=== PATIENT | female | born 1965 | race Caucasian/White ===

== ENCOUNTER 2018-01-11 20:23 | Emergency (ER) | payer BC, SELFPAY ==
[2018-01-11] VITALS (7 sets, daily range): BP systolic 136–157; BP diastolic 94–105; PULSE 109–120; RESP 20–26; TEMP 36.3; O2SAT 95–100; BMI 21.2
--- NOTE | 2018-01-11 20:59 | RAD_ITS ---
STUDY: X-RAY CHEST REASON FOR EXAM: Female, 52 years old. PT REPORTS I AM HAVING AN ASTHMA ATTACK. COUGH X3 WEEKS. SORE THROAT, CONGESTION AND SOB TECHNIQUE: PA and lateral views of the chest. COMPARISON: Chest x-ray January 21, 2017, chest CT January 21, 2017 FINDINGS: Chronic fibrotic changes as previously described with retraction of the left upper lobe and bronchiectasis as well as periapical soft tissue prominence noted. There is relative volume loss of the left chest with elevation of the left hemidiaphragm. This was present previously. The right lung is relatively clear. The appearance is stable. There is no demonstrated pleural abnormality. Heart size is stable. Normal mediastinum and prabhjot. Normal visualized pulmonary arteries. Atherosclerosis of the aortic arch noted. Normal visualized thoracic spine. Normal visualized ribs, clavicles, and shoulders. There is no demonstrated abnormality of the visualized soft tissue structures of the upper abdomen. RAD/Chest PA and Lateral IMPRESSION: Chronic changes as described. No acute superimposed abnormality. Electronically Signed: Nell Gonzalez MD at 23:01 EDT Tel , Service support ,
[2018-01-11] MEDS: predniSONE 20 MG Tablet 60 MG PO (21:04)
[2018-01-11] MEDS: Ipratropium/Albuterol Sulfate 3 ML AMPUL.NEB INHALATION (21:10)
[2018-01-11] MEDS: Albuterol 2.5 MG/3 ML VIAL.NEB. INHALATION ×2 (21:11→21:37)
--- NOTE | 2018-01-11 23:07 | ED.DCSUM_ITS ---
- ER Visit Summary Date of Service: 01/11/18 Chief Complaint: Asthma exacerbation History of Present Illness: The patient is a 52 F presenting for evaluation due to asthma exacerbation. Patient states that she has a underlying history of asthma, had been dealing with respiratory illness couple of months ago, was on a prolonged period of antibiotics and steroids that she finished 3 weeks ago. Patient states that progressively since coming off of the steroids she feels that she has been having worsening shortness of breath but specifically worse today. Patient states that it is associated with a cough intermittently productive of sputum. She denies any presence of fevers. Patient states that she does have an underlying history of Hodgkin's lymphoma and has chronic changes on her left lung on chest x-ray. Review of systems otherwise negative. Physical Examination: Vital signs notable for triage heart rate of 120 respiratory rate 25 pulse ox 95% on room air no hypoxia. Well-nourished female no acute distress no conjunctival pallor no scleral icterus moist mucous membranes. Neck was supple no JVD. Heart was tachycardic and regular. No respiratory distress, but there was tachypnea with wheezing in the bilateral lung doherty with decreased sounds noted on the left consistent with patient's history. Abdomen soft nontender no peripheral edema remainder physical otherwise unremarkable. Test Results: Chest x-ray shows chronic changes with no evidence of superimposed infiltrate per radiology Emergency Department Course and Treatment: Patient presented for evaluation secondary to shortness of breath. Patient was given albuterol and Atrovent treatments as well as prednisone. Patient's chest x-ray shows no evidence of pneumonia. Patient had some dramatic improvement on repeat evaluation has no hypoxia and was able to ambulate on room air and keep her saturations to 96% without significant dyspnea. This point patient has follow-up with pulmonology coming early next month, I believe that she is safe for discharge with a course of prednisone. First dose given in the emergency department patient was discharged in stable condition. Disposition: Discharge Impression: 1. Asthma exacerbation This note was generated with [employer] dictation software. It may contain incorrect words, spelling, and punctuation that were not noted in review of the chart prior to signing ED Disposition - Plan for ED Patient: Disposition: Home or Assisted Living Chief Complaint: Shortness of Breath Diagnosis: Asthma exacerbation Instructions: ED Bronchitis Asthmatic Prescriptions: Prednisone [Deltasone] 60 mg PO DAILY #15 tab Additional Instructions: Followup with Pulmonology as scheduled
== END 2018-01-11 23:18 | disposition home or self-care (01) ==
PROVIDERS: Emergency Provider Emergency Medicine; Family Provider Internal Medicine; PCP Internal Medicine
DX: J45.901 Unspecified asthma with (acute) exacerbation (principal); C81.90 Hodgkin lymphoma, unspecified, unspecified site
CPT/HCPCS: 71046; 94640; 99284

== ENCOUNTER 2018-01-29 11:27 | Inpatient (IN) | payer BC, SELFPAY ==
[2018-01-29] VITALS (13 sets, daily range): BP systolic 114–137; BP diastolic 88–99; PULSE 82–124; RESP 16–33; TEMP 36.3–36.9; O2SAT 93–98; BMI 21.6; BMI 21.0; BMI 21.1
--- NOTE | 2018-01-29 11:50 | EKG12_ITS ---
Test Reason : CHEST PRESSURE Blood Pressure : / mmHG Vent. Rate : 119 BPM Atrial Rate : 119 BPM P-R Int : 136 ms QRS Dur : 124 ms QT Int : 350 ms P-R-T Axes : 067 -02 047 degrees QTc Int : 492 ms Sinus tachycardia Right bundle branch block Abnormal ECG Confirmed by SKYLAR DSEIR MD ([id number]), dictionary editor LYNN TURK ([id number]) on 02/03/2018 2:16:29 PM Referred By: Confirmed By:SKYLAR DESIR MD
--- NOTE | 2018-01-29 11:51 | CT_ITS ---
STUDY: CTA CHEST REASON FOR EXAM: Female, 52 years old. Shortness of breath and chest pressure. Lower extremity edema. History of Hodgkin's lymphoma. RADIATION DOSAGE (If Supplied By Facility): CTDIvol = ( 7.86 ) mGy, DLP = ( 198.95 ) mGycm TECHNIQUE: The examination was performed with the intravenous administration of 75mL ml of Isovue 370 contrast material. Post-processing of the angiographic images was performed, with multiplanar reformation and 3D reconstruction. Individualized dose optimization techniques were used for this CT. COMPARISON: Comparison is made with prior study dated January 21, 2017. FINDINGS: Normal enhancement of the main pulmonary artery and right and left pulmonary arteries. Normal enhancement of the bilateral peripheral pulmonary arteries. There is no demonstrated pulmonary embolism. There is atherosclerotic calcification of the aortic arch with tortuosity. There is no demonstrated aortic dissection. Moderate sized pericardial effusion. Cardiomegaly. Normal mediastinum. Normal hilar regions. Normal visualized trachea and bronchi. Moderate size bilateral pleural effusion right greater than left. Soft tissue density and bronchiectasis in the medial aspect of the left upper lobe with volume loss of the left upper lobe. This may represent postradiation fibrosis and bronchiectasis. Increased markings are also seen in the right upper lobe most likely due to scarring. There is also evidence of increased linear markings with areas of confluence along the lateral aspect of the left lower lobe anteriorly. This may represent scarring. Dependent atelectasis is seen at the lung bases worse on the right side. Normal chest wall structures. Osteopenia of the thoracic vertebrae. Abnormal appearance of the C7 and T1 vertebra suggestive of possible metastasis. Normal visualized upper abdomen. CT/CTA Chest W/WO Contrast IMPRESSION: Bilateral pleural effusions right greater than left with underlying atelectasis. Stable fibrocalcific scarring in the left lung apex with bronchiectasis. Moderate sized pericardial effusion. Abnormal appearance of the upper thoracic vertebrae. Metastasis should be ruled out. Electronically Signed: Blayne Kamraa MD at 13:04 EDT Tel [phone], Service support ,
[2018-01-29] MEDS: Ipratropium/Albuterol Sulfate 3 ML AMPUL.NEB INHALATION (11:58)
[2018-01-29 12:09] LABS: Absolute Lymphocyte Count 0.63 X10^3/ul (0.83-4.51); Absolute Neutrophil Count 3.1 X10^3/uL (2.0-7.7); Basophil# 0.01 X10^3/uL; Basophil% 0.2 % (0-1); Eosinophil# 0.01 X10^3/uL; Eosinophils% 0.2 % (0-5); Hemoglobin 11.6 g/dl (12.0-15.0); Lymphocyte # 0.63 X10^3/ul (4.0); Lymphocyte % 15.1 % (19-41); Mean Corp Hgb Conc 33.1 g/gl (32-36); Mean Corpuscular Volume 84.5 fL (81-99); Mean Platelet Vol. 9.2 fl (6.2-12.0); Monocyte% 9.6 % (0-10); Neutrophil # 3.11 X10^3/uL (2.7-7.7); Neutrophil % 74.9 % (47-70); Platelet Count 160 K/mm3 (150-450); RBC Distribution Width CV 14.2 % (11.6-14.6); RBC Distribution Width SD 42.9 fl (35.1-43.9); Red Blood Count 4.14 M/mm3 (4.2-5.4); White Blood Count 4.2 K/mm3 (4.4-11.0)
[2018-01-29 12:17] LABS: POSITIVE COUNT NO; POSITIVE DIFFERENTIAL NO; POSITIVE MORPHOLOGY NO
[2018-01-29] MEDS: MethylPREDNISolone 125 MG/2 ML Vial IV (12:20)
[2018-01-29 12:22] LABS: Anion Gap 11 (5-15); BUN 18 mg/dL (7-18); BUN/Creat Ratio 17.5 RATIO (10-20); Calcium,Total 8.5 mg/dL (8.5-10.1); Chloride 96 mmol/L (98-107); Creatinine, Serum 1.03 mg/dL (0.55-1.02); EST Glomerular Filtration Rate 60 mL/min (>60); Est Glom Filt Rate - Afr Amer 73 mL/min (>60); Estimated Creatinine Clearance 67.53 ml/min; Glucose 101 mg/dL (74-106); Potassium 3.9 mmol/L (3.5-5.1); Sodium Level 131 mmol/L (136-145)
[2018-01-29 12:45] LABS: BNP,B-Type NATRIURETIC PEPTIDE 1357.5 pg/mL (0-100)
--- NOTE | 2018-01-29 14:54 | ED.DCSUM_ITS ---
- ER Visit Summary Date of Service: 01/29/18 Chief Complaint: [Shortness of breath] History of Present Illness: The patient is a 52 F [presents with shortness of breath that started 2 weeks ago. Patient's had a cough but only bringing up some clear phlegm. Patient complains of some pain with deep breathing. Patient states that she has been sleeping in a recliner because she cannot lay flat. Patient denies any fever. Patient gives history of asthma and prior history of Hodgkin's lymphoma that is in remission.] Physical Examination: [HEENT-PERRLA, EOMI. Cranial nerves II through XII grossly intact. TMs clear. Mucous membranes moist. No adenopathy. Cardiovascular-regular rate and rhythm without murmur or ectopy Lungs-good aeration bilaterally. Patient has Rales in both bases with rhonchi and wheezing throughout. Mild tachypnea. No accessory muscle use or retractions. Abdomen-normoactive bowel sounds, soft, nontender, no rebound or rigidity, no peritoneal signs. Extremities-intact ?4, normal range of motion, normal pulses, atraumatic]. Patient has +1 edema both lower extremities. Test Results: [EKG obtained on arrival shows sinus tachycardia with a ventricular rate of 119 bpm with a right bundle branch block. CBC with differential showed a white blood cell count of 4.2, hemoglobin 11.6, hematocrit 35, platelets 160. Chemistries unremarkable other than a depressed sodium of 131. Troponin was less than 0.02. BNP was 1357. CT scan of the chest with IV contrast was ordered which showed bronchiectasis of the left upper lobe. Patient had moderate pericardial effusion. Patient had cardiomegaly. Patient had moderate bilateral pleural effusions. Patient also had abnormal appearance of C7 and T1 and there is a question of metastasis.] Emergency Department Course and Treatment: [Patient received Lasix 80 mg IV. Patient received a DuoNeb aerosol and Solu-Medrol.] Treatment Plan: [Admit for further workup and evaluation of CHF and pleural effusions as well as pericardial effusion] Disposition: [Admit] Impression: [CHF-new onset Bilateral pleural effusions Pericardial effusion] Concern for bony metastasis to C7 and T1 This note was generated with [employer] dictation software. It may contain incorrect words, spelling, and punctuation that were not noted in review of the chart prior to signing ED Disposition - Plan for ED Patient: Chief Complaint: Shortness of Breath Referrals: Elicia Field MD [Primary Care Provider] -
[2018-01-29] MEDS: Furosemide 100 MG/10 ML Vial 80 MG IV (15:19)
--- NOTE | 2018-01-29 15:25 | NURSING ---
107 CHF EXAC VERITO
--- NOTE | 2018-01-29 15:26 | CASEMGMT ---
Social Work Note In to complete initial assessment with pt as she is targeted for anticipated admission. Introduced self and role at [facility]. Pt is accompanied by her spouse, is alert and oriented and presents with pleasant affect as evidenced by smiling and willingness to participate in assessment. Pt reports to live with her spouse and son in a split level home. Denies access issues, and reports to be independent with ADL's. Pt is employed full-time, has insurance and denies financial instability. Pt's PCP is Dr. Field and her preferred pharmacy is [facility]. Pt does not anticipate discharge needs at discharge, but informed that and RN CM will be available on her assigned unit if needs arise. Hayde Hernandez, FILL MANAGER, ASSISTANT PROFESSOR OF EDUCATION
--- NOTE | 2018-01-29 15:34 | ECHOD_ITS ---
Reason For Study: Heart Failure Procedure This was a 2D Doppler, Color Flow transthoracic echocardiogram. The exam was of adequate technical quality. Exam performed portable in patient room. Left Ventricle Mildly dilated left ventricle. Severe global left ventricular systolic dysfunction. The estimated ejection fraction is 20 %. Transmitral diastolic flow velocities suggest moderate (stage 2) diastolic dysfunction (pseudonormal pattern). Right Ventricle Normal RV size. Normal systolic function. Atria Normal left atrium. Normal right atrium. No doppler evidence for ASD. Mitral Valve There is no mitral annular calcification. Mild diffuse mitral valve thickening. Moderate (2+) mitral valve insufficiency. Tricuspid Valve Normal tricuspid valve. Mild tricuspid valve insufficiency. Right ventricular systolic pressure estimated to be 56 mmHg. Aortic Valve Trisinus/trileaflet aortic valve. Normal aortic valve. Moderately severe (3+) aortic valve insufficiency. Pulmonic Valve The pulmonic valve is not well visualized. Mild (1+) pulmonic valve insufficiency. Great Vessels Normal sized aortic root. Pericardium/Pleural Moderate pericardial effusion. There are no echocardiographic indications of cardiac tamponade. Echolucency c/w a pleural effusion. MMode/2D Measurements & Calculations LVIDd: 5.8 cm IVSd: 0.98 cm Ao root diam: 3.3 cm LVIDs: 5.1 cm LVPWd: 1.0 cm LA dimension: 4.2 cm RVDd: 2.8 cm FS: 12.7 % LAV(MOD-bp): 45.2 ml LA A4 area: 14.3 cm2 RA A4 area: 9.5 cm2 LAV(MOD-bp) Indexed: 25.8 ml/m2 LAV(MOD-sp2): 53.2 ml LAV(MOD-sp4): 33.5 ml Doppler Measurements & Calculations MV E max jose: 105.8 cm/sec Lat Peak E' Jose: 5.7 cm/sec Med Peak E' Jose: 7.8 cm/sec MV A max jose: 88.4 cm/sec E/E' lat: 18.6 E/E' med: 13.5 MV E/A: 1.2 Ao V2 max: 121.5 cm/sec AI max jose: 440.0 cm/sec LV V1 max: 98.4 cm/sec Ao max P.9 mmHg AI max P.4 mmHg LV V1 max P.9 mmHg Ao V2 mean: 88.1 cm/sec AI dec slope: 337.4 cm/sec2 Ao mean P.4 mmHg AI P1/2t: 382.0 msec Ao V2 VTI: 20.3 cm PA V2 max: 75.9 cm/sec PI end-d jose: 182.2 cm/sec TR max jose: 347.3 cm/sec TR max P.2 mmHg Interpretation Summary Mildly dilated left ventricle. Severe global left ventricular systolic dysfunction. The estimated ejection fraction is 20 %. Mild diffuse mitral valve thickening. Moderate (2+) mitral valve insufficiency. Mild tricuspid valve insufficiency. Moderately severe (3+) aortic valve insufficiency. Mild (1+) pulmonic valve insufficiency. Moderate pericardial effusion. There are no echocardiographic indications of cardiac tamponade. Echolucency c/w a pleural effusion. Right ventricular systolic pressure estimated to be 56 mmHg c/w pulmonary hypertension. Transmitral diastolic flow velocities suggest diastolic dysfunction. Ordering Physician: Omar Ramirez Performed By: Graciela Stein RDCS, RVT
--- NOTE | 2018-01-29 16:21 | PCM.HP.STD ---
Problem List (1) Non-Hodgkin lymphoma in remission Status: Chronic (2) History of stem cell transplant Status: Chronic (3) Bilateral pleural effusion Status: Chronic (4) Mass of left lung Status: Chronic (5) Heart failure Status: Acute History of Present Illness Date of Admission: 01/29/18 Chief Complaint: Shortness of breath for 3 weeks, progressively worsening The patient is a 52 year old F with history of Hodgkin's lymphoma diagnosed 1999 status post chemo and stem cell transplant in June 2000 and then chest radiation came to ER with progressively worsening of shortness of breath for 3 weeks. Patient also orthopneic and sleep in recliner with bilateral lower legs edema. As per the patient he had chemo with the bleomycin and developed asthma after chemoradiation. She denies chest pain/tightness or near syncope. She denies fever chills, cough or flulike symptoms. In ED, EKG shows sinus tachycardia at 119 bpm with right bundle branch block. CT chest was done and shows bilateral pleural effusion right more than left and left lung mass in the lingular lobe. She has not followed oncologist last 6 years, used to follow-up in [facility]. She denies any previous cardiac history. [] Past Medical History Past Medical History (Chronic Problems): Chronic Problems Non-Hodgkin lymphoma in remission (Chronic) History of stem cell transplant (Chronic) Bilateral pleural effusion (Chronic) Mass of left lung (Chronic) Allergies guaifenesin Allergy (Verified 01/29/18 11:28) Other Penicillins [PCN] Allergy (Verified 01/29/18 11:28) Itching Sulfa (Sulfonamide Antibiotics) Allergy (Verified 01/29/18 11:28) Rash Home Medications: Ambulatory Orders Medication Instructions Recorded Montelukast [Singulair] 10 mg PO DAILY 11/17/14 Omeprazole [Omeprazole] 20 mg PO BID 11/17/14 Albuterol Sulfate 1.25 mg IH Q4H PRN PRN 01/29/18 Amitriptyline HCl [Elavil] 50 mg PO DAILY 01/29/18 Fluticasone/Salmeterol [Advair 1 puff BID 01/29/18 500-50 Diskus] Ipratropium [Atrovent] 0.5 mg INHALATION Q4H PRN PRN 01/29/18 Venlafaxine XR [Effexor Xr] 37.5 mg DAILY 01/29/18 Smoking Status: Never smoker - *Family History Paternal History Items: No pertinent history Review of Systems Constitutional: Reports: Weakness, - - Denies recent weight loss in last 6 months. Denies: Chills, Fever, Weight Change HEENT: Denies: Head Aches, Sinus Congestion, Sinus Drainage Cardiovascular: Denies: Chest Pain, Palpitations Respiratory: Reports: Shortness of breath upon exertion. Denies: Cough, Shortness of breath at rest, Sputum production Gastrointestinal: Denies: Abdominal Pain, Nausea, Vomiting Genitourinary: Denies: Dysuria Musculoskeletal: Denies: Joint Pain, Joint Tenderness Skin: Denies: Rash, Wounds Neurological: Denies: Numbness, Tingling, Focal weakness Psychiatric: Denies: Anxiety, Depression, Homicidal Ideations, Suicidal Ideations Hematologic/ Lymphatic: Denies: Easy Bruising, Easy Bleeding VTE Information - Inpt Only VTE Present on Admission: No VTE Mechan Device Prophylaxis: SCD's VTE Pharm Prophylaxis ordered?: Yes Patient Problems: Active and Suspected Problems Heart failure (Acute) - Physical Exam General: Alert, Oriented x3, Cooperative HEENT: Atraumatic, PERRLA, EOMI, Normocephalic Neck: Supple, No JVD, Negative Carotid Bruits Lungs: Diminished, Rales, - - Bilateral pleural effusion, right more than left. Stony dullness present on the right side below fourth intercostal space Cardiovascular: Regular rate, Regular Rhythm, Normal S1, Normal S2, No murmurs Abdomen: Bowel Sounds Present, Soft, Non Tender, Non-Distended Extremities: Capillary Refill Less than 3 Seconds, Edema Skin: No rashes, No breakdown Musculoskeletal: No Tenderness to Palpation of Joints or Extremities Neurological: Cranial nerves II-XII grossly intact Psych/Mental Status: Normal Affect, Appropriate Vital Signs Temp Pulse Resp BP Pulse Ox 98.5 F 123 H 33 H 133/98 H 94 01/29/18 11:28 01/29/18 15:09 01/29/18 15:09 01/29/18 15:09 01/29/18 15:09 Assessment/Plan Active and Suspected Problems Heart failure (Acute) The patient is a 52 year old F with history of Hodgkin's lymphoma diagnosed 1998 status post chemo and stem cell transplant in June 2000 and then chest radiation came to ER with progressively worsening of shortness of breath for 3 weeks. Patient also orthopneic and sleep in recliner with bilateral lower legs edema. As per the patient he had chemo with the bleomycin and developed asthma after chemoradiation. She denies chest pain/tightness or near syncope. She denies fever chills, cough or flulike symptoms. In ED, EKG shows sinus tachycardia at 119 bpm with right bundle branch block. CT chest was done and shows bilateral pleural effusion right more than left and left lung mass in the lingular lobe. She has not followed oncologist last 6 years, used to follow-up in [facility]. She denies any previous cardiac history. 1. Clinically new onset heart failure: The patient is being admitted to PCU. Serial cardiac enzymes ordered. 2D echo ordered. Started on Lasix 40 mg IV twice daily. Started on metoprolol low-dose, lisinopril and Isordil. 2. Bilateral pleural effusion with possibility of underlying atelectasis/pneumonia/bronchiectasis and left upper lobe lung mass: As per the patient, she had pneumonia about 2 months ago. Patient will need thoracocentesis and pleural fluid analysis. Pulmonary consult. Urinary antigens ordered. Chest CT scan shows soft tissue density and bronchiectasis in the medial aspect of the left upper lobe with volume loss of left upper lobe. Suspicion of postradiation fibrosis and bronchiectasis. And atelectasis in the lung bases. Clinically, she is not having symptoms of fever chills or cough suggestive of pneumonia so will hold off antibiotic and follow clinically. 3. Intermittent acquired asthma most rarely after chemoradiation: On Pulmicort inhalation. DuoNeb every 4 hourly as needed. 4. Hodgkin's lymphoma status post stem cell transplant, chemoradiation in remission: Consult Dr. Solis for further opinion. DVT prophylaxis: On Lovenox 40 mg subcu daily and bilateral SCDs. Laboratory Results 01/29/18 11:55: WBC 4.2 L, RBC 4.14 L, Hgb 11.6 L, Hct 35.0 L, MCV 84.5, MCH 28.0, MCHC 33.1, RDW 14.2, RDW Differential 42.9, Plt Count 160, MPV 9.2, Immature Gran % (Auto) 0.000, Neut % (Auto) 74.9 H, Lymph % (Auto) 15.1 L, [place] % (Auto) 9.6, Eos % (Auto) 0.2, Baso % (Auto) 0.2, Absolute Neuts (auto) 3.1, Absolute Lymphs (auto) 0.63 L, Total Counted Not Reportable 01/29/18 11:55: Sodium 131 L, Potassium 3.9, Chloride 96 L, Carbon Dioxide 24.0, Anion Gap 11, BUN 18, Creatinine 1.03 H, Estim Creat Clear Calc 67.53, Est GFR (MDRD) Af Amer 73, Est GFR (MDRD) Non-Af 60, BUN/Creatinine Ratio 17.5, Glucose 101, Calcium 8.5, Troponin I < 0.02 01/29/18 11:55: B-Natriuretic Peptide 1357.5 H 01/29/18 11:55: Magnesium 2.0 01/29/18 16:17: Troponin I Pending Clinical Impression(s) from Imaging Studies Chest CTA 01/29/18 11:51 IMPRESSION: Bilateral pleural effusions right greater than left with underlying atelectasis. Stable fibrocalcific scarring in the left lung apex with bronchiectasis. Moderate sized pericardial effusion. Abnormal appearance of the upper thoracic vertebrae. Metastasis should be ruled out. Electronically Signed: Blayne Kamara MD at 13:04 EDT Tel [phone], Service support , Code Visit Inpatient E&M: 62875 Init Hosp L3
[2018-01-29] MEDS: Enoxaparin 40 MG/0.4 ML Syringe SC (17:53)
[2018-01-29 18:21] LABS: LDH 296 U/L (84-246)
[2018-01-29 18:30] LABS: Color, Urine Straw (Yellow); Glucose, Dipstick Normal (Normal); Ketone-Dipstick Negative (Negative); Leukocyte Esterase-Dipstick Negative /ul (Negative); Nitrite-Dipstick Negative (Negative); Occult Blood-Urine Negative /ul (Negative); Protein-Dipstick Negative (Negative); Urine Bilirubin Dipstick Negative (Negative); Urine Clarity Clear (Clear); Urine Urobilinogen Normal (Normal)
[2018-01-29] MEDS: Acetaminophen 325 MG Tablet 650 MG PO (18:38)
[2018-01-29] MEDS: Metoprolol Tartrate 25 MG Tablet 12.5 MG PO (21:07)
[2018-01-29] MEDS: Isosorbide DN 10 MG Tablet PO (21:08)
[2018-01-29] MEDS: Furosemide 40 MG/4 ML Vial IV (21:08)
[2018-01-29] MEDS: 0.9% NaCl Peripheral Flush Adult/Peds IV ×2 (21:09→22:33)
[2018-01-29] MEDS: LORazepam 2 MG/ML Syringe 0.5 MG IV (22:33)
[2018-01-30] VITALS (14 sets, daily range): BP systolic 97–117; BP diastolic 67–83; PULSE 83–110; RESP 12–24; TEMP 36.3–36.8; O2SAT 95–98
--- NOTE | 2018-01-30 | FLU_PTH ---
PATIENT: ZEESHAN FERNANDO LOC: PCU U#:[id number] AGE/SX: 52/F ROOM: [facility] RE01/29/[address]: Dr. Manan Gutierrez MD : 1965 BED: 1 DIS: 01/30/2018 SPEC #: [id number] RECD: 01/30/18 13:05 STATUS: LUIS FELIPE REFabrice #: [id number] COLEEN: 01/30/18 00:[address]: Manan Gutierrez DEPT: CYTOLOGY RECD BY: Michael Ramon ENTERED: 01/30/18 13:06 SP TYPE: Fluid OTHR DR: MD Dr. Dimitris Maldonado DO Dr. Lapman Lun, MD Dr. Prakash Chand, MD Tissues: THORACIC FLUID Procedures: Pap Stain (control) Special Stain Group II Surgery Specimen Level IV Cell Block Cytospin Fluid HEADER OPERATION: Ultrasound-guided right thoracentesis PRE-OP DIAGNOSIS: Right pleural effusion TISSUE SUBMITTED: Thoracentesis fluid for cytology DIAGNOSIS CYTOLOGY Thoracentesis fluid for cytology (cytospin and cell block): Negative for malignant cells. SJ:twin 02/02/18 CYTOLOGY STUDY Slides are reviewed. The specimen consists of macrophages, mesothelial cells and inflammatory cells. CYTOLOGY GROSS Received is 100 ml of yellow cloudy fluid labeled with the patient's name and and designated per the requisition as thoracentesis. Submitted for cytology preparation including cell block. / 01/30/18 TC:5 CPT: 28776, 90564
[2018-01-30 02:48] LABS: Hematocrit 34.7 % (37-47); Hemoglobin 11.8 g/dl (12.0-15.0); International Normalized Ratio 1.1; Mean Corpuscular Hgb 27.8 pg (27.0-32.0); Mean Corpuscular Volume 81.8 fL (81-99); Mean Platelet Vol. 9.6 fl (6.2-12.0); Platelet Count 155 K/mm3 (150-450); Prothrombin Time (Protime)PT. 14.4 SECONDS (11.7-14.9); RBC Distribution Width CV 14.1 % (11.6-14.6); RBC Distribution Width SD 41.2 fl (35.1-43.9); Red Blood Count 4.24 M/mm3 (4.2-5.4); White Blood Count 3.2 K/mm3 (4.4-11.0)
[2018-01-30 02:59] LABS: Scan Indicated on CBC? Y/N NO
[2018-01-30 03:28] LABS: Anion Gap 12 (5-15); BUN 17 mg/dL (7-18); BUN/Creat Ratio 20.4 RATIO (10-20); Calcium,Total 8.3 mg/dL (8.5-10.1); Chloride 94 mmol/L (98-107); Cholesterol 159 mg/dL (200); Creatinine, Serum 0.83 mg/dL (0.55-1.02); EST Glomerular Filtration Rate 77 mL/min (>60); Est Glom Filt Rate - Afr Amer 93 mL/min (>60); Globulin 3.4 g/dL (2.2-4.2); Glucose 124 mg/dL (74-106); High Density Lipoprotein 74 mg/dL; Potassium 3.7 mmol/L (3.5-5.1); Protein, Total 6.9 g/dL (6.4-8.2); Sodium Level 132 mmol/L (136-145); Thyroid Stim Hormone (TSH) 0.71 uIU/mL (0.358-3.74); Triglycerides 43 mg/dL; Very Low Density Lipoprotein 9 mg/dL (5-40)
[2018-01-30] MEDS: Isosorbide DN 10 MG Tablet PO (05:32)
--- NOTE | 2018-01-30 05:55 | EKG12_ITS ---
Test Reason : AM EKG Blood Pressure : / mmHG Vent. Rate : 097 BPM Atrial Rate : 097 BPM P-R Int : 162 ms QRS Dur : 132 ms QT Int : 456 ms P-R-T Axes : 085 055 007 degrees QTc Int : 579 ms Normal sinus rhythm Right bundle branch block Abnormal ECG When compared with ECG of 29-JAN-2018 11:41, MANUAL COMPARISON REQUIRED, DATA IS UNCONFIRMED Reconfirmed by KARLEE ASH, SKYLAR ([id number]), writer editor LYNN TURK ([id number]) on 02/03/2018 3:31:50 PM Referred By: DR SELLERS Confirmed By:SKYLAR DESIR MD
--- NOTE | 2018-01-30 05:55 | RAD_ITS ---
STUDY: X-RAY CHEST REASON FOR EXAM: Female, 52 years old. Shortness of breath. TECHNIQUE: AP and lateral views of the chest. COMPARISON: Comparison is made with prior study dated January 11, 2018. FINDINGS: EKG electrodes are seen. Is evidence of bilateral pleural effusions with bibasilar atelectasis. Mild degree of vascular congestion. Stable scarring in the left suprahilar region with volume loss in the left upper lobe most likely secondary to prior radiation treatment or surgery. Stable pleural thickening of both lung apices worse on the left side. There is mild cardiac enlargement. Normal mediastinum and prabhjot. Normal visualized pulmonary arteries. There is atherosclerotic tortuosity of the aortic arch and descending thoracic aorta. Normal visualized thoracic spine. Normal visualized ribs, clavicles, and shoulders. There is no demonstrated abnormality of the visualized soft tissue structures of the upper abdomen. RAD/Chest PA and Lateral IMPRESSION: Bilateral pleural effusions with underlying bibasilar atelectasis superimposed on mild degree of CHF. Stable changes in the left suprahilar region and both lung apices. Electronically Signed: Blayne Kamara MD at 10:07 EDT Tel [phone], Service support ,
--- NOTE | 2018-01-30 08:58 | RAD_ITS ---
STUDY: X-RAY - THORACIC SPINE REASON FOR EXAM: Female, 52 years old. History of arthritis. Possible metastasis. TECHNIQUE: 3 view(s) of the thoracic spine were obtained. COMPARISON: None. FINDINGS: Normal kyphosis of the thoracic spine. There is no substantial scoliosis. There is demineralization of the thoracic spine. There is multilevel disc space narrowing of the thoracic spine. Bilateral pleural effusions and bibasilar infiltrates and/or atelectasis. RAD/Thoracic Spine 3 Views IMPRESSION: Multilevel disc space narrowing in the thoracic level. Osteopenia of the thoracic vertebrae worse in the upper thoracic spine. Correlation with the bone scan is recommended. Electronically Signed: Blayne Kamara MD at 13:00 EDT Tel [phone], Service support ,
--- NOTE | 2018-01-30 08:58 | CON.PCM_ITS ---
Problem List (1) Non-Hodgkin lymphoma in remission Status: Chronic (2) History of stem cell transplant Status: Chronic (3) Fracture of spine Status: Acute Qualifiers: Thoracic vertebra fracture level: unspecified thoracic vertebra Fracture type: closed Fracture morphology: unspecified fracture morphology Fracture healing: with routine healing - Consult Date of Consult: 01/30/[address] Ramirez regarding a patient with history of Hodgkin lymphoma, status post transplant presented with congestive heart failure. My final recommendations will be communicated to Dr. Ramirez, nursing staff, and also by electronic medical records. - Reason for Consult History of Hodgkin lymphoma- in remission Status post bone marrow transplant 1999 Congestive heart failure Thoracic spine fractures History of Present Illness Date of Admission: 01/29/18 The patient is a 52 year old F with history of Hodgkin's lymphoma diagnosed 1998 status post chemotherapy ABVD x 6 months and involved field radiation therapy to mediastinum, and stem cell transplant in June 2000. He had previous evaluation in [facility] after bone marrow transplant regarding heart. Patient came to ER with progressively worsening of shortness of breath for 3 weeks. Patient also orthopneic and sleep in recliner with bilateral lower legs edema for couple weeks. she also developed asthma/ pulmonary toxicity after chemoradiation in 1999. She first noticed increased dyspnea on exertion last September. She was having problems walking up a hill, but she denies chest pain/tightness or near syncope. She denies fever chills, cough or flulike symptoms. She had several bouts of colds and bronchitis in October and November. In ED, EKG shows sinus tachycardia at 119 bpm with right bundle branch block. CT chest was done and shows bilateral pleural effusion right more than left and left lung mass in the lingular lobe (chronic). There is also evidence of possible old compression fracture of the thoracic spine. She has not followed oncologist last 6 years, used to follow-up in [facility]. She denies any previous cardiac history. No tobacco or ETOH used and no family history of heat disease. Denies history of fall or back pain, no neurological symptoms. Past Medical History Past Medical History (Chronic Problems): Chronic Problems Non-Hodgkin lymphoma in remission (Chronic) History of stem cell transplant (Chronic) Bilateral pleural effusion (Chronic) Mass of left lung (Chronic) Asthma (Chronic) Allergies guaifenesin Allergy (Verified 01/29/18 11:28) Other Penicillins [PCN] Allergy (Verified 01/29/18 11:28) Itching Sulfa (Sulfonamide Antibiotics) Allergy (Verified 01/29/18 11:28) Rash Home Medications: Ambulatory Orders Medication Instructions Recorded Montelukast [Singulair] 10 mg PO DAILY 11/17/14 Omeprazole [Omeprazole] 20 mg PO BID 11/17/14 Albuterol Sulfate 1.25 mg IH Q4H PRN PRN 01/29/18 Amitriptyline HCl [Elavil] 50 mg PO DAILY 01/29/18 Fluticasone/Salmeterol [Advair 1 puff BID 01/29/18 500-50 Diskus] Ipratropium [Atrovent] 0.5 mg INHALATION Q4H PRN PRN 01/29/18 Venlafaxine XR [Effexor Xr] 37.5 mg DAILY 01/29/18 Smoking Status: Never smoker - *Family History Paternal History Items: No pertinent history Review of Systems Constitutional: Reports: Weakness, - - Denies recent weight loss in last 6 months. Denies: Chills, Fever, Weight Change HEENT: Denies: Head Aches, Sinus Congestion, Sinus Drainage Cardiovascular: Denies: Chest Pain, Palpitations Respiratory: Reports: Shortness of breath upon exertion. Denies: Cough, Shortness of breath at rest, Sputum production Gastrointestinal: Denies: Abdominal Pain, Nausea, Vomiting Genitourinary: Denies: Dysuria Musculoskeletal: Denies: Joint Pain, Joint Tenderness Skin: Denies: Rash, Wounds Neurological: Denies: Numbness, Tingling, Focal weakness Psychiatric: Denies: Anxiety, Depression, Homicidal Ideations, Suicidal Ideations Hematologic/ Lymphatic: Denies: Easy Bruising, Easy Bleeding Heart failure (Acute/Chonic) - Physical Exam General: Alert, Oriented x3, Cooperative HEENT: Atraumatic, PERRLA, EOMI, Normocephalic Neck: Supple, No JVD, Negative Carotid Bruits Lungs: Diminished, Rales, - - Bilateral pleural effusion, right more than left. Stony dullness present on the right side below fourth intercostal space Cardiovascular: Regular rate, Regular Rhythm, Normal S1, Normal S2, No murmurs Abdomen: Bowel Sounds Present, Soft, Non Tender, Non-Distended Extremities: Capillary Refill Less than 3 Seconds, Edema Skin: No rashes, No breakdown Musculoskeletal: No Tenderness to Palpation of Joints or Extremities Neurological: Cranial nerves II-XII grossly intact Psych/Mental Status: Normal Affect, Appropriate Vital Signs Temp Pulse Resp BP Pulse Ox 98.5 F 123 H 33 H 133/98 H 94 01/29/18 11:28 01/29/18 15:09 01/29/18 15:09 01/29/18 15:09 01/29/18 15:09 Assessment/Plan Active and Suspected Problems Heart failure (Acute) The patient is a 52 year old F with history of Hodgkin's lymphoma diagnosed 1998 status post ABVD x 6 months and stem cell transplant in June 2000 and then chest radiation therapy. She came to ER with progressively worsening of shortness of breath for 3 weeks, edema and orthopnea. In ED, EKG shows sinus tachycardia at 119 bpm with right bundle branch block. 1. Clinically new onset heart failure: Possible chronic heart failure from chemotherapy-induced; and radiation therapy. Plan: -Obtain a record of EKG and echocardiogram after transplant for comparison -Cardiac workup in progress -Cardiology consult 2. Hodgkin's lymphoma status post stem cell transplant in remission: Plan: - no further evaluation needed. 3. abormal upper thoracic vertebra on CT scan-patient has no back pain Plan: -X-ray thoracic spine evaluation -Check SPEP & immunofixation Laboratory Results 01/29/18 11:55: WBC 4.2 L, RBC 4.14 L, Hgb 11.6 L, Hct 35.0 L, MCV 84.5, MCH 28.0, MCHC 33.1, RDW 14.2, RDW Differential 42.9, Plt Count 160, MPV 9.2, Immature Gran % (Auto) 0.000, Neut % (Auto) 74.9 H, Lymph % (Auto) 15.1 L, Nelson % (Auto) 9.6, Eos % (Auto) 0.2, Baso % (Auto) 0.2, Absolute Neuts (auto) 3.1, Absolute Lymphs (auto) 0.63 L, Total Counted Not Reportable 01/29/18 11:55: Sodium 131 L, Potassium 3.9, Chloride 96 L, Carbon Dioxide 24.0 , Anion Gap 11, BUN 18, Creatinine 1.03 H, Estim Creat Clear Calc 67.53, Est GFR (MDRD) Af Amer 73, Est GFR (MDRD) Non-Af 60, BUN/Creatinine Ratio 17.5, Glucose 101, Calcium 8.5, Troponin I < 0.02 01/29/18 11:55: B-Natriuretic Peptide 1357.5 H 01/29/18 11:55: Magnesium 2.0 01/29/18 16:17: Troponin I Pending Clinical Impression(s) from Imaging Studies Chest CTA 01/29/18 11:51 IMPRESSION: Bilateral pleural effusions right greater than left with underlying atelectasis. Stable fibrocalcific scarring in the left lung apex with bronchiectasis. Moderate sized pericardial effusion. Abnormal appearance of the upper thoracic vertebrae. Metastasis should be ruled out. Electronically Signed: Blayne Kamara MD at 13:04 EDT cc: Dr. Omar Ramirez; Dr. Polina Laureano; Dr. Elicia Field
[2018-01-30] MEDS: Metoprolol Tartrate 25 MG Tablet 12.5 MG PO (09:09)
[2018-01-30] MEDS: Acetaminophen 325 MG Tablet 650 MG PO (09:09)
--- NOTE | 2018-01-30 10:00 | US_ITS ---
PROCEDURE: ULTRASOUND GUIDED THORACENTESIS. DATE: January 30, 2018.. INDICATION: Female, 52 years old. Right pleural effusion. PHYSICIAN: Blayne Kamara M.D. PROCEDURE: The risks, benefits, and alternatives to the procedure were explained to the patient. The specific risks of bleeding, infection, and pneumothorax requiring chest tube insertion were discussed and accepted. Written informed consent was obtained. Ultrasonographic evaluation of the right lower pleural space was carried out. An adequate pocket was identified. The patient was placed in the sitting, upright position. The overlying skin was prepped and draped in sterile fashion. 1% lidocaine was administered subcutaneously for local anesthesia. Under ultrasound guidance, a 6 Japanese thoracentesis needle/catheter system was advanced into the right posterior lower pleural fluid collection. Approximately 870 mL of bia-colored fluid was drained. The catheter was removed, and a sterile dressing was applied. A specimen was collected and sent to the laboratory for analysis, as requested by the referring clinician. The patient tolerated the procedure well. A chest x-ray was ordered. US/Thoracentesis W US IMPRESSION: Ultrasound-guided right thoracentesis. Electronically Signed: Blayne Kamara MD at 10:55 EDT Tel [phone], Service support ,
--- NOTE | 2018-01-30 10:09 | RAD_ITS ---
STUDY: X-RAY CHEST REASON FOR EXAM: Female, 52 years old. Post right thoracentesis. TECHNIQUE: Inspiration and expiration views. COMPARISON: Comparison prior examination dated January 30, 2018 at 6:40 AM. FINDINGS: Hyperinflation. The patient is status post right thoracentesis. There is no evidence of thorax. Stable appearance of the left lung. RAD/Chest Insp/Exp 2 View IMPRESSION: Status post right thoracentesis. There is no evidence of pneumothorax. Electronically Signed: Blayne Kamara MD at 13:37 EDT Tel [phone], Service support ,
--- NOTE | 2018-01-30 10:24 | NURSING ---
REPORT CALLED TO BRANDEE ANAND. 870 ML MERLIN FLUID REMOVED. BANDAID APPLIED TO RT MID BACK. CXR CLEARED BY DR. MANZANO. PT GIVEN WATER AND RETURNED TO FLOOR BY RADIOLOGY TRANSPORT.
[2018-01-30 10:38] LABS: Cytology, Body Fluid / CSF SEE PATHOLOGY REPORT
[2018-01-30 10:52] LABS: Body Fluid Mononuclear WBC # 0.792 10^3/uL; Body Fluid Mononuclear WBC % 98.3 %; Body Fluid Polynuclear WBC # 0.014 10^3/uL; Body Fluid Polynuclear WBC % 1.7 %; Body Fluid Total Cells Counted 0.882 10^3/ul (0.000-0.000); White Blood Count/Body Fluid 0.806 10^3/uL
[2018-01-30 10:54] LABS: Appearance/Body Fluid SL CLDY; Auto B Fluid Analyzer BKGD Ct COUNTS W/IN LIMITS (W/IN LIMITS); Color/Body Fluid YELLOW; Source- Body Fluid THORACENTESIS
[2018-01-30] MEDS: Furosemide 40 MG/4 ML Vial IV (10:58)
[2018-01-30] MEDS: 0.9% NaCl Peripheral Flush Adult/Peds IV (10:58)
--- NOTE | 2018-01-30 10:58 | PCM.CONS.GEN ---
Problem List (1) Acute combined systolic and diastolic congestive heart failure Status: Acute (2) Non-Hodgkin lymphoma in remission Status: Chronic (3) History of stem cell transplant Status: Chronic (4) Bilateral pleural effusion Status: Chronic (5) Mass of left lung Status: Chronic Reason for Consult Date of Consultation: 01/30/18 Reason for Consultation: bilat pleural effusions, ?new onset CHF History of Present Illness: The patient is a 52 year old F with a past medical history as below, presented to the ED on 01/29/18 with complaints of 2-3 week history of progressive shortness of breath, lower extremity edema, and orthopnea. Patient complains of a cough with clear sputum production. She denies any fever or chills. Denies hemoptysis. Denies recent weight changes. She has been sleeping in a recliner for several weeks and has not been able to do her chores. Her legs became quite edematous which was new for her. Patient actually saw Dr. Lobo as a new consult on Friday, at which time she had pulmonary function tests and was told she had half her lung function. She was to have a chest CT next week but got so short of breath that she went to the ED. She has never had home oxygen. She was just placed on an albuterol rescue inhaler and ipratropium nebulizer, which helps her symptoms. Initial vital signs BP 120/90, pulse 124, RR 24, 98.5?F, and 93% on room air. Blood work showed a white count of 4.2, hemoglobin 11.6 and hematocrit 35. Coags were normal. Sodium mildly low at 131 and chloride 96. BUN normal at 18 and creatinine 1.03. LDH 296 and BNP 1357. Urinalysis not indicative of infection. Urine strep and Legionella antigens were negative. Viral respiratory panel negative. CT of the chest on 01/29 showed bilateral pleural effusions right greater than left with underlying atelectasis. There is stable fibrocalcific scarring in the left lung apex with bronchiectasis. There is a moderate sized pericardial effusion and abnormal appearance of the upper thoracic vertebrae with questionable metastases. Chest x-ray on 01/30 showed bilateral pleural effusions with underlying bibasilar atelectasis superimposed on mild degree of CHF, stable changes left suprahilar region and both lung apices. Echocardiogram showed a mildly dilated left ventricle, severe global LV systolic dysfunction, estimated EF of 20%, mild diffuse MV thickening, moderate MVI, mild TVI, moderately severe ROLA, mild TVI, moderate pericardial effusion with no evidence of cardiac tamponade on, and RVSP estimated at 56 mmHg. A thoracentesis was performed this morning with results pending. Thoracic spine x-ray is pending. Pulmonary was consulted for CHF and bilateral pleural effusions. Past Medical History Past Medical History (Chronic Problems): Chronic Problems Non-Hodgkin lymphoma in remission (Chronic) History of stem cell transplant (Chronic) Bilateral pleural effusion (Chronic) Mass of left lung (Chronic) Allergies guaifenesin Allergy (Verified 01/29/18 11:28) Other Penicillins [PCN] Allergy (Verified 01/29/18 11:28) Itching Sulfa (Sulfonamide Antibiotics) Allergy (Verified 01/29/18 11:28) Rash Home Medications: Ambulatory Orders Medication Instructions Recorded Montelukast [Singulair] 10 mg PO DAILY 11/17/14 Omeprazole [Omeprazole] 20 mg PO BID 11/17/14 Albuterol Sulfate 1.25 mg IH Q4H PRN PRN 01/29/18 Amitriptyline HCl [Elavil] 50 mg PO DAILY 01/29/18 Fluticasone/Salmeterol [Advair 1 puff IH BID 01/29/18 500-50 Diskus] Ipratropium [Atrovent] 0.5 mg INHALATION Q4H PRN PRN 01/29/18 Venlafaxine XR [Effexor Xr] 37.5 mg PO QHS 01/29/18 Surgical History: - - stem cell transplant 1999 Psychiatric History: No pertinent psych hx 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 Denies: Anorexia, Chills, Fever, Night Sweats, Malaise, Weakness, Weight Change Eyes: Denies: Vision Change HEENT: Denies: Difficulty Swallowing, Nasal bleeding, Nasal Congestion, Post Nasal Drip, Sinus Congestion, Sinus Drainage, Sore Throat Cardiovascular: Reports: Edema, Orthopnea. Denies: Chest Pain, Chest Tightness, Light Headedness, Palpitations, Paroxysmal Noc. Dyspnea, Syncope Respiratory: Reports: Cough, Shortness of breath upon exertion, Sputum production. Denies: Hemoptysis, Wheezing Gastrointestinal: Reports: - - + abdominal distention. Denies: Abdominal Pain, Constipation, Diarrhea, Hematemesis, Hematochezia, Nausea, Melena, Vomiting Genitourinary: Denies: Dysuria, Frequency, Hematuria, Retention Gynecological: Denies: Breast symptoms Musculoskeletal: Reports: - - muscle cramps legs w/diuresis. Denies: Back Pain Skin: Denies: Rash, Wounds Neurological: Denies: Balance problems, Change in Speech, Focal weakness, Numbness, Tingling, Tremor, Seizures Psychiatric: Reports: Depression. Denies: Anxiety Endocrine: Denies: Change in Body Habitus, Polydipsia, Polyuria Hematologic/ Lymphatic: Reports: Anemia, Easy Bruising. Denies: Adenopathy, Easy Bleeding, Hx of blood clot Patient Problems: Active and Suspected Problems Heart failure (Acute) Fracture of spine (Acute) Acute combined systolic and diastolic congestive heart failure (Acute) Subjective: The patient was seen and examined. She is sitting up in bed in no acute distress, her daughter and are at the bedside. Just returned a while ago from her thoracentesis and reports significant subjective improvement in her breathing, she has been weaned to room air. Objective: Clinical Impression(s) from Imaging Studies Chest CTA 01/29/18 11:51 IMPRESSION: Bilateral pleural effusions right greater than left with underlying atelectasis. Stable fibrocalcific scarring in the left lung apex with bronchiectasis. Moderate sized pericardial effusion. Abnormal appearance of the upper thoracic vertebrae. Metastasis should be ruled out. Electronically Signed: Blayne Kamara MD at 13:04 EDT Tel [phone], Service support , Chest X-Ray 01/30/18 05:55 IMPRESSION: Bilateral pleural effusions with underlying bibasilar atelectasis superimposed on mild degree of CHF. Stable changes in the left suprahilar region and both lung apices. Electronically Signed: Blayne Kamara MD at 10:07 EDT Tel [phone], Service support , Thoracentesis Ultrasound 01/30/18 10:00 IMPRESSION: Ultrasound-guided right thoracentesis. Electronically Signed: Blayne Kamara MD at 10:55 EDT Tel [phone], Service support , - Physical Exam General: Alert, Oriented x3, Cooperative, No apparent distress, Well developed, Well nourished, - - No conversational dyspnea HEENT: Atraumatic, Normocephalic Oral: Moist Mucosa, No Gingival or Mucosal Lesions/ Ulcerations Neck: Supple, No Nodes, Trachea Midline Lungs: No rhonchi, No wheeze, No rales, Diminished, - - Symmetrical expansion, no dullness to percussion. No crepitus over the thoracentesis site on the right Cardiovascular: Regular rate, Regular Rhythm, Normal S1, Normal S2, No murmurs, No rub noted, No Gallop Abdomen: Bowel Sounds Present, Soft, Non Tender, Non-Distended Extremities: No clubbing, No cyanosis, No Calf Tenderness, Edema - Trace bilateral lower extremities Skin: No rashes, - - bandaid over thora site R back Musculoskeletal: No Tenderness to Palpation of Joints or Extremities Lymphatic: No Cervical, Supraclavicular, or Inguinal Adenopathy Neurological: Cranial nerves II-XII grossly intact, Neuro grossly intact, Motor Exam 5/5 strength throughout Psych/Mental Status: Alert and oriented to time, place, person, mood and affect Vital Signs Temp Pulse Resp BP Pulse Ox 98.2 F 96 12 97/74 98 01/30/18 10:55 01/30/18 10:55 01/30/18 10:55 01/30/18 10:55 01/30/18 10:55 Oxygen Flow Rate (L/min) 2 Oxygen Delivery Method Room Air Weight: 136 lb 3.931 oz Body Mass Index (BMI) 21.0 Intake and Output for Last 24 Hours 01/28/18 01/29/18 01/30/18 23:59 23:59 23:59 Intake Total 200 / 200 800 / 800 Output Total 2000 / 2000 1500 / 1500 Balance -1800 / -1800 -700 / -700 Microbiology Past 72 Hours 01/30/18 05:05 Respiratory Panel (PCR) - Final Mucosa - Nasopharyngeal 01/29/18 18:05 Streptococcus pneumoniae Antigen (M - Final Urine, Random 01/29/18 18:05 Legionella Antigen - Final Urine, Random Laboratory Tests Past 24 Hrs 01/29/18 01/29/18 01/29/18 16:17 16:17 18:05 WBC RBC Hgb Hct MCV MCH MCHC RDW RDW Differential Plt Count MPV PT INR Sodium Potassium Chloride Carbon Dioxide Anion Gap BUN Creatinine Estim Creat Clear Calc Est GFR (MDRD) Af Amer Est GFR (MDRD) Non-Af BUN/Creatinine Ratio Glucose Calcium Lactate Dehydrogenase 296 H Troponin I < 0.02 Total Protein Globulin Albumin/Globulin Ratio Triglycerides Cholesterol LDL Cholesterol VLDL Cholesterol HDL Cholesterol TSH Urine Color Straw Urine Clarity Clear Urine pH 7.0 Ur Specific [place] 1.010 Urine Protein Negative Urine Glucose (UA) Normal Urine Ketones Negative Urine Occult Blood Negative Urine Nitrite Negative Urine Bilirubin Negative Urine Urobilinogen Normal Ur Leukocyte Esterase Negative Fluid Source Fluid Color Fluid Appearance Fluid WBC Fluid RBC Fluid Tot Cell Count Fld Polynuclear WBCs # Fld Polynuclear WBCs % Fluid Mononuclear WBCs Fld Mononuclear WBCs % Fl Pathologist Comment Fluid Glucose Fluid Total Protein Fluid LDH Fluid Comment 2 Miscellaneous Cytology 01/29/18 01/30/18 01/30/18 20:10 02:18 02:18 WBC RBC Hgb Hct MCV MCH MCHC RDW RDW Differential Plt Count MPV PT INR Sodium 132 L Potassium 3.7 Chloride 94 L Carbon Dioxide 26.0 Anion Gap 12 BUN 17 Creatinine 0.83 Estim Creat Clear Calc 81.90 Est GFR (MDRD) Af Amer 93 Est GFR (MDRD) Non-Af 77 BUN/Creatinine Ratio 20.4 H Glucose 124 H Calcium 8.3 L Lactate Dehydrogenase Troponin I < 0.02 < 0.02 Total Protein 6.9 Globulin 3.4 Albumin/Globulin Ratio 1.0 Triglycerides 43 Cholesterol 159 LDL Cholesterol 76 VLDL Cholesterol 9 HDL Cholesterol 74 TSH 0.71 Urine Color Urine Clarity Urine pH Ur Specific [place] Urine Protein Urine Glucose (UA) Urine Ketones Urine Occult Blood Urine Nitrite Urine Bilirubin Urine Urobilinogen Ur Leukocyte Esterase Fluid Source Fluid Color Fluid Appearance Fluid WBC Fluid RBC Fluid Tot Cell Count Fld Polynuclear WBCs # Fld Polynuclear WBCs % Fluid Mononuclear WBCs Fld Mononuclear WBCs % Fl Pathologist Comment Fluid Glucose Fluid Total Protein Fluid LDH Fluid Comment 2 Miscellaneous Cytology 01/30/18 01/30/18 01/30/18 02:18 02:18 09:30 WBC 3.2 L RBC 4.24 Hgb 11.8 L Hct 34.7 L MCV 81.8 MCH 27.8 MCHC 34.0 RDW 14.1 RDW Differential 41.2 Plt Count 155 MPV 9.6 PT 14.4 INR 1.1 Sodium Potassium Chloride Carbon Dioxide Anion Gap BUN Creatinine Estim Creat Clear Calc Est GFR (MDRD) Af Amer Est GFR (MDRD) Non-Af BUN/Creatinine Ratio Glucose Calcium Lactate Dehydrogenase Troponin I Total Protein Globulin Albumin/Globulin Ratio Triglycerides Cholesterol LDL Cholesterol VLDL Cholesterol HDL Cholesterol TSH Urine Color Urine Clarity Urine pH Ur Specific [place] Urine Protein Urine Glucose (UA) Urine Ketones Urine Occult Blood Urine Nitrite Urine Bilirubin Urine Urobilinogen Ur Leukocyte Esterase Fluid Source Fluid Color Fluid Appearance Fluid WBC Fluid RBC Fluid Tot Cell Count Fld Polynuclear WBCs # Fld Polynuclear WBCs % Fluid Mononuclear WBCs Fld Mononuclear WBCs % Fl Pathologist Comment Fluid Glucose Fluid Total Protein Pending Fluid LDH Fluid Comment 2 Miscellaneous Cytology 01/30/18 01/30/18 01/30/18 09:30 09:30 09:30 WBC RBC Hgb Hct MCV MCH MCHC RDW RDW Differential Plt Count MPV PT INR Sodium Potassium Chloride Carbon Dioxide Anion Gap BUN Creatinine Estim Creat Clear Calc Est GFR (MDRD) Af Amer Est GFR (MDRD) Non-Af BUN/Creatinine Ratio Glucose Calcium Lactate Dehydrogenase Troponin I Total Protein Globulin Albumin/Globulin Ratio Triglycerides Cholesterol LDL Cholesterol VLDL Cholesterol HDL Cholesterol TSH Urine Color Urine Clarity Urine pH Ur Specific [place] Urine Protein Urine Glucose (UA) Urine Ketones Urine Occult Blood Urine Nitrite Urine Bilirubin Urine Urobilinogen Ur Leukocyte Esterase Fluid Source THORACENTESIS Fluid Color YELLOW Fluid Appearance SL CLDY Fluid WBC 0.806 Fluid RBC 0.51720 Fluid Tot Cell Count 0.882 H Fld Polynuclear WBCs # 0.014 Fld Polynuclear WBCs % 1.7 Fluid Mononuclear WBCs 0.792 Fld Mononuclear WBCs % 98.3 Fl Pathologist Comment May follow Fluid Glucose Pending Fluid Total Protein Fluid LDH Pending Fluid Comment 2 SEE COMMENT Miscellaneous Cytology Pending Assessment/Plan Active and Suspected Problems Heart failure (Acute) Fracture of spine (Acute) Acute combined systolic and diastolic congestive heart failure (Acute) RECOMMENDATIONS 1. Wean oxygen supplementation to keep saturations >90% 2. Encourage incentive spirometer/Acapella 3. Increase activity as tolerated, ambulate. 4. Continue bronchodilators. No indication for antibiotics or steroids. 5. Continue volume optimization with diureses. Fluid restriction, limit salt, daily weights 6. Cardiology consult IMPRESSIONS 1. New onset combined congestive heart failure/pulmonary hypertension BNP elevated. CT chest w/ bilateral pleural effusions. Some scarring in bronchiectasis in the left apex, moderate pericardial effusion. Echo shows an EF of 20%, severe global LV systolic dysfunction, RVSP of 56 mmHg, moderate pericardial effusion, diastolic dysfunction. Possibly chemo-induced, patient had a lung transplant in 1999, no recent follow-up with oncology. Continue efforts of volume optimization with diuresis, 1.5 L fluid restriction, daily weights. Patient will need education on new diagnosis of CHF. I did review this diagnosis with her and provided start of education. She is currently saturating appropriately on room air after thoracentesis this morning with approximately 870 mL of fluid removal. Appears to be transudative. Encourage incentive spirometer/Acapella, does have some bronchiectasis on CT. Consult cardiology. 2. History NHL s/p stem cell transplant/self-reported asthma/depression Complicates care, management, recovery, and prognosis. Continue home medications as indicated. Will obtain records from Dr. Lobo's office. Thank you for the opportunity to participate in this patient's care, please do not hesitate contact us with any further questions or concerns. This note was generated with [employer] dictation software. It may contain incorrect words, spelling, and punctuation that were not noted in checking the note before signing.
[2018-01-30] MEDS: Ipratropium/Albuterol Sulfate 3 ML AMPUL.NEB INHALATION ×2 (11:09→15:06)
[2018-01-30 11:10] LABS: Protein, Body Fluid 2.5 g/dL (Not Establ.)
--- NOTE | 2018-01-30 11:18 | CON.PCM_ITS ---
Problem List (1) Acute combined systolic and diastolic congestive heart failure Status: Acute (2) Non-Hodgkin lymphoma in remission Status: Chronic (3) History of stem cell transplant Status: Chronic (4) Bilateral pleural effusion Status: Chronic (5) Mass of left lung Status: Chronic Reason for Consult Date of Consultation: 01/30/18 Reason for Consultation: bilat pleural effusions, ?new onset CHF History of Present Illness: The patient is a 52 year old F with a past medical history as below, presented to the ED on 01/29/18 with complaints of 2-3 week history of progressive shortness of breath, lower extremity edema, and orthopnea. Patient complains of a cough with clear sputum production. She denies any fever or chills. Denies hemoptysis. Denies recent weight changes. She has been sleeping in a recliner for several weeks and has not been able to do her chores. Her legs became quite edematous which was new for her. Patient actually saw Dr. Lobo as a new consult on Friday, at which time she had pulmonary function tests and was told she had half her lung function. She was to have a chest CT next week but got so short of breath that she went to the ED. She has never had home oxygen. She was just placed on an albuterol rescue inhaler and ipratropium nebulizer, which helps her symptoms. Initial vital signs BP 120/90, pulse 124, RR 24, 98.5?F, and 93% on room air. Blood work showed a white count of 4.2, hemoglobin 11.6 and hematocrit 35. Coags were normal. Sodium mildly low at 131 and chloride 96. BUN normal at 18 and creatinine 1.03. LDH 296 and BNP 1357. Urinalysis not indicative of infection. Urine strep and Legionella antigens were negative. Viral respiratory panel negative. CT of the chest on 01/29 showed bilateral pleural effusions right greater than left with underlying atelectasis. There is stable fibrocalcific scarring in the left lung apex with bronchiectasis. There is a moderate sized pericardial effusion and abnormal appearance of the upper thoracic vertebrae with questionable metastases. Chest x-ray on 01/30 showed bilateral pleural effusions with underlying bibasilar atelectasis superimposed on mild degree of CHF, stable changes left suprahilar region and both lung apices. Echocardiogram showed a mildly dilated left ventricle, severe global LV systolic dysfunction, estimated EF of 20%, mild diffuse MV thickening, moderate MVI, mild TVI, moderately severe ROLA, mild TVI, moderate pericardial effusion with no evidence of cardiac tamponade on, and RVSP estimated at 56 mmHg. A thoracentesis was performed this morning with results pending. Thoracic spine x-ray is pending. Pulmonary was consulted for CHF and bilateral pleural effusions. Past Medical History Past Medical History (Chronic Problems): Chronic Problems Non-Hodgkin lymphoma in remission (Chronic) History of stem cell transplant (Chronic) Bilateral pleural effusion (Chronic) Mass of left lung (Chronic) Allergies guaifenesin Allergy (Verified 01/29/18 11:28) Other Penicillins [PCN] Allergy (Verified 01/29/18 11:28) Itching Sulfa (Sulfonamide Antibiotics) Allergy (Verified 01/29/18 11:28) Rash Home Medications: Ambulatory Orders Medication Instructions Recorded Montelukast [Singulair] 10 mg PO DAILY 11/17/14 Omeprazole [Omeprazole] 20 mg PO BID 11/17/14 Albuterol Sulfate 1.25 mg IH Q4H PRN PRN 01/29/18 Amitriptyline HCl [Elavil] 50 mg PO DAILY 01/29/18 Fluticasone/Salmeterol [Advair 1 puff IH BID 01/29/18 500-50 Diskus] Ipratropium [Atrovent] 0.5 mg INHALATION Q4H PRN PRN 01/29/18 Venlafaxine XR [Effexor Xr] 37.5 mg PO QHS 01/29/18 Surgical History: - - stem cell transplant 1999 Psychiatric History: No pertinent psych hx 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 Denies: Anorexia, Chills, Fever, Night Sweats , Malaise, Weakness, Weight Change Eyes: Denies: Vision Change HEENT: Denies: Difficulty Swallowing, Nasal bleeding, Nasal Congestion, Post Nasal Drip, Sinus Congestion, Sinus Drainage, Sore Throat Cardiovascular: Reports: Edema, Orthopnea. Denies: Chest Pain, Chest Tightness , Light Headedness, Palpitations, Paroxysmal Noc. Dyspnea, Syncope Respiratory: Reports: Cough, Shortness of breath upon exertion, Sputum production. Denies: Hemoptysis, Wheezing Gastrointestinal: Reports: - - + abdominal distention. Denies: Abdominal Pain, Constipation, Diarrhea, Hematemesis, Hematochezia, Nausea, Melena, Vomiting Genitourinary: Denies: Dysuria, Frequency, Hematuria, Retention Gynecological: Denies: Breast symptoms Musculoskeletal: Reports: - - muscle cramps legs w/diuresis. Denies: Back Pain Skin: Denies: Rash, Wounds Neurological: Denies: Balance problems, Change in Speech, Focal weakness, Numbness, Tingling, Tremor, Seizures Psychiatric: Reports: Depression. Denies: Anxiety Endocrine: Denies: Change in Body Habitus, Polydipsia, Polyuria Hematologic/ Lymphatic: Reports: Anemia, Easy Bruising. Denies: Adenopathy, Easy Bleeding, Hx of blood clot Patient Problems: Active and Suspected Problems Heart failure (Acute) Fracture of spine (Acute) Acute combined systolic and diastolic congestive heart failure (Acute) Subjective: The patient was seen and examined. She is sitting up in bed in no acute distress, her daughter and are at the bedside. Just returned a while ago from her thoracentesis and reports significant subjective improvement in her breathing, she has been weaned to room air. Objective: Clinical Impression(s) from Imaging Studies Chest CTA 01/29/18 11:51 IMPRESSION: Bilateral pleural effusions right greater than left with underlying atelectasis. Stable fibrocalcific scarring in the left lung apex with bronchiectasis. Moderate sized pericardial effusion. Abnormal appearance of the upper thoracic vertebrae. Metastasis should be ruled out. Electronically Signed: Blayne Kamara MD at 13:04 EDT Tel [phone], Service support , Chest X-Ray 01/30/18 05:55 IMPRESSION: Bilateral pleural effusions with underlying bibasilar atelectasis superimposed on mild degree of CHF. Stable changes in the left suprahilar region and both lung apices. Electronically Signed: Blayne Kamara MD at 10:07 EDT Tel [phone], Service support , Thoracentesis Ultrasound 01/30/18 10:00 IMPRESSION: Ultrasound-guided right thoracentesis. Electronically Signed: Blayne Kamara MD at 10:55 EDT Tel [phone], Service support , - Physical Exam General: Alert, Oriented x3, Cooperative, No apparent distress, Well developed, Well nourished, - - No conversational dyspnea HEENT: Atraumatic, Normocephalic Oral: Moist Mucosa, No Gingival or Mucosal Lesions/ Ulcerations Neck: Supple, No Nodes, Trachea Midline Lungs: No rhonchi, No wheeze, No rales, Diminished, - - Symmetrical expansion, no dullness to percussion. No crepitus over the thoracentesis site on the right Cardiovascular: Regular rate, Regular Rhythm, Normal S1, Normal S2, No murmurs, No rub noted, No Gallop Abdomen: Bowel Sounds Present, Soft, Non Tender, Non-Distended Extremities: No clubbing, No cyanosis, No Calf Tenderness, Edema - Trace bilateral lower extremities Skin: No rashes, - - bandaid over thora site R back Musculoskeletal: No Tenderness to Palpation of Joints or Extremities Lymphatic: No Cervical, Supraclavicular, or Inguinal Adenopathy Neurological: Cranial nerves II-XII grossly intact, Neuro grossly intact, Motor Exam 5/5 strength throughout Psych/Mental Status: Alert and oriented to time, place, person, mood and affect Vital Signs Temp Pulse Resp BP Pulse Ox 98.2 F 96 12 97/74 98 01/30/18 10:55 01/30/18 10:55 01/30/18 10:55 01/30/18 10:55 01/30/18 10:55 Oxygen Flow Rate (L/min) 2 Oxygen Delivery Method Room Air Weight: 136 lb 3.931 oz Body Mass Index (BMI) 21.0 Intake and Output for Last 24 Hours 01/28/18 01/29/18 01/30/18 23:59 23:59 23:59 Intake Total 200 / 200 800 / 800 Output Total 2000 / 2000 1500 / 1500 Balance -1800 / -1800 -700 / -700 Microbiology Past 72 Hours 01/30/18 05:05 Respiratory Panel (PCR) - Final Mucosa - Nasopharyngeal 01/29/18 18:05 Streptococcus pneumoniae Antigen (M - Final Urine, Random 01/29/18 18:05 Legionella Antigen - Final Urine, Random Laboratory Tests Past 24 Hrs 01/29/18 01/29/18 01/29/18 16:17 16:17 18:05 WBC RBC Hgb Hct MCV MCH MCHC RDW RDW Differential Plt Count MPV PT INR Sodium Potassium Chloride Carbon Dioxide Anion Gap BUN Creatinine Estim Creat Clear Calc Est GFR (MDRD) Af Amer Est GFR (MDRD) Non-Af BUN/Creatinine Ratio Glucose Calcium Lactate Dehydrogenase 296 H Troponin I < 0.02 Total Protein Globulin Albumin/Globulin Ratio Triglycerides Cholesterol LDL Cholesterol VLDL Cholesterol HDL Cholesterol TSH Urine Color Straw Urine Clarity Clear Urine pH 7.0 Ur Specific [place] 1.010 Urine Protein Negative Urine Glucose (UA) Normal Urine Ketones Negative Urine Occult Blood Negative Urine Nitrite Negative Urine Bilirubin Negative Urine Urobilinogen Normal Ur Leukocyte Esterase Negative Fluid Source Fluid Color Fluid Appearance Fluid WBC Fluid RBC Fluid Tot Cell Count Fld Polynuclear WBCs # Fld Polynuclear WBCs % Fluid Mononuclear WBCs Fld Mononuclear WBCs % Fl Pathologist Comment Fluid Glucose Fluid Total Protein Fluid LDH Fluid Comment 2 Miscellaneous Cytology 01/29/18 01/30/18 01/30/18 20:10 02:18 02:18 WBC RBC Hgb Hct MCV MCH MCHC RDW RDW Differential Plt Count MPV PT INR Sodium 132 L Potassium 3.7 Chloride 94 L Carbon Dioxide 26.0 Anion Gap 12 BUN 17 Creatinine 0.83 Estim Creat Clear Calc 81.90 Est GFR (MDRD) Af Amer 93 Est GFR (MDRD) Non-Af 77 BUN/Creatinine Ratio 20.4 H Glucose 124 H Calcium 8.3 L Lactate Dehydrogenase Troponin I < 0.02 < 0.02 Total Protein 6.9 Globulin 3.4 Albumin/Globulin Ratio 1.0 Triglycerides 43 Cholesterol 159 LDL Cholesterol 76 VLDL Cholesterol 9 HDL Cholesterol 74 TSH 0.71 Urine Color Urine Clarity Urine pH Ur Specific [place] Urine Protein Urine Glucose (UA) Urine Ketones Urine Occult Blood Urine Nitrite Urine Bilirubin Urine Urobilinogen Ur Leukocyte Esterase Fluid Source Fluid Color Fluid Appearance Fluid WBC Fluid RBC Fluid Tot Cell Count Fld Polynuclear WBCs # Fld Polynuclear WBCs % Fluid Mononuclear WBCs Fld Mononuclear WBCs % Fl Pathologist Comment Fluid Glucose Fluid Total Protein Fluid LDH Fluid Comment 2 Miscellaneous Cytology 01/30/18 01/30/18 01/30/18 02:18 02:18 09:30 WBC 3.2 L RBC 4.24 Hgb 11.8 L Hct 34.7 L MCV 81.8 MCH 27.8 MCHC 34.0 RDW 14.1 RDW Differential 41.2 Plt Count 155 MPV 9.6 PT 14.4 INR 1.1 Sodium Potassium Chloride Carbon Dioxide Anion Gap BUN Creatinine Estim Creat Clear Calc Est GFR (MDRD) Af Amer Est GFR (MDRD) Non-Af BUN/Creatinine Ratio Glucose Calcium Lactate Dehydrogenase Troponin I Total Protein Globulin Albumin/Globulin Ratio Triglycerides Cholesterol LDL Cholesterol VLDL Cholesterol HDL Cholesterol TSH Urine Color Urine Clarity Urine pH Ur Specific [place] Urine Protein Urine Glucose (UA) Urine Ketones Urine Occult Blood Urine Nitrite Urine Bilirubin Urine Urobilinogen Ur Leukocyte Esterase Fluid Source Fluid Color Fluid Appearance Fluid WBC Fluid RBC Fluid Tot Cell Count Fld Polynuclear WBCs # Fld Polynuclear WBCs % Fluid Mononuclear WBCs Fld Mononuclear WBCs % Fl Pathologist Comment Fluid Glucose Fluid Total Protein Pending Fluid LDH Fluid Comment 2 Miscellaneous Cytology 01/30/18 01/30/18 01/30/18 09:30 09:30 09:30 WBC RBC Hgb Hct MCV MCH MCHC RDW RDW Differential Plt Count MPV PT INR Sodium Potassium Chloride Carbon Dioxide Anion Gap BUN Creatinine Estim Creat Clear Calc Est GFR (MDRD) Af Amer Est GFR (MDRD) Non-Af BUN/Creatinine Ratio Glucose Calcium Lactate Dehydrogenase Troponin I Total Protein Globulin Albumin/Globulin Ratio Triglycerides Cholesterol LDL Cholesterol VLDL Cholesterol HDL Cholesterol TSH Urine Color Urine Clarity Urine pH Ur Specific [place] Urine Protein Urine Glucose (UA) Urine Ketones Urine Occult Blood Urine Nitrite Urine Bilirubin Urine Urobilinogen Ur Leukocyte Esterase Fluid Source THORACENTESIS Fluid Color YELLOW Fluid Appearance SL CLDY Fluid WBC 0.806 Fluid RBC 0.37742 Fluid Tot Cell Count 0.882 H Fld Polynuclear WBCs # 0.014 Fld Polynuclear WBCs % 1.7 Fluid Mononuclear WBCs 0.792 Fld Mononuclear WBCs % 98.3 Fl Pathologist Comment May follow Fluid Glucose Pending Fluid Total Protein Fluid LDH Pending Fluid Comment 2 SEE COMMENT Miscellaneous Cytology Pending Assessment/Plan Active and Suspected Problems Heart failure (Acute) Fracture of spine (Acute) Acute combined systolic and diastolic congestive heart failure (Acute) RECOMMENDATIONS 1. Wean oxygen supplementation to keep saturations >90% 2. Encourage incentive spirometer/Acapella 3. Increase activity as tolerated, ambulate. 4. Continue bronchodilators. No indication for antibiotics or steroids. 5. Continue volume optimization with diureses. Fluid restriction, limit salt, daily weights 6. Cardiology consult IMPRESSIONS 1. New onset combined congestive heart failure/pulmonary hypertension BNP elevated. CT chest w/ bilateral pleural effusions. Some scarring in bronchiectasis in the left apex, moderate pericardial effusion. Echo shows an EF of 20%, severe global LV systolic dysfunction, RVSP of 56 mmHg, moderate pericardial effusion, diastolic dysfunction. Possibly chemo-induced, patient had a lung transplant in 1999, no recent follow-up with oncology. Continue efforts of volume optimization with diuresis, 1.5 L fluid restriction, daily weights. Patient will need education on new diagnosis of CHF. I did review this diagnosis with her and provided start of education. She is currently saturating appropriately on room air after thoracentesis this morning with approximately 870 mL of fluid removal. Appears to be transudative. Encourage incentive spirometer/Acapella, does have some bronchiectasis on CT. Consult cardiology. 2. History NHL s/p stem cell transplant/self-reported asthma/depression Complicates care, management, recovery, and prognosis. Continue home medications as indicated. Will obtain records from Dr. Lobo's office. Thank you for the opportunity to participate in this patient's care, please do not hesitate contact us with any further questions or concerns. This note was generated with [employer] dictation software. It may contain incorrect words, spelling, and punctuation that were not noted in checking the note before signing.
[2018-01-30 11:27] LABS: Lymphocytes 77 %; Macrophages 19 %; Mesothelial Cells 3 %; Neutrophil (Segs) 1 %
[2018-01-30 11:42] LABS: Glucose, Body Fluid 120 mg/dL (40-70); LDH,Body Fluid 74 Units/l (Not Establ.)
[2018-01-30 12:00] LABS: Body Fluid QC Type(s) BF1Q
--- NOTE | 2018-01-30 13:23 | PCM.CONS.C ---
Problem List (1) Heart failure Status: Acute Reason for Consult Date of Consultation: 01/30/18 History of Present Illness: The patient is a 52 year old F with past medical history significant for non-Hodgkin's lymphoma, status post stem cell transplant. Last chemotherapy was back in the year 1999. According to the patient, she has since been cured. According to the patient, she noticed getting progressively short of breath with exertion back in September of this year. Also started noticing ankle swelling. This became really worse over the last 3-4 weeks. Recently she felt herself to be short of breath with mild exertion. Also positive orthopnea. No paroxysmal nocturnal dyspnea. Positive ankle edema. Before presented to the hospital. She was noted to have large pleural effusions. She has had thoracentesis done this morning with aspiration of about 875 mL of fluid. She has been feeling better since. Patient has had an echocardiogram done which showed severe LV systolic dysfunction with an ejection fraction of about 20%. It was reported as also showing a moderate pericardial effusion, moderate to severe aortic regurgitation and moderate mitral regurgitation. Pulmonary artery systolic pressure was noted to be 56 mmHg. Patient denies any previous history of heart disease. According to her, she may have had flulike symptoms back in October. Denies any chest pains. No palpitations. No syncope or presyncope. [] Past Medical History Allergies/Adverse Reactions: Allergies guaifenesin Allergy (Verified 01/29/18 11:28) Other Penicillins [PCN] Allergy (Verified 01/29/18 11:28) Itching Sulfa (Sulfonamide Antibiotics) Allergy (Verified 01/29/18 11:28) Rash Home Medications: Ambulatory Orders Medication Instructions Recorded Montelukast [Singulair] 10 mg PO DAILY 11/17/14 Omeprazole [Omeprazole] 20 mg PO BID 11/17/14 Albuterol Sulfate 1.25 mg IH Q4H PRN PRN 01/29/18 Amitriptyline HCl [Elavil] 50 mg PO DAILY 01/29/18 Fluticasone/Salmeterol [Advair 1 puff IH BID 01/29/18 500-50 Diskus] Ipratropium [Atrovent] 0.5 mg INHALATION Q4H PRN PRN 01/29/18 Venlafaxine XR [Effexor Xr] 37.5 mg PO QHS 01/29/18 Past Medical History (Chronic Problems): Chronic Problems Non-Hodgkin lymphoma in remission (Chronic) History of stem cell transplant (Chronic) Bilateral pleural effusion (Chronic) Mass of left lung (Chronic) Surgical History: - - stem cell transplant 1999 Psychiatric History: No pertinent psych 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 Denies: Fever, Night Sweats HEENT: Denies: Sinus Congestion, Sore Throat Cardiovascular: Reports: Shortness of Breath with Exertion, Orthopnea, Peripheral Edema. Denies: Chest Discomfort, Chest Discomfort at Rest, Chest Discomfort with Exertion, Chest Pressure, Chest Tightness, Chest Heaviness, PND, Palpitations Respiratory: Denies: Cough, Hemoptysis Gastrointestinal: Denies: Abdominal Discomfort, Jaundice, Hematemesis, Melena Muscoloskeletal: Denies: Myalgias Neurological: Denies: Confusion, Seizure, History of TIA, History of CVA Endocrine: Denies: Heat Intolerance, Cold Intolerance Hematologic/ Lymphatic: Denies: Easy Brusing, Easy Bleeding Subjectve: Comfortable. No apparent distress. Objective: Vital Signs Temp Pulse Resp BP Pulse Ox 98.2 F 98 24 H 97/74 95 01/30/18 10:55 01/30/18 11:12 01/30/18 11:12 01/30/18 10:55 01/30/18 11:12 Oxygen Flow Rate (L/min) 2 Oxygen Delivery Method Room Air Weight: 61.8 kg Body Mass Index (BMI) 21.0 Intake and Output for Last 24 Hours 01/28/18 01/29/18 01/30/18 23:59 23:59 23:59 Intake Total 200 / 200 800 / 800 Output Total 1999 / 1999 1500 / 1500 Balance -1800 / -1800 -700 / -700 General: Awake, Alert, Oriented x 3, No Acute Distress HEENT: Atraumatic, Normocephalic Oral: Moist Mucosa Neck: Supple, No JVD Lungs: Clear to auscultation Cardiovascular: Regular Rhythm - Distant heart sounds, Normal S1, Normal S2 Vascular: No Carotid Bruits Abdomen: Bowel Sounds Present, Soft Extremities: - - Trace bilateral ankle edema Neurological: No Focal Motor or Sensory Deficit Psych/Mental Status: Appropriate 01/29/18 16:17: Troponin I < 0.02 01/29/18 18:05: Urine Color Straw, Urine Clarity Clear, Urine pH 7.0, Ur Specific [place] 1.010, Urine Protein Negative, Urine Glucose (UA) Normal, Urine Ketones Negative, Urine Occult Blood Negative, Urine Nitrite Negative, Urine Bilirubin Negative, Urine Urobilinogen Normal, Ur Leukocyte Esterase Negative 01/29/18 20:10: Troponin I < 0.02 01/30/18 02:18: Sodium 132 L, Potassium 3.7, Chloride 94 L, Carbon Dioxide 26.0, Anion Gap 12, BUN 17, Creatinine 0.83, Est GFR (MDRD) Af Amer 93, Est GFR (MDRD) Non-Af 77, BUN/Creatinine Ratio 20.4 H, Glucose 124 H, Calcium 8.3 L, Triglycerides 43, Cholesterol 159, LDL Cholesterol 76, VLDL Cholesterol 9, HDL Cholesterol 74 01/30/18 02:18: Troponin I < 0.02 01/30/18 02:18: WBC 3.2 L, RBC 4.24, Hgb 11.8 L, Hct 34.7 L, MCV 81.8, MCH 27.8, MCHC 34.0, RDW 14.1, RDW Differential 41.2, Plt Count 155, MPV 9.6 01/30/18 02:18: PT 14.4, INR 1.1 Rhythm: Normal sinus rhythm. EKG: Normal sinus rhythm. ECHO: Ejection fraction 20%. Moderate mitral regurgitation. Moderate to severe aortic regurgitation. Large pericardial effusion around the right atrium and basal right ventricle. Small pericardial effusion posterior to the left ventricle. Assessment/Plan 1. Acute on chronic systolic congestive heart failure. Functional class III. Etiology unknown. Patient has history of non-Hodgkin's lymphoma and received chemo and radiation therapy for that second year 1999. Will need to evaluate for coronary artery disease regardless. Recommend coronary angiography either as inpatient or outpatient. Agree with medical treatment with GERALDO inhibitors and beta blockers. Continue diuretics. Switch to p.o. start on low-dose Aldactone 2. Aortic regurgitation appears to be more on the severe side. Patient will need more evaluation for that either with a cardiac MRI or SANDEEP 3. Moderate mitral regurgitation. See #1 above 4. History of non-Hodgkin's lymphoma and stem cell transplant. Per patient, she had her last chemotherapy year 1999. She also received radiation therapy to her mediastinum 5. Moderate to large pericardial effusion. No echo evidence of tamponade at present. However patient is being diuresed. Monitor closely for any hemodynamic instability. If any hemodynamic instability, then the pericardial effusion may need to be drained and patient may need a pericardial window X 6. Moderate pulmonary hypertension 7. Pleural effusion status post thoracentesis The above were discussed in detail with the patient and her family. In my opinion, she needs to be evaluated further for her aortic regurgitation. She also needs to be closely monitored for any hemodynamic instability in view of her moderate to large pericardial effusion. I therefore recommend transfer to a center with cardiothoracic surgical facilities. Patient is in agreement with the plan.
--- NOTE | 2018-01-30 13:36 | CON.PCM_ITS ---
Problem List (1) Heart failure Status: Acute Reason for Consult Date of Consultation: 01/30/18 History of Present Illness: The patient is a 52 year old F with past medical history significant for non- Hodgkin's lymphoma, status post stem cell transplant. Last chemotherapy was back in the year 1999. According to the patient, she has since been cured. According to the patient, she noticed getting progressively short of breath with exertion back in September of this year. Also started noticing ankle swelling. This became really worse over the last 3-4 weeks. Recently she felt herself to be short of breath with mild exertion. Also positive orthopnea. No paroxysmal nocturnal dyspnea. Positive ankle edema. Before presented to the hospital. She was noted to have large pleural effusions. She has had thoracentesis done this morning with aspiration of about 875 mL of fluid. She has been feeling better since. Patient has had an echocardiogram done which showed severe LV systolic dysfunction with an ejection fraction of about 20%. It was reported as also showing a moderate pericardial effusion, moderate to severe aortic regurgitation and moderate mitral regurgitation. Pulmonary artery systolic pressure was noted to be 56 mmHg. Patient denies any previous history of heart disease. According to her, she may have had flulike symptoms back in October. Denies any chest pains. No palpitations. No syncope or presyncope. [] Past Medical History Allergies/Adverse Reactions: Allergies guaifenesin Allergy (Verified 01/29/18 11:28) Other Penicillins [PCN] Allergy (Verified 01/29/18 11:28) Itching Sulfa (Sulfonamide Antibiotics) Allergy (Verified 01/29/18 11:28) Rash Home Medications: Ambulatory Orders Medication Instructions Recorded Montelukast [Singulair] 10 mg PO DAILY 11/17/14 Omeprazole [Omeprazole] 20 mg PO BID 11/17/14 Albuterol Sulfate 1.25 mg IH Q4H PRN PRN 01/29/18 Amitriptyline HCl [Elavil] 50 mg PO DAILY 01/29/18 Fluticasone/Salmeterol [Advair 1 puff IH BID 01/29/18 500-50 Diskus] Ipratropium [Atrovent] 0.5 mg INHALATION Q4H PRN PRN 01/29/18 Venlafaxine XR [Effexor Xr] 37.5 mg PO QHS 01/29/18 Past Medical History (Chronic Problems): Chronic Problems Non-Hodgkin lymphoma in remission (Chronic) History of stem cell transplant (Chronic) Bilateral pleural effusion (Chronic) Mass of left lung (Chronic) Surgical History: - - stem cell transplant 1999 Psychiatric History: No pertinent psych hx [employer]KER History: No pertinent [employer] MAKER history - *Family History Paternal History Items: No pertinent history Maternal History Items: No pertinent history Lives: Spouse/ Significant Other Smoking Status: Never smoker Tobacco Use: Non-smoker Alcohol: None Drugs: None Review of Systems - Review of Systems General: Reports: Fatigue, Malaise, Decreased Appetite. Denies: Fever, Night Sweats HEENT: Denies: Sinus Congestion, Sore Throat Cardiovascular: Reports: Shortness of Breath with Exertion, Orthopnea, Peripheral Edema. Denies: Chest Discomfort, Chest Discomfort at Rest, Chest Discomfort with Exertion, Chest Pressure, Chest Tightness, Chest Heaviness, PND , Palpitations Respiratory: Denies: Cough, Hemoptysis Gastrointestinal: Denies: Abdominal Discomfort, Jaundice, Hematemesis, Melena Muscoloskeletal: Denies: Myalgias Neurological: Denies: Confusion, Seizure, History of TIA, History of CVA Endocrine: Denies: Heat Intolerance, Cold Intolerance Hematologic/ Lymphatic: Denies: Easy Brusing, Easy Bleeding Subjectve: Comfortable. No apparent distress. Objective: Vital Signs Temp Pulse Resp BP Pulse Ox 98.2 F 98 24 H 97/74 95 01/30/18 10:55 01/30/18 11:12 01/30/18 11:12 01/30/18 10:55 01/30/18 11:12 Oxygen Flow Rate (L/min) 2 Oxygen Delivery Method Room Air Weight: 61.8 kg Body Mass Index (BMI) 21.0 Intake and Output for Last 24 Hours 01/28/18 01/29/18 01/30/18 23:59 23:59 23:59 Intake Total 200 / 200 800 / 800 Output Total 1999 / 1999 1500 / 1500 Balance -1800 / -1800 -700 / -700 General: Awake, Alert, Oriented x 3, No Acute Distress HEENT: Atraumatic, Normocephalic Oral: Moist Mucosa Neck: Supple, No JVD Lungs: Clear to auscultation Cardiovascular: Regular Rhythm - Distant heart sounds, Normal S1, Normal S2 Vascular: No Carotid Bruits Abdomen: Bowel Sounds Present, Soft Extremities: - - Trace bilateral ankle edema Neurological: No Focal Motor or Sensory Deficit Psych/Mental Status: Appropriate 01/29/18 16:17: Troponin I < 0.02 01/29/18 18:05: Urine Color Straw, Urine Clarity Clear, Urine pH 7.0, Ur Specific [place] 1.010, Urine Protein Negative, Urine Glucose (UA) Normal, Urine Ketones Negative, Urine Occult Blood Negative, Urine Nitrite Negative, Urine Bilirubin Negative, Urine Urobilinogen Normal, Ur Leukocyte Esterase Negative 01/29/18 20:10: Troponin I < 0.02 01/30/18 02:18: Sodium 132 L, Potassium 3.7, Chloride 94 L, Carbon Dioxide 26.0 , Anion Gap 12, BUN 17, Creatinine 0.83, Est GFR (MDRD) Af Amer 93, Est GFR ( MDRD) Non-Af 77, BUN/Creatinine Ratio 20.4 H, Glucose 124 H, Calcium 8.3 L, Triglycerides 43, Cholesterol 159, LDL Cholesterol 76, VLDL Cholesterol 9, HDL Cholesterol 74 01/30/18 02:18: Troponin I < 0.02 01/30/18 02:18: WBC 3.2 L, RBC 4.24, Hgb 11.8 L, Hct 34.7 L, MCV 81.8, MCH 27.8 , MCHC 34.0, RDW 14.1, RDW Differential 41.2, Plt Count 155, MPV 9.6 01/30/18 02:18: PT 14.4, INR 1.1 Rhythm: Normal sinus rhythm. EKG: Normal sinus rhythm. ECHO: Ejection fraction 20%. Moderate mitral regurgitation. Moderate to severe aortic regurgitation. Large pericardial effusion around the right atrium and basal right ventricle. Small pericardial effusion posterior to the left ventricle. Assessment/Plan 1. Acute on chronic systolic congestive heart failure. Functional class III. Etiology unknown. Patient has history of non-Hodgkin's lymphoma and received chemo and radiation therapy for that second year 1999. Will need to evaluate for coronary artery disease regardless. Recommend coronary angiography either as inpatient or outpatient. Agree with medical treatment with GERALDO inhibitors and beta blockers. Continue diuretics. Switch to p.o. start on low-dose Aldactone 2. Aortic regurgitation appears to be more on the severe side. Patient will need more evaluation for that either with a cardiac MRI or SANDEEP 3. Moderate mitral regurgitation. See #1 above 4. History of non-Hodgkin's lymphoma and stem cell transplant. Per patient, she had her last chemotherapy year 1999. She also received radiation therapy to her mediastinum 5. Moderate to large pericardial effusion. No echo evidence of tamponade at present. However patient is being diuresed. Monitor closely for any hemodynamic instability. If any hemodynamic instability, then the pericardial effusion may need to be drained and patient may need a pericardial window X 6. Moderate pulmonary hypertension 7. Pleural effusion status post thoracentesis The above were discussed in detail with the patient and her family. In my opinion, she needs to be evaluated further for her aortic regurgitation. She also needs to be closely monitored for any hemodynamic instability in view of her moderate to large pericardial effusion. I therefore recommend transfer to a center with cardiothoracic surgical facilities. Patient is in agreement with the plan.
--- NOTE | 2018-01-30 13:39 | CASEMGMT ---
According to the [facility] website, the following are in-network tertiary facilities: [facility], [place], [facility], [facility], [facility], [facility], and . Kelechi IRVIN CM
--- NOTE | 2018-01-30 14:35 | PCM.PROGNOTE ---
<Hayde Pascual - Last Filed: 01/30/18 14:47> Patient Problems: Active and Suspected Problems Heart failure (Acute) Fracture of spine (Acute) Acute combined systolic and diastolic congestive heart failure (Acute) Subjective: Patient seen and examined. Notes improvement in lower extremity swelling. Shortness of breath improved. Patient denies chest pain. She underwent thoracentesis this morning with aspiration of approximately 875 mL. Cardiology discussed transfer to [facility] and patient is agreeable. - Physical Exam General: Alert, Oriented x3, Cooperative HEENT: Atraumatic, PERRLA, EOMI, Normocephalic Neck: Supple, No JVD, Negative Carotid Bruits Lungs: Clear to auscultation, Normal air movement Cardiovascular: Regular rate, Regular Rhythm, Normal S1, Normal S2 Abdomen: Bowel Sounds Present, Soft, Non Tender, Non-Distended Extremities: No clubbing, No cyanosis, No edema, Capillary Refill Less than 3 Seconds Skin: No rashes, No breakdown Musculoskeletal: No Tenderness to Palpation of Joints or Extremities Neurological: Cranial nerves II-XII grossly intact, Neuro grossly intact Psych/Mental Status: Normal Affect, Appropriate Vital Signs Temp Pulse Resp BP Pulse Ox 98.2 F 104 H 16 98/67 95 01/30/18 13:39 01/30/18 13:39 01/30/18 13:39 01/30/18 13:39 01/30/18 13:39 Oxygen Flow Rate (L/min) 2 Oxygen Delivery Method Room Air Weight: 61.8 kg Body Mass Index (BMI) 21.0 Intake and Output for Last 24 Hours 01/28/18 01/29/18 01/30/18 23:59 23:59 23:59 Intake Total 200 / 200 1200 / 1200 Output Total 2000 / 1999 1500 / 1500 Balance -1800 / -1800 -300 / -300 Microbiology Past 72 Hours 01/30/18 09:30 Gram Stain - Final Fluid - Thoracentesis Fluid 01/30/18 05:05 Respiratory Panel (PCR) - Final Mucosa - Nasopharyngeal 01/29/18 18:05 Streptococcus pneumoniae Antigen (M - Final Urine, Random 01/29/18 18:05 Legionella Antigen - Final Urine, Random Laboratory Tests Past 24 Hrs 01/29/18 01/29/18 01/29/18 16:17 16:17 18:05 WBC RBC Hgb Hct MCV MCH MCHC RDW RDW Differential Plt Count MPV PT INR Sodium Potassium Chloride Carbon Dioxide Anion Gap BUN Creatinine Estim Creat Clear Calc Est GFR (MDRD) Af Amer Est GFR (MDRD) Non-Af BUN/Creatinine Ratio Glucose Calcium Lactate Dehydrogenase 296 H Troponin I < 0.02 Total Protein Globulin Albumin/Globulin Ratio Triglycerides Cholesterol LDL Cholesterol VLDL Cholesterol HDL Cholesterol TSH Urine Color Straw Urine Clarity Clear Urine pH 7.0 Ur Specific [place] 1.010 Urine Protein Negative Urine Glucose (UA) Normal Urine Ketones Negative Urine Occult Blood Negative Urine Nitrite Negative Urine Bilirubin Negative Urine Urobilinogen Normal Ur Leukocyte Esterase Negative Fluid Source Fluid Color Fluid Appearance Fluid WBC Fluid RBC Fluid Tot Cell Count Fld Polynuclear WBCs # Fld Polynuclear WBCs % Fluid Mononuclear WBCs Fld Mononuclear WBCs % Fluid Neutrophils Fluid Lymphocytes Fluid Macrophages Fld Mesothelial Cells Fl Pathologist Comment Fluid Glucose Fluid Total Protein Fluid LDH Fluid Comment 2 Miscellaneous Cytology 01/29/18 01/30/18 01/30/18 20:10 02:18 02:18 WBC RBC Hgb Hct MCV MCH MCHC RDW RDW Differential Plt Count MPV PT INR Sodium 132 L Potassium 3.7 Chloride 94 L Carbon Dioxide 26.0 Anion Gap 12 BUN 17 Creatinine 0.83 Estim Creat Clear Calc 81.90 Est GFR (MDRD) Af Amer 93 Est GFR (MDRD) Non-Af 77 BUN/Creatinine Ratio 20.4 H Glucose 124 H Calcium 8.3 L Lactate Dehydrogenase Troponin I < 0.02 < 0.02 Total Protein 6.9 Globulin 3.4 Albumin/Globulin Ratio 1.0 Triglycerides 43 Cholesterol 159 LDL Cholesterol 76 VLDL Cholesterol 9 HDL Cholesterol 74 TSH 0.71 Urine Color Urine Clarity Urine pH Ur Specific [place] Urine Protein Urine Glucose (UA) Urine Ketones Urine Occult Blood Urine Nitrite Urine Bilirubin Urine Urobilinogen Ur Leukocyte Esterase Fluid Source Fluid Color Fluid Appearance Fluid WBC Fluid RBC Fluid Tot Cell Count Fld Polynuclear WBCs # Fld Polynuclear WBCs % Fluid Mononuclear WBCs Fld Mononuclear WBCs % Fluid Neutrophils Fluid Lymphocytes Fluid Macrophages Fld Mesothelial Cells Fl Pathologist Comment Fluid Glucose Fluid Total Protein Fluid LDH Fluid Comment 2 Miscellaneous Cytology 01/30/18 01/30/18 01/30/18 02:18 02:18 09:30 WBC 3.2 L RBC 4.24 Hgb 11.8 L Hct 34.7 L MCV 81.8 MCH 27.8 MCHC 34.0 RDW 14.1 RDW Differential 41.2 Plt Count 155 MPV 9.6 PT 14.4 INR 1.1 Sodium Potassium Chloride Carbon Dioxide Anion Gap BUN Creatinine Estim Creat Clear Calc Est GFR (MDRD) Af Amer Est GFR (MDRD) Non-Af BUN/Creatinine Ratio Glucose Calcium Lactate Dehydrogenase Troponin I Total Protein Globulin Albumin/Globulin Ratio Triglycerides Cholesterol LDL Cholesterol VLDL Cholesterol HDL Cholesterol TSH Urine Color Urine Clarity Urine pH Ur Specific [place] Urine Protein Urine Glucose (UA) Urine Ketones Urine Occult Blood Urine Nitrite Urine Bilirubin Urine Urobilinogen Ur Leukocyte Esterase Fluid Source Fluid Color Fluid Appearance Fluid WBC Fluid RBC Fluid Tot Cell Count Fld Polynuclear WBCs # Fld Polynuclear WBCs % Fluid Mononuclear WBCs Fld Mononuclear WBCs % Fluid Neutrophils Fluid Lymphocytes Fluid Macrophages Fld Mesothelial Cells Fl Pathologist Comment Fluid Glucose Fluid Total Protein 2.5 Fluid LDH Fluid Comment 2 Miscellaneous Cytology 01/30/18 01/30/18 01/30/18 09:30 09:30 09:30 WBC RBC Hgb Hct MCV MCH MCHC RDW RDW Differential Plt Count MPV PT INR Sodium Potassium Chloride Carbon Dioxide Anion Gap BUN Creatinine Estim Creat Clear Calc Est GFR (MDRD) Af Amer Est GFR (MDRD) Non-Af BUN/Creatinine Ratio Glucose Calcium Lactate Dehydrogenase Troponin I Total Protein Globulin Albumin/Globulin Ratio Triglycerides Cholesterol LDL Cholesterol VLDL Cholesterol HDL Cholesterol TSH Urine Color Urine Clarity Urine pH Ur Specific [place] Urine Protein Urine Glucose (UA) Urine Ketones Urine Occult Blood Urine Nitrite Urine Bilirubin Urine Urobilinogen Ur Leukocyte Esterase Fluid Source THORACENTESIS Fluid Color YELLOW Fluid Appearance SL CLDY Fluid WBC 0.806 Fluid RBC 0.49699 Fluid Tot Cell Count 0.882 H Fld Polynuclear WBCs # 0.014 Fld Polynuclear WBCs % 1.7 Fluid Mononuclear WBCs 0.792 Fld Mononuclear WBCs % 98.3 Fluid Neutrophils 1 Fluid Lymphocytes 77 Fluid Macrophages 19 Fld Mesothelial Cells 3 Fl Pathologist Comment May follow Fluid Glucose 120 H Fluid Total Protein Fluid LDH 74 Fluid Comment 2 SEE COMMENT Miscellaneous Cytology Pending Medical Necessity - Tobacco Use Smoking Status: Never smoker Tobacco Use: Non-smoker Assessment/Plan Active and Suspected Problems Heart failure (Acute) Fracture of spine (Acute) Acute combined systolic and diastolic congestive heart failure (Acute) 1. Acute systolic CHF-CT of chest showed bilateral pleural effusions. Patient underwent thoracentesis this morning with approximately 870 mL of fluid removed. Appears to be transudative. Pulmonary and cardiology on consult. Echocardiogram showed an EF of 20%, severe global systolic dysfunction, RVSP of 56 mmHg, moderate to large pericardial effusion, diastolic dysfunction, severe aortic regurgitation, moderate mild regurgitation. Patient improved symptomatically. Lasix switched to 40 mg p.o. daily. Continue isosorbide, lisinopril, Aldactone. Cardiology recommending transfer to outside facility who has available cardiothoracic surgery given significant valvular dysfunction and large pericardial effusion. Transfer pending to [facility]. 2. Valvular dysfunction/pericardial effusion-echo noted severe aortic regurgitation, moderate mild regurgitation, moderate large pericardial effusion. 3. History of non-Hodgkin's lymphoma-status post stem cell transplant-in remission since 1999. 4. Asthma-no acute exacerbation-continue DuoNeb aerosol as needed. 5. Depression-continue Effexor, amitriptyline regimen. 6. GERD-continue omeprazole. DVT prophylaxis-Lovenox subcu. Discharge planning: Pending bed availability to [facility]. This patient was seen by WENDI Vann under the supervision of Dr. Gutierrez. <Manan Gutierrez - Last Filed: 01/30/18 15:46> - Physical Exam Vital Signs Temp Pulse Resp BP Pulse Ox 98.2 F 99 16 98/67 95 01/30/18 13:39 01/30/18 15:00 01/30/18 13:39 01/30/18 13:39 01/30/18 13:39 Oxygen Flow Rate (L/min) 2 Oxygen Delivery Method Room Air Weight: 61.8 kg Body Mass Index (BMI) 21.0 Intake and Output for Last 24 Hours 01/28/18 01/29/18 01/30/18 23:59 23:59 23:59 Intake Total 200 / 200 1200 / 1200 Output Total 2000 / 1999 1500 / 1500 Balance -1800 / -1800 -300 / -300 Microbiology Past 72 Hours 01/30/18 09:30 Gram Stain - Final Fluid - Thoracentesis Fluid 01/30/18 05:05 Respiratory Panel (PCR) - Final Mucosa - Nasopharyngeal 01/29/18 18:05 Streptococcus pneumoniae Antigen (M - Final Urine, Random 01/29/18 18:05 Legionella Antigen - Final Urine, Random Laboratory Tests Past 24 Hrs 01/29/18 01/29/18 01/29/18 16:17 16:17 18:05 WBC RBC Hgb Hct MCV MCH MCHC RDW RDW Differential Plt Count MPV PT INR Sodium Potassium Chloride Carbon Dioxide Anion Gap BUN Creatinine Estim Creat Clear Calc Est GFR (MDRD) Af Amer Est GFR (MDRD) Non-Af BUN/Creatinine Ratio Glucose Calcium Lactate Dehydrogenase 296 H Troponin I < 0.02 Total Protein Globulin Albumin/Globulin Ratio Triglycerides Cholesterol LDL Cholesterol VLDL Cholesterol HDL Cholesterol TSH Urine Color Straw Urine Clarity Clear Urine pH 7.0 Ur Specific [place] 1.010 Urine Protein Negative Urine Glucose (UA) Normal Urine Ketones Negative Urine Occult Blood Negative Urine Nitrite Negative Urine Bilirubin Negative Urine Urobilinogen Normal Ur Leukocyte Esterase Negative Fluid Source Fluid Color Fluid Appearance Fluid WBC Fluid RBC Fluid Tot Cell Count Fld Polynuclear WBCs # Fld Polynuclear WBCs % Fluid Mononuclear WBCs Fld Mononuclear WBCs % Fluid Neutrophils Fluid Lymphocytes Fluid Macrophages Fld Mesothelial Cells Fl Pathologist Comment Fluid Glucose Fluid Total Protein Fluid LDH Fluid Comment 2 Miscellaneous Cytology 01/29/18 01/30/18 01/30/18 20:10 02:18 02:18 WBC RBC Hgb Hct MCV MCH MCHC RDW RDW Differential Plt Count MPV PT INR Sodium 132 L Potassium 3.7 Chloride 94 L Carbon Dioxide 26.0 Anion Gap 12 BUN 17 Creatinine 0.83 Estim Creat Clear Calc 81.90 Est GFR (MDRD) Af Amer 93 Est GFR (MDRD) Non-Af 77 BUN/Creatinine Ratio 20.4 H Glucose 124 H Calcium 8.3 L Lactate Dehydrogenase Troponin I < 0.02 < 0.02 Total Protein 6.9 Globulin 3.4 Albumin/Globulin Ratio 1.0 Triglycerides 43 Cholesterol 159 LDL Cholesterol 76 VLDL Cholesterol 9 HDL Cholesterol 74 TSH 0.71 Urine Color Urine Clarity Urine pH Ur Specific [place] Urine Protein Urine Glucose (UA) Urine Ketones Urine Occult Blood Urine Nitrite Urine Bilirubin Urine Urobilinogen Ur Leukocyte Esterase Fluid Source Fluid Color Fluid Appearance Fluid WBC Fluid RBC Fluid Tot Cell Count Fld Polynuclear WBCs # Fld Polynuclear WBCs % Fluid Mononuclear WBCs Fld Mononuclear WBCs % Fluid Neutrophils Fluid Lymphocytes Fluid Macrophages Fld Mesothelial Cells Fl Pathologist Comment Fluid Glucose Fluid Total Protein Fluid LDH Fluid Comment 2 Miscellaneous Cytology 01/30/18 01/30/18 01/30/18 02:18 02:18 09:30 WBC 3.2 L RBC 4.24 Hgb 11.8 L Hct 34.7 L MCV 81.8 MCH 27.8 MCHC 34.0 RDW 14.1 RDW Differential 41.2 Plt Count 155 MPV 9.6 PT 14.4 INR 1.1 Sodium Potassium Chloride Carbon Dioxide Anion Gap BUN Creatinine Estim Creat Clear Calc Est GFR (MDRD) Af Amer Est GFR (MDRD) Non-Af BUN/Creatinine Ratio Glucose Calcium Lactate Dehydrogenase Troponin I Total Protein Globulin Albumin/Globulin Ratio Triglycerides Cholesterol LDL Cholesterol VLDL Cholesterol HDL Cholesterol TSH Urine Color Urine Clarity Urine pH Ur Specific [place] Urine Protein Urine Glucose (UA) Urine Ketones Urine Occult Blood Urine Nitrite Urine Bilirubin Urine Urobilinogen Ur Leukocyte Esterase Fluid Source Fluid Color Fluid Appearance Fluid WBC Fluid RBC Fluid Tot Cell Count Fld Polynuclear WBCs # Fld Polynuclear WBCs % Fluid Mononuclear WBCs Fld Mononuclear WBCs % Fluid Neutrophils Fluid Lymphocytes Fluid Macrophages Fld Mesothelial Cells Fl Pathologist Comment Fluid Glucose Fluid Total Protein 2.5 Fluid LDH Fluid Comment 2 Miscellaneous Cytology 01/30/18 01/30/18 01/30/18 09:30 09:30 09:30 WBC RBC Hgb Hct MCV MCH MCHC RDW RDW Differential Plt Count MPV PT INR Sodium Potassium Chloride Carbon Dioxide Anion Gap BUN Creatinine Estim Creat Clear Calc Est GFR (MDRD) Af Amer Est GFR (MDRD) Non-Af BUN/Creatinine Ratio Glucose Calcium Lactate Dehydrogenase Troponin I Total Protein Globulin Albumin/Globulin Ratio Triglycerides Cholesterol LDL Cholesterol VLDL Cholesterol HDL Cholesterol TSH Urine Color Urine Clarity Urine pH Ur Specific [place] Urine Protein Urine Glucose (UA) Urine Ketones Urine Occult Blood Urine Nitrite Urine Bilirubin Urine Urobilinogen Ur Leukocyte Esterase Fluid Source THORACENTESIS Fluid Color YELLOW Fluid Appearance SL CLDY Fluid WBC 0.806 Fluid RBC 0.31327 Fluid Tot Cell Count 0.882 H Fld Polynuclear WBCs # 0.014 Fld Polynuclear WBCs % 1.7 Fluid Mononuclear WBCs 0.792 Fld Mononuclear WBCs % 98.3 Fluid Neutrophils 1 Fluid Lymphocytes 77 Fluid Macrophages 19 Fld Mesothelial Cells 3 Fl Pathologist Comment May follow Fluid Glucose 120 H Fluid Total Protein Fluid LDH 74 Fluid Comment 2 SEE COMMENT Miscellaneous Cytology Pending Assessment/Plan This patient was seen in conjunction with WENDI Vann. I have independently interviewed and examined the patient and reviewed pertinent historical, laboratory, and other data. Please refer to Cayla Vann for details of this patient's presentation, findings, and recommendations. I have reviewed WENDI Vann note and concur with documented findings. In brief, Patient is an 52-year-old lady with history of Non Hodgkin's lymphoma who presented with progressive shortness of breath imaging studies obtained on admission demonstrated bilateral pleural effusion Physical Examination: GENERAL: cooperative HEENT: Clear conjunctiva, NECK; supple, normal thyroid, CHEST: Diminished to auscultation bilaterally HEART: Irregular S1 S2, ABDOMEN: soft, normoactive bowel sounds, EXTREMITIES: No edema, no clubbing, no cyanosis. RESEARCH QUALITY ASSURANCE ANALYST: Awake, no lateralizing signs. Assessment: 1. Acute systolic heart failure demonstrated EF of 20% with global hypokinesis 2. Bilateral pleural effusion status post thoracocentesis 3. Significant pericardial effusion; cardiology recommended transfer to a tertiary care center 4. Mild intermittent asthma 5. Non-Hodgkin's lymphoma status post stem cell transplant 6. Depression 7. GERD-continue omeprazole. 8. DVT prophylaxis-Lovenox subcu. Recommendations: 1. I have discussed the results of my overview and impressions with the patient 2. Options for management were reviewed Code Visit Inpatient E&M: 79506 [facility] L3
--- NOTE | 2018-01-30 14:46 | PN_ITS ---
<Hayde Pascual - Last Filed: 01/30/18 14:47> Patient Problems: Active and Suspected Problems Heart failure (Acute) Fracture of spine (Acute) Acute combined systolic and diastolic congestive heart failure (Acute) Subjective: Patient seen and examined. Notes improvement in lower extremity swelling. Shortness of breath improved. Patient denies chest pain. She underwent thoracentesis this morning with aspiration of approximately 875 mL. Cardiology discussed transfer to [facility] and patient is agreeable. - Physical Exam General: Alert, Oriented x3, Cooperative HEENT: Atraumatic, PERRLA, EOMI, Normocephalic Neck: Supple, No JVD, Negative Carotid Bruits Lungs: Clear to auscultation, Normal air movement Cardiovascular: Regular rate, Regular Rhythm, Normal S1, Normal S2 Abdomen: Bowel Sounds Present, Soft, Non Tender, Non-Distended Extremities: No clubbing, No cyanosis, No edema, Capillary Refill Less than 3 Seconds Skin: No rashes, No breakdown Musculoskeletal: No Tenderness to Palpation of Joints or Extremities Neurological: Cranial nerves II-XII grossly intact, Neuro grossly intact Psych/Mental Status: Normal Affect, Appropriate Vital Signs Temp Pulse Resp BP Pulse Ox 98.2 F 104 H 16 98/67 95 01/30/18 13:39 01/30/18 13:39 01/30/18 13:39 01/30/18 13:39 01/30/18 13:39 Oxygen Flow Rate (L/min) 2 Oxygen Delivery Method Room Air Weight: 61.8 kg Body Mass Index (BMI) 21.0 Intake and Output for Last 24 Hours 01/28/18 01/29/18 01/30/18 23:59 23:59 23:59 Intake Total 200 / 200 1200 / 1200 Output Total 2000 / 1999 1500 / 1500 Balance -1800 / -1800 -300 / -300 Microbiology Past 72 Hours 01/30/18 09:30 Gram Stain - Final Fluid - Thoracentesis Fluid 01/30/18 05:05 Respiratory Panel (PCR) - Final Mucosa - Nasopharyngeal 01/29/18 18:05 Streptococcus pneumoniae Antigen (M - Final Urine, Random 01/29/18 18:05 Legionella Antigen - Final Urine, Random Laboratory Tests Past 24 Hrs 01/29/18 01/29/18 01/29/18 16:17 16:17 18:05 WBC RBC Hgb Hct MCV MCH MCHC RDW RDW Differential Plt Count MPV PT INR Sodium Potassium Chloride Carbon Dioxide Anion Gap BUN Creatinine Estim Creat Clear Calc Est GFR (MDRD) Af Amer Est GFR (MDRD) Non-Af BUN/Creatinine Ratio Glucose Calcium Lactate Dehydrogenase 296 H Troponin I < 0.02 Total Protein Globulin Albumin/Globulin Ratio Triglycerides Cholesterol LDL Cholesterol VLDL Cholesterol HDL Cholesterol TSH Urine Color Straw Urine Clarity Clear Urine pH 7.0 Ur Specific Whitman 1.010 Urine Protein Negative Urine Glucose (UA) Normal Urine Ketones Negative Urine Occult Blood Negative Urine Nitrite Negative Urine Bilirubin Negative Urine Urobilinogen Normal Ur Leukocyte Esterase Negative Fluid Source Fluid Color Fluid Appearance Fluid WBC Fluid RBC Fluid Tot Cell Count Fld Polynuclear WBCs # Fld Polynuclear WBCs % Fluid Mononuclear WBCs Fld Mononuclear WBCs % Fluid Neutrophils Fluid Lymphocytes Fluid Macrophages Fld Mesothelial Cells Fl Pathologist Comment Fluid Glucose Fluid Total Protein Fluid LDH Fluid Comment 2 Miscellaneous Cytology 01/29/18 01/30/18 01/30/18 20:10 02:18 02:18 WBC RBC Hgb Hct MCV MCH MCHC RDW RDW Differential Plt Count MPV PT INR Sodium 132 L Potassium 3.7 Chloride 94 L Carbon Dioxide 26.0 Anion Gap 12 BUN 17 Creatinine 0.83 Estim Creat Clear Calc 81.90 Est GFR (MDRD) Af Amer 93 Est GFR (MDRD) Non-Af 77 BUN/Creatinine Ratio 20.4 H Glucose 124 H Calcium 8.3 L Lactate Dehydrogenase Troponin I < 0.02 < 0.02 Total Protein 6.9 Globulin 3.4 Albumin/Globulin Ratio 1.0 Triglycerides 43 Cholesterol 159 LDL Cholesterol 76 VLDL Cholesterol 9 HDL Cholesterol 74 TSH 0.71 Urine Color Urine Clarity Urine pH Ur Specific Whitman Urine Protein Urine Glucose (UA) Urine Ketones Urine Occult Blood Urine Nitrite Urine Bilirubin Urine Urobilinogen Ur Leukocyte Esterase Fluid Source Fluid Color Fluid Appearance Fluid WBC Fluid RBC Fluid Tot Cell Count Fld Polynuclear WBCs # Fld Polynuclear WBCs % Fluid Mononuclear WBCs Fld Mononuclear WBCs % Fluid Neutrophils Fluid Lymphocytes Fluid Macrophages Fld Mesothelial Cells Fl Pathologist Comment Fluid Glucose Fluid Total Protein Fluid LDH Fluid Comment 2 Miscellaneous Cytology 01/30/18 01/30/18 01/30/18 02:18 02:18 09:30 WBC 3.2 L RBC 4.24 Hgb 11.8 L Hct 34.7 L MCV 81.8 MCH 27.8 MCHC 34.0 RDW 14.1 RDW Differential 41.2 Plt Count 155 MPV 9.6 PT 14.4 INR 1.1 Sodium Potassium Chloride Carbon Dioxide Anion Gap BUN Creatinine Estim Creat Clear Calc Est GFR (MDRD) Af Amer Est GFR (MDRD) Non-Af BUN/Creatinine Ratio Glucose Calcium Lactate Dehydrogenase Troponin I Total Protein Globulin Albumin/Globulin Ratio Triglycerides Cholesterol LDL Cholesterol VLDL Cholesterol HDL Cholesterol TSH Urine Color Urine Clarity Urine pH Ur Specific Whitman Urine Protein Urine Glucose (UA) Urine Ketones Urine Occult Blood Urine Nitrite Urine Bilirubin Urine Urobilinogen Ur Leukocyte Esterase Fluid Source Fluid Color Fluid Appearance Fluid WBC Fluid RBC Fluid Tot Cell Count Fld Polynuclear WBCs # Fld Polynuclear WBCs % Fluid Mononuclear WBCs Fld Mononuclear WBCs % Fluid Neutrophils Fluid Lymphocytes Fluid Macrophages Fld Mesothelial Cells Fl Pathologist Comment Fluid Glucose Fluid Total Protein 2.5 Fluid LDH Fluid Comment 2 Miscellaneous Cytology 01/30/18 01/30/18 01/30/18 09:30 09:30 09:30 WBC RBC Hgb Hct MCV MCH MCHC RDW RDW Differential Plt Count MPV PT INR Sodium Potassium Chloride Carbon Dioxide Anion Gap BUN Creatinine Estim Creat Clear Calc Est GFR (MDRD) Af Amer Est GFR (MDRD) Non-Af BUN/Creatinine Ratio Glucose Calcium Lactate Dehydrogenase Troponin I Total Protein Globulin Albumin/Globulin Ratio Triglycerides Cholesterol LDL Cholesterol VLDL Cholesterol HDL Cholesterol TSH Urine Color Urine Clarity Urine pH Ur Specific Whitman Urine Protein Urine Glucose (UA) Urine Ketones Urine Occult Blood Urine Nitrite Urine Bilirubin Urine Urobilinogen Ur Leukocyte Esterase Fluid Source THORACENTESIS Fluid Color YELLOW Fluid Appearance SL CLDY Fluid WBC 0.806 Fluid RBC 0.09158 Fluid Tot Cell Count 0.882 H Fld Polynuclear WBCs # 0.014 Fld Polynuclear WBCs % 1.7 Fluid Mononuclear WBCs 0.792 Fld Mononuclear WBCs % 98.3 Fluid Neutrophils 1 Fluid Lymphocytes 77 Fluid Macrophages 19 Fld Mesothelial Cells 3 Fl Pathologist Comment May follow Fluid Glucose 120 H Fluid Total Protein Fluid LDH 74 Fluid Comment 2 SEE COMMENT Miscellaneous Cytology Pending Medical Necessity - Tobacco Use Smoking Status: Never smoker Tobacco Use: Non-smoker Assessment/Plan Active and Suspected Problems Heart failure (Acute) Fracture of spine (Acute) Acute combined systolic and diastolic congestive heart failure (Acute) 1. Acute systolic CHF-CT of chest showed bilateral pleural effusions. Patient underwent thoracentesis this morning with approximately 870 mL of fluid removed. Appears to be transudative. Pulmonary and cardiology on consult. Echocardiogram showed an EF of 20%, severe global systolic dysfunction, RVSP of 56 mmHg, moderate to large pericardial effusion, diastolic dysfunction, severe aortic regurgitation, moderate mild regurgitation. Patient improved symptomatically. Lasix switched to 40 mg p.o. daily. Continue isosorbide, lisinopril, Aldactone. Cardiology recommending transfer to outside facility who has available cardiothoracic surgery given significant valvular dysfunction and large pericardial effusion. Transfer pending to [facility]. 2. Valvular dysfunction/pericardial effusion-echo noted severe aortic regurgitation, moderate mild regurgitation, moderate large pericardial effusion. 3. History of non-Hodgkin's lymphoma-status post stem cell transplant-in remission since 1999. 4. Asthma-no acute exacerbation-continue DuoNeb aerosol as needed. 5. Depression-continue Effexor, amitriptyline regimen. 6. GERD-continue omeprazole. DVT prophylaxis-Lovenox subcu. Discharge planning: Pending bed availability to [facility]. This patient was seen by WENDI Vann under the supervision of Dr. Gutierrez. <Manan Gutierrez - Last Filed: 01/30/18 15:46> - Physical Exam Vital Signs Temp Pulse Resp BP Pulse Ox 98.2 F 99 16 98/67 95 01/30/18 13:39 01/30/18 15:00 01/30/18 13:39 01/30/18 13:39 01/30/18 13:39 Oxygen Flow Rate (L/min) 2 Oxygen Delivery Method Room Air Weight: 61.8 kg Body Mass Index (BMI) 21.0 Intake and Output for Last 24 Hours 01/28/18 01/29/18 01/30/18 23:59 23:59 23:59 Intake Total 200 / 200 1200 / 1200 Output Total 2000 / 1999 1500 / 1500 Balance -1800 / -1800 -300 / -300 Microbiology Past 72 Hours 01/30/18 09:30 Gram Stain - Final Fluid - Thoracentesis Fluid 01/30/18 05:05 Respiratory Panel (PCR) - Final Mucosa - Nasopharyngeal 01/29/18 18:05 Streptococcus pneumoniae Antigen (M - Final Urine, Random 01/29/18 18:05 Legionella Antigen - Final Urine, Random Laboratory Tests Past 24 Hrs 01/29/18 01/29/18 01/29/18 16:17 16:17 18:05 WBC RBC Hgb Hct MCV MCH MCHC RDW RDW Differential Plt Count MPV PT INR Sodium Potassium Chloride Carbon Dioxide Anion Gap BUN Creatinine Estim Creat Clear Calc Est GFR (MDRD) Af Amer Est GFR (MDRD) Non-Af BUN/Creatinine Ratio Glucose Calcium Lactate Dehydrogenase 296 H Troponin I < 0.02 Total Protein Globulin Albumin/Globulin Ratio Triglycerides Cholesterol LDL Cholesterol VLDL Cholesterol HDL Cholesterol TSH Urine Color Straw Urine Clarity Clear Urine pH 7.0 Ur Specific Whitman 1.010 Urine Protein Negative Urine Glucose (UA) Normal Urine Ketones Negative Urine Occult Blood Negative Urine Nitrite Negative Urine Bilirubin Negative Urine Urobilinogen Normal Ur Leukocyte Esterase Negative Fluid Source Fluid Color Fluid Appearance Fluid WBC Fluid RBC Fluid Tot Cell Count Fld Polynuclear WBCs # Fld Polynuclear WBCs % Fluid Mononuclear WBCs Fld Mononuclear WBCs % Fluid Neutrophils Fluid Lymphocytes Fluid Macrophages Fld Mesothelial Cells Fl Pathologist Comment Fluid Glucose Fluid Total Protein Fluid LDH Fluid Comment 2 Miscellaneous Cytology 01/29/18 01/30/18 01/30/18 20:10 02:18 02:18 WBC RBC Hgb Hct MCV MCH MCHC RDW RDW Differential Plt Count MPV PT INR Sodium 132 L Potassium 3.7 Chloride 94 L Carbon Dioxide 26.0 Anion Gap 12 BUN 17 Creatinine 0.83 Estim Creat Clear Calc 81.90 Est GFR (MDRD) Af Amer 93 Est GFR (MDRD) Non-Af 77 BUN/Creatinine Ratio 20.4 H Glucose 124 H Calcium 8.3 L Lactate Dehydrogenase Troponin I < 0.02 < 0.02 Total Protein 6.9 Globulin 3.4 Albumin/Globulin Ratio 1.0 Triglycerides 43 Cholesterol 159 LDL Cholesterol 76 VLDL Cholesterol 9 HDL Cholesterol 74 TSH 0.71 Urine Color Urine Clarity Urine pH Ur Specific Whitman Urine Protein Urine Glucose (UA) Urine Ketones Urine Occult Blood Urine Nitrite Urine Bilirubin Urine Urobilinogen Ur Leukocyte Esterase Fluid Source Fluid Color Fluid Appearance Fluid WBC Fluid RBC Fluid Tot Cell Count Fld Polynuclear WBCs # Fld Polynuclear WBCs % Fluid Mononuclear WBCs Fld Mononuclear WBCs % Fluid Neutrophils Fluid Lymphocytes Fluid Macrophages Fld Mesothelial Cells Fl Pathologist Comment Fluid Glucose Fluid Total Protein Fluid LDH Fluid Comment 2 Miscellaneous Cytology 01/30/18 01/30/18 01/30/18 02:18 02:18 09:30 WBC 3.2 L RBC 4.24 Hgb 11.8 L Hct 34.7 L MCV 81.8 MCH 27.8 MCHC 34.0 RDW 14.1 RDW Differential 41.2 Plt Count 155 MPV 9.6 PT 14.4 INR 1.1 Sodium Potassium Chloride Carbon Dioxide Anion Gap BUN Creatinine Estim Creat Clear Calc Est GFR (MDRD) Af Amer Est GFR (MDRD) Non-Af BUN/Creatinine Ratio Glucose Calcium Lactate Dehydrogenase Troponin I Total Protein Globulin Albumin/Globulin Ratio Triglycerides Cholesterol LDL Cholesterol VLDL Cholesterol HDL Cholesterol TSH Urine Color Urine Clarity Urine pH Ur Specific Whitman Urine Protein Urine Glucose (UA) Urine Ketones Urine Occult Blood Urine Nitrite Urine Bilirubin Urine Urobilinogen Ur Leukocyte Esterase Fluid Source Fluid Color Fluid Appearance Fluid WBC Fluid RBC Fluid Tot Cell Count Fld Polynuclear WBCs # Fld Polynuclear WBCs % Fluid Mononuclear WBCs Fld Mononuclear WBCs % Fluid Neutrophils Fluid Lymphocytes Fluid Macrophages Fld Mesothelial Cells Fl Pathologist Comment Fluid Glucose Fluid Total Protein 2.5 Fluid LDH Fluid Comment 2 Miscellaneous Cytology 01/30/18 01/30/18 01/30/18 09:30 09:30 09:30 WBC RBC Hgb Hct MCV MCH MCHC RDW RDW Differential Plt Count MPV PT INR Sodium Potassium Chloride Carbon Dioxide Anion Gap BUN Creatinine Estim Creat Clear Calc Est GFR (MDRD) Af Amer Est GFR (MDRD) Non-Af BUN/Creatinine Ratio Glucose Calcium Lactate Dehydrogenase Troponin I Total Protein Globulin Albumin/Globulin Ratio Triglycerides Cholesterol LDL Cholesterol VLDL Cholesterol HDL Cholesterol TSH Urine Color Urine Clarity Urine pH Ur Specific Whitman Urine Protein Urine Glucose (UA) Urine Ketones Urine Occult Blood Urine Nitrite Urine Bilirubin Urine Urobilinogen Ur Leukocyte Esterase Fluid Source THORACENTESIS Fluid Color YELLOW Fluid Appearance SL CLDY Fluid WBC 0.806 Fluid RBC 0.05499 Fluid Tot Cell Count 0.882 H Fld Polynuclear WBCs # 0.014 Fld Polynuclear WBCs % 1.7 Fluid Mononuclear WBCs 0.792 Fld Mononuclear WBCs % 98.3 Fluid Neutrophils 1 Fluid Lymphocytes 77 Fluid Macrophages 19 Fld Mesothelial Cells 3 Fl Pathologist Comment May follow Fluid Glucose 120 H Fluid Total Protein Fluid LDH 74 Fluid Comment 2 SEE COMMENT Miscellaneous Cytology Pending Assessment/Plan This patient was seen in conjunction with WENDI Vann. I have independently interviewed and examined the patient and reviewed pertinent historical, laboratory, and other data. Please refer to JODI Vann for details of this patient's presentation, findings, and recommendations. I have reviewed WENDI Vann note and concur with documented findings. In brief, Patient is an 52-year-old lady with history of Non Hodgkin's lymphoma who presented with progressive shortness of breath imaging studies obtained on admission demonstrated bilateral pleural effusion Physical Examination: GENERAL: cooperative HEENT: Clear conjunctiva, NECK; supple, normal thyroid, CHEST: Diminished to auscultation bilaterally HEART: Irregular S1 S2, ABDOMEN: soft, normoactive bowel sounds, EXTREMITIES: No edema, no clubbing, no cyanosis. 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 Assessment: 1. Acute systolic heart failure demonstrated EF of 20% with global hypokinesis 2. Bilateral pleural effusion status post thoracocentesis 3. Significant pericardial effusion; cardiology recommended transfer to a tertiary care center 4. Mild intermittent asthma 5. Non-Hodgkin's lymphoma status post stem cell transplant 6. Depression 7. GERD-continue omeprazole. 8. DVT prophylaxis-Lovenox subcu. Recommendations: 1. I have discussed the results of my overview and impressions with the patient 2. Options for management were reviewed Code Visit Inpatient E&M: 68194 [facility] Hosp L3
--- NOTE | 2018-01-30 16:47 | PCM.DC.SUM ---
<Hayde Pascual - Last Filed: 01/30/18 16:52> Discharge Date and Diagnosis Date of Admission: 01/29/18 Date of Discharge: 01/30/18 - Primary Discharge Diagnosis Active and Suspected Problems 1. Acute systolic CHF 2. Moderate to large pericardial effusion 3. Severe aortic regurgitation 4. Moderate mitral regurgitation 5. Pleural effusion status post thoracentesis - Secondary Discharge Diagnosis Chronic Problems Non-Hodgkin lymphoma in remission (Chronic) History of stem cell transplant (Chronic) Bilateral pleural effusion (Chronic) Mass of left lung (Chronic) Hospital Course and Treatment Imaging Results: Diagnostic Data Chest CTA 01/29/18 11:51 IMPRESSION: Bilateral pleural effusions right greater than left with underlying atelectasis. Stable fibrocalcific scarring in the left lung apex with bronchiectasis. Moderate sized pericardial effusion. Abnormal appearance of the upper thoracic vertebrae. Metastasis should be ruled out. Electronically Signed: Blayne Kamara MD at 13:04 EDT Tel [phone], Service support , Thoracic Spine X-Ray 01/30/18 08:58 IMPRESSION: Multilevel disc space narrowing in the thoracic level. Osteopenia of the thoracic vertebrae worse in the upper thoracic spine. Correlation with the bone scan is recommended. Electronically Signed: Blayne Kamara MD at 13:00 EDT Tel [phone], Service support , Thoracentesis Ultrasound 01/30/18 10:00 IMPRESSION: Ultrasound-guided right thoracentesis. Electronically Signed: Blayne Kamara MD at 10:55 EDT Tel [phone], Service support , Chest X-Ray 01/30/18 10:09 IMPRESSION: Status post right thoracentesis. There is no evidence of pneumothorax. Electronically Signed: Blayne Kamara MD at 13:37 EDT Tel [phone], Service support , Dr. Staples- Pulmonary Medicine Dr. Benz- Cardiology Operations: None Procedures: 2-D Echocardiogram, Thoracentesis Summary of Care Provided: Patient is a 52-year-old female admitted 01/29/18 due to worsening shortness of breath. She has a past medical history of non-Hodgkin's lymphoma, asthma, depression, GERD. 1. Acute systolic CHF-CT of chest showed bilateral pleural effusions. Patient underwent thoracentesis this morning with approximately 870 mL of fluid removed. Appears to be transudative. Pulmonary and cardiology consulted. Echocardiogram showed an EF of 20%, severe global systolic dysfunction, RVSP of 56 mmHg, moderate to large pericardial effusion, diastolic dysfunction, severe aortic regurgitation, moderate mitral valve regurgitation. Patient improved symptomatically. Patient received Lasix during admission. Continue isosorbide, lisinopril, Aldactone. Cardiology recommending transfer to outside facility who has available cardiothoracic surgery given significant valvular dysfunction and large pericardial effusion. Patient subsequently transferred to [facility] for further care. 2. Valvular dysfunction/pericardial effusion-echo noted severe aortic regurgitation, moderate mitral valve regurgitation, moderate large pericardial effusion. 3. History of non-Hodgkin's lymphoma-status post stem cell transplant-in remission since 1999. 4. Asthma-no acute exacerbation-continue DuoNeb aerosol as needed. 5. Depression-continue Effexor, amitriptyline regimen. 6. GERD-continue omeprazole. General: Alert, Oriented x3, Cooperative HEENT: Atraumatic, PERRLA, EOMI, Normocephalic Neck: Supple, No JVD, Negative Carotid Bruits Lungs: Clear to auscultation, Normal air movement Cardiovascular: Regular rate, Regular Rhythm, Normal S1, Normal S2 Abdomen: Bowel Sounds Present, Soft, Non Tender, Non-Distended Extremities: No clubbing, No cyanosis, No edema, Capillary Refill Less than 3 Seconds Skin: No rashes, No breakdown Musculoskeletal: No Tenderness to Palpation of Joints or Extremities Neurological: Cranial nerves II-XII grossly intact, Neuro grossly intact Psych/Mental Status: Normal Affect, Appropriate Patient seen and examined prior to discharge. Physical assessment as noted above. Patient is stable at time of transfer to [facility]. This patient was seen by WENDI Vann under the supervision of Dr. Gutierrez. Home Medications: Medications to take at Discharge Montelukast [Singulair] 10 mg PO DAILY 11/17/14 Omeprazole [Omeprazole] 20 mg PO BID 11/17/14 Albuterol Sulfate 1.25 mg IH Q4H PRN PRN 01/29/18 Amitriptyline HCl [Elavil] 50 mg PO DAILY 01/29/18 Fluticasone/Salmeterol [Advair 500-50 Diskus] 1 puff IH BID 01/29/18 Ipratropium [Atrovent] 0.5 mg INHALATION Q4H PRN PRN 01/29/18 Venlafaxine XR [Effexor Xr] 37.5 mg PO QHS 01/29/18 Primary Care Physician: Elicia Field MD [Primary Care Provider] - Disposition: Acute care Hospital Minutes spent on discharge:: 35 Patient Condition:: Stable Medical Necessity - Tobacco Use Smoking Status: Never smoker Tobacco Use: Non-smoker Meaningful Use Info Meaningful Use Diagnoses (Choose all that apply): CHF - CHF GERALDO/ARB ordered at discharge?: Yes Documented LVEF (%): 20 <Manan Gutierrez - Last Filed: 01/30/18 17:34> Discharge Date and Diagnosis - Secondary Discharge Diagnosis Chronic Problems Non-Hodgkin lymphoma in remission (Chronic) History of stem cell transplant (Chronic) Bilateral pleural effusion (Chronic) Mass of left lung (Chronic) Hospital Course and Treatment Imaging Results: 01/30/18 08:58 Xray Spine [Thoracic Spine 3 Views] [RAD] Urgent 01/30/18 10:00 Thoracentesis W US [US] DAILY 01/30/18 10:09 Chest Insp/Exp 2 View [RAD] Urgent Summary of Care Provided: This patient was seen in conjunction with WENDI Vann. I have independently interviewed and examined the patient and reviewed pertinent historical, laboratory, and other data. Please refer to Maribeth Vannote for details of this patient's presentation, findings, and recommendations. I have reviewed WENDI Vann note and concur with documented findings. In brief, Patient is an 52-year-old lady with history of Non Hodgkin's lymphoma who presented with progressive shortness of breath imaging studies obtained on admission demonstrated bilateral pleural effusion. An assessment of acute systolic congestive heart failure was made patient admitted to monitored bed for further management patient underwent subsequent evaluation with a 2D echo was treated EF of 20% with global hypokinesis and significant pleural effusion was seen in consultation by cardiology Dr. Benz who recommended for patient to be transferred to a tertiary care center for further management Hospital course; as detailed above by Hayde Pascual NP Meaningful Use Info Meaningful Use Diagnoses (Choose all that apply): CHF - CHF GERALDO/ARB ordered at discharge?: Yes Documented LVEF (%): 20 Code Visit Inpatient E&M: 53161 Disch Hosp
--- NOTE | 2018-01-30 16:52 | DS.PCM_ITS ---
<Hayde Pascual - Last Filed: 01/30/18 16:52> Discharge Date and Diagnosis Date of Admission: 01/29/18 Date of Discharge: 01/30/18 - Primary Discharge Diagnosis Active and Suspected Problems 1. Acute systolic CHF 2. Moderate to large pericardial effusion 3. Severe aortic regurgitation 4. Moderate mitral regurgitation 5. Pleural effusion status post thoracentesis - Secondary Discharge Diagnosis Chronic Problems Non-Hodgkin lymphoma in remission (Chronic) History of stem cell transplant (Chronic) Bilateral pleural effusion (Chronic) Mass of left lung (Chronic) Hospital Course and Treatment Imaging Results: Diagnostic Data Chest CTA 01/29/18 11:51 IMPRESSION: Bilateral pleural effusions right greater than left with underlying atelectasis. Stable fibrocalcific scarring in the left lung apex with bronchiectasis. Moderate sized pericardial effusion. Abnormal appearance of the upper thoracic vertebrae. Metastasis should be ruled out. Electronically Signed: Blayne Kamara MD at 13:04 EDT Tel [phone], Service support , Thoracic Spine X-Ray 01/30/18 08:58 IMPRESSION: Multilevel disc space narrowing in the thoracic level. Osteopenia of the thoracic vertebrae worse in the upper thoracic spine. Correlation with the bone scan is recommended. Electronically Signed: Blayne Kamara MD at 13:00 EDT Tel [phone], Service support , Thoracentesis Ultrasound 01/30/18 10:00 IMPRESSION: Ultrasound-guided right thoracentesis. Electronically Signed: Blayne Kamara MD at 10:55 EDT Tel [phone], Service support , Chest X-Ray 01/30/18 10:09 IMPRESSION: Status post right thoracentesis. There is no evidence of pneumothorax. Electronically Signed: Blayne Kamara MD at 13:37 EDT Tel [phone], Service support , Dr. Staples- Pulmonary Medicine Dr. Benz- Cardiology Operations: None Procedures: 2-D Echocardiogram, Thoracentesis Summary of Care Provided: Patient is a 52-year-old female admitted 01/29/18 due to worsening shortness of breath. She has a past medical history of non-Hodgkin's lymphoma, asthma, depression, GERD. 1. Acute systolic CHF-CT of chest showed bilateral pleural effusions. Patient underwent thoracentesis this morning with approximately 870 mL of fluid removed. Appears to be transudative. Pulmonary and cardiology consulted. Echocardiogram showed an EF of 20%, severe global systolic dysfunction, RVSP of 56 mmHg, moderate to large pericardial effusion, diastolic dysfunction, severe aortic regurgitation, moderate mitral valve regurgitation. Patient improved symptomatically. Patient received Lasix during admission. Continue isosorbide , lisinopril, Aldactone. Cardiology recommending transfer to outside facility who has available cardiothoracic surgery given significant valvular dysfunction and large pericardial effusion. Patient subsequently transferred to [facility] for further care. 2. Valvular dysfunction/pericardial effusion-echo noted severe aortic regurgitation, moderate mitral valve regurgitation, moderate large pericardial effusion. 3. History of non-Hodgkin's lymphoma-status post stem cell transplant-in remission since 1999. 4. Asthma-no acute exacerbation-continue DuoNeb aerosol as needed. 5. Depression-continue Effexor, amitriptyline regimen. 6. GERD-continue omeprazole. General: Alert, Oriented x3, Cooperative HEENT: Atraumatic, PERRLA, EOMI, Normocephalic Neck: Supple, No JVD, Negative Carotid Bruits Lungs: Clear to auscultation, Normal air movement Cardiovascular: Regular rate, Regular Rhythm, Normal S1, Normal S2 Abdomen: Bowel Sounds Present, Soft, Non Tender, Non-Distended Extremities: No clubbing, No cyanosis, No edema, Capillary Refill Less than 3 Seconds Skin: No rashes, No breakdown Musculoskeletal: No Tenderness to Palpation of Joints or Extremities Neurological: Cranial nerves II-XII grossly intact, Neuro grossly intact Psych/Mental Status: Normal Affect, Appropriate Patient seen and examined prior to discharge. Physical assessment as noted above. Patient is stable at time of transfer to [facility]. This patient was seen by WENDI Vann under the supervision of Dr. Gutierrez. Home Medications: Medications to take at Discharge Montelukast [Singulair] 10 mg PO DAILY 11/17/14 Omeprazole [Omeprazole] 20 mg PO BID 11/17/14 Albuterol Sulfate 1.25 mg IH Q4H PRN PRN 01/29/18 Amitriptyline HCl [Elavil] 50 mg PO DAILY 01/29/18 Fluticasone/Salmeterol [Advair 500-50 Diskus] 1 puff IH BID 01/29/18 Ipratropium [Atrovent] 0.5 mg INHALATION Q4H PRN PRN 01/29/18 Venlafaxine XR [Effexor Xr] 37.5 mg PO QHS 01/29/18 Primary Care Physician: Elicia Field MD [Primary Care Provider] - Disposition: Acute care Hospital Minutes spent on discharge:: 35 Patient Condition:: Stable Medical Necessity - Tobacco Use Smoking Status: Never smoker Tobacco Use: Non-smoker Meaningful Use Info Meaningful Use Diagnoses (Choose all that apply): CHF - CHF GERALDO/ARB ordered at discharge?: Yes Documented LVEF (%): 20 <Manan Gutierrez - Last Filed: 01/30/18 17:34> Discharge Date and Diagnosis - Secondary Discharge Diagnosis Chronic Problems Non-Hodgkin lymphoma in remission (Chronic) History of stem cell transplant (Chronic) Bilateral pleural effusion (Chronic) Mass of left lung (Chronic) Hospital Course and Treatment Imaging Results: 01/30/18 08:58 Xray Spine [Thoracic Spine 3 Views] [RAD] Urgent 01/30/18 10:00 Thoracentesis W US [US] DAILY 01/30/18 10:09 Chest Insp/Exp 2 View [RAD] Urgent Summary of Care Provided: This patient was seen in conjunction with WENDI Vann. I have independently interviewed and examined the patient and reviewed pertinent historical, laboratory, and other data. Please refer to JODI Vannote for details of this patient's presentation, findings, and recommendations. I have reviewed WENDI Vann note and concur with documented findings. In brief, Patient is an 52-year-old lady with history of Non Hodgkin's lymphoma who presented with progressive shortness of breath imaging studies obtained on admission demonstrated bilateral pleural effusion. An assessment of acute systolic congestive heart failure was made patient admitted to monitored bed for further management patient underwent subsequent evaluation with a 2D echo was treated EF of 20% with global hypokinesis and significant pleural effusion was seen in consultation by cardiology Dr. Benz who recommended for patient to be transferred to a tertiary care center for further management Hospital course; as detailed above by Hayde Pascual NP Meaningful Use Info Meaningful Use Diagnoses (Choose all that apply): CHF - CHF GERALDO/ARB ordered at discharge?: Yes Documented LVEF (%): 20 Code Visit Inpatient E&M: 24095 Disch Hosp
--- NOTE | 2018-01-30 17:26 | NURSING ---
report called to Tara IRVIN at [facility]
[2018-02-02 10:05] LABS: Pathologist Comment/Body Fluid Reviewed
[2018-02-02 22:08] LABS: Immunoglobulin A 219 mg/dL (87-352); Immunoglobulin G 877 mg/dL (700-1600); PROEL- A/G Ratio 1.3 (0.7-1.7); PROEL- Albumin 3.8 g/dL (2.9-4.4); PROEL- Alpha-1 Globulin 0.3 g/dL (0.0-0.4); PROEL- Alpha-2 Globulin 0.7 g/dL (0.4-1.0); PROEL- Globulin, Total 2.9 g/dL (2.2-3.9); PROEL- TOTAL PROTEIN 6.7 g/dL (6.0-8.5)
[2018-02-03 12:18] LABS: Immunoglobulin M 52 mg/dL (26-217)
== END 2018-01-30 18:21 | disposition short-term general hospital (02) | DRG 291 ==
LOC: ED 12:43 → PCU 15:25
PROVIDERS: Internal Medicine Hematology & Oncology; Admitting Provider Internal Medicine; Emergency Provider Emergency Medicine; Family Provider Internal Medicine; PCP Internal Medicine; Visit Provider Internal Medicine
DX: I50.41 Acute combined systolic (congestive) and diastolic (congestive) heart failure (principal); J96.01 Acute respiratory failure with hypoxia; J91.8 Pleural effusion in other conditions classified elsewhere; I31.3 Pericardial effusion (noninflammatory); S22.009A Unspecified fracture of unspecified thoracic vertebra, initial encounter for closed fracture; C85.90 Non-Hodgkin lymphoma, unspecified, unspecified site; Z94.84 Stem cells transplant status; X58.XXXA Exposure to other specified factors, initial encounter; I34.0 Nonrheumatic mitral (valve) insufficiency; I35.1 Nonrheumatic aortic (valve) insufficiency; I27.20 Pulmonary hypertension, unspecified; R91.8 Other nonspecific abnormal finding of lung field; I45.10 Unspecified right bundle-branch block; J47.9 Bronchiectasis, uncomplicated; R00.0 Tachycardia, unspecified; F32.9 Major depressive disorder, single episode, unspecified; K21.9 Gastro-esophageal reflux disease without esophagitis; J45.20 Mild intermittent asthma, uncomplicated; I51.89 Other ill-defined heart diseases; Z79.899 Other long term (current) drug therapy
CPT/HCPCS: 32555; 36415; 71046; 71275; 72072; 80048; 80061; 81002; 82784; 82945; 83615; 83735; 83880; 84156; 84157; 84165; 84443; 84484; 85025; 85027; 85610; 86334; 87070; 87075; 87205; 87449; 87633; 88108; 88305; 88313; 89050; 93005; 93306; 94640; 94667; 99285; Q9967; A4216; J1940

== ENCOUNTER 2018-09-20 19:34 | Emergency (ER) | payer BC, SELFPAY ==
[2018-09-20 19:34] VITALS: BP 90/75; PULSE 125; RESP 18; TEMP 36.9; O2SAT 98
[2018-09-20 19:44] VITALS: BP 100/76; PULSE 109; RESP 24; O2SAT 95
--- NOTE | 2018-09-20 20:11 | RAD_ITS ---
STUDY: X-RAY CHEST REASON FOR EXAM: Female, 53 years old. Fever TECHNIQUE: A single frontal view of the chest was obtained. COMPARISON: January 30, 2018 FINDINGS: The lungs are hyperinflated. There are stable coarse opacities in the left upper lung and right lung base. There are no focal airspace opacities. There is stable pleural thickening in the apices, left more than right. There is no blunting of the costophrenic angles. There is stable volume loss in the left lung. The cardiac silhouette is normal in size. The mediastinum and hilar regions are unremarkable. Normal visualized pulmonary arteries. There is atherosclerotic calcification of the thoracic aorta. There are diffuse degenerative changes of the visualized spine. The visualized ribs, clavicles, and shoulders are unremarkable. There is no demonstrated abnormality of the visualized upper abdomen. RAD/Chest 1 View (Portable) IMPRESSION: There is no evidence of focal consolidation or pleural effusion. There are stable chronic changes in the lungs, most pronounced in the left upper lung and right lung base. Electronically Signed: Mady Howard MD at 23:03 EST Tel Direct: [phone], Service support ,
--- NOTE | 2018-09-20 20:12 | EKG12_ITS ---
Test Reason : FEVER Blood Pressure : / mmHG Vent. Rate : 104 BPM Atrial Rate : 104 BPM P-R Int : 160 ms QRS Dur : 084 ms QT Int : 386 ms P-R-T Axes : 083 002 100 degrees QTc Int : 507 ms Sinus tachycardia Possible Inferior infarct , age undetermined Nonspecific T wave abnormality Abnormal ECG Confirmed by SHAREE ASH, NATHALY ([id number]), map editor LYNN TURK ([id number]) on 09/22/2018 3:22:22 PM Referred By: JORGE Confirmed By:NATHALY TOLLIVER MD
[2018-09-20 20:46] LABS: Absolute Lymphocyte Count 0.32 X10^3/ul (0.83-4.51); Absolute Neutrophil Count 6.5 X10^3/uL (2.0-7.7); Basophil# 0.01 X10^3/uL; Basophil% 0.1 % (0-1); Differential Indicated SCAN CRITERIA MET; Hematocrit 29.1 % (37-47); Hemoglobin 9.7 g/dl (12.0-15.0); Lymphocyte # 0.32 X10^3/ul (4.0); Lymphocyte % 4.2 % (19-41); Mean Corp Hgb Conc 33.3 g/gl (32-36); Mean Corpuscular Hgb 28.5 pg (27.0-32.0); Mean Corpuscular Volume 85.6 fL (81-99); Mean Platelet Vol. 8.4 fl (6.2-12.0); Monocyte# 0.73 X10^3/uL; Monocyte% 9.7 % (0-10); Neutrophil # 6.49 X10^3/uL (2.7-7.7); Neutrophil % 85.9 % (47-70); POSITIVE COUNT NO; POSITIVE DIFFERENTIAL YES; POSITIVE MORPHOLOGY YES; Platelet Count 129 K/mm3 (150-450); RBC Distribution Width CV 12.7 % (11.6-14.6); RBC Distribution Width SD 40.2 fl (35.1-43.9); White Blood Count 7.6 K/mm3 (4.4-11.0)
[2018-09-20 20:59] LABS: AST(SGOT) 48 U/L (15-37); Alanine Aminotransfer ALT/SGPT 34 U/L (13-56); Alkaline Phosphatase 173 U/L (45-117); Anion Gap 12 (5-15); BUN 15 mg/dL (7-18); BUN/Creat Ratio 18.3 RATIO (10-20); Bilirubin, Direct 0.28 mg/dL (0.00-0.30); Calcium,Total 8.3 mg/dL (8.5-10.1); Chloride 99 mmol/L (98-107); Creatinine, Serum 0.82 mg/dL (0.55-1.02); EST Glomerular Filtration Rate 78 mL/min (>60); Est Glom Filt Rate - Afr Amer 94 mL/min (>60); Estimated Creatinine Clearance 77.79 ml/min; Globulin 3.6 g/dL (2.2-4.2); Glucose 112 mg/dL (74-106); Potassium 3.6 mmol/L (3.5-5.1); Protein, Total 6.6 g/dL (6.4-8.2); Sodium Level 135 mmol/L (136-145)
[2018-09-20 21:00] LABS: Differential Comment SCANNED
[2018-09-20 21:24] LABS: Lactic Acid 1.2 mmol/L (0.4-2.0)
[2018-09-20 21:36] LABS: Color, Urine Yellow (Yellow); Glucose, Dipstick Normal (Normal); Ketone-Dipstick 5 mg/dl (Negative); Leukocyte Esterase-Dipstick 500 /ul (Negative); Nitrite-Dipstick Positive (Negative); Occult Blood-Urine 150 /ul (Negative); Protein-Dipstick 30 mg/dl (Negative); Specific Gravity, Urine 1.005 (1.002-1.030); Urine Bilirubin Dipstick Negative (Negative); Urine Clarity Cloudy (Clear); Urine Urobilinogen 4 mg/dl (Normal)
[2018-09-20 21:38] LABS: Mucous, Urine 0 SEEN /hpf (<or=2+); Red Blood Cells-Urine 0 SEEN /hpf (0-5); Squamous Epithelial Cells - UA 0 SEEN /hpf (5-10)
[2018-09-20 21:41] LABS: White Blood Cells 50-100 SEEN /hpf (0-5)
[2018-09-20 21:42] LABS: Bacteria 3+ /hpf (None Seen)
[2018-09-20] MEDS: 0.9% Normal Saline 1,000 ML 150 ML IV (21:59)
[2018-09-20 22:00] VITALS: BP 93/64; PULSE 96; RESP 16; O2SAT 95
[2018-09-20] MEDS: Ceftriaxone 1 GM/50 ML BAG IV (22:58)
[2018-09-20 23:03] VITALS: BP 92/62; PULSE 93; RESP 26; O2SAT 98
--- NOTE | 2018-09-20 23:38 | ED.VISSUMM ---
- ER Visit Summary Date of Service: 09/20/18 Chief Complaint: Fever History of Present Illness: The patient is a 53 F with a 3-day history of fever at home. T-max was up to 103.8 tonight. Last dose of Tylenol was at 6:30 PM. She denies cough or congestion. She denies nausea, vomiting, or diarrhea. She denies urinary symptoms. She does state that a coworker had a fever earlier last week with no specific cause. Patient is noted to have low blood pressure on arrival states her normal systolic blood pressures only 100-110. Past history significant for non-Hodgkin's lymphoma currently in remission after stem cell transplant. She has a history of CHF, asthma, hypertension, and a left lung mass that is being followed. Physical Examination: Blood pressure on arrival is 90/75, temperature 98.4, heart rate 125, respiratory rate 18, pulse ox 98% on room air. Head neck examination is unremarkable. Heart is tachycardic and regular. Lung sounds are clear bilaterally. Abdomen is soft nontender. Skin examination reveals no rash or lesions. She does have some sweating noted mostly on her brow consistent with recent drop in her fever. Neuro exam is unremarkable. Test Results: EKG is sinus at [address] changes. Portable chest x-ray shows no focal consolidation. Stable chronic changes are noted. CBC was normal white count hemoglobin 9.7. Left shift is noted with 86% neutrophils. Chemistry studies grossly unremarkable. LFTs significant only for AST of 48 and alk phos of 173. Urinalysis is nitrite positive with 50-100 white cells and 3+ bacteria. Lactate is normal at 1.2. Influenza swab is negative. Blood cultures have been obtained. Urine culture was sent. Emergency Department Course and Treatment: Patient was given IV fluids. Secondary to her history of CHF she received 500 cc boluses x2. She was given a dose of IV Rocephin. At this time her systolic blood pressures in the upper 90s. Heart rate is improved into the 80s. She feels significantly improved. She will be started on Cipro. She was advised that her urine culture should be resulted in 2 days and if any medication adjustment is needed she will be contacted. She will check her blood pressure at home over the next couple days and keep a close eye on that as well. Treatment Plan: [] Disposition: Discharge Impression: Cystitis This note was generated with Dragon dictation software. It may contain incorrect words, spelling, and punctuation that were not noted in review of the chart prior to signing ED Disposition - Plan for ED Patient: Disposition: Home or Assisted Living Chief Complaint: Fever Instructions: ED UTI Cystitis Female Prescriptions: Ciprofloxacin [Cipro] 500 mg PO BID #14 tablet Referrals: Elicia Field MD [Primary Care Provider] - 5-7 Days
--- OUTSIDE RECORDS SUMMARY | 2018-11-14 01:33 | XMS RPT_ITS ---
:1965 Author Organization [place] Support Name Relationship Address Phone BUE Unavailable [address] [place] [address] MICKLEY, MAHENDRA Unavailable [address] + [place] [address] BUE Unavailable [address] [place] [address] MICKLEY, MAHENDRA Unavailable [address] + [place] [address] BUE Unavailable [address] + [address] [place] [address] MICKLEY, MAHENDRA Unavailable [address] + [place] [address] BUE Unavailable [address] + [address] [place] [address] MICKLEY, MAHENDRA Unavailable [address] + [place] [address] BUE Unavailable [address] + [address] [place] [address] MICKLEY, MAHENDRA Unavailable [address] + [place] [address] BUE Unavailable [address] + [address] [place] [address] MICKLEY, MAHENDRA Unavailable [address] + [place] [address] BUE Unavailable [address] + [address] [place] [address] MICKLEY, MAHENDRA Unavailable [address] + [place] [address] BUE Unavailable [address] + [address] [place] [address] MICKLEY, MAHENDRA Unavailable [address] + [place] [address] BUE Unavailable [address] + [address] [place] [address] MAHENDRA FERNANDO Unavailable [address] + [place] [address] Care Team Providers Name Role Phone [facility] Unavailable Gideon Carmona Attending Unavailable [facility] Unavailable James, Omar Admitting Unavailable Polina Laureano Consulting Unavailable Aaron Gutierrez Attending Unavailable Dimitris Staples D.O. Consulting Unavailable Demar, Master Consulting Unavailable James, Omar Admitting Unavailable James, Omar Attending Unavailable [facility] Unavailable James, Omar Consulting Unavailable James, Omar Admitting Unavailable Tammy Mcnair COLOR SEPARATION PHOTOGRAPHER-C Attending Unavailable [facility] Unavailable Polina Laureano Consulting Unavailable Dimitris Staples D.O. Consulting Unavailable Aaron Gutierrez Consulting Unavailable [facility], Omar Admitting Unavailable Dimitris Staples D.O. Attending Unavailable [facility] Unavailable Polina Laureano Consulting Unavailable Dimitris Staples D.O. Consulting Unavailable Aaron Gutierrez Consulting Unavailable [facility], Omar Admitting Unavailable [facility], Nikia Primary Care Unavailable Polina Laureano Consulting Unavailable Aaron Gutierrez Attending Unavailable Dimitris Staples D.O. Consulting Unavailable Demar, Master Consulting Unavailable Aaron Gutierrez Consulting Unavailable Terrance Roland Attending Unavailable James, Omar Referring Unavailable Nilton Anders Attending Unavailable [facility], Omar Referring Unavailable [facility] Unavailable Mady Harmon Attending Unavailable BEN COATES Admitting Unavailable GUMARO PALAFOX Consulting Unavailable LEXA HERMAN Attending Unavailable BASSEM WEBER Referring Unavailable YANIQUE MCLAUGHLIN ([facility]) Attending Unavailable YANIQUE MCLAUGHLIN ([facility]) Referring Unavailable YANIQUE MCLAUGHLIN ([facility]) Referring Unavailable BASSEM WEBER Attending Unavailable GRIS MARTÍNEZ ([facility]) Attending Unavailable BASSEM WEBER Referring Unavailable GRIS MARTÍNEZ ([facility]) Attending Unavailable BASSEM WEBER Attending Unavailable [facility] Attending Unavailable REJI JOHNSON Referring Unavailable AILYN ROSAS (EXHIBIT TECHNICIAN) Attending Unavailable FRITZ DURHAM (TARIFF PUBLISHING AGENT) Attending Unavailable FRITZ DURHAM (TARIFF PUBLISHING AGENT) Referring Unavailable GEORGE LOBO Attending Unavailable GANTA, NIKIA Referring Unavailable GANTA, NIKIA Referring Unavailable GEORGE LOBO Referring Unavailable LIZBETH THOMPSON Attending Unavailable SINDHU BIRMINGHAM (TARIFF PUBLISHING AGENT) Attending Unavailable JENNIE, BASSEM M Referring Unavailable GANTA, NIKIA Attending Unavailable SINDHU BIRMINGHAM (TARIFF PUBLISHING AGENT) Referring Unavailable JENNIE, BASSEM M Referring Unavailable MELISSA LARIOS Referring Unavailable GANTA, NIKIA Attending Unavailable GANTA, NIKIA Referring Unavailable [facility] Attending Unavailable [facility] Referring Unavailable [facility] Unavailable JENNIE, BASSEM Attending Unavailable [facility] Referring Unavailable [facility] Unavailable JENNIE, BASSEM Attending Unavailable [facility] Referring Unavailable [facility] Primary [facility] Unavailable GRIS MARTÍNEZ Attending Unavailable [facility] Referring Unavailable [facility] Primary [facility] Unavailable GRIS MARTÍNEZ Attending Unavailable JENNIE, BASSEM Referring Unavailable [facility] Primary [facility] Unavailable YANIQUE MCLAUGHLIN R Referring Unavailable [facility] Primary [facility] Unavailable JENNIE, BASSEM Attending Unavailable [facility] Referring Unavailable [facility] Primary [facility] Unavailable MCLAUGHLIN, YANIQUE R Attending Unavailable MCLAUGHLIN, YANIQUE R Referring Unavailable [facility] Primary [facility] Unavailable JENNIE, BASSEM Referring Unavailable [facility] Primary [facility] Unavailable Adali HERMAN Attending Unavailable BEN COATES Admitting Unavailable [facility] Primary [facility] Unavailable AARON PETERSON Consulting Unavailable GUMARO PALAFOX Consulting Unavailable PROBLEMS PROBLEMS DATE TYPE CONDITION / CODE ATTENDING STATUS SOURCE Active Encounter for Active [place] [address] screening mammogram Clinic Main for malignant neoplasm [place] of breast / Repository Z12.31(ICD-10) Admitting Unknown / UNK(Unknown) GRIS MARTÍNEZ Active [place] [address] diagnosis Health System Repository Active Endocarditis, valve GRIS MARTÍNEZ Active [place] [address] unspecified / (TARIFF PUBLISHING AGENT) Clinic Other I38(ICD-10) [place] Repository Active Acute on chronic GRIS MARTÍNEZ Active [place] [address] combined systolic (TARIFF PUBLISHING AGENT) Clinic Other (congestive) and [place] diastolic (congestive) Repository heart failure / I50.43(ICD-10) Active Other cardiomyopathies BASSEM WEBER [place] [address] / I42.8(ICD-10) Clinic Other [place] Repository Active Nonrheumatic mitral JENNIE, BASSEM White Active [place] [facility] (valve) insufficiency Clinic Other / I34.0(ICD-10) [place] Repository Active Chronic systolic MCLAUGHLIN, Active [place] (congestive) heart YANIQUE (TARIFF PUBLISHING AGENT) Clinic Other failure / [place] I50.22(ICD-10) Repository Active Personal history of MCL[place]IN Active [place] [facility] Hodgkin lymphoma / YANIQUE (TARIFF PUBLISHING AGENT) Clinic Other Z85.71(ICD-10) [place] Repository Active Chronic obstructive MCLAUGHLIN, Active [place] [facility] pulmonary disease with YANIQUE (TARIFF PUBLISHING AGENT) Clinic Other acute lower [place] respiratory infection Repository / J44.0(ICD-10) Active Acute bronchitis, [place]AU[place]IN, Active [place] [facility] unspecified / YANIQUE (TARIFF PUBLISHING AGENT) Clinic Other J20.9(ICD-10) [place] Repository Active Unknown / UNK(Unknown) NA Active [place] [facility] Clinic Other [place] Repository Active Pericardial effusion OLEGHE, IFIJEN Active [place] (noninflammatory) / [facility] Other I31.3(ICD-10) [place] Repository Active Acute combined OLEGHE, IFIJEN Active [place] systolic (congestive) [facility] Other and diastolic [place] (congestive) heart Repository failure / I50.41(ICD-10) Active Nonrheumatic aortic OLEGHE, IFIJEN Active [place] (valve) insufficiency [facility] Other / I35.1(ICD-10) [place] Repository Active Acute systolic OLEGHE, IFIJEN Active [place] (congestive) heart [facility] Other failure / [place] I50.21(ICD-10) Repository Active Non-ST elevation OLEGHE, IFIJEN Active [place] (NSTEMI) myocardial [facility] Other infarction / [place] I21.4(ICD-10) Repository Unknown I45.10 - Unspecified Martita, Nilton Active [place] 8 right bundle-branch Community block / I45.10(ICD-10) Hospital Repository Unknown R94.31 - Abnormal Martita, Nilton Active [place] electrocardiogram Community [ECG] [EKG] / Hospital R94.31(ICD-10) Repository Active Moderate persistent NA Active [place] [facility] asthma, uncomplicated Clinic Main / J45.40(ICD-10) [place] Repository Active Chest pain, NA Active [place] [facility] unspecified / Clinic Main R07.9(ICD-10) [place] Repository Active Shortness of breath / NA Active [place] [address] R06.02(ICD-10) [facility] Repository Active Cough / R05(ICD-10) Active [address] Repository PROCEDURES PROCEDURES No Procedure Records FoundRESULTS RESULTS CNOV Observed: 09/30/2018 Status: COMPLETED Source: [place] 5:40 PM [facility] REPOSITORY Office Visit (INTMWS) ZEESHAN FERNANDO ([id number]) 1965 F TRN Date Time Provider Department 09/30/18 5:40 PM NIKIA PILLAI IN[facility]WS During your visit today, we recorded the following information about you: Pulse Respiration Blood pressure Weight 78/minute 16/minute 124/76 60.8 kg NIKIA PILLAI MD 09/30/2018 8:15 PM Signed Reason for Visit Patient presents with: Recheck: 4 month follow up Zeeshan Fernando is a 53 year old female who presents here today for Above Complaints.. Health Maintenance There are no preventive care reminders to display for this patient. HPI Patient EF had increased from 36 to 46 percent, the etiology of the cardiomyopathy is not clear. She is on coreg 25 mg 2 times and lisinopril 10 mgs , her chf is compensated. She takes the pills at night. Patient is on singulair............... She takes it for asthma used to be on advair but now she has not needed it much. prilosec is well controlled. Once the fluid is off her lungs. She is not exercising as much as she does in the summer No problem-specific Assessment AND Plan notes found for this encounter. PAST MEDICAL HISTORY Diagnosis Date - Aortic valve insufficiency - Asthma 2010 dust mites, tree pollen - Brain bleed (HCC) - Carcinoma in situ of cervix uteri 2008 Tre[address] [place] [address] Montilla - CHF (congestive heart failure) (HCC) - Esophageal reflux Gastroesophageal reflux - Hodgkin's disease, unspecified(201.90) 1999 Hodgkins Disease - HPV (human papillomavirus) vaccine 2008 - Migraine, unspecified, with intractable migraine, so stated, without mention of status migrainosus Migraine - Mitral valve regurgitation - Non-ischemic cardiomyopathy (HCC) - Pap smear of cervix with ASCUS, cannot exclude HGSIL 06/28/13 HPV+ - Postmenopausal bleeding Postmenop. bleeding - Premature menopause - Thrombocytopenia, unspecified (HCC) Thrombocytopenia - VAIN III (vaginal intraepithelial neoplasia III) 2008 As above PAST SURGICAL HISTORY Procedure Laterality Date - COLPOSCOPY (VAGINOSCOPY) 2008 with laser tx for HPV - PAST SURGICAL HISTORY OF CHEST WALL BX.,PORT,EDWARDS CATHETER - PAST SURGICAL HISTORY OF 2008 Laser cone of cx and vaporization of upper vagina - VAGINOSCOPY 08/30/13 Benign FAMILY HISTORY Problem Relation Age of Onset - other (Other) Mother PARKINSON'S. - Hypertension Father - Cancer Maternal Grandmother Stomach? - other (Other) Maternal Grandmother LAZARUS'S CHOREA. - other (Other) Other No lung disease. Maybe some allergies, nothing major. Social History Substance Use Topics - Smoking status: Never Smoker - Smokeless tobacco: Never Used Comment: No childhood or current household smokers. - Alcohol use Yes Comment: Seldom. Past medical history, appointments, medications, allergies reviewed. Pertinent Lab/Diagnostic Studies are reviewed and discussed today Current Outpatient Prescriptions: - albuterol (PROVENTIL) 2.5 mg /3 mL (0.083 %) nebulizer solution - albuterol HFA (PROAIR HFA) 90 mcg/actuation inhaler - carvedilol (COREG) 25 mg tablet - DAILY MULTIVITAMIN TAB - furosemide (LASIX) 20 mg tablet - ipratropium (ATROVENT) 0.02 % nebulizer solution - lisinopril (ZESTRIL, PRINIVIL) 10 mg tablet - montelukast (SINGULAIR) 10 mg tablet - omeprazole (PRILOSEC) 20 mg capsule - venlafaxine ER (EFFEXOR XR) 37.5 mg 24 hr capsule Review of Systems CONSTITUTIONAL: No fevers, chills night sweats, unintended weight loss CARDIOVASCULAR: No chest pain, dyspnea, palpitations, orthopnea, PND, ankle edema. PULM: No dyspnea, unexplained cough. GI: No dysphagia/odynophagia, problematic reflux, constipation, diarrhea, changes in stool habits, hematochezia, melena. : No new urinary complaints, including dysuria, gross hematuria or pyuria. NEURO: No new balance problems, peripheral weakness/paresthesias or numbness of concern. Physical Exam BP 124/76 (BP Site: Left Arm, BP Position: Sitting, BP Cuff Size: Regular Adult) Pulse 78 Resp 16 Wt 60.8 kg (134 lb) LMP 02/18/2004 SpO2 100% BMI 20.99 kg/m? General appearance: Well appearing, alert, in no acute distress, well nourished. Skin: Skin color, texture, turgor normal, no suspicious rashes or lesions Head: Normocephalic, no masses, lesions, tenderness or abnormalities Eyes: Anicteric sclera. Pupils are equally round and reactive to light. Extraocular movements are intact. Lungs: Lungs clear to auscultation. No wheezing, rhonchi, rales Heart: RRR without murmur, gallop, or rubs. Extremities: No deformities, edema, skin discoloration, clubbing or cyanosis. Good capillary refill. ASSESSMENT/PLAN: 1. Congestive heart failure, unspecified HF chronicity, unspecified heart failure type (HCC) - ICD9: 428.0, ICD10: I50.9 (primary diagnosis) To give all blood work in 6 months. - LIPID PANEL BASIC - COMP METABOLIC PANEL - CBC + DIFF 2. Mild intermittent asthma without complication - ICD9: 493.90, ICD10: J45.20 Mild intermittent Asthma stable - Avoidance of triggers recommended 3. Gastroesophageal reflux disease without esophagitis - ICD9: 530.81, ICD10: K21.9 - Discussed lifestyle modifications including losing weight, limiting caffeine, no meals three hours before sleep and head of bed elevation NIKIA PILLAI MD ' Referring Provider: NIKIA PILLAI [[id number]] Allergies As of Date: 09/30/2018 Noted Allergy Reaction SULFA (SULFONAMIDE ANTIBIOTICS) 08/21/2005 2 - Rash 7 - Swelling CODEINE 09/17/2005 4 - Hives Environmental [Other] 10/03/2011 16 - Unknown Comments: Dust mites, trees GUIAFENESIN [Other] 09/17/2005 1 - Mental Status Change PENICILLINS 08/21/2005 2 - Rash Date Reviewed: 09/30/2018 Reviewed by: Belinda Montalvo Ma - Fully Assessed Reason for Visit: Recheck [92] Cmt: 4 month follow up Primary Visit Diagnosis:Congestive heart failure, unspecified HF chronicity, unspecified heart failure type (HCC) [I50.9] Other Visit Diagnoses:Mild intermittent asthma without complication [J45.20] Gastroesophageal reflux disease without esophagitis [K21.9] Order(s):LIPID PANEL BASIC [SQLIPB] Order #: [id number] FUTURE COMP METABOLIC PANEL [SQCMP] Order #: [id number] FUTURE CBC + DIFF [SQCBCDIF] Order #: [id number] FUTURE Prescriptions as of 09/30/2018 Sig: ALBUTEROL SULFATE 2.5 MG/3 ML* Use 3 mL via nebulizer every * ALBUTEROL SULFATE HFA 90 MCG/* Inhale 2 Puffs as instructed * CARVEDILOL 25 MG TABLET Take 1 tablet by mouth twice * DAILY MULTIVITAMIN TABLET FUROSEMIDE 20 MG TABLET Take 1 tablet by mouth as nee* IPRATROPIUM BROMIDE 0.02 % SO* Use 2.5 mL via nebulizer four* LISINOPRIL 10 MG TABLET Take 1 tablet by mouth twice * MONTELUKAST 10 MG TABLET TAKE 1 TABLET BY MOUTH DAILY * OMEPRAZOLE 20 MG CAPSULE,VIRGIE* TAKE 1 CAPSULE BY MOUTH TWICE* VENLAFAXINE ER 37.5 MG CAPSUL* Take 1 capsule by mouth once * Problem List As Of Date 09/30/2018 Noted Resolved Esophageal reflux [K21.9] INVALID FOR* More... Hodgkin's disease [201] INVALID FOR*11/06/2007 More... Absence of menstruation [N91.2] INVALID FOR*06/10/2012 Pneumonia, organism unspecified [J18.9] INVALID FOR*05/10/2011 TENOSYNOV HAND/WRIST NEC [M65.849, M65.839] INVALID FOR*12/19/2006 History of Hodgkin's disease [Z85.71] INVALID FOR* More... Personal history of pneumonia (recurrent) [Z87.*INVALID FOR* More... 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 Asthma [J45.909] INVALID FOR* More... Headache, migraine [G43.909] INVALID FOR* More... More... HFrEF (heart failure with reduced ejection frac*INVALID FOR* Acute on chronic combined systolic and diastoli*INVALID FOR* Pericardial effusion [I31.3] INVALID FOR* Valvular heart disease [I38] INVALID FOR* Encounter Status:Closed by NIKIA PILLAI MD on 09/30/18 PROGRESS Observed: 09/30/2018 Status: COMPLETED Source: [place] 5:38 PM [facility] REPOS[facility] HNO ID: [id number] Author: Nikia Pillai Service: (none) Author Type: Physician Type: Progress Notes Filed: 09/30/2018 8:15 PM Note Text: Reason for Visit Patient presents with: Recheck: 4 month follow up Zeeshan Fernando is a 53 year old female who presents here today for Above Complaints.. Health Maintenance There are no preventive care reminders to display for this patient. HPI Patient EF had increased from 36 to 46 percent, the etiology of the cardiomyopathy is not clear. She is on coreg 25 mg 2 times and lisinopril 10 mgs , her chf is compensated. She takes the pills at night. Patient is on singulair............... She takes it for asthma used to be on advair but now she has not needed it much. prilosec is well controlled. Once the fluid is off her lungs. She is not exercising as much as she does in the summer No problem-specific Assessment AND Plan notes found for this encounter. PAST MEDICAL HISTORY Diagnosis Date - Aortic valve insufficiency - Asthma 2010 dust mites, tree pollen - Brain bleed (HCC) - Carcinoma in situ of cervix uteri [address] [place] [address] Montilla - CHF (congestive heart failure) (HCC) - Esophageal reflux Gastroesophageal reflux - Hodgkin's disease, unspecified(201.90) 1999 Hodgkins Disease - HPV (human papillomavirus) vaccine 2008 - Migraine, unspecified, with intractable migraine, so stated, without mention of status migrainosus Migraine - Mitral valve regurgitation - Non-ischemic cardiomyopathy (HCC) - Pap smear of cervix with ASCUS, cannot exclude HGSIL 06/28/13 HPV+ - Postmenopausal bleeding Postmenop. bleeding - Premature menopause - Thrombocytopenia, unspecified ([facility]) Thrombocytopenia - VAIN III (vaginal intraepithelial neoplasia III) 2008 As above PAST SURGICAL HISTORY Procedure Laterality Date - COLPOSCOPY (VAGINOSCOPY) 2008 with laser tx for HPV - PAST SURGICAL HISTORY OF CHEST WALL BX.,PORT,EDWARDS CATHETER - PAST SURGICAL HISTORY OF 2009 Laser cone of cx and vaporization of upper vagina - VAGINOSCOPY 08/30/13 Benign FAMILY HISTORY Problem Relation Age of Onset - other (Other) Mother PARKINSON'S. - Hypertension Father - Cancer Maternal Grandmother Stomach? - other (Other) Maternal Grandmother LAZAURS'S CHOREA. - other (Other) Other No lung disease. Maybe some allergies, nothing major. Social History Substance Use Topics - Smoking status: Never Smoker - Smokeless tobacco: Never Used Comment: No childhood or current household smokers. - Alcohol use Yes Comment: Seldom. Past medical history, appointments, medications, allergies reviewed. Pertinent Lab/Diagnostic Studies are reviewed and discussed today Current Outpatient Prescriptions: - albuterol (PROVENTIL) 2.5 mg /3 mL (0.083 %) nebulizer solution - albuterol HFA (PROAIR HFA) 90 mcg/actuation inhaler - carvedilol (COREG) 25 mg tablet - DAILY MULTIVITAMIN TAB - furosemide (LASIX) 20 mg tablet - ipratropium (ATROVENT) 0.02 % nebulizer solution - lisinopril (ZESTRIL, PRINIVIL) 10 mg tablet - montelukast (SINGULAIR) 10 mg tablet - omeprazole (PRILOSEC) 20 mg capsule - venlafaxine ER (EFFEXOR XR) 37.5 mg 24 hr capsule Review of Systems CONSTITUTIONAL: No fevers, chills night sweats, unintended weight loss CARDIOVASCULAR: No chest pain, dyspnea, palpitations, orthopnea, PND, ankle edema. PULM: No dyspnea, unexplained cough. GI: No dysphagia/odynophagia, problematic reflux, constipation, diarrhea, changes in stool habits, hematochezia, melena. : No new urinary complaints, including dysuria, gross hematuria or pyuria. NEURO: No new balance problems, peripheral weakness/paresthesias or numbness of concern. Physical Exam BP 124/76 (BP Site: Left Arm, BP Position: Sitting, BP Cuff Size: Regular Adult) Pulse 78 Resp 16 Wt 60.8 kg (134 lb) LMP 02/18/2004 SpO2 100% BMI 20.99 kg/m? General appearance: Well appearing, alert, in no acute distress, well nourished. Skin: Skin color, texture, turgor normal, no suspicious rashes or lesions Head: Normocephalic, no masses, lesions, tenderness or abnormalities Eyes: Anicteric sclera. Pupils are equally round and reactive to light. Extraocular movements are intact. Lungs: Lungs clear to auscultation. No wheezing, rhonchi, rales Heart: RRR without murmur, gallop, or rubs. Extremities: No deformities, edema, skin discoloration, clubbing or cyanosis. Good capillary refill. ASSESSMENT/PLAN: 1. Congestive heart failure, unspecified HF chronicity, unspecified heart failure type (HCC) - ICD9: 428.0, ICD10: I50.9 (primary diagnosis) To give all blood work in 6 months. - LIPID PANEL BASIC - COMP METABOLIC PANEL - CBC + DIFF 2. Mild intermittent asthma without complication - ICD9: 493.90, ICD10: J45.20 Mild intermittent Asthma stable - Avoidance of triggers recommended 3. Gastroesophageal reflux disease without esophagitis - ICD9: 530.81, ICD10: K21.9 - Discussed lifestyle modifications including losing weight, limiting caffeine, no meals three hours before sleep and head of bed elevation NIKIA PILLAI MD ' 12 LEAD ELECTROCARDIOGRAM Observed: 09/22/2018 Status: F Source: [place] 3:22 PM [facility] Cardiovascular Services [address] [place] [address] 12 Lead EKG 09/20/182025 MR#: [id number] Acct: [id number] Name: ZEESHAN FERNANDO Rep #: [id number] : 1965 53 From: Terrance Roland MD Attending Dr: Status: DEP ER Ordering Dr: Mady Harmon MD Date: 09/20/18 Location: ED Sex: F C Admitted: Test Reason : FEVER Blood Pressure : / mmHG Vent. Rate : 104 BPM Atrial Rate : 104 BPM P-R Int : 160 ms QRS Dur : 084 ms QT Int : 386 ms P-R-T Axes : 083 002 100 degrees QTc Int : 507 ms Sinus tachycardia Possible Inferior infarct , age undetermined Nonspecific T wave abnormality Abnormal ECG Confirmed by SHAREE ASH, TERRANCE ([id number]), newspaper or periodical editor LYNN TURK ([id number]) on 09/22/2018 3:22:22 PM Referred By: JORGE Confirmed By:TERRANCE ROLAND MD 09/22/18 152 Date Terrance Roland MD CC: Nikia Pillai MD; Mady Harmon MD Signed EMERGENCY DEPARTMENT Observed: 09/21/2018 Status: F Source: [place] SUMMARY 12:46 AM [facility] Medical Records Department [address] [place] [address] Emergency Department Summary 09/20/18 2338 MR#: [id number] Acct: [id number] Name: ZEESHAN FERNANDO Rep #: [id number] : 1965 53 From: Mady Harmon MD PCP: Nikia Pillai MD Status: DEP ER - ER Visit Summary Date of Service: 09/20/18 Chief Complaint: Fever History of Present Illness: The patient is a 53 F with a 3- day history of fever at home. T-max was up to 103.8 tonight. Last dose of Tylenol was at 6:30 PM. She denies cough or congestion. She denies nausea, vomiting, or diarrhea. She denies urinary symptoms. She does state that a coworker had a fever earlier last week with no specific cause. Patient is noted to have low blood pressure on arrival states her normal systolic blood pressures only 100-110. Past history significant for non-Hodgkin's lymphoma currently in remission after stem cell transplant. She has a history of CHF, asthma, hypertension, and a left lung mass that is being followed. Physical Examination: Blood pressure on arrival is 90/75, temperature 98.4, heart rate 125, respiratory rate 18, pulse ox 98% on room air. Head neck examination is unremarkable. Heart is tachycardic and regular. Lung sounds are clear bilaterally. Abdomen is soft nontender. Skin examination reveals no rash or lesions. She does have some sweating noted mostly on her brow consistent with recent drop in her fever. Neuro exam is unremarkable. Test Results: EKG is sinus at [address] changes. Portable chest x-ray shows no focal consolidation. Stable chronic changes are noted. CBC was normal white count hemoglobin 9.7. Left shift is noted with 86% neutrophils. Chemistry studies grossly unremarkable. LFTs significant only for AST of 48 and alk phos of 173. Urinalysis is nitrite positive with 50-100 white cells and 3+ bacteria. Lactate is normal at 1.2. Influenza swab is negative. Blood cultures have been obtained. Urine culture was sent. Emergency Department Course and Treatment: Patient was given IV fluids. Secondary to her history of CHF she received 500 cc boluses x2. She was given a dose of IV Rocephin. At this time her systolic blood pressures in the upper 90s. Heart rate is improved into the 80s. She feels significantly improved. She will be started on Cipro. She was advised that her urine culture should be resulted in 2 days and if any medication adjustment is needed she will be contacted. She will check her blood pressure at home over the next couple days and keep a close eye on that as well. Treatment Plan: [] Disposition: Discharge Impression: Cystitis This note was generated with Hemp [employer] Haitiation software. It may contain incorrect words, spelling, and punctuation that were not noted in review of the chart prior to signing ED Disposition - Plan for ED Patient: Disposition: Home or Assisted Living Chief Complaint: Fever Instructions: ED UTI Cystitis Female Prescriptions: Ciprofloxacin [Cipro] 500 mg PO BID #14 tablet Referrals: Nikia Pillai MD [Primary Care Provider] - 5-7 Days What to do if you have Problems For any increased pain, shortness of breath, bleeding, nausea or vomiting, chest pain, or any unexpected problems, contact your Primary Care Provider. Call [facility] ([phone]) or report to the closest Emergency Room. Call 911 if necessary. 09/21/18 0046 <Electronically signed by Mady Harmon MD> Date Mady Harmon MD Cosigner Signature (If Indicated): Date CC: Nikia Pillai MD DISCHARGE INSTRUCTION Observed: 09/20/2018 Status: F Source: [place] 11:40 PM [facility] REPOSITORY [facility] Medical Records Department [address] [place] [address] Discharge Instruction 09/20/188 MR#: [id number] Acct: [id number] Name: ZEESHAN FERNANDO Rep #: [id number] : 1965 53 From: Mady Harmon MD PCP: Nikia Pillai MD Status: REG ER ED Disposition - Plan for ED Patient: Disposition: Home or Assisted Living Chief Complaint: Fever Instructions: ED UTI Cystitis Female Prescriptions: Ciprofloxacin [Cipro] 500 mg PO BID #14 tablet Referrals: Nikia Pillai MD [Primary Care Provider] - 5-7 Days What to do if you have Problems For any increased pain, shortness of breath, bleeding, nausea or vomiting, chest pain, or any unexpected problems, contact your Primary Care Provider. Call [facility] ([phone]) or report to the closest Emergency Room. Call 911 if necessary. 09/20/18 2340 <Electronically signed by Mady Harmon MD> Date Mady Harmon MD Cosigner Signature (If Indicated): Date CC: Nikia Pillai MD URINALYSIS, COMPLETE Collected: 09/20/2018 Status: F Source: [place] 9:22 PM [facility] REPOSITORY Order Comment: How was Urine Obtained? CLEAN CATCH TYPE CODE TESTS RESULT OUT OF RANGE REFERENCE UNITS LAB L400.3000 Yellow COLOR Normal Yellow LAB L400.3050 Clear Normal CLARITY Cloudy LAB L400.3200 Normal mg/dl Normal GLUCOSE, UR Normal LAB L400.3300 Negative mg/dL Normal BILIRUBIN URINE Negative LAB L400.3400 Negative mg/dl High 5 KETONE UR LAB L400.3465 1.002-1.030 Normal SP.GR. DIPSTX 1.005 LAB L400.3550 5.0 - 8.0 pH UR Normal 6.0 LAB L400.3600 Negative mg/dl High PROT 30 DIPSTX LAB L400.3700 Normal mg/dl High 4 UROBILI LAB L400.3750 Negative High NITRITE UR Positive LAB L400.3780 Negative /ul High OCCULT BLOOD-UR 150 LAB L400.3800 Negative /ul High LEUK ESTERASE 500 LAB L400.4050 0-5 /hpf WBC Normal 50-100 SEEN LAB L400.4100 0-5 /hpf 0 Normal RBC-UA SEEN LAB L400.4150 5-10 /hpf SQUAM 0 Normal EPI SEEN LAB L400.4300 None Seen /hpf 3+ Normal BACTERIA LAB L400.4350 <or=2+ /hpf 0 Normal MUCUS, URINE SEEN Performed By: #### L400.0001 #### [facility] [address] [place], [address] Observed: 09/20/2018 Status: F Source: [place] CULTURE, URINE 9:22 PM [facility] REPOSITORY Urine Culture ORGANISM 1: Presumptive E. coli [place] Count >100,000 Presumptive E. coli: REACTION Amoxacillin/Clavulanic Acid $ <=2 S Ampicillin $ 4 S Ampicillin/Sulbactam $ <=2 S Cefazolin $ <=4 S Cefepime $ <=1 S Ceftriaxone $ <=1 S Ciprofloxacin $ <=0.25 S ESBL - Ertapenim $$$ <=0.5 S Gentamicin $ <=1 S Imipenem *NF <=0.25 S Levofloxacin $ <=0.12 S Nitrofurantoin $ <=16 S Piperacillin/Tazobactam $$ <=4 S Tobramycin $ <=1 S Trimethoprim/Sulfametho $ <=20 S (NF) indicates non-formulary drug at [facility]. Approval by Infectious Disease Specialist required before non-formulary drugs may be ordered and/or dispensed. Performed By: #### M100.0650 #### [facility]. [place], [place], [id number] Observed: 09/20/2018 Status: F Source: [place] CULTURE, BLOOD (WB) 8:36 PM [facility] REPOSITORY BC No growth in 5 days. Performed By: #### M200.1000 #### [facility] [address] [place] [address]. [place], [place], [id number] Observed: 09/20/2018 Status: F Source: [place] INFLUENZA A+B (RAPID 8:25 PM [facility]) REPOSITORY FLU A/B Rapid Negative test results should be confirmed by culture. Order Rapid Viral Culture for Influenzae A+B ([id number]) if clinically indicated. Influenza Ag, Direct Presumptive NEGATIVE for Influenza A/B Antigen (See Note) Performed By: #### M101.0101 #### [facility] [address] [place] [address]. [place], [place], [id number] CHEST 1 VIEW Observed: 09/20/2018 Status: F Source: [place] (PORTABLE) 8:15 PM [facility] REPOSITORY [facility] Imaging Services [address] [place] [id number] Chest 1 View (Portable) MR#: [id number] Acct: [id number] Name: ZEESHAN FERNANDO Rep #: [id number] : 1965 F 53 From: Mady Howard MD PCP: Nikia Pillai MD Status: REG ER Study: Chest 1 View (Portable) Date of Exam: 09/20/18 Exam# [id number] Ordering Dr: Mady Harmon MD STUDY: X-RAY CHEST REASON FOR EXAM: Female, 53 years old. Fever TECHNIQUE: A single frontal view of the chest was obtained. COMPARISON: January 30, 2018 FINDINGS: The lungs are hyperinflated. There are stable coarse opacities in the left upper lung and right lung base. There are no focal airspace opacities. There is stable pleural thickening in the apices, left more than right. There is no blunting of the costophrenic angles. There is stable volume loss in the left lung. The cardiac silhouette is normal in size. The mediastinum and hilar regions are unremarkable. Normal visualized pulmonary arteries. There is atherosclerotic calcification of the thoracic aorta. There are diffuse degenerative changes of the visualized spine. The visualized ribs, clavicles, and shoulders are unremarkable. There is no demonstrated abnormality of the visualized upper abdomen. RAD/Chest 1 View (Portable) IMPRESSION: There is no evidence of focal consolidation or pleural effusion. There are stable chronic changes in the lungs, most pronounced in the left upper lung and right lung base. Electronically Signed: Mady Howard MD at 23:03 EST Tel Direct: [phone], Service support , CC: Nikia Pillai MD; Mady Harmon MD Cyber Instructor: Signed CBC W/DIFF, AUTOMATED Collected: 09/20/2018 Status: F Source: [place] 8:05 PM [facility] REPOSITORY TYPE CODE TESTS RESULT OUT OF RANGE REFERENCE UNITS LAB L100.1000 4.4-11.0 K/mm3 Normal WBC 7.6 LAB L100.1200 4.2-5.4 M/mm3 Low RBC 3.40 LAB L100.1300 12.0-15.0 g/dl Low HGB 9.7 LAB L100.1400 37-47 % Low HCT 29.1 LAB L100.1500 81-99 fL Normal MCV 85.6 LAB L100.1600 27.0-32.0 pg Normal MCH 28.5 LAB L100.1700 32-36 g/gl Normal MCHC 33.3 LAB L100.1810 11.6-14.6 % Normal RDW CV 12.7 LAB L100.1820 35.1-43.9 fl Normal RDW SD 40.2 LAB L100.1900 150-450 K/mm3 Low PLT 129 LAB L100.2000 6.2-12.0 fl Normal MPV 8.4 LAB L100.2100 47-70 % High NEUT% 85.9 LAB L100.2200 19-41 % Low LY% 4.2 LAB L100.2300 0-10 % Normal MONO% 9.7 LAB L100.2400 0-5 % Normal EO% 0.0 LAB L100.2500 0-1 % Normal BASO% 0.1 LAB L100.2550 0.0-0.9 % Normal IM GRAN % 0.100 Result Comment: IG% - Immature Granulocytes (promyelocytes, myelocytes and metamyelocytes) > 1% indicates that a LEFT SHIFT is Present. LAB L100.2620 2.0-7.7 X10 3/uL Normal Absolute Neut 6.5 LAB L100.2720 0.83-4.51 X10 3/ul Low Absolute Lymph 0.32 LAB L100.4500 Normal SMEAR COMMENT SCANNED Performed By: #### L100.0100 #### [facility] [address] [place], [address] BASIC METABOLIC Collected: 09/20/2018 Status: F Source: [place] PROFILE (BMP) 8:05 PM [facility] REPOSITORY TYPE CODE TESTS RESULT OUT OF RANGE REFERENCE UNITS LAB L501.0100 74-106 mg/dL High GLU 112 Result Comment: Fasting Glucose result from 100 to 125 mg/dL suggests IMPAIRED HOMEOSTASIS per A.D.A. criteria. Please note revised GLUCOSE reference range effective 2017. LAB L501.1000 7-18 mg/dL Normal BUN 15 LAB L501.1100 0.55-1.02 mg/dL Normal CREAT,SERUM 0.82 Result Comment: The validity of the calculated GFR AND GFRAA in patients over 70 years has not been determined. Clinical correlation is essential. LAB L501.1110 >60 mL/min Normal EST GFR 78 Result Comment: Non- GFR Calc LAB L501.1115 >60 mL/min Normal EST GFR - AA 94 Result Comment: GFR Calc LAB L501.1255 ml/min Normal Estimated CRCL 77.79 LAB L501.1300 10-20 RATIO Normal BUN/CRE 18.3 LAB L501.2200 8.5-10 mg/dL Low .1 CA 8.3 LAB L501.5300 136-14 mmol/L Low 5 NA 135 LAB L501.5600 3.5-5. mmol/L Normal 1 K 3.6 LAB L501.5900 98-107 mmol/L Normal CL 99 LAB L501.6100 21.0-3 mmol/L Normal 2.0 CO2 24.0 LAB L501.6200 5-15 Normal GAP 12 Performed By: #### L500.2500, L500.3400 #### [facility] [address] [place], [place], [id number] LIVER PROFILE Collected: 09/20/2018 Status: F Source: [place] 8:05 PM [facility] REPOSITORY TYPE CODE TESTS RESULT OUT OF RANGE REFERENCE UNITS LAB L501.1500 6.4-8.2 g/dL Normal T PROT 6.6 LAB L501.1800 3.2-5.0 g/dL Low ALB 3.0 LAB L501.1950 2.2-4.2 g/dL Normal GLOB 3.6 LAB L501.4100 15-37 U/L High AST 48 LAB L501.4305 45-117 U/L High ALK P 173 LAB L501.4405 13-56 U/L Normal ALT 34 LAB L501.4600 0.20-1.00 mg/dL Normal T BILI 0.60 LAB L501.4700 0.00-0.30 mg/dL Normal D BILI 0.28 Performed By: #### L500.2500, L500.3400 #### [facility] [address] [place], [address] LACTIC ACID Collected: 09/20/2018 Status: F Source: [place] 8:05 PM [facility] REPOSITORY Order Comment: Yes/No query for Sepsis Lactate Rule Y TYPE CODE TESTS RESULT OUT OF RANGE REFERENCE UNITS LAB L503.6005 0.4-2.0 mmol/L Normal LACTIC ACID 1.2 Performed By: #### L503.6005 #### [facility] [address] [place], [address] Observed: 09/20/2018 Status: F Source: [place] CULTURE, BLOOD (WB) 8:05 PM [facility] REPOSITORY BC No growth in 5 days. Performed By: #### M200.1000 #### [facility] [address] [place], [address] CNCO Observed: 08/31/2018 Status: COMPLETED Source: [place] 4:35 PM [facility] REPOSITORY HNO ID: [id number] Author: Mammography Coordinator Service: (none) Author Type: Physician Type: Letter Filed: 09/01/2018 11:33 PM Note Text: August 31, 2018 PID: [id number] Zeeshan Fernando [address] [place] [address] Dear Ms. Fernando, We are pleased to inform you that the results of your recent breast imaging exam on 08/31/2018 are normal. Early detection of cancer is very important. We also understand recommendations regarding breast cancer screening are controversial. Please discuss with your primary care provider which strategy is best for you and whether a mammogram is right for you. Your imaging studies and report will be kept on file at [facility] as part of your permanent medical record and are available for your continuing care. Thank you for allowing us to help in meeting your health care needs. Sincerely, Dr. Jorge Interpreting Radiologist [facility] (Normal over 40) [facility] SCREENING Observed: 08/31/2018 Status: F Source: [place] 8:14 AM [facility] REPOSITORY * * *Final Report* * * DATE OF EXAM: Aug 31 2018 8:14AM [facility] 0581 - [facility] SCREENING / PROCEDURE REASON: Encounter for screening mammogram for malignant neoplasm of breast * * * * Physician Interpretation * * * * RESULT: #[id number] - [facility] SCREENING BILATERAL DIGITAL SCREENING MAMMOGRAM WITH CAD: 08/31/2018 HISTORY: Encounter For Screening Mammogram For Malignant Neoplasm Of Breast /Screening Mammogram - patient reports NO breast symptoms /Priors available for comparison. RESULT: TECHNIQUE: The study was acquired using full field digital technology and interpreted from soft copy. Current study was also evaluated with a Computer Aided Detection (CAD). Comparison is made to exams dated: 08/18/2017 mammogram, 07/16/2016 mammogram, 02/20/2015 mammogram, 01/18/2014 mammogram, and 01/11/2013 mammogram - [facility]. There are scattered fibroglandular elements in both breasts. No significant masses, calcifications, or other findings are seen in either breast. There has been no significant interval change. IMPRESSION: NEGATIVE There is no mammographic evidence of malignancy.A 1 year screening mammogram is recommended. Alba Jorge M.D., jr/meghana:08/31/2018 16:35:34 Parts Picker: Renu ESCALERA)(Cindy), [facility] letter sent: Normal over 40 Mammogram BI-RADS: 1 Negative Multiple national specialty organizations have released breast cancer screening guidelines for women at average risk for developing breast cancer - guidelines that are based on both evidence and opinion, yet differ on when to start and how often to screen for breast cancer. With representation from Breast Imaging, Internal Medicine, Women's Health, Family Medicine, and Medical/Surgical Oncology, the [facility] has carefully reviewed the data and reached the following consensus: 1) All women should engage in shared decision-making with their providers to decide when to start and how often to screen; 2) All women should have the opportunity to start screening mammography at age 40; 3) For women ages 45-55, we recommend annual screening mammograms; 4) For women ages 55 and over, we support both the transition from an annual to a biennial interval if this aligns more with patient's values and preferences, or continuation with annual screening; 5) All women should discuss with their providers when to stop screening mammograms. Cyber Instructor: Meghana Transcribe Date/Time: Aug 31 2018 7:59A Dictated by: ALBA JORGE MD This examination was interpreted and the report reviewed and electronically signed by: ALBA JORGE MD on Aug 31 2018 4:35PM EST [id number] Observed: 08/04/2018 Status: COMPLETED Source: [place] 3:07 PM [facility] REPOSITORY HNO ID: [id number] Author: Bassem Weber Service: (none) Author Type: Physician Type: Progress Notes Filed: 08/04/2018 3:14 PM Note Text: Chief Complaint: Patient presents with: F/U 3 Month History of Present Illness: Zeeshan Fernando is a 52 year old female with history of diagnosed nonischemic cardiomyopathy, past history of non-Hodgkin's lymphoma status post stem cell transplant and radiation and chemotherapy in 1999, mitral and aortic regurgitation which were also newly diagnosed him as COPD has come for a follow-up visit. Patient was hospitalized from 01/30/2018 to 02/03/2018 [facility] from [facility] with CHF exacerbation and pericardial effusion. [facility] 30 January showed moderate sized effusion. Repeat echocardiogram on the showed small sized effusion. She did have thoracocentesis at [facility] where they drained 900 cc of transudative fluid. As part of cardiomyopathy workup she underwent a left heart catheterization which showed normal coronaries. A SANDEEP did not confirm severity of mitral and aortic valve regurgitation and she was deemed to not be a surgical candidate by the cardiothoracic surgeon. After hospital discharge she has come for a follow-up visit with my nurse practitioner where we have very slowly try to increase the dose of her cardiomyopathy medications. As her baseline blood pressure have always been in the low 100s or high 90s it has been difficult to up titrate them. As her heart rates were in the low 100s her Coreg dose was increased at a recent office visit 3 weeks back. Since then patient has been doing well. She has kept a log of her blood pressure readings at home and they all seem to be at baseline. Her heart rates however are still lingering around 100 bpm. She has come for routine follow-up visit today. She denies chest pain, shortness of breath, orthopnea, cough, edema, palpitations, PND, lightheadedness or syncope. PAST MEDICAL HISTORY Diagnosis Date - Aortic valve insufficiency - Asthma 2010 dust mites, tree pollen - Brain bleed (HCC) - Carcinoma in situ of cervix uteri 2008 Treated in [place] by Dr. Montilla - CHF (congestive heart failure) (HCC) - Esophageal reflux Gastroesophageal reflux - Hodgkin's disease, unspecified(201.90) 1999 Hodgkins Disease - HPV (human papillomavirus) vaccine 2008 - Migraine, unspecified, with intractable migraine, so stated, without mention of status migrainosus Migraine - Mitral valve regurgitation - Non-ischemic cardiomyopathy (HCC) - Pap smear of cervix with ASCUS, cannot exclude HGSIL 06/28/13 HPV+ - Postmenopausal bleeding Postmenop. bleeding - Premature menopause - Thrombocytopenia, unspecified (HCC) Thrombocytopenia - VAIN III (vaginal intraepithelial neoplasia III) 2008 As above PAST SURGICAL HISTORY Procedure Laterality Date - COLPOSCOPY (VAGINOSCOPY) 2008 with laser tx for HPV - PAST SURGICAL HISTORY OF CHEST WALL BX.,PORT,EDWARDS CATHETER - PAST SURGICAL HISTORY OF 2008 Laser cone of cx and vaporization of upper vagina - VAGINOSCOPY 08/30/13 Benign FAMILY HISTORY Problem Relation Age of Onset - other (Other) Mother PARKINSON'S. - Hypertension Father - Cancer Maternal Grandmother Stomach? - other (Other) Maternal Grandmother LAZARUS'S CHOREA. - other (Other) Other No lung disease. Maybe some allergies, nothing major. 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 Alcohol use: Yes Comment: Seldom. Drug use: No Sexual activity: Yes Partners with: Male control/protection: Surgical Comment: Vasectomy Other Topics Concern Caffeine Concern Yes Comment:coffee 2 cups daily(reg)/ pop 2 cans daily/ iced tea 1 glass daily Special Diet No Comment:low sodium Exercise Yes Comment:4-5 days a week Current Outpatient Prescriptions: carvedilol (COREG) 12.5 mg tablet TAKE 1 TABLET BY MOUTH TWICE A DAY venlafaxine ER (EFFEXOR XR) 37.5 mg 24 hr capsule Take 1 capsule by mouth once daily. lisinopril (ZESTRIL, PRINIVIL) 5 mg tablet Take 1 tablet by mouth twice daily. furosemide (LASIX) 20 mg tablet Take 1 tablet by mouth as needed (weight gain of 3 lbs overnight or 5 lbs in 1 week). omeprazole (PRILOSEC) 20 mg capsule TAKE 1 CAPSULE BY MOUTH TWICE DAILY BEFORE MEALS (0600/1600). 1/2 HR BEFORE MEAL. ipratropium (ATROVENT) 0.02 % nebulizer solution Use 2.5 mL via nebulizer four times daily. Unit dose pack of 25 albuterol (PROVENTIL) 2.5 mg /3 mL (0.083 %) nebulizer solution Use 3 mL via nebulizer every 4 hours as needed. montelukast (SINGULAIR) 10 mg tablet TAKE 1 TABLET BY MOUTH DAILY AT BEDTIME. albuterol HFA (PROAIR HFA) 90 mcg/actuation inhaler Inhale 2 Puffs as instructed every 4 hours as needed. For wheezing/shortness of breath. DAILY MULTIVITAMIN TAB No current facility-administered medications for this visit. ALLERGIES Allergen Reactions - Sulfa (Sulfonamide * Rash, Swelling - Codeine Hives - Environmental [Othe* Unknown Dust mites, trees - Guiafenesin [Other] Mental Status Change - Penicillins Rash Review of Systems: GENERAL: Negative for: Weight loss or gain, Fever or Chills, Weakness and Sleep difficulties. HEENT: Negative for: Headache, Impaired Vision, Glasses, Hearing Impairment, Ringing in Ears, Nosebleeds, Poor dental care, Bleeding Gums, Dentures NECK: Negative for: Swelling, Pain, Stiffness RESPIRATORY: Negative for: Cough, Blood in Sputum, Shortness of breath, Wheezing, Apnea GASTROINTESTINAL: Negative for: Trouble swallowing, Heartburn, Change in bowel habits, Blood in stool, Dark black stools MUSCULOSKELETAL: Negative for: Muscle or joint pain, Stiffness , Joint swelling NEUROLOGIC/PSYCHIATRIC: Negative for: Weakness, Paralysis, Numbness, Tingling, Tremor, Nervousness, Depressed mood, Memory loss SKIN: Negative for: Rashes, Itching HEMATOLOGICAL/LYMPHATIC: Negative for: Easy bruising , Easy bleeding ENDOCRINE: Negative for: Heat or cold intolerance, Excessive sweating, Frequent urination, Frequent thirst Physical Examination: BP 122/76 Pulse 86 Resp 16 Ht 5' 7 (1.70m) Wt 134 lb (60.8kg) SpO2 98% LMP 02/18/2004 BMI 20.98 kg/(m2). General: Well appearing, in no acute distress. Skin: No clubbing, no cyanosis. Eyes: Extra ocular movements intact Oropharynx: Teeth in good repair. Neck: No jugular venous distention, no carotid bruits, carotids have a normal upstroke, no palpable thyromegaly. Lungs: Clear to auscultation bilaterally, no wheezing or rhonchi. Heart: Regular rhythm, PMI not displaced, S1, S2 normal, no S3, no S4, no heaves, no rub and no murmur. Abdomen: Soft, nontender, bowel sounds normal, no palpable organomegaly, no bruits. Extremities: No peripheral edema . Grade 2/4 distal pulses bilaterally. Neuro: Oriented to person, place and time, alert, cooperative, gait coordinated. Cardiac Testing and Procedures: Electrocardiogram: Echocardiogram: 07/17/2018: EF 46%. Moderate AI. Small circumferential pericardial effusion without tamponade. 03/23/2018: EF 36%. Moderate MR. Moderate AI. Moderate circumferential pericardial effusion without tamponade. Limited echo: 02/02/2018: Pericardium: A small, circumferential pericardial effusion is present. There is no echocardiographic evidence for pericardial tamponade. Severe left ventricular systolic dysfunction. The visually estimated LVEF is 20-25%. ? OSH 01/30/2018 Mildly dilated LV. Severe global left ventricular dysfunction. Estimated EF of 20%. Mild diffuse mitral valve thickening. Moderate 2+ mitral valve insufficiency. Mild tricuspid valve insufficiency. Moderately severe aortic valve insufficiency. Mild pulmonic valve insufficiency. Moderate pericardial effusion no indications of cardiac tamponade on. Echo lucency consistent with a pleural effusion. Right ventricular systolic pressure estimated at 56 mmHg with pulmonary hypertension. Transmitral diastolic flow velocity suggests diastolic dysfunction Cardiac Catheterization/Percutaneous Coronary Intervention (PCI): 02/04/19: Normal coronaries ASSESSMENT/PLAN: 1. NICM (nonischemic cardiomyopathy) (FORMERLY [facility]) - ICD9: 425.4, ICD10: I42.8 (primary diagnosis) Patient appears euvolemic. She is following a strict salt and fluid restricted diet. She uses Lasix on an as-needed basis. She has been tolerating increased dose of Coreg and lisinopril with good blood pressure readings at home and at today's office visit. Currently as her blood pressure is stable I will increase the lisinopril further to 10mg bid. I've asked her to be was a call in a 2 week's time. If her blood pressure remains stable we will increase Coreg to 25 mg twice a day. 2. Non-rheumatic mitral regurgitation - ICD9: 424.0, ICD10: I34.0 This is likely secondary to nonischemic myopathy. 3. Nonrheumatic aortic valve insufficiency - ICD9: 424.1, ICD10: I35.1 No clear cause was identified. Continue current medications. 4. Pericardial effusion (noninflammatory) - ICD9: 423.9, ICD10: I31.3 Clinically there are no signs of tamponade. Most recent echocardiogram shows only small pericardial effusion. Bassem Weber MD CNOV Observed: 08/04/2018 Status: COMPLETED Source: [place] 11:30 AM [facility] OTHER BOLES REPOSITORY Office Visit (AGCARDPOB) KASSIEZEESHAN M ([id number]) 1965 F TRN Date Time Provider Department 08/04/18 11:30 AM BASSEM WEBER During your visit today, we recorded the following information about you: Pulse Respiration Blood pressure Weight 86/minute 16/minute 122/76 60.8 kg Height 1.702 m Nusrat Baugh MA 08/04/2018 11:28 AM Signed No cardiac complaints Nusrat Weber MD 08/04/2018 3:14 PM Signed Chief Complaint: Patient presents with: F/U 3 Month History of Present Illness: Zeeshan Fernando is a 52 year old female with history of diagnosed nonischemic cardiomyopathy, past history of non-Hodgkin's lymphoma status post stem cell transplant and radiation and chemotherapy in 1999, mitral and aortic regurgitation which were also newly diagnosed him as COPD has come for a follow-up visit. Patient was hospitalized from 01/30/2018 to 02/03/2018 reason each hospital from [facility] with CHF exacerbation and pericardial effusion. Echocardiogram at [facility] on 30 January showed moderate sized effusion. Repeat echocardiogram on the showed small sized effusion. She did have thoracocentesis at [facility] where they drained 900 cc of transudative fluid. As part of cardiomyopathy workup she underwent a left heart catheterization which showed normal coronaries. A SANDEEP did not confirm severity of mitral and aortic valve regurgitation and she was deemed to not be a surgical candidate by the cardiothoracic surgeon. After hospital discharge she has come for a follow-up visit with my nurse practitioner where we have very slowly try to increase the dose of her cardiomyopathy medications. As her baseline blood pressure have always been in the low 100s or high 90s it has been difficult to up titrate them. As her heart rates were in the low 100s her Coreg dose was increased at a recent office visit 3 weeks back. Since then patient has been doing well. She has kept a log of her blood pressure readings at home and they all seem to be at baseline. Her heart rates however are still lingering around 100 bpm. She has come for routine follow-up visit today. She denies chest pain, shortness of breath, orthopnea, cough, edema, palpitations, PND, lightheadedness or syncope. PAST MEDICAL HISTORY Diagnosis Date - Aortic valve insufficiency - Asthma 2010 dust mites, tree pollen - Brain bleed (HCC) - Carcinoma in situ of cervix uteri 2008 Treated in [place] by Dr. Montilla - CHF (congestive heart failure) (HCC) - Esophageal reflux Gastroesophageal reflux - Hodgkin's disease, unspecified(201.90) 1999 Hodgkins Disease - HPV (human papillomavirus) vaccine 2008 - Migraine, unspecified, with intractable migraine, so stated, without mention of status migrainosus Migraine - Mitral valve regurgitation - Non-ischemic cardiomyopathy (HCC) - Pap smear of cervix with ASCUS, cannot exclude HGSIL 06/28/13 HPV+ - Postmenopausal bleeding Postmenop. bleeding - Premature menopause - Thrombocytopenia, unspecified (HCC) Thrombocytopenia - VAIN III (vaginal intraepithelial neoplasia III) 2008 As above PAST SURGICAL HISTORY Procedure Laterality Date - COLPOSCOPY (VAGINOSCOPY) 2008 with laser tx for HPV - PAST SURGICAL HISTORY OF CHEST WALL BX.,PORT,EDWARDS CATHETER - PAST SURGICAL HISTORY OF 2008 Laser cone of cx and vaporization of upper vagina - VAGINOSCOPY 08/30/13 Benign FAMILY HISTORY Problem Relation Age of Onset - other (Other) Mother PARKINSON'S. - Hypertension Father - Cancer Maternal Grandmother Stomach? - other (Other) Maternal Grandmother LAZARUS'S CHOREA. - other (Other) Other No lung disease. Maybe some allergies, nothing major. 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 Alcohol use: Yes Comment: Seldom. Drug use: No Sexual activity: Yes Partners with: Male control/protection: Surgical Comment: Vasectomy Other Topics Concern Caffeine Concern Yes Comment:coffee 2 cups daily(reg)/ pop 2 cans daily/ iced tea 1 glass daily Special Diet No Comment:low sodium Exercise Yes Comment:4-5 days a week Current Outpatient Prescriptions: carvedilol (COREG) 12.5 mg tablet TAKE 1 TABLET BY MOUTH TWICE A DAY venlafaxine ER (EFFEXOR XR) 37.5 mg 24 hr capsule Take 1 capsule by mouth once daily. lisinopril (ZESTRIL, PRINIVIL) 5 mg tablet Take 1 tablet by mouth twice daily. furosemide (LASIX) 20 mg tablet Take 1 tablet by mouth as needed (weight gain of 3 lbs overnight or 5 lbs in 1 week). omeprazole (PRILOSEC) 20 mg capsule TAKE 1 CAPSULE BY MOUTH TWICE DAILY BEFORE MEALS (0600/1600). 1/2 HR BEFORE MEAL. ipratropium (ATROVENT) 0.02 % nebulizer solution Use 2.5 mL via nebulizer four times daily. Unit dose pack of 25 albuterol (PROVENTIL) 2.5 mg /3 mL (0.083 %) nebulizer solution Use 3 mL via nebulizer every 4 hours as needed. montelukast (SINGULAIR) 10 mg tablet TAKE 1 TABLET BY MOUTH DAILY AT BEDTIME. albuterol HFA (PROAIR HFA) 90 mcg/actuation inhaler Inhale 2 Puffs as instructed every 4 hours as needed. For wheezing/shortness of breath. DAILY MULTIVITAMIN TAB No current facility-administered medications for this visit. ALLERGIES Allergen Reactions - Sulfa (Sulfonamide * Rash, Swelling - Codeine Hives - Environmental [Othe* Unknown Dust mites, trees - Guiafenesin [Other] Mental Status Change - Penicillins Rash Review of Systems: GENERAL: Negative for: Weight loss or gain, Fever or Chills, Weakness and Sleep difficulties. HEENT: Negative for: Headache, Impaired Vision, Glasses, Hearing Impairment, Ringing in Ears, Nosebleeds, Poor dental care, Bleeding Gums, Dentures NECK: Negative for: Swelling, Pain, Stiffness RESPIRATORY: Negative for: Cough, Blood in Sputum, Shortness of breath, Wheezing, Apnea GASTROINTESTINAL: Negative for: Trouble swallowing, Heartburn, Change in bowel habits, Blood in stool, Dark black stools MUSCULOSKELETAL: Negative for: Muscle or joint pain, Stiffness , Joint swelling NEUROLOGIC/PSYCHIATRIC: Negative for: Weakness, Paralysis, Numbness, Tingling, Tremor, Nervousness, Depressed mood, Memory loss SKIN: Negative for: Rashes, Itching HEMATOLOGICAL/LYMPHATIC: Negative for: Easy bruising , Easy bleeding ENDOCRINE: Negative for: Heat or cold intolerance, Excessive sweating, Frequent urination, Frequent thirst Physical Examination: BP 122/76 Pulse 86 Resp 16 Ht 5' 7 (1.70m) Wt 134 lb (60.8kg) SpO2 98% LMP 02/18/2004 BMI 20.98 kg/(m2). General: Well appearing, in no acute distress. Skin: No clubbing, no cyanosis. Eyes: Extra ocular movements intact Oropharynx: Teeth in good repair. Neck: No jugular venous distention, no carotid bruits, carotids have a normal upstroke, no palpable thyromegaly. Lungs: Clear to auscultation bilaterally, no wheezing or rhonchi. Heart: Regular rhythm, PMI not displaced, S1, S2 normal, no S3, no S4, no heaves, no rub and no murmur. Abdomen: Soft, nontender, bowel sounds normal, no palpable organomegaly, no bruits. Extremities: No peripheral edema . Grade 2/4 distal pulses bilaterally. Neuro: Oriented to person, place and time, alert, cooperative, gait coordinated. Cardiac Testing and Procedures: Electrocardiogram: Echocardiogram: 07/17/2018: EF 46%. Moderate AI. Small circumferential pericardial effusion without tamponade. 03/23/2018: EF 36%. Moderate MR. Moderate AI. Moderate circumferential pericardial effusion without tamponade. Limited echo: 02/02/2018: Pericardium: A small, circumferential pericardial effusion is present. There is no echocardiographic evidence for pericardial tamponade. Severe left ventricular systolic dysfunction. The visually estimated LVEF is 20-25%. ? OSH 01/30/2018 Mildly dilated LV. Severe global left ventricular dysfunction. Estimated EF of 20%. Mild diffuse mitral valve thickening. Moderate 2+ mitral valve insufficiency. Mild tricuspid valve insufficiency. Moderately severe aortic valve insufficiency. Mild pulmonic valve insufficiency. Moderate pericardial effusion no indications of cardiac tamponade on. Echo lucency consistent with a pleural effusion. Right ventricular systolic pressure estimated at 56 mmHg with pulmonary hypertension. Transmitral diastolic flow velocity suggests diastolic dysfunction Cardiac Catheterization/Percutaneous Coronary Intervention (PCI): 02/04/19: Normal coronaries ASSESSMENT/PLAN: 1. NICM (nonischemic cardiomyopathy) (HCC) - ICD9: 425.4, ICD10: I42.8 (primary diagnosis) Patient appears euvolemic. She is following a strict salt and fluid restricted diet. She uses Lasix on an as-needed basis. She has been tolerating increased dose of Coreg and lisinopril with good blood pressure readings at home and at today's office visit. Currently as her blood pressure is stable I will increase the lisinopril further to 10mg bid. I've asked her to be was a call in a 2 week's time. If her blood pressure remains stable we will increase Coreg to 25 mg twice a day. 2. Non-rheumatic mitral regurgitation - ICD9: 424.0, ICD10: I34.0 This is likely secondary to nonischemic myopathy. 3. Nonrheumatic aortic valve insufficiency - ICD9: 424.1, ICD10: I35.1 No clear cause was identified. Continue current medications. 4. Pericardial effusion (noninflammatory) - ICD9: 423.9, ICD10: I31.3 Clinically there are no signs of tamponade. Most recent echocardiogram shows only small pericardial effusion. Bassem Weber MD Referring Provider: SELF [[id number]] Allergies As of Date: 08/04/2018 Noted Allergy Reaction SULFA (SULFONAMIDE ANTIBIOTICS) 08/21/2005 2 - Rash 7 - Swelling CODEINE 09/17/2005 4 - Hives Environmental [Other] 10/03/2011 16 - Unknown Comments: Dust mites, trees GUIAFENESIN [Other] 09/17/2005 1 - Mental Status Change PENICILLINS 08/21/2005 2 - Rash Date Reviewed: 08/04/2018 Reviewed by: Bassem Weber - Fully Assessed Reason for Visit: F/U 3 Month [443] Primary Visit Diagnosis:Chronic combined systolic and diastolic CHF (congestive heart failure) (HCC) [I50.42] Other Visit Diagnoses:Pericardial effusion (noninflammatory) [I31.3] Non-rheumatic mitral regurgitation [I34.0] Nonrheumatic aortic valve insufficiency [I35.1] Prescriptions as of 08/04/2018 Sig: CARVEDILOL 12.5 MG TABLET TAKE 1 TABLET BY MOUTH TWICE * VENLAFAXINE ER 37.5 MG CAPSUL* Take 1 capsule by mouth once * LISINOPRIL 5 MG TABLET Take 1 tablet by mouth twice * FUROSEMIDE 20 MG TABLET Take 1 tablet by mouth as nee* OMEPRAZOLE 20 MG CAPSULE,VIRGIE* TAKE 1 CAPSULE BY MOUTH TWICE* IPRATROPIUM BROMIDE 0.02 % SO* Use 2.5 mL via nebulizer four* ALBUTEROL SULFATE 2.5 MG/3 ML* Use 3 mL via nebulizer every * MONTELUKAST 10 MG TABLET TAKE 1 TABLET BY MOUTH DAILY * ALBUTEROL SULFATE HFA 90 MCG/* Inhale 2 Puffs as instructed * DAILY MULTIVITAMIN TABLET Problem List As Of Date 08/04/2018 Noted Resolved Esophageal reflux [K21.9] INVALID FOR* More... Hodgkin's disease [201] INVALID FOR*11/06/2007 More... Absence of menstruation [N91.2] INVALID FOR*06/10/2012 Pneumonia, organism unspecified [J18.9] INVALID FOR*05/10/2011 TENOSYNOV HAND/WRIST NEC [M65.849, M65.839] INVALID FOR*12/19/2006 History of Hodgkin's disease [Z85.71] INVALID FOR* More... Personal history of pneumonia (recurrent) [Z87.*INVALID FOR* More... 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 Asthma [J45.909] INVALID FOR* More... Headache, migraine [G43.909] INVALID FOR* More... More... HFrEF (heart failure with reduced ejection frac*INVALID FOR* Acute on chronic combined systolic and diastoli*INVALID FOR* Pericardial effusion [I31.3] INVALID FOR* Valvular heart disease [I38] INVALID FOR* Visit Notes: >> Nusrat Castro Aug 04, 2018 11:25 AM Status: Signed No cardiac complaints Nusrat Baugh RMA Level of Service: EST PATIENT VISIT LEVEL 4 [[id number]] Disposition: Return in about 3 months (around 11/04/2018) for follow up. Follow-up and Disposition History Recorded Encounter Status:Closed by BASSEM WEBER MD on 08/04/18 MARINE Observed: 06/23/2018 Status: COMPLETED Source: [place] 12:00 AM CLINIC OTHER CAMPUS REPOSITORY Telephone (AGCARDPOB) ZEESHAN FERNANDO ([id number]) 1965 F TRN Date Time Provider Department 06/23/18 GRIS MARTÍNEZ ([facility]) AGCARDPODottie During your visit today, we recorded the following information about you: Cathryn Farrar Psr 06/23/2018 8:31 AM Signed Patient called [facility] to schedule echo. Current order shows active. Please finish filing order or place new one and have a material scheduler call patient to schedule at [facility]. Jeremy Lin, RN 06/23/2018 9:01 AM Signed The order should say active as it has not been completed yet. The order is filed correctly and there is no need for a new order. This test can be scheduled. Jeremy Lin RN Cathryn White Charan Psr 07/10/2018 4:57 PM Signed We do not offer limited echoes at the [facility]. However if you were to place an order for an echocardiogram like what was done in March and file the order so that appears under the Order Tab on her Appointment Desk, then yes we can schedule the echo in [place] like we did back in March. Jeremy Lin RN 07/13/2018 3:20 PM Signed claudine Myers ?You 7 minutes ago (3:12 PM) Order sent to centralized scheduling (Routing comment Allergies As of Date: 06/23/2018 Noted Allergy Reaction SULFA (SULFONAMIDE ANTIBIOTICS) 08/21/2005 2 - Rash 7 - Swelling CODEINE 09/17/2005 4 - Hives Environmental [Other] 10/03/2011 16 - Unknown Comments: Dust mites, trees GUIAFENESIN [Other] 09/17/2005 1 - Mental Status Change PENICILLINS 08/21/2005 2 - Rash Date Reviewed: 05/28/2018 Reviewed by: Gris ([facility]) Colpo - Fully Assessed Reason for Visit: echo order [Other] Prescriptions as of 06/23/2018 Sig: CARVEDILOL 12.5 MG TABLET TAKE 1 TABLET BY MOUTH TWICE * VENLAFAXINE ER 37.5 MG CAPSUL* Take 1 capsule by mouth once * LISINOPRIL 5 MG TABLET Take 1 tablet by mouth twice * FUROSEMIDE 20 MG TABLET Take 1 tablet by mouth as nee* OMEPRAZOLE 20 MG CAPSULE,VIRGIE* TAKE 1 CAPSULE BY MOUTH TWICE* IPRATROPIUM BROMIDE 0.02 % SO* Use 2.5 mL via nebulizer four* ALBUTEROL SULFATE 2.5 MG/3 ML* Use 3 mL via nebulizer every * MONTELUKAST 10 MG TABLET TAKE 1 TABLET BY MOUTH DAILY * ALBUTEROL SULFATE HFA 90 MCG/* Inhale 2 Puffs as instructed * DAILY MULTIVITAMIN TABLET Problem List As Of Date 06/23/2018 Noted Resolved Esophageal reflux [K21.9] INVALID FOR* More... Hodgkin's disease [201] INVALID FOR*11/06/2007 More... Absence of menstruation [N91.2] INVALID FOR*06/10/2012 Pneumonia, organism unspecified [J18.9] INVALID FOR*05/10/2011 TENOSYNOV HAND/WRIST NEC [M65.849, M65.839] INVALID FOR*12/19/2006 History of Hodgkin's disease [Z85.71] INVALID FOR* More... Personal history of pneumonia (recurrent) [Z87.*INVALID FOR* More... 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 Asthma [J45.909] INVALID FOR* More... Headache, migraine [G43.909] INVALID FOR* More... More... HFrEF (heart failure with reduced ejection frac*INVALID FOR* Acute on chronic combined systolic and diastoli*INVALID FOR* Pericardial effusion [I31.3] INVALID FOR* Valvular heart disease [I38] INVALID FOR* Encounter Status:Closed by JEREMY LIN RN on 06/23/18 PROGRESS Observed: 05/28/2018 Status: COMPLETED Source: [place] 3:44 PM CLINIC OTHER CAMPUS REPOSITORY HNO ID: [id number] Author: Gris Holland) po Service: (none) Author Type: Nurse Practitioner Type: Progress Notes Filed: 05/28/2018 4:14 PM Note Text: Subjective HPI Zeeshan Fernando is today for 6 week follow-up appointment. His recall she is known to Dr. Weber for previous history of non-Hodgkin's lymphoma, she is status post stem cell transplant, radiation chemotherapy in 1999, history of mitral and aortic regurgitation, newly diagnosed nonischemic cardiomyopathy and asthma. As you recall, patient was hospitalized for 01/30 through 02/03/18 at [facility] for heart failure exacerbation and pericardial effusion. Echocardiogram showed moderate size pericardial effusion, and it looks like she was transferred to [facility] [place] . Prior to her transfer she did have a thoracentesis, with result of 900 cc of transudate of fluid. She did undergo cardiac catheterization as well, which showed normal coronary arteries. SANDEEP did not confirm severity of mitral and aortic valve regurgitation is felt not to be a surgical candidate by cardiothoracic surgery. She had repeat echocardiogram in March that showed moderate effusion and EF improved to 36%. He saw her 6 weeks ago blood pressure was in tolerant of titration of her medications for heart failure, as is today blood pressure still in the low end of 100/70. Currently she is feeling well. She denies complaints of chest pain, palpitations, orthopnea, or PND. She had no dizziness, no lightheadedness, and no near akshat syncope. Her heart rate remains about 100, despite being on a decent dose of carvedilol she's on 12.5 mg twice daily, we will send patient for repeat limited echo to reassess for pericardial effusion, as well as reassess her LV function. Review of Systems Constitutional: Negative for chills, diaphoresis, fever, malaise/fatigue and weight loss. HENT: Negative for congestion, ear pain, hearing loss, nosebleeds, sore throat and tinnitus. Eyes: Negative for blurred vision, double vision, photophobia and redness. Respiratory: Negative for cough, shortness of breath, wheezing and stridor. Cardiovascular: Negative for chest pain, palpitations, orthopnea, claudication, leg swelling and PND. Gastrointestinal: Negative for abdominal pain, blood in stool, constipation, diarrhea, heartburn, melena, nausea and vomiting. Genitourinary: Negative for dysuria, flank pain, frequency, hematuria and urgency. Musculoskeletal: Negative for back pain, falls, joint pain, myalgias and neck pain. Skin: Negative for rash. Neurological: Negative for dizziness, tingling, tremors, sensory change, speech change, focal weakness, seizures, loss of consciousness, weakness and headaches. Endo/Heme/Allergies: Negative for environmental allergies and polydipsia. Does not bruise/bleed easily. Psychiatric/Behavioral: Positive for depression. Negative for hallucinations, memory loss, substance abuse (tx) and suicidal ideas. The patient is not nervous/anxious and does not have insomnia. Sulfa (Sulfonamide Antibiotics); Codeine; Environmental [Other]; Guiafenesin [Other]; Penicillins Current Outpatient Prescriptions: carvedilol (COREG) 12.5 mg tablet TAKE 1 TABLET BY MOUTH TWICE A DAY Disp: 180 tablet Rfl: 3 venlafaxine ER (EFFEXOR XR) 37.5 mg 24 hr capsule Take 1 capsule by mouth once daily. Disp: 90 capsule Rfl: 1 lisinopril (ZESTRIL, PRINIVIL) 5 mg tablet Take 1 tablet by mouth twice daily. Disp: 180 tablet Rfl: 3 furosemide (LASIX) 20 mg tablet Take 1 tablet by mouth as needed (weight gain of 3 lbs overnight or 5 lbs in 1 week). Disp: 30 tablet Rfl: 1 omeprazole (PRILOSEC) 20 mg capsule TAKE 1 CAPSULE BY MOUTH TWICE DAILY BEFORE MEALS (0600/1600). 1/2 HR BEFORE MEAL. Disp: 180 capsule Rfl: 3 ipratropium (ATROVENT) 0.02 % nebulizer solution Use 2.5 mL via nebulizer four times daily. Unit dose pack of 25 Disp: 1 Vial Rfl: 2 albuterol (PROVENTIL) 2.5 mg /3 mL (0.083 %) nebulizer solution Use 3 mL via nebulizer every 4 hours as needed. Disp: 1 Package Rfl: 5 montelukast (SINGULAIR) 10 mg tablet TAKE 1 TABLET BY MOUTH DAILY AT BEDTIME. Disp: 90 tablet Rfl: 3 albuterol HFA (PROAIR HFA) 90 mcg/actuation inhaler Inhale 2 Puffs as instructed every 4 hours as needed. For wheezing/shortness of breath. Disp: 1 Inhaler Rfl: 2 DAILY MULTIVITAMIN TAB Disp: Rfl: 0 No current facility-administered medications for this visit. 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 Alcohol use: Yes Comment: Seldom. Drug use: No Sexual activity: Yes Partners with: Male control/protection: Surgical Comment: Vasectomy Other Topics Concern Caffeine Concern Yes Comment:coffee 2 cups daily(reg)/ pop 2 cans daily/ iced tea 1 glass daily Special Diet No Comment:low sodium Exercise Yes Comment:4-5 days a week FAMILY HISTORY Problem Relation Age of Onset - Other [OTHER] Mother PARKINSON'S. - Hypertension Father - Cancer Maternal Grandmother Stomach? - Other [OTHER] Maternal Grandmother LAZARUS'S CHOREA. - Other [OTHER] Other No lung disease. Maybe some allergies, nothing major. PAST MEDICAL HISTORY Diagnosis Date - Aortic valve insufficiency - Asthma 2010 dust mites, tree pollen - Brain bleed (HCC) - Carcinoma in situ of cervix uteri 2008 Treated in [place] [address]. Montilla - CHF (congestive heart failure) (HCC) - Esophageal reflux Gastroesophageal reflux - Hodgkin's disease, unspecified(201.90) 1999 Hodgkins Disease - HPV (human papillomavirus) vaccine 2008 - Migraine, unspecified, with intractable migraine, so stated, without mention of status migrainosus Migraine - Mitral valve regurgitation - Non-ischemic cardiomyopathy (HCC) - Pap smear of cervix with ASCUS, cannot exclude HGSIL 06/28/13 HPV+ - Postmenopausal bleeding Postmenop. bleeding - Premature menopause - Thrombocytopenia, unspecified ([facility]) Thrombocytopenia - VAIN III (vaginal intraepithelial neoplasia III) 2008 As above PAST SURGICAL HISTORY Procedure Laterality Date - COLPOSCOPY (VAGINOSCOPY) 2008 with laser tx for HPV - PAST SURGICAL HISTORY OF CHEST WALL BX.,PORT,EDWARDS CATHETER - PAST SURGICAL HISTORY OF 2009 Laser cone of cx and vaporization of upper vagina - VAGINOSCOPY 08/30/13 Benign BP 100/70 Pulse 97 Ht 5' 7 (1.70m) Wt 132 lb 9.6 oz (60.1kg) SpO2 99% LMP 02/18/2004 BMI 20.76 kg/(m2). Objective Physical Exam Constitutional: She is oriented to person, place, and time and well-developed, well-nourished, and in no distress. No distress. HENT: Head: Normocephalic and atraumatic. Mouth/Throat: Oropharynx is clear and moist. Eyes: Conjunctivae are normal. No scleral icterus. Neck: Normal range of motion. Neck supple. No JVD present. Carotid bruit is not present. Cardiovascular: Regular rhythm, S1 normal, S2 normal, intact distal pulses and normal pulses. Tachycardia present. Exam reveals no gallop, no S3, no distant heart sounds and no friction rub. No murmur heard. No systolic murmur is present No diastolic murmur is present Pulses: Radial pulses are 2+ on the right side, and 2+ on the left side. Dorsalis pedis pulses are 2+ on the right side, and 2+ on the left side. Pulmonary/Chest: Breath sounds normal. No respiratory distress. She has no wheezes. She has no rales. She exhibits no tenderness. Abdominal: Bowel sounds are normal. She exhibits no distension. There is no tenderness. There is no guarding. Musculoskeletal: Normal range of motion. She exhibits no edema, tenderness or deformity. Neurological: She is alert and oriented to person, place, and time. No cranial nerve deficit. Gait normal. Coordination normal. Skin: Skin is warm and dry. No rash noted. She is not diaphoretic. No erythema. No pallor. Psychiatric: Mood, memory, affect and judgment normal. Cardiac Testing and Procedures: Electrocardiogram: ? Echocardiogram: Limited echo: 02/02/2018: Pericardium: A small, circumferential pericardial effusion is present. There is no echocardiographic evidence for pericardial tamponade. Severe left ventricular systolic dysfunction. The visually estimated LVEF is 20-25%. ? OSH 01/30/2018?Mildly dilated LV. Severe global left ventricular dysfunction. Estimated EF of 20%. Mild diffuse mitral valve thickening. Moderate 2+ mitral valve insufficiency. Mild tricuspid valve insufficiency. Moderately severe aortic valve insufficiency. Mild pulmonic valve insufficiency. Moderate pericardial effusion no indications of cardiac tamponade on. Echo lucency consistent with a pleural effusion. Right ventricular systolic pressure estimated at 56 mmHg with pulmonary hypertension. Transmitral diastolic flow velocity suggests diastolic dysfunction ? ? Cardiac Catheterization/Percutaneous Coronary Intervention (PCI): 02/04/19: Normal coronaries Recommendations: 1. Nonischemic cardiomyopathy: Patient's ejection fraction previously is the 2024% range, he was up to 36% on recent Limited echo. Medications have been up titrated, and are at max doses based on heart rate and blood pressure. She has Lasix available to take as needed for weight gain of 3 pounds or symptoms of shortness of breath. She appears to be euvolemic. She is walking her dog daily working in her garden. She probably has [place] Heart Association class II for symptoms. No lightheadedness. She is to continue 2 g sodium diet, and utilize daily weight and she's been doing. 2. Pericardial effusion: She was noted to have moderate pericardial effusion prior to her transfer to the hospital and was still present on a repeat echo on 03/24/2018. Heart rate does seem to be a little tachycardic despite use of beta shahrzad. We'll send her for repeat limited echo to reassess. She has no symptoms of palpitations and is having no chest pain symptoms. 3. Valvular heart disease: She has 2+ MR, and 1+ TR, and 2+ aortic on recent echo. She is to continue medical treatment. SANDEEP did not confirm severity of mitral aortic regurgitation, and she was deemed not a surgical candidate by the cardiothoracic surgery team. 4. History of non-Hodgkin's lymphoma: She is status post symptoms stem cell transplant, and chemotherapy and radiation therapy in 1999. 5. History of asthma: She is on Singulair and Advair discus, she does have Atrovent nebulizers and Pro Air inhaler to use as well. She tells me she's not required these. Follow-up: Patient will have a repeat limited echo to assess for pericardial effusion given her tachycardia, so asked to reassess her LV function. She'll follow with Dr. Weber in the office in July, she's instructed to call with other symptoms or complaints. Thank you JENNIFER Observed: 05/28/2018 Status: COMPLETED Source: [facility] 3:30 PM CLINIC OTHER CAMPUS REPOSITORY Office Visit (AGCARDPOB) ZEESHAN FERNANDO ([id number]) 1965 F TRN Date Time Provider Department 05/28/18 3:30 PM GRIS MARTÍNEZ (TARIFF PUBLISHING AGENT) AGCARDPOB During your visit today, we recorded the following information about you: Pulse Blood pressure Weight Height 97/minute 100/70 60.1 kg 1.702 m Cata Randolph LPN 05/28/2018 3:25 PM Signed Ms Fernando is here for her 6 week follow up and states she is feeling good with no cardiac complaints or symptoms. YOVANY Mendoza APRN.TARIFF PUBLISHING AGENT 05/28/2018 4:14 PM Signed Subjective HPI Zeeshan Fernando is today for 6 week follow-up appointment. His recall she is known to Dr. Weber for previous history of non-Hodgkin's lymphoma, she is status post stem cell transplant, radiation chemotherapy in 1999, history of mitral and aortic regurgitation, newly diagnosed nonischemic cardiomyopathy and asthma. As you recall, patient was hospitalized for 01/30 through 02/03/18 at [facility] for heart failure exacerbation and pericardial effusion. Echocardiogram showed moderate size pericardial effusion, and it looks like she was transferred to [facility]. Prior to her transfer she did have a thoracentesis, with result of 900 cc of transudate of fluid. She did undergo cardiac catheterization as well, which showed normal coronary arteries. SANDEEP did not confirm severity of mitral and aortic valve regurgitation is felt not to be a surgical candidate by cardiothoracic surgery. She had repeat echocardiogram in March that showed moderate effusion and EF improved to 36%. He saw her 6 weeks ago blood pressure was in tolerant of titration of her medications for heart failure, as is today blood pressure still in the low end of 100/70. Currently she is feeling well. She denies complaints of chest pain, palpitations, orthopnea, or PND. She had no dizziness, no lightheadedness, and no near akshat syncope. Her heart rate remains about 100, despite being on a decent dose of carvedilol she's on 12.5 mg twice daily, we will send patient for repeat limited echo to reassess for pericardial effusion, as well as reassess her LV function. Review of Systems Constitutional: Negative for chills, diaphoresis, fever, malaise/fatigue and weight loss. HENT: Negative for congestion, ear pain, hearing loss, nosebleeds, sore throat and tinnitus. Eyes: Negative for blurred vision, double vision, photophobia and redness. Respiratory: Negative for cough, shortness of breath, wheezing and stridor. Cardiovascular: Negative for chest pain, palpitations, orthopnea, claudication, leg swelling and PND. Gastrointestinal: Negative for abdominal pain, blood in stool, constipation, diarrhea, heartburn, melena, nausea and vomiting. Genitourinary: Negative for dysuria, flank pain, frequency, hematuria and urgency. Musculoskeletal: Negative for back pain, falls, joint pain, myalgias and neck pain. Skin: Negative for rash. Neurological: Negative for dizziness, tingling, tremors, sensory change, speech change, focal weakness, seizures, loss of consciousness, weakness and headaches. Endo/Heme/Allergies: Negative for environmental allergies and polydipsia. Does not bruise/bleed easily. Psychiatric/Behavioral: Positive for depression. Negative for hallucinations, memory loss, substance abuse (tx) and suicidal ideas. The patient is not nervous/anxious and does not have insomnia. Sulfa (Sulfonamide Antibiotics); Codeine; Environmental [Other]; Guiafenesin [Other]; Penicillins Current Outpatient Prescriptions: carvedilol (COREG) 12.5 mg tablet TAKE 1 TABLET BY MOUTH TWICE A DAY Disp: 180 tablet Rfl: 3 venlafaxine ER (EFFEXOR XR) 37.5 mg 24 hr capsule Take 1 capsule by mouth once daily. Disp: 90 capsule Rfl: 1 lisinopril (ZESTRIL, PRINIVIL) 5 mg tablet Take 1 tablet by mouth twice daily. Disp: 180 tablet Rfl: 3 furosemide (LASIX) 20 mg tablet Take 1 tablet by mouth as needed (weight gain of 3 lbs overnight or 5 lbs in 1 week). Disp: 30 tablet Rfl: 1 omeprazole (PRILOSEC) 20 mg capsule TAKE 1 CAPSULE BY MOUTH TWICE DAILY BEFORE MEALS (0600/1600). 1/2 HR BEFORE MEAL. Disp: 180 capsule Rfl: 3 ipratropium (ATROVENT) 0.02 % nebulizer solution Use 2.5 mL via nebulizer four times daily. Unit dose pack of 25 Disp: 1 Vial Rfl: 2 albuterol (PROVENTIL) 2.5 mg /3 mL (0.083 %) nebulizer solution Use 3 mL via nebulizer every 4 hours as needed. Disp: 1 Package Rfl: 5 montelukast (SINGULAIR) 10 mg tablet TAKE 1 TABLET BY MOUTH DAILY AT BEDTIME. Disp: 90 tablet Rfl: 3 albuterol HFA (PROAIR HFA) 90 mcg/actuation inhaler Inhale 2 Puffs as instructed every 4 hours as needed. For wheezing/shortness of breath. Disp: 1 Inhaler Rfl: 2 DAILY MULTIVITAMIN TAB Disp: Rfl: 0 No current facility-administered medications for this visit. 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 Alcohol use: Yes Comment: Seldom. Drug use: No Sexual activity: Yes Partners with: Male control/protection: Surgical Comment: Vasectomy Other Topics Concern Caffeine Concern Yes Comment:coffee 2 cups daily(reg)/ pop 2 cans daily/ iced tea 1 glass daily Special Diet No Comment:low sodium Exercise Yes Comment:4-5 days a week FAMILY HISTORY Problem Relation Age of Onset - Other [OTHER] Mother PARKINSON'S. - Hypertension Father - Cancer Maternal Grandmother Stomach? - Other [OTHER] Maternal Grandmother LAZARUS'S CHOREA. - Other [OTHER] Other No lung disease. Maybe some allergies, nothing major. PAST MEDICAL HISTORY Diagnosis Date - Aortic valve insufficiency - Asthma 2010 dust mites, tree pollen - Brain bleed (HCC) - Carcinoma in situ of cervix uteri 2008 Treated in [place] by Dr. Montilla - CHF (congestive heart failure) (HCC) - Esophageal reflux Gastroesophageal reflux - Hodgkin's disease, unspecified(201.90) 1999 Hodgkins Disease - HPV (human papillomavirus) vaccine 2008 - Migraine, unspecified, with intractable migraine, so stated, without mention of status migrainosus Migraine - Mitral valve regurgitation - Non-ischemic cardiomyopathy (HCC) - Pap smear of cervix with ASCUS, cannot exclude HGSIL 06/28/13 HPV+ - Postmenopausal bleeding Postmenop. bleeding - Premature menopause - Thrombocytopenia, unspecified (HCC) Thrombocytopenia - VAIN III (vaginal intraepithelial neoplasia III) 2008 As above PAST SURGICAL HISTORY Procedure Laterality Date - COLPOSCOPY (VAGINOSCOPY) 2008 with laser tx for HPV - PAST SURGICAL HISTORY OF CHEST WALL BX.,PORT,EDWARDS CATHETER - PAST SURGICAL HISTORY OF 2009 Laser cone of cx and vaporization of upper vagina - VAGINOSCOPY 08/30/13 Benign BP 100/70 Pulse 97 Ht 5' 7 (1.70m) Wt 132 lb 9.6 oz (60.1kg) SpO2 99% LMP 02/18/2004 BMI 20.76 kg/(m2). Objective Physical Exam Constitutional: She is oriented to person, place, and time and well-developed, well-nourished, and in no distress. No distress. HENT: Head: Normocephalic and atraumatic. Mouth/Throat: Oropharynx is clear and moist. Eyes: Conjunctivae are normal. No scleral icterus. Neck: Normal range of motion. Neck supple. No JVD present. Carotid bruit is not present. Cardiovascular: Regular rhythm, S1 normal, S2 normal, intact distal pulses and normal pulses. Tachycardia present. Exam reveals no gallop, no S3, no distant heart sounds and no friction rub. No murmur heard. No systolic murmur is present No diastolic murmur is present Pulses: Radial pulses are 2+ on the right side, and 2+ on the left side. Dorsalis pedis pulses are 2+ on the right side, and 2+ on the left side. Pulmonary/Chest: Breath sounds normal. No respiratory distress. She has no wheezes. She has no rales. She exhibits no tenderness. Abdominal: Bowel sounds are normal. She exhibits no distension. There is no tenderness. There is no guarding. Musculoskeletal: Normal range of motion. She exhibits no edema, tenderness or deformity. Neurological: She is alert and oriented to person, place, and time. No cranial nerve deficit. Gait normal. Coordination normal. Skin: Skin is warm and dry. No rash noted. She is not diaphoretic. No erythema. No pallor. Psychiatric: Mood, memory, affect and judgment normal. Cardiac Testing and Procedures: Electrocardiogram: ? Echocardiogram: Limited echo: 02/02/2018: Pericardium: A small, circumferential pericardial effusion is present. There is no echocardiographic evidence for pericardial tamponade. Severe left ventricular systolic dysfunction. The visually estimated LVEF is 20-25%. ? OSH 01/30/2018?Mildly dilated LV. Severe global left ventricular dysfunction. Estimated EF of 20%. Mild diffuse mitral valve thickening. Moderate 2+ mitral valve insufficiency. Mild tricuspid valve insufficiency. Moderately severe aortic valve insufficiency. Mild pulmonic valve insufficiency. Moderate pericardial effusion no indications of cardiac tamponade on. Echo lucency consistent with a pleural effusion. Right ventricular systolic pressure estimated at 56 mmHg with pulmonary hypertension. Transmitral diastolic flow velocity suggests diastolic dysfunction ? ? Cardiac Catheterization/Percutaneous Coronary Intervention (PCI): 02/04/19: Normal coronaries Recommendations: 1. Nonischemic cardiomyopathy: Patient's ejection fraction previously is the 5% range, he was up to 36% on recent Limited echo. Medications have been up titrated, and are at max doses based on heart rate and blood pressure. She has Lasix available to take as needed for weight gain of 3 pounds or symptoms of shortness of breath. She appears to be euvolemic. She is walking her dog daily working in her garden. She probably has [place] Heart Association class II for symptoms. No lightheadedness. She is to continue 2 g sodium diet, and utilize daily weight and she's been doing. 2. Pericardial effusion: She was noted to have moderate pericardial effusion prior to her transfer to the hospital and was still present on a repeat echo on 03/24/2018. Heart rate does seem to be a little tachycardic despite use of beta shahrzad. We'll send her for repeat limited echo to reassess. She has no symptoms of palpitations and is having no chest pain symptoms. 3. Valvular heart disease: She has 2+ MR, and 1+ TR, and 2+ aortic on recent echo. She is to continue medical treatment. SANDEEP did not confirm severity of mitral aortic regurgitation, and she was deemed not a surgical candidate by the cardiothoracic surgery team. 4. History of non-Hodgkin's lymphoma: She is status post symptoms stem cell transplant, and chemotherapy and radiation therapy in 1999. 5. History of asthma: She is on Singulair and Advair discus, she does have Atrovent nebulizers and Pro Air inhaler to use as well. She tells me she's not required these. Follow-up: Patient will have a repeat limited echo to assess for pericardial effusion given her tachycardia, so asked to reassess her LV function. She'll follow with Dr. Weber in the office in July, she's instructed to call with other symptoms or complaints. Thank you Grsi Martínez APRN.TARIFF PUBLISHING AGENT 05/28/2018 3:55 PM Signed Heart Failure What is heart failure? Heart failure (HF) means the heart is not pumping blood as well as it should. It may pump at a different speed, pump blood with less force, or pump less blood with each heartbeat. When less blood is flowing out of the heart to the body, muscles and other tissues may not get enough oxygen. The kidneys may not work as well to remove excess fluid in the form of urine. As a result, blood backs up into the blood vessels. The extra fluid seeps into the lungs or other parts of the body. Fluid in the lungs makes it hard to breathe. Fluid seeping into other parts of the body causes swelling. When there is too much fluid in the body, it puts more strain on the heart. Heart failure is one of the most common causes of heart-related illness and in the . What is the cause? A number of things can cause heart failure, such as: -Narrowing or blockage in the arteries that bring blood to the heart muscle -Infection of the heart -Heart attack -High blood pressure -Heart valve problems -Genetic problems with the heart muscle -Alcoholism -Diabetes -Lung disease Problems that may worsen or trigger heart failure, especially if your heart muscle is weak, include: -Severe anemia (a low level of red blood cells) -An overactive or underactive thyroid gland -Infection -A heartbeat that is too fast or too slow -Too much salt or fluid in the diet -Working your body too hard with exercise or daily activities -Emotional stress What are the symptoms? The symptoms of heart failure may include: -Shortness of breath or trouble breathing, at first just during exercise, then with any activity, and finally even when you are resting -Waking up at night with trouble breathing or being unable to lie flat in bed because of shortness of breath -Coughing -Swollen ankles, feet, and legs -Weight gain caused by extra fluid in the body -Feeling tired most of the time and not able to do your usual activities -Lack of appetite and feeling sick to your stomach -Feeling like your heart is racing or fluttering -Lightheadedness or fainting How is it diagnosed? Your healthcare provider will ask about your symptoms and examine you. Tests may include: -Chest X-ray -An ECG (also called an EKG), which measures and records your heartbeat -Blood or urine tests -Echocardiogram, which uses sound waves (ultrasound) to see how well your heart muscle is pumping How is it treated? Heart failure can be treated and managed. The goals of treatment are: -Help your heart so it doesn?t have to work as hard -Help your heart pump blood better -Get rid of extra water in your body Your healthcare provider may prescribe medicine to relax the blood vessels and lower blood pressure. Then the heart doesn?t have to work as hard. You may need to take 2 or more medicines to treat your heart failure. It may take several weeks or months to find the best treatment for you. In some cases, heart failure can get better and even be cured. For example, if it is caused by an infection, it may be cured with treatment of the infection. Heart failure due to coronary artery disease is generally not cured and most often gets worse over time. However, carefully following your treatment plan can: -Slow down the worsening of heart failure and help you live longer -Help prevent trips to the hospital -Help you feel better and do more How can I take care of myself? If you have heart failure, there are things you can do to take care of yourself now and prevent problems in the future. Follow your treatment plan and know how to take your medicines. -Work as a partner with your provider. This means having regular provider visits and following your treatment plan. -Follow the directions that come with your medicine, including information about food or alcohol. Make sure you know how and when to take your medicine. Do not take more or less than you are supposed to take. -Many medicines have side effects. A side effect is a symptom or problem that is caused by the medicine. Ask your healthcare provider or pharmacist what side effects your medicine may cause and what you should do if you have side effects. Ask if you should avoid some nonprescription medicines. Don?t smoke, eat a healthy diet, and watch your weight and blood pressure. -Quit smoking if you are a smoker. -Lose weight if you are overweight and eat a healthy diet. ?Follow a low-salt (low-sodium) diet if it is recommended by your provider. Too much salt makes your body keep too much water and makes your heart have to work harder. ?Follow your healthcare provider's advice about how much liquid you should drink. ?Ask your provider if you should avoid drinking alcohol. Alcohol can weaken your heart or may worsen heart failure. Also, some of your medicines may not work well if you drink alcohol. -Weigh yourself every morning after you use the bathroom but before you eat or drink anything. Weighing yourself every day helps you know if extra fluid is building up in your body. A buildup of fluid is a sign that your heart failure may be getting worse. Weight gain can let you know about fluid buildup before you start having swelling. Keep track of your weight in a diary or on the calendar. Ask your healthcare provider when you should report weight gain. Letting your provider know about weight gain when it first happens can save you a trip to the emergency room or a stay in the hospital. -Also check your pulse and blood pressure every day. Learn how to take your own blood pressure or have a family member learn how to take it. Be as physically active as you can. -How active you can be depends on how bad the heart failure is. A program of gentle exercise helps most people. Your provider can tell you what level of exercise is right for you. Exercise helps your heart and body get stronger. It also improves your blood flow and energy level. Don?t exercise outdoors if it is very hot, cold, humid, or smoggy. Balance exercise with rest. Make sure that your activities don?t make you too tired or short of breath. Take rest breaks during the day. -Avoid getting very hot or cold because it may make your heart work harder. Try to lessen the stress in your life. -Anxiety and anger can cause a fast heart rate and high blood pressure. If you need help with this, ask your healthcare provider. Protect yourself against infections. -Get a flu shot every year. When you have heart failure, you should not get the nasal spray vaccine (FluMist). -Get the pneumococcal shot. Ask your healthcare provider: -How and when you will hear your test results -How long it will take to recover -What activities you should avoid and when you can return to your normal activities -How to take care of yourself at home -What symptoms or problems you should watch for and what to do if you have them Make sure you know when you should come back for a checkup. How can I help prevent heart failure? You can prevent this disease with a heart-healthy lifestyle: -Eat a healthy diet and keep a healthy weight. -Stay fit with the right kind of exercise for you. -Decrease stress. -Don?t smoke. -Limit your use of alcohol. Talk to your healthcare provider about your personal and family medical history and your lifestyle habits. This will help you know what you can do to lower your risk for heart failure. Developed by [employer]. Published by [employer]. Copyright ?2013 [employer] and/or one of its subsidiaries. All rights reserved. Referring Provider: SELF [200] Allergies As of Date: 05/28/2018 Noted Allergy Reaction SULFA (SULFONAMIDE ANTIBIOTICS) 08/21/2005 2 - Rash 7 - Swelling CODEINE 09/17/2005 4 - Hives Environmental [Other] 10/03/2011 16 - Unknown Comments: Dust mites, trees GUIAFENESIN [Other] 09/17/2005 1 - Mental Status Change PENICILLINS 08/21/2005 2 - Rash Date Reviewed: 05/28/2018 Reviewed by: Gris ([facility]) Faiza - Fully Assessed Reason for Visit: 6 week follow up [Other] Primary Visit Diagnosis:Chronic systolic heart failure (HCC) [I50.22] Other Visit Diagnoses:Pericardial effusion [I31.3] Valvular heart disease [I38] Order(s):ECHO HEART,LIMITED [[id number]] Order #: [id number]: 1 Prescriptions as of 05/28/2018 Sig: CARVEDILOL 12.5 MG TABLET TAKE 1 TABLET BY MOUTH TWICE * VENLAFAXINE ER 37.5 MG CAPSUL* Take 1 capsule by mouth once * LISINOPRIL 5 MG TABLET Take 1 tablet by mouth twice * FUROSEMIDE 20 MG TABLET Take 1 tablet by mouth as nee* OMEPRAZOLE 20 MG CAPSULE,VIRGIE* TAKE 1 CAPSULE BY MOUTH TWICE* IPRATROPIUM BROMIDE 0.02 % SO* Use 2.5 mL via nebulizer four* ALBUTEROL SULFATE 2.5 MG/3 ML* Use 3 mL via nebulizer every * MONTELUKAST 10 MG TABLET TAKE 1 TABLET BY MOUTH DAILY * ALBUTEROL SULFATE HFA 90 MCG/* Inhale 2 Puffs as instructed * DAILY MULTIVITAMIN TABLET Problem List As Of Date 05/28/2018 Noted Resolved Esophageal reflux [K21.9] INVALID FOR* More... Hodgkin's disease [201] INVALID FOR*11/06/2007 More... Absence of menstruation [N91.2] INVALID FOR*06/10/2012 Pneumonia, organism unspecified [J18.9] INVALID FOR*05/10/2011 TENOSYNOV HAND/WRIST NEC [M65.849, M65.839] INVALID FOR*12/19/2006 History of Hodgkin's disease [Z85.71] INVALID FOR* More... Personal history of pneumonia (recurrent) [Z87.*INVALID FOR* More... 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 Asthma [J45.909] INVALID FOR* More... Headache, migraine [G43.909] INVALID FOR* More... More... HFrEF (heart failure with reduced ejection frac*INVALID FOR* Acute on chronic combined systolic and diastoli*INVALID FOR* Pericardial effusion [I31.3] INVALID FOR* Valvular heart disease [I38] INVALID FOR* Other instructions from your clinician: Heart Failure What is heart failure? Heart failure (HF) means the heart is not pumping blood as well as it should. It may pump at a different speed, pump blood with less force, or pump less blood with each heartbeat. When less blood is flowing out of the heart to the body, muscles and other tissues may not get enough oxygen. The kidneys may not work as well to remove excess fluid in the form of urine. As a result, blood backs up into the blood vessels. The extra fluid seeps into the lungs or other parts of the body. Fluid in the lungs makes it hard to breathe. Fluid seeping into other parts of the body causes swelling. When there is too much fluid in the body, it puts more strain on the heart. Heart failure is one of the most common causes of heart- related illness and in the [place]. What is the cause? A number of things can cause heart failure, such as: -Narrowing or blockage in the arteries that bring blood to the heart muscle -Infection of the heart -Heart attack -High blood pressure -Heart valve problems -Genetic problems with the heart muscle -Alcoholism -Diabetes -Lung disease Problems that may worsen or trigger heart failure, especially if your heart muscle is weak, include: -Severe anemia (a low level of red blood cells) -An overactive or underactive thyroid gland -Infection -A heartbeat that is too fast or too slow -Too much salt or fluid in the diet -Working your body too hard with exercise or daily activities -Emotional stress What are the symptoms? The symptoms of heart failure may include: -Shortness of breath or trouble breathing, at first just during exercise, then with any activity, and finally even when you are resting -Waking up at night with trouble breathing or being unable to lie flat in bed because of shortness of breath -Coughing -Swollen ankles, feet, and legs -Weight gain caused by extra fluid in the body -Feeling tired most of the time and not able to do your usual activities -Lack of appetite and feeling sick to your stomach -Feeling like your heart is racing or fluttering -Lightheadedness or fainting How is it diagnosed? Your healthcare provider will ask about your symptoms and examine you. Tests may include: -Chest X-ray -An ECG (also called an EKG), which measures and records your heartbeat -Blood or urine tests -Echocardiogram, which uses sound waves (ultrasound) to see how well your heart muscle is pumping How is it treated? Heart failure can be treated and managed. The goals of treatment are: -Help your heart so it doesn?t have to work as hard -Help your heart pump blood better -Get rid of extra water in your body Your healthcare provider may prescribe medicine to relax the blood vessels and lower blood pressure. Then the heart doesn?t have to work as hard. You may need to take 2 or more medicines to treat your heart failure. It may take several weeks or months to find the best treatment for you. In some cases, heart failure can get better and even be cured. For example, if it is caused by an infection, it may be cured with treatment of the infection. Heart failure due to coronary artery disease is generally not cured and most often gets worse over time. However, carefully following your treatment plan can: -Slow down the worsening of heart failure and help you live longer -Help prevent trips to the hospital -Help you feel better and do more How can I take care of myself? If you have heart failure, there are things you can do to take care of yourself now and prevent problems in the future. Follow your treatment plan and know how to take your medicines. -Work as a partner with your provider. This means having regular provider visits and following your treatment plan. -Follow the directions that come with your medicine, including information about food or alcohol. Make sure you know how and when to take your medicine. Do not take more or less than you are supposed to take. -Many medicines have side effects. A side effect is a symptom or problem that is caused by the medicine. Ask your healthcare provider or pharmacist what side effects your medicine may cause and what you should do if you have side effects. Ask if you should avoid some nonprescription medicines. Don?t smoke, eat a healthy diet, and watch your weight and blood pressure. -Quit smoking if you are a smoker. -Lose weight if you are overweight and eat a healthy diet. ?Follow a low-salt (low-sodium) diet if it is recommended by your provider. Too much salt makes your body keep too much water and makes your heart have to work harder. ?Follow your healthcare provider's advice about how much liquid you should drink. ?Ask your provider if you should avoid drinking alcohol. Alcohol can weaken your heart or may worsen heart failure. Also, some of your medicines may not work well if you drink alcohol. -Weigh yourself every morning after you use the bathroom but before you eat or drink anything. Weighing yourself every day helps you know if extra fluid is building up in your body. A buildup of fluid is a sign that your heart failure may be getting worse. Weight gain can let you know about fluid buildup before you start having swelling. Keep track of your weight in a diary or on the calendar. Ask your healthcare provider when you should report weight gain. Letting your provider know about weight gain when it first happens can save you a trip to the emergency room or a stay in the hospital. -Also check your pulse and blood pressure every day. Learn how to take your own blood pressure or have a family member learn how to take it. Be as physically active as you can. -How active you can be depends on how bad the heart failure is. A program of gentle exercise helps most people. Your provider can tell you what level of exercise is right for you. Exercise helps your heart and body get stronger. It also improves your blood flow and energy level. Don?t exercise outdoors if it is very hot, cold, humid, or smoggy. Balance exercise with rest. Make sure that your activities don?t make you too tired or short of breath. Take rest breaks during the day. -Avoid getting very hot or cold because it may make your heart work harder. Try to lessen the stress in your life. -Anxiety and anger can cause a fast heart rate and high blood pressure. If you need help with this, ask your healthcare provider. Protect yourself against infections. -Get a flu shot every year. When you have heart failure, you should not get the nasal spray vaccine (FluMist). -Get the pneumococcal shot. Ask your healthcare provider: -How and when you will hear your test results -How long it will take to recover -What activities you should avoid and when you can return to your normal activities -How to take care of yourself at home -What symptoms or problems you should watch for and what to do if you have them Make sure you know when you should come back for a checkup. How can I help prevent heart failure? You can prevent this disease with a heart-healthy lifestyle: -Eat a healthy diet and keep a healthy weight. -Stay fit with the right kind of exercise for you. -Decrease stress. -Don?t smoke. -Limit your use of alcohol. Talk to your healthcare provider about your personal and family medical history and your lifestyle habits. This will help you know what you can do to lower your risk for heart failure. Developed by [employer]. Published by [employer]. Copyright ?2014 [employer] and/or one of its subsidiaries. All rights reserved. Visit Notes: >> Cata Randolph Irlanda May 28, 2018 3:24 PM Status: Signed Ms Fernando is here for her 6 week follow up and states she is feeling good with no cardiac complaints or symptoms. Cata Randolph LPN Disposition: Return in about 2 months (around 07/28/2018) for talisha gold July 2018 . Follow-up and Disposition History Recorded Letter Text Encounter Status:Closed by GRIS MARTÍNEZ CNP on 05/28/18 OBSOLETE Observed: 05/17/2018 Status: COMPLETED Source: [place] 12:00 AM [facility] REPOSITORY Refill (AGCARDPODottie) ZEESHAN FERNANDO ([id number]) 1965 F TRN Date Time Provider Department 05/17/18 BASSEM WEBER During your visit today, we recorded the following information about you: Hayde Brown LPN 05/18/2018 8:07 AM Signed Pharmacy electronically requesting refills as follows: Pending Prescriptions Disp Refills CARVEDILOL 12.5 MG TABLET 180 tablet 3 Sig: TAKE 1 TABLET BY MOUTH TWICE A DAY SG: Yes Last seen in the office on 04/15/2018. Follow up scheduled for 05/28/2018. Please review and advise. Hayde Brown LPN Allergies As of Date: 05/17/2018 Noted Allergy Reaction SULFA (SULFONAMIDE ANTIBIOTICS) 08/21/2005 2 - Rash 7 - Swelling CODEINE 09/17/2005 4 - Hives Environmental [Other] 10/03/2011 16 - Unknown Comments: Dust mites, trees GUIAFENESIN [Other] 09/17/2005 1 - Mental Status Change PENICILLINS 08/21/2005 2 - Rash Date Reviewed: 05/06/2018 Reviewed by: Kika Gonzales Detective Chief - Fully Assessed Reason for Visit: Refill Request [94] Order(s):carvedilol (COREG) 12.5 mg tabletTAKE 1 TABLET BY MOUTH TWICE A DAYDisp: 180 tabletRfl: 3 Prescriptions as of 05/17/2018 Sig: CARVEDILOL 12.5 MG TABLET TAKE 1 TABLET BY MOUTH TWICE * VENLAFAXINE ER 37.5 MG CAPSUL* Take 1 capsule by mouth once * LISINOPRIL 5 MG TABLET Take 1 tablet by mouth twice * OMEPRAZOLE 20 MG CAPSULE,VIRGIE* TAKE 1 CAPSULE BY MOUTH TWICE* IPRATROPIUM BROMIDE 0.02 % SO* Use 2.5 mL via nebulizer four* ALBUTEROL SULFATE 2.5 MG/3 ML* Use 3 mL via nebulizer every * MONTELUKAST 10 MG TABLET TAKE 1 TABLET BY MOUTH DAILY * ALBUTEROL SULFATE HFA 90 MCG/* Inhale 2 Puffs as instructed * DAILY MULTIVITAMIN TABLET Problem List As Of Date 05/17/2018 Noted Resolved Esophageal reflux [K21.9] INVALID FOR* More... Hodgkin's disease [201] INVALID FOR*11/06/2007 More... Absence of menstruation [N91.2] INVALID FOR*06/10/2012 Pneumonia, organism unspecified [J18.9] INVALID FOR*05/10/2011 TENOSYNOV HAND/WRIST NEC [M65.849, M65.839] INVALID FOR*12/19/2006 History of Hodgkin's disease [Z85.71] INVALID FOR* More... Personal history of pneumonia (recurrent) [Z87.*INVALID FOR* More... 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 Asthma [J45.909] INVALID FOR* More... Headache, migraine [G43.909] INVALID FOR* More... More... HFrEF (heart failure with reduced ejection frac*INVALID FOR* Acute on chronic combined systolic and diastoli*INVALID FOR* Pericardial effusion [I31.3] INVALID FOR* Valvular heart disease [I38] INVALID FOR* Prescriptions ordered this encounter Disp Refills Start End CARVEDILOL 12.5 MG TABLET 180 * 3 05/18/2018 Sig: TAKE 1 TABLET BY MOUTH TWICE A DAY Medications Discontinued During This Encounter carvedilol (COREG) 12.5 mg tablet 60 t* 1 03/24/2018 05/18/2018 Route: ORAL Sig: Take 1 tablet by mouth twice daily. Disc: Reason for discontinue is not on file. Encounter Status:Closed by BASSEM WEBER MD on 05/18/18 PROGRESS Observed: 05/06/2018 Status: COMPLETED Source: [place] 5:33 PM [facility] REPOSITORY HNO ID: [id number] Author: Nikia Pillai Service: (none) Author Type: Physician Type: Progress Notes Filed: 05/06/2018 8:36 PM Note Text: Reason for Visit No chief complaint on file. Zeeshan Fernando is a 52 year old female who presents here today for Above Complaints.. Health Maintenance There are no preventive care reminders to display for this patient. HPI Below is note from Cardiology. Zeeshan Fernando is today seen for 1 month follow-up appointment. As recall she is known to Dr. Weber for previous history of non-Hodgkin's lymphoma status post stem cell transplant radiation chemotherapy be 1999, mitral and aortic regurgitation, asthma, and newly diagnosed nonischemic cardiomyopathy. As recall, patient was hospitalized for 01/30 through 02/03/18 at [facility] for heart failure exacerbation and pericardial effusion. Echocardiogram showed moderate size pericardial effusion, and it looks like she was transferred to [facility]. Prior to her transfer she did have a thoracentesis, with result of 900 cc of transudate of fluid. She did undergo cardiac catheterization as well, which showed normal coronary arteries. SANDEEP did not confirm severity of mitral and aortic valve regurgitation is felt not to be a surgical candidate by cardiothoracic surgery. 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 She is currently doing much better. Her coreg is up to 12.5, lisinopril was increased to 5 mgs 2 times a days. She has been having diarrhea for the past few months, on and off, notes that when she has granola bar in the morning she has diarrhea but if she has cereal it is not that bad. She has been very careful with her salt intake as it causes her to swell a lot. ?Asthma is well controlled on current medication. She is not using her advair diskus. No problem-specific Assessment AND Plan notes found for this encounter. PAST MEDICAL HISTORY Diagnosis Date - Aortic valve insufficiency - Asthma 2010 dust mites, tree pollen - Brain bleed (HCC) - Carcinoma in situ of cervix uteri 2008 Treated in [place] [address] Montilla - CHF (congestive heart failure) (HCC) - Esophageal reflux Gastroesophageal reflux - Hodgkin's disease, unspecified(201.90) 1999 Hodgkins Disease - HPV (human papillomavirus) vaccine 2008 - Migraine, unspecified, with intractable migraine, so stated, without mention of status migrainosus Migraine - Mitral valve regurgitation - Non-ischemic cardiomyopathy (HCC) - Pap smear of cervix with ASCUS, cannot exclude HGSIL 06/28/13 HPV+ - Postmenopausal bleeding Postmenop. bleeding - Premature menopause - Thrombocytopenia, unspecified (HCC) Thrombocytopenia - VAIN III (vaginal intraepithelial neoplasia III) 2008 As above PAST SURGICAL HISTORY Procedure Laterality Date - COLPOSCOPY (VAGINOSCOPY) 2008 with laser tx for HPV - PAST SURGICAL HISTORY OF CHEST WALL BX.,PORT,EDWARDS CATHETER - PAST SURGICAL HISTORY OF 2008 Laser cone of cx and vaporization of upper vagina - VAGINOSCOPY 08/30/13 Benign FAMILY HISTORY Problem Relation Age of Onset - Other [OTHER] Mother PARKINSON'S. - Hypertension Father - Cancer Maternal Grandmother Stomach? - Other [OTHER] Maternal Grandmother LAZARUS'S CHOREA. - Other [OTHER] Other No lung disease. Maybe some allergies, nothing major. Social History Substance Use Topics - Smoking status: Never Smoker - Smokeless tobacco: Never Used Comment: No childhood or current household smokers. - Alcohol use Yes Comment: Seldom. Past medical history, appointments, medications, allergies reviewed. Pertinent Lab/Diagnostic Studies are reviewed and discussed today Current Outpatient Prescriptions: - lisinopril (ZESTRIL, PRINIVIL) 5 mg tablet - carvedilol (COREG) 12.5 mg tablet - furosemide (LASIX) 20 mg tablet - omeprazole (PRILOSEC) 20 mg capsule - fluticasone-salmeterol (ADVAIR) 500-50 mcg/dose dsdv - ipratropium (ATROVENT) 0.02 % nebulizer solution - albuterol (PROVENTIL) 2.5 mg /3 mL (0.083 %) nebulizer solution - venlafaxine ER (EFFEXOR XR) 37.5 mg 24 hr capsule - montelukast (SINGULAIR) 10 mg tablet - albuterol HFA (PROAIR HFA) 90 mcg/actuation inhaler - DAILY MULTIVITAMIN TAB Review of Systems CONSTITUTIONAL: No fevers, chills night sweats, unintended weight loss CARDIOVASCULAR: No chest pain, dyspnea, palpitations, orthopnea, PND, ankle edema. PULM: No dyspnea, unexplained cough. GI: No dysphagia/odynophagia, problematic reflux, constipation, diarrhea, changes in stool habits, hematochezia, melena. : No new urinary complaints, including dysuria, gross hematuria or pyuria. NEURO: No new balance problems, peripheral weakness/paresthesias or numbness of concern. Physical Exam BP 100/60 (BP Site: Left Arm, BP Position: Sitting, BP Cuff Size: Regular Adult) Pulse 91 Temp 36.8 ?C (98.2 ?F) (Temporal Artery) Resp 16 Wt 59.4 kg (131 lb) LMP 02/18/2004 SpO2 100% BMI 20.52 kg/m? General appearance: Well appearing, alert, in no acute distress, well nourished. Skin: Skin color, texture, turgor normal, no suspicious rashes or lesions Head: Normocephalic, no masses, lesions, tenderness or abnormalities Eyes: Anicteric sclera. Pupils are equally round and reactive to light. Extraocular movements are intact. Lungs: Lungs clear to auscultation. No wheezing, rhonchi, rales Heart: RRR without murmur, gallop, or rubs. Extremities: No deformities, edema, skin discoloration, clubbing or cyanosis. Good capillary refill. ASSESSMENT/PLAN: 1. Biventricular congestive heart failure (HCC) - ICD9: 428.0, ICD10: I50.82 (primary diagnosis) Reviewed her test results with and medication. She is good on the current medication dosage. 2. Acute on chronic combined systolic and diastolic CHF (congestive heart failure) (HCC) - ICD9: 428.43, 428.0, ICD10: I50.43 Currently medications are well titrated 3. Anxiety and depression - ICD9: 300.00, 311, ICD10: F41.9, F32.9 Cont the current medication 4. Mild intermittent asthma without complication - ICD9: 493.90, ICD10: J45.20 Mild intermittent Asthma stable - Avoidance of triggers recommended NIKIA PILLAI MD CNOV Observed: 05/06/2018 Status: COMPLETED Source: [place] 5:20 PM [facility] REPOSITORY Office Visit (INTMWS) ZEESHAN FERNANDO ([id number]) 1965 F TRN Date Time Provider Department 05/06/18 5:20 PM NIKIA PILLAI INTMWS During your visit today, we recorded the following information about you: Temperature Pulse Respiration Blood pressure 98.2 degrees 91/minute 16/minute 100/60 Weight 59.4 kg NIKIA PILLAI MD 05/06/2018 8:36 PM Signed Reason for Visit No chief complaint on file. Zeeshan Fernando is a 52 year old female who presents here today for Above Complaints.. Health Maintenance There are no preventive care reminders to display for this patient. HPI Below is note from Cardiology. Zeeshan Fernando is today seen for 1 month follow-up appointment. As recall she is known to Dr. Weber for previous history of non-Hodgkin's lymphoma status post stem cell transplant radiation chemotherapy be 1999, mitral and aortic regurgitation, asthma, and newly diagnosed nonischemic cardiomyopathy. As recall, patient was hospitalized for 01/30 through 02/03/18 at [facility] for heart failure exacerbation and pericardial effusion. Echocardiogram showed moderate size pericardial effusion, and it looks like she was [facility]. Prior to her transfer she did have a thoracentesis, with result of 900 cc of transudate of fluid. She did undergo cardiac catheterization as well, which showed normal coronary arteries. SANDEEP did not confirm severity of mitral and aortic valve regurgitation is felt not to be a surgical candidate by cardiothoracic surgery. 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 She is currently doing much better. Her coreg is up to 12.5, lisinopril was increased to 5 mgs 2 times a days. She has been having diarrhea for the past few months, on and off, notes that when she has granola bar in the morning she has diarrhea but if she has cereal it is not that bad. She has been very careful with her salt intake as it causes her to swell a lot. ?Asthma is well controlled on current medication. She is not using her advair diskus. No problem-specific Assessment AND Plan notes found for this encounter. PAST MEDICAL HISTORY Diagnosis Date - Aortic valve insufficiency - Asthma 2010 dust mites, tree pollen - Brain bleed (HCC) - Carcinoma in situ of cervix uteri 2008 [address]ated [address] [place] [address] Montilla - CHF (congestive heart failure) (HCC) - Esophageal reflux Gastroesophageal reflux - Hodgkin's disease, unspecified(201.90) 1999 Hodgkins Disease - HPV (human papillomavirus) vaccine 2008 - Migraine, unspecified, with intractable migraine, so stated, without mention of status migrainosus Migraine - Mitral valve regurgitation - Non-ischemic cardiomyopathy (HCC) - Pap smear of cervix with ASCUS, cannot exclude HGSIL 06/28/13 HPV+ - Postmenopausal bleeding Postmenop. bleeding - Premature menopause - Thrombocytopenia, unspecified ([facility]) Thrombocytopenia - VAIN III (vaginal intraepithelial neoplasia III) 2008 As above PAST SURGICAL HISTORY Procedure Laterality Date - COLPOSCOPY (VAGINOSCOPY) 2008 with laser tx for HPV - PAST SURGICAL HISTORY OF CHEST WALL BX.,PORT,EDWARDS CATHETER - PAST SURGICAL HISTORY OF 2008 Laser cone of cx and vaporization of upper vagina - VAGINOSCOPY 08/30/13 Benign FAMILY HISTORY Problem Relation Age of Onset - Other [OTHER] Mother PARKINSON'S. - Hypertension Father - Cancer Maternal Grandmother Stomach? - Other [OTHER] Maternal Grandmother LAZARUS'S CHOREA. - Other [OTHER] Other No lung disease. Maybe some allergies, nothing major. Social History Substance Use Topics - Smoking status: Never Smoker - Smokeless tobacco: Never Used Comment: No childhood or current household smokers. - Alcohol use Yes Comment: Seldom. Past medical history, appointments, medications, allergies reviewed. Pertinent Lab/Diagnostic Studies are reviewed and discussed today Current Outpatient Prescriptions: - lisinopril (ZESTRIL, PRINIVIL) 5 mg tablet - carvedilol (COREG) 12.5 mg tablet - furosemide (LASIX) 20 mg tablet - omeprazole (PRILOSEC) 20 mg capsule - fluticasone-salmeterol (ADVAIR) 500-50 mcg/dose dsdv - ipratropium (ATROVENT) 0.02 % nebulizer solution - albuterol (PROVENTIL) 2.5 mg /3 mL (0.083 %) nebulizer solution - venlafaxine ER (EFFEXOR XR) 37.5 mg 24 hr capsule - montelukast (SINGULAIR) 10 mg tablet - albuterol HFA (PROAIR HFA) 90 mcg/actuation inhaler - DAILY MULTIVITAMIN TAB Review of Systems CONSTITUTIONAL: No fevers, chills night sweats, unintended weight loss CARDIOVASCULAR: No chest pain, dyspnea, palpitations, orthopnea, PND, ankle edema. PULM: No dyspnea, unexplained cough. GI: No dysphagia/odynophagia, problematic reflux, constipation, diarrhea, changes in stool habits, hematochezia, melena. : No new urinary complaints, including dysuria, gross hematuria or pyuria. NEURO: No new balance problems, peripheral weakness/paresthesias or numbness of concern. Physical Exam BP 100/60 (BP Site: Left Arm, BP Position: Sitting, BP Cuff Size: Regular Adult) Pulse 91 Temp 36.8 ?C (98.2 ?F) (Temporal Artery) Resp 16 Wt 59.4 kg (131 lb) LMP 02/18/2004 SpO2 100% BMI 20.52 kg/m? General appearance: Well appearing, alert, in no acute distress, well nourished. Skin: Skin color, texture, turgor normal, no suspicious rashes or lesions Head: Normocephalic, no masses, lesions, tenderness or abnormalities Eyes: Anicteric sclera. Pupils are equally round and reactive to light. Extraocular movements are intact. Lungs: Lungs clear to auscultation. No wheezing, rhonchi, rales Heart: RRR without murmur, gallop, or rubs. Extremities: No deformities, edema, skin discoloration, clubbing or cyanosis. Good capillary refill. ASSESSMENT/PLAN: 1. Biventricular congestive heart failure (HCC) - ICD9: 428.0, ICD10: I50.82 (primary diagnosis) Reviewed her test results with and medication. She is good on the current medication dosage. 2. Acute on chronic combined systolic and diastolic CHF (congestive heart failure) (HCC) - ICD9: 428.43, 428.0, ICD10: I50.43 Currently medications are well titrated 3. Anxiety and depression - ICD9: 300.00, 311, ICD10: F41.9, F32.9 Cont the current medication 4. Mild intermittent asthma without complication - ICD9: 493.90, ICD10: J45.20 Mild intermittent Asthma stable - Avoidance of triggers recommended NIKIA PILLAI MD Referring Provider: SINDHU BIRMINGHAM ([facility]) [[id number]] Allergies As of Date: 05/06/2018 Noted Allergy Reaction SULFA (SULFONAMIDE ANTIBIOTICS) 08/21/2005 2 - Rash 7 - Swelling CODEINE 09/17/2005 4 - Hives Environmental [Other] 10/03/2011 16 - Unknown Comments: Dust mites, trees GUIAFENESIN [Other] 09/17/2005 1 - Mental Status Change PENICILLINS 08/21/2005 2 - Rash Date Reviewed: 05/06/2018 Reviewed by: Kika Gonzales Detective Chief - Fully Assessed Primary Visit Diagnosis:Biventricular congestive heart failure (HCC) [I50.82] Other Visit Diagnoses:Acute on chronic combined systolic and diastolic CHF (congestive heart failure) (HCC) [I50.43] Anxiety and depression [F41.9, F32.9] Mild intermittent asthma without complication [J45.20] Prescriptions as of 05/06/2018 Sig: LISINOPRIL 5 MG TABLET Take 1 tablet by mouth twice * CARVEDILOL 12.5 MG TABLET Take 1 tablet by mouth twice * FUROSEMIDE 20 MG TABLET Take 1 tablet by mouth as nee* OMEPRAZOLE 20 MG CAPSULE,VIRGIE* TAKE 1 CAPSULE BY MOUTH TWICE* IPRATROPIUM BROMIDE 0.02 % SO* Use 2.5 mL via nebulizer four* ALBUTEROL SULFATE 2.5 MG/3 ML* Use 3 mL via nebulizer every * VENLAFAXINE ER 37.5 MG CAPSUL* TAKE ONE CAPSULE BY MOUTH ROSA ELENA* MONTELUKAST 10 MG TABLET TAKE 1 TABLET BY MOUTH DAILY * ALBUTEROL SULFATE HFA 90 MCG/* Inhale 2 Puffs as instructed * DAILY MULTIVITAMIN TABLET Problem List As Of Date 05/06/2018 Noted Resolved Esophageal reflux [K21.9] INVALID FOR* More... Hodgkin's disease [201] INVALID FOR*11/06/2007 More... Absence of menstruation [N91.2] INVALID FOR*06/10/2012 Pneumonia, organism unspecified [J18.9] INVALID FOR*05/10/2011 TENOSYNOV HAND/WRIST NEC [M65.849, M65.839] INVALID FOR*12/19/2006 History of Hodgkin's disease [Z85.71] INVALID FOR* More... Personal history of pneumonia (recurrent) [Z87.*INVALID FOR* More... 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 Asthma [J45.909] INVALID FOR* More... Headache, migraine [G43.909] INVALID FOR* More... More... HFrEF (heart failure with reduced ejection frac*INVALID FOR* Acute on chronic combined systolic and diastoli*INVALID FOR* Pericardial effusion [I31.3] INVALID FOR* Valvular heart disease [I38] INVALID FOR* Medications Discontinued During This Encounter fluticasone-salmeterol (ADVAIR) 500-* 3 In* 1 01/15/2018 05/06/2018 Route: INHALATION Sig: Inhale 1 Puff as instructed twice daily. Disc: Reason for discontinue is not on file. Encounter Status:Closed by NIKIA PILLAI MD on 05/06/18 Observed: 04/21/2018 Status: F Source: [place] URINE CULTURE 9:20 AM [facility] REPOSITORY Sp. Request/Comment: - Specimen received in preservative Culture Result - <10,000 CFU/ml Lactose positive gram negative bacilli --> ABNORMAL ALERT Insignificant colony count. No further workup. --> ABNORMAL ALERT <10,000 CFU/ml Normal urogenital frank Performed By: #### URCUL #### [facility] [address] [place], [place] [address] PROGRESS Observed: 04/21/2018 Status: COMPLETED Source: [place] 9:11 AM [facility] REPOSITORY HNO ID: [id number] Author: Criss Guardado Service: (none) Author Type: Nurse Practitioner Type: Progress Notes Filed: 04/21/2018 10:07 AM Note Text: Subjective The history is provided by the patient. No computer language coder was used. HPI Zeeshan Fernando is a 52 year old female who presents today for CC of urinary frequency, and burning This started yesterday. She is also having an odor with urine and blood. Symptoms are worsened by voiding. She has tried no treatment or medications. Risk factors swimming this past weekend. PMH UTI. BP 104/60 Pulse 96 Temp 37.6 ?C (99.6 ?F) Resp 16 Wt 60.3 kg (133 lb) LMP 02/18/2004 BMI 20.83 kg/m? 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 - Hypertension Father - Cancer Maternal Grandmother Stomach? - Other [OTHER] Maternal Grandmother LAZARUS'S CHOREA. - Other [OTHER] Other No lung disease. Maybe some allergies, nothing major. 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 Alcohol use: Yes Comment: Seldom. Drug use: No Sexual activity: Yes Partners with: Male control/protection: Surgical Comment: Vasectomy Other Topics Concern Caffeine Concern Yes Comment:coffee 2 cups daily(reg)/ pop 2 cans daily/ iced tea 1 glass daily Special Diet No Comment:low sodium Exercise Yes Comment:4-5 days a week Review of Systems Constitutional: Negative for chills, fever and malaise/fatigue. Gastrointestinal: Negative for abdominal pain, constipation, diarrhea and vomiting. Genitourinary: Positive for dysuria, frequency, hematuria and urgency. Negative for flank pain. Odor with urine Skin: Negative for rash. Neurological: Negative for headaches. Objective Physical Exam Constitutional: She is oriented to person, place, and time and well-developed, well-nourished, and in no distress. HENT: Head: Normocephalic and atraumatic. Eyes: Conjunctivae and EOM are normal. Pupils are equal, round, and reactive to light. Neck: Normal range of motion. Neck supple. Pulmonary/Chest: Effort normal. Abdominal: Soft. Normal appearance and bowel sounds are normal. She exhibits no abdominal bruit, no pulsatile midline mass and no mass. There is no hepatosplenomegaly. There is tenderness in the suprapubic area. There is no rigidity, no rebound, no guarding, no CVA tenderness, no tenderness at McBurney's point and negative Coppola's sign. Neurological: She is alert and oriented to person, place, and time. Skin: Skin is warm. Psychiatric: Affect normal. Nursing note and vitals reviewed. Component Latest Ref Rng AND Units 04/21/2018 Glucose, Urine Neg mg/dL neg Bilirubin, Urine Neg neg Ketones, Urine Neg neg Specific Enloe, Ur 1.005 - 1.030 1.020 Hemoglobin/Blood,Ur Neg large pH, Urine 4.5 - 8.0 7.0 Protein, Urine Neg mg/dL 300 Urobilinogen, Urine Normal (<1.1) EU 0.2 Nitrites Neg pos Leukocytes Neg small Color/Appearance comment: cloudy brown Quality Check yes/no Yes ASSESSMENT/PLAN: 1. Acute UTI - ICD9: 599.0, ICD10: N39.0 (primary diagnosis) acute - UA positive for rasheeda esterase, hematuria and proteinuria - Send urine for culture - Begin treatment with Macrobid 100 mg BID for 7 days Urinary tract infection (UTI) We will send the urine for culture, which shows us what organism, if any, we are treating. If we need to change the antibiotic coverage, you will receive a call in 48-72 hours. * Seek medical care immediately, call 911, or go to ER if you have high fevers, severe flank or low back pain, blood in your urine. * Follow up with primary care provider if symptoms persist or worsen. - Patient education for prevention given 2. Frequent urination - ICD9: 788.41, ICD10: R35.0 - UA DIP B/O - URINE CULTURE 3. Painful urination - ICD9: 788.1, ICD10: R30.9 - UA DIP B/O - URINE CULTURE 4. Hematuria, unspecified type - ICD9: 599.70, ICD10: R31.9 - UA DIP B/O - URINE CULTURE Diagnosis and treatment plan were discussed and questions were answered to the patient's satisfaction. Pt acknowledged understanding of concepts and follow up plan. Specific signs and symptoms that would indicate the need for higher level of care were discussed in detail warranting prompt ER evaluation. Criss Guardado APRN.NATALIIA CNOV Observed: 04/21/2018 Status: COMPLETED Source: [place] 9:00 AM [facility] REPOSITORY Office Visit ([facility]) ZEESHAN FERNANDO ([id number]) 1965 F TRN Date Time Provider Department 04/21/18 9:00 AM CRISS GUARDADO (NATALIIA) [facility]STR During your visit today, we recorded the following information about you: Temperature Pulse Respiration Blood pressure 99.6 degrees 96/minute 16/minute 104/60 Weight 60.3 kg Crissbennie BadilloPRAKASH lopez.NATALIIA 04/21/2018 10:07 AM Signed Subjective The history is provided by the patient. No computer language coder was used. HPI Zeeshan Fernando is a 52 year old female who presents today for CC of urinary frequency, and burning This started yesterday. She is also having an odor with urine and blood. Symptoms are worsened by voiding. She has tried no treatment or medications. Risk factors swimming this past weekend. PMH UTI. BP 104/60 Pulse 96 Temp 37.6 ?C (99.6 ?F) Resp 16 Wt 60.3 kg (133 lb) LMP 02/18/2004 BMI 20.83 kg/m? 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 - Hypertension Father - Cancer Maternal Grandmother Stomach? - Other [OTHER] Maternal Grandmother LAZARUS'S CHOREA. - Other [OTHER] Other No lung disease. Maybe some allergies, nothing major. 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 Alcohol use: Yes Comment: Seldom. Drug use: No Sexual activity: Yes Partners with: Male control/protection: Surgical Comment: Vasectomy Other Topics Concern Caffeine Concern Yes Comment:coffee 2 cups daily(reg)/ pop 2 cans daily/ iced tea 1 glass daily Special Diet No Comment:low sodium Exercise Yes Comment:4-5 days a week Review of Systems Constitutional: Negative for chills, fever and malaise/fatigue. Gastrointestinal: Negative for abdominal pain, constipation, diarrhea and vomiting. Genitourinary: Positive for dysuria, frequency, hematuria and urgency. Negative for flank pain. Odor with urine Skin: Negative for rash. Neurological: Negative for headaches. Objective Physical Exam Constitutional: She is oriented to person, place, and time and well-developed, well-nourished, and in no distress. HENT: Head: Normocephalic and atraumatic. Eyes: Conjunctivae and EOM are normal. Pupils are equal, round, and reactive to light. Neck: Normal range of motion. Neck supple. Pulmonary/Chest: Effort normal. Abdominal: Soft. Normal appearance and bowel sounds are normal. She exhibits no abdominal bruit, no pulsatile midline mass and no mass. There is no hepatosplenomegaly. There is tenderness in the suprapubic area. There is no rigidity, no rebound, no guarding, no CVA tenderness, no tenderness at McBurney's point and negative Coppola's sign. Neurological: She is alert and oriented to person, place, and time. Skin: Skin is warm. Psychiatric: Affect normal. Nursing note and vitals reviewed. Component Latest Ref Rng AND Units 04/21/2018 Glucose, Urine Neg mg/dL neg Bilirubin, Urine Neg neg Ketones, Urine Neg neg Specific Enloe, Ur 1.005 - 1.030 1.020 Hemoglobin/Blood,Ur Neg large pH, Urine 4.5 - 8.0 7.0 Protein, Urine Neg mg/dL 300 Urobilinogen, Urine Normal (<1.1) EU 0.2 Nitrites Neg pos Leukocytes Neg small Color/Appearance comment: cloudy brown Quality Check yes/no Yes ASSESSMENT/PLAN: 1. Acute UTI - ICD9: 599.0, ICD10: N39.0 (primary diagnosis) acute - UA positive for rasheeda esterase, hematuria and proteinuria - Send urine for culture - Begin treatment with Macrobid 100 mg BID for 7 days Urinary tract infection (UTI) We will send the urine for culture, which shows us what organism, if any, we are treating. If we need to change the antibiotic coverage, you will receive a call in 48-72 hours. * Seek medical care immediately, call 911, or go to ER if you have high fevers, severe flank or low back pain, blood in your urine. * Follow up with primary care provider if symptoms persist or worsen. - Patient education for prevention given 2. Frequent urination - ICD9: 788.41, ICD10: R35.0 - UA DIP B/O - URINE CULTURE 3. Painful urination - ICD9: 788.1, ICD10: R30.9 - UA DIP B/O - URINE CULTURE 4. Hematuria, unspecified type - ICD9: 599.70, ICD10: R31.9 - UA DIP B/O - URINE CULTURE Diagnosis and treatment plan were discussed and questions were answered to the patient's satisfaction. Pt acknowledged understanding of concepts and follow up plan. Specific signs and symptoms that would indicate the need for higher level of care were discussed in detail warranting prompt ER evaluation. Criss Guardado APRN.NATALIIA Guardado APRN.NATALIIA 04/21/2018 9:23 AM Addendum ASSESSMENT/PLAN: 1. Acute UTI - ICD9: 599.0, ICD10: N39.0 (primary diagnosis) acute - UA positive for rasheeda esterase, hematuria and proteinuria - Send urine for culture - Begin treatment with Macrobid 100 mg BID for 7 days Urinary tract infection (UTI) We will send the urine for culture, which shows us what organism, if any, we are treating. If we need to change the antibiotic coverage, you will receive a call in 48-72 hours. * Seek medical care immediately, call 911, or go to ER if you have high fevers, severe flank or low back pain, blood in your urine. * Follow up with primary care provider if symptoms persist or worsen. - Patient education for prevention given 2. Frequent urination - ICD9: 788.41, ICD10: R35.0 - UA DIP B/O - URINE CULTURE 3. Painful urination - ICD9: 788.1, ICD10: R30.9 - UA DIP B/O - URINE CULTURE 4. Hematuria, unspecified type - ICD9: 599.70, ICD10: R31.9 - UA DIP B/O - URINE CULTURE Referring Provider: SELF [[id number]] Allergies As of Date: 04/21/2018 Noted Allergy Reaction SULFA (SULFONAMIDE ANTIBIOTICS) 08/21/2005 2 - Rash 7 - Swelling CODEINE 09/17/2005 4 - Hives Environmental [Other] 10/03/2011 16 - Unknown Comments: Dust mites, trees GUIAFENESIN [Other] 09/17/2005 1 - Mental Status Change PENICILLINS 08/21/2005 2 - Rash Date Reviewed: 04/21/2018 Reviewed by: Alexandria Dykes LPN - Fully Assessed Reason for Visit: Urinary Problem [252] Cmt: x 1 day urinary frequency, painful urination and blood in urine Primary Visit Diagnosis:Acute UTI [N39.0] Other Visit Diagnoses:Frequent urination [R35.0] Painful urination [R30.9] Hematuria, unspecified type [R31.9] Order(s):UA DIP B/O [[id number]] Order #: [id number] URINE CULTURE [SQURCUL] Order #: [id number] nitrofurantoin monohydrate and macrocrystal (MACROBID) 100 mg capsuleTake 1 capsule by mouth twice daily with meals for 7 days.Disp: 14 capsuleRfl: 0 Prescriptions as of 04/21/2018 Sig: LISINOPRIL 5 MG TABLET Take 1 tablet by mouth twice * CARVEDILOL 12.5 MG TABLET Take 1 tablet by mouth twice * OMEPRAZOLE 20 MG CAPSULE,VIRGIE* TAKE 1 CAPSULE BY MOUTH TWICE* FLUTICASONE 500 MCG-SALMETERO* Inhale 1 Puff as instructed t* IPRATROPIUM BROMIDE 0.02 % SO* Use 2.5 mL via nebulizer four* ALBUTEROL SULFATE 2.5 MG/3 ML* Use 3 mL via nebulizer every * MONTELUKAST 10 MG TABLET TAKE 1 TABLET BY MOUTH DAILY * ALBUTEROL SULFATE HFA 90 MCG/* Inhale 2 Puffs as instructed * DAILY MULTIVITAMIN TABLET NITROFURANTOIN MONOHYDRATE AND * Take 1 capsule by mouth twice* FUROSEMIDE 20 MG TABLET Take 1 tablet by mouth as nee* VENLAFAXINE ER 37.5 MG CAPSUL* TAKE ONE CAPSULE BY MOUTH ROSA ELENA* Problem List As Of Date 04/21/2018 Noted Resolved Esophageal reflux [K21.9] INVALID FOR* More... Hodgkin's disease [201] INVALID FOR*11/06/2007 More... Absence of menstruation [N91.2] INVALID FOR*06/10/2012 Pneumonia, organism unspecified [J18.9] INVALID FOR*05/10/2011 TENOSYNOV HAND/WRIST NEC [M65.849, M65.839] INVALID FOR*12/19/2006 History of Hodgkin's disease [Z85.71] INVALID FOR* More... Personal history of pneumonia (recurrent) [Z87.*INVALID FOR* More... 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 Asthma [J45.909] INVALID FOR* More... Headache, migraine [G43.909] INVALID FOR* More... More... HFrEF (heart failure with reduced ejection frac*INVALID FOR* Acute on chronic combined systolic and diastoli*INVALID FOR* Pericardial effusion [I31.3] INVALID FOR* Valvular heart disease [I38] INVALID FOR* Other instructions from your clinician: ASSESSMENT/PLAN: 1. Acute UTI - ICD9: 599.0, ICD10: N39.0 (primary diagnosis) acute - UA positive for rasheeda esterase, hematuria and proteinuria - Send urine for culture - Begin treatment with Macrobid 100 mg BID for 7 days Urinary tract infection (UTI) We will send the urine for culture, which shows us what organism, if any, we are treating. If we need to change the antibiotic coverage, you will receive a call in 48-72 hours. * Seek medical care immediately, call 911, or go to ER if you have high fevers, severe flank or low back pain, blood in your urine. * Follow up with primary care provider if symptoms persist or worsen. - Patient education for prevention given 2. Frequent urination - ICD9: 788.41, ICD10: R35.0 - UA DIP B/O - URINE CULTURE 3. Painful urination - ICD9: 788.1, ICD10: R30.9 - UA DIP B/O - URINE CULTURE 4. Hematuria, unspecified type - ICD9: 599.70, ICD10: R31.9 - UA DIP B/O - URINE CULTURE Prescriptions ordered this encounter Disp Refills Start End NITROFURANTOIN MONOHYDRATE AND MACROCR* 14 c* 0 04/21/2018 04/28/2018 Route: ORAL Sig: Take 1 capsule by mouth twice daily with meals for 7 days. Encounter Status:Closed by CRISS GUARDADO CNP on 04/21/18 OBSOLETE Observed: 04/20/2018 Status: COMPLETED Source: [place] 12:[facility] AM [facility] Refill ([facility]) ZEESHAN FERNANDO ([id number]) 1965 F TRN Date Time Provider Department 04/20/18 BASSEM WEBER During your visit today, we recorded the following information about you: Hayde Brown LPN 04/20/2018 7:50 AM Signed Pharmacy electronically requesting refills as follows: Refused Prescriptions Disp Refills lisinopril (ZESTRIL, PRINIVIL) 5 mg tablet [Pharmacy Med Name: LISINOPRIL 5 MG TABLET] 30 tablet 0 Sig: TAKE 1 TABLET BY MOUTH EVERY DAY SG: No Refused By: HAYDE BROWN Reason for Refusal: Patient has requested refill too soon Reason for Refusal Comment: Last refilled on 04/10/2018 for 180 tabs and 3 refills. Please review and advise. Hayde Brown LPN Allergies As of Date: 04/20/2018 Noted Allergy Reaction SULFA (SULFONAMIDE ANTIBIOTICS) 08/21/2005 2 - Rash 7 - Swelling CODEINE 09/17/2005 4 - Hives Environmental [Other] 10/03/2011 16 - Unknown Comments: Dust mites, trees GUIAFENESIN [Other] 09/17/2005 1 - Mental Status Change PENICILLINS 08/21/2005 2 - Rash Date Reviewed: 04/15/2018 Reviewed by: Gris ([facility]) Colpo - Fully Assessed Reason for Visit: Refill Request [94] Prescriptions as of 04/20/2018 Sig: LISINOPRIL 5 MG TABLET Take 1 tablet by mouth twice * CARVEDILOL 12.5 MG TABLET Take 1 tablet by mouth twice * FUROSEMIDE 20 MG TABLET Take 1 tablet by mouth as nee* OMEPRAZOLE 20 MG CAPSULE,VIRGIE* TAKE 1 CAPSULE BY MOUTH TWICE* FLUTICASONE 500 MCG-SALMETERO* Inhale 1 Puff as instructed t* IPRATROPIUM BROMIDE 0.02 % SO* Use 2.5 mL via nebulizer four* ALBUTEROL SULFATE 2.5 MG/3 ML* Use 3 mL via nebulizer every * VENLAFAXINE ER 37.5 MG CAPSUL* TAKE ONE CAPSULE BY MOUTH ROSA ELENA* MONTELUKAST 10 MG TABLET TAKE 1 TABLET BY MOUTH DAILY * ALBUTEROL SULFATE HFA 90 MCG/* Inhale 2 Puffs as instructed * DAILY MULTIVITAMIN TABLET Problem List As Of Date 04/20/2018 Noted Resolved Esophageal reflux [K21.9] INVALID FOR* More... Hodgkin's disease [201] INVALID FOR*11/06/2007 More... Absence of menstruation [N91.2] INVALID FOR*06/10/2012 Pneumonia, organism unspecified [J18.9] INVALID FOR*05/10/2011 TENOSYNOV HAND/WRIST NEC [M65.849, M65.839] INVALID FOR*12/19/2006 History of Hodgkin's disease [Z85.71] INVALID FOR* More... Personal history of pneumonia (recurrent) [Z87.*INVALID FOR* More... 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 Asthma [J45.909] INVALID FOR* More... Headache, migraine [G43.909] INVALID FOR* More... More... HFrEF (heart failure with reduced ejection frac*INVALID FOR* Acute on chronic combined systolic and diastoli*INVALID FOR* Pericardial effusion [I31.3] INVALID FOR* Valvular heart disease [I38] INVALID FOR* Encounter Status:Closed by HAYDE BROWN on 04/20/18 PROGRESS Observed: 04/15/2018 Status: COMPLETED Source: [facility] 3:33 PM CLINIC OTHER CAMPUS REPOSITORY HNO ID: [id number] Author: Gris Martínez Service: (none) Author Type: Nurse Practitioner Type: Progress Notes Filed: 04/15/2018 5:57 PM Note Text: Subjective HPI Zeeshan Fernando is today seen for 1 month follow-up appointment. As recall she is known to Dr. Weber for previous history of non-Hodgkin's lymphoma status post stem cell transplant radiation chemotherapy be 1999, mitral and aortic regurgitation, asthma, and newly diagnosed nonischemic cardiomyopathy. As recall, patient was hospitalized for 01/30 through 02/03/18 at [facility] for heart failure exacerbation and pericardial effusion. Echocardiogram showed moderate size pericardial effusion, and it looks like she was transferred to [facility]. Prior to her transfer she did have a thoracentesis, with result of 900 cc of transudate of fluid. She did undergo cardiac catheterization as well, which showed normal coronary arteries. SANDEEP did not confirm severity of mitral and aortic valve regurgitation is felt not to be a surgical candidate by cardiothoracic surgery. We've been following her as an outpatient to titrate her medications. After her Carvedilol was titrated, her heart rate remained in the 100s to low 90 range. She did have a repeat limited echo to exclude pericardial tamponade. On 03/24/2018 limited echo which showed EF of 36%, moderate pericardial effusion present, with no evidence of tamponade physiology. In the interim she's had her carvedilol, and lisinopril titrated. Today is she seen for follow-up appointment. She currently denies complaints of chest pain, palpitations, orthopnea, or PND. She's had no near, or akshat syncope. She has had a little bit of fleeting dizziness that resolved it only lasted a few seconds. But not with any postural changes. She's been monitoring her blood pressure at home, and home readings average 100/60. On her office today she is 90/70, she is asymptomatic. She does take Lasix as needed but has not required to take any recently. Review of Systems Constitutional: Negative for chills, fever and weight loss (10 # wt loss since initial admission in 02/04). Diaphoresis: better everyday. HENT: Negative for congestion, ear pain, hearing loss, nosebleeds, sore throat and tinnitus. Eyes: Negative for blurred vision, double vision, photophobia and redness. Respiratory: Negative for cough, shortness of breath, wheezing and stridor. Hx asthma Cardiovascular: Negative for chest pain, palpitations, orthopnea, claudication, leg swelling and PND. Gastrointestinal: Negative for abdominal pain, blood in stool, constipation, diarrhea, heartburn, melena, nausea and vomiting. Genitourinary: Negative for dysuria, flank pain, frequency, hematuria and urgency. Musculoskeletal: Negative for back pain, falls, joint pain, myalgias and neck pain. Skin: Negative for rash. Neurological: Negative for dizziness, tingling, tremors, sensory change, speech change, focal weakness, seizures, loss of consciousness, weakness and headaches. Endo/Heme/Allergies: Negative for environmental allergies and polydipsia. Does not bruise/bleed easily. Psychiatric/Behavioral: Negative for depression, hallucinations, memory loss, substance abuse and suicidal ideas. The patient is not nervous/anxious and does not have insomnia. Sulfa (Sulfonamide Antibiotics); Codeine; Environmental [Other]; Guiafenesin [Other]; Penicillins. 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 Alcohol use: Yes Comment: Seldom. Drug use: No Sexual activity: Yes Partners with: Male control/protection: Surgical Comment: Vasectomy Other Topics Concern Caffeine Concern Yes Comment:coffee 2 cups daily(reg)/ pop 2 cans daily/ iced tea 1 glass daily Special Diet No Comment:low sodium Exercise Yes Comment:4-5 days a week FAMILY HISTORY Problem Relation Age of Onset - Other [OTHER] Mother PARKINSON'S. - Hypertension Father - Cancer Maternal Grandmother Stomach? - Other [OTHER] Maternal Grandmother LAZARUS'S CHOREA. - Other [OTHER] Other No lung disease. Maybe some allergies, nothing major. PAST MEDICAL HISTORY Diagnosis Date - Aortic valve insufficiency - Asthma 2010 dust mites, tree pollen - Brain bleed (HCC) - Carcinoma in situ of cervix uteri 2008 Treated in [place] [address] Dr. Montilla - CHF (congestive heart failure) (HCC) - Esophageal reflux Gastroesophageal reflux - Hodgkin's disease, unspecified(201.90) 1999 Hodgkins Disease - HPV (human papillomavirus) vaccine 2008 - Migraine, unspecified, with intractable migraine, so stated, without mention of status migrainosus Migraine - Mitral valve regurgitation - Non-ischemic cardiomyopathy (HCC) - Pap smear of cervix with ASCUS, cannot exclude HGSIL 06/28/13 HPV+ - Postmenopausal bleeding Postmenop. bleeding - Premature menopause - Thrombocytopenia, unspecified (HCC) Thrombocytopenia - VAIN III (vaginal intraepithelial neoplasia III) 2008 As above PAST SURGICAL HISTORY Procedure Laterality Date - COLPOSCOPY (VAGINOSCOPY) 2009 with laser tx for HPV - PAST SURGICAL HISTORY OF CHEST WALL BX.,PORT,EDWARDS CATHETER - PAST SURGICAL HISTORY OF 2009 Laser cone of cx and vaporization of upper vagina - VAGINOSCOPY 08/30/13 Benign BP 90/70 Pulse 95 Ht 5' 7 (1.70m) Wt 134 lb 12.8 oz (61.1kg) SpO2 98% LMP 02/18/2004 BMI 21.11 kg/(m2). Objective Physical Exam Constitutional: She is oriented to person, place, and time and well-developed, well-nourished, and in no distress. No distress. thin HENT: Head: Normocephalic and atraumatic. Mouth/Throat: Oropharynx is clear and moist. Eyes: Conjunctivae are normal. No scleral icterus. Neck: Normal range of motion. Neck supple. No JVD present. Carotid bruit is not present. Cardiovascular: Normal rate, regular rhythm, S1 normal, S2 normal, intact distal pulses and normal pulses. Exam reveals no gallop, no S3, no distant heart sounds and no friction rub. Murmur heard. Systolic murmur is present with a grade of 1/6 No diastolic murmur is present Pulses: Radial pulses are 2+ on the right side, and 2+ on the left side. Dorsalis pedis pulses are 2+ on the right side, and 2+ on the left side. Pulmonary/Chest: Breath sounds normal. No respiratory distress. She has no wheezes. She has no rales. She exhibits no tenderness. Abdominal: Bowel sounds are normal. She exhibits no distension. There is no tenderness. There is no guarding. Musculoskeletal: Normal range of motion. She exhibits no edema, tenderness or deformity. Neurological: She is alert and oriented to person, place, and time. No cranial nerve deficit. Gait normal. Coordination normal. Skin: Skin is warm and dry. No rash noted. She is not diaphoretic. No erythema. No pallor. Psychiatric: Mood, memory, affect and judgment normal. Cardiac Testing and Procedures: Electrocardiogram: Echocardiogram: Limited echo: 02/02/2018: Pericardium: A small, circumferential pericardial effusion is present. There is no echocardiographic evidence for pericardial tamponade. Severe left ventricular systolic dysfunction. The visually estimated LVEF is 20-25%. ? OSH 01/30/2018?Mildly dilated LV. Severe global left ventricular dysfunction. Estimated EF of 20%. Mild diffuse mitral valve thickening. Moderate 2+ mitral valve insufficiency. Mild tricuspid valve insufficiency. Moderately severe aortic valve insufficiency. Mild pulmonic valve insufficiency. Moderate pericardial effusion no indications of cardiac tamponade on. Echo lucency consistent with a pleural effusion. Right ventricular systolic pressure estimated at 56 mmHg with pulmonary hypertension. Transmitral diastolic flow velocity suggests diastolic dysfunction ? ? Cardiac Catheterization/Percutaneous Coronary Intervention (PCI): 02/04/19: Normal coronaries Recommendations: 1. Nonischemic cardiomyopathy: Patient's ejection fraction is in the 20-25% range previously, currently is up to 36% on a recent Limited echo on 03/24/2018. Early being treated with appropriate guideline directed therapy. Her meds have been up titrated and her blood pressure does not seem to be further tolerant of wart changes. She's currently on carvedilol 12.5 mg twice a day, and lisinopril 5 mg twice a day. She is taking Lasix as needed for weight gain of 3 pounds, or symptoms of shortness of breath. She currently appears to be euvolemic, and has had improvement in her dyspnea symptoms. She is probably NYHA class 2-3 currently for heart failure symptoms. Her current blood pressure medications as they are and she's had a fleeting episode of dizziness and blood pressure is quite low in the office today 90/70. She's been monitoring her blood pressure at home primarily 100/60, and her weights have remained stable. We'll see her back in 6 weeks to reassess her, and see if we can further optimize her medications. 2. Valvular heart disease: She has 2+ MR, was 1+ TR, 2+ aortic regurgitation on recent echocardiogram. We'll continue medical treatment. It is TE did not confirm severity of mitral and aortic valve regurgitation and was deemed not to be a surgical candidate by cardiothoracic surgery. 3. Pericardial effusion: She had noted moderate pericardial effusion prior to [facility]. Despite titration of her beta shahrzad she still remains with somewhat elevated heart rates. Especially when she saw Dr. Weber heart rate was in the upper 90s to 100 range. She had repeat limited echo on 03/24/2018 which showed EF to be 36% and moderate pericardial effusion and no evidence of tamponade not. We'll continue to follow her expectantly. 4. History of asthma: She is on Singulair, and Advair diskus does have him Atrovent nebulizers, and Pro Air inhaler to use as well. 5. History of non-Hodgkin's lymphoma :status post stem cell transplant and chemotherapy and radiation therapy in 1999. Follow-up: Patient will follow-up in our office and see Gris Martínez APRN.CNP in the office in 6 weeks, and back to see Dr. Weber in 3 months. In the interim will try to see if we can optimize meds further. If unable to we'll plan on repeating echocardiogram after her next appointment. She's instructed to call with other symptoms or complaints. Thank you Gris Martínez APRN.NATALIIA CNOV Observed: 04/15/2018 Status: COMPLETED Source: [facility] 3:00 PM CLINIC OTHER CAMPUS REPOSITORY Office Visit (AGCARDPOB) ZEESHAN FERNANDO ([id number]) 1965 F TRN Date Time Provider Department 04/15/18 3:00 PM GRIS MARTÍNEZ (NATALIIA) AGCARDPOB During your visit today, we recorded the following information about you: Pulse Blood pressure Weight Height 95/minute 90/70 61.1 kg 1.702 m Leni Mata CMA 04/15/2018 3:24 PM Signed Ms. Fernando is here for a 1 month follow up. No cardiac complaints today. RACHEL Campo APRN.CNP 04/15/2018 5:57 PM Signed Subjective HPI Zeeshan White Valeriaesteban is today seen for 1 month follow-up appointment. As recall she is known to Dr. Weber for previous history of non-Hodgkin's lymphoma status post stem cell transplant radiation chemotherapy be 1999, mitral and aortic regurgitation, asthma, and newly diagnosed nonischemic cardiomyopathy. As recall, patient was hospitalized for 01/30 through 02/03/18 at [facility] for heart failure exacerbation and pericardial effusion. Echocardiogram showed moderate size pericardial effusion, and it looks like she was transferred to [facility] [place] [facility]. Prior to her transfer she did have a thoracentesis, with result of 900 cc of transudate of fluid. She did undergo cardiac catheterization as well, which showed normal coronary arteries. SANDEEP did not confirm severity of mitral and aortic valve regurgitation is felt not to be a surgical candidate by cardiothoracic surgery. We've been following her as an outpatient to titrate her medications. After her Carvedilol was titrated, her heart rate remained in the 100s to low 90 range. She did have a repeat limited echo to exclude pericardial tamponade. On 03/24/2018 limited echo which showed EF of 36%, moderate pericardial effusion present, with no evidence of tamponade physiology. In the interim she's had her carvedilol, and lisinopril titrated. Today is she seen for follow-up appointment. She currently denies complaints of chest pain, palpitations, orthopnea, or PND. She's had no near, or akshat syncope. She has had a little bit of fleeting dizziness that resolved it only lasted a few seconds. But not with any postural changes. She's been monitoring her blood pressure at home, and home readings average 100/60. On her office today she is 90/70, she is asymptomatic. She does take Lasix as needed but has not required to take any recently. Review of Systems Constitutional: Negative for chills, fever and weight loss (10 # wt loss since initial admission in 02/04). Diaphoresis: better everyday. HENT: Negative for congestion, ear pain, hearing loss, nosebleeds, sore throat and tinnitus. Eyes: Negative for blurred vision, double vision, photophobia and redness. Respiratory: Negative for cough, shortness of breath, wheezing and stridor. Hx asthma Cardiovascular: Negative for chest pain, palpitations, orthopnea, claudication, leg swelling and PND. Gastrointestinal: Negative for abdominal pain, blood in stool, constipation, diarrhea, heartburn, melena, nausea and vomiting. Genitourinary: Negative for dysuria, flank pain, frequency, hematuria and urgency. Musculoskeletal: Negative for back pain, falls, joint pain, myalgias and neck pain. Skin: Negative for rash. Neurological: Negative for dizziness, tingling, tremors, sensory change, speech change, focal weakness, seizures, loss of consciousness, weakness and headaches. Endo/Heme/Allergies: Negative for environmental allergies and polydipsia. Does not bruise/bleed easily. Psychiatric/Behavioral: Negative for depression, hallucinations, memory loss, substance abuse and suicidal ideas. The patient is not nervous/anxious and does not have insomnia. Sulfa (Sulfonamide Antibiotics); Codeine; Environmental [Other]; Guiafenesin [Other]; Penicillins. 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 Alcohol use: Yes Comment: Seldom. Drug use: No Sexual activity: Yes Partners with: Male control/protection: Surgical Comment: Vasectomy Other Topics Concern Caffeine Concern Yes Comment:coffee 2 cups daily(reg)/ pop 2 cans daily/ iced tea 1 glass daily Special Diet No Comment:low sodium Exercise Yes Comment:4-5 days a week FAMILY HISTORY Problem Relation Age of Onset - Other [OTHER] Mother PARKINSON'S. - Hypertension Father - Cancer Maternal Grandmother Stomach? - Other [OTHER] Maternal Grandmother LAZARUS'S CHOREA. - Other [OTHER] Other No lung disease. Maybe some allergies, nothing major. PAST MEDICAL HISTORY Diagnosis Date - Aortic valve insufficiency - Asthma 2010 dust mites, tree pollen - Brain bleed (HCC) - Carcinoma in situ of cervix uteri 2008 Treated in [place] [address] Montilla - CHF (congestive heart failure) (HCC) - Esophageal reflux Gastroesophageal reflux - Hodgkin's disease, unspecified(201.90) 1999 Hodgkins Disease - HPV (human papillomavirus) vaccine 2008 - Migraine, unspecified, with intractable migraine, so stated, without mention of status migrainosus Migraine - Mitral valve regurgitation - Non-ischemic cardiomyopathy (HCC) - Pap smear of cervix with ASCUS, cannot exclude HGSIL 06/28/13 HPV+ - Postmenopausal bleeding Postmenop. bleeding - Premature menopause - Thrombocytopenia, unspecified (HCC) Thrombocytopenia - VAIN III (vaginal intraepithelial neoplasia III) 2008 As above PAST SURGICAL HISTORY Procedure Laterality Date - COLPOSCOPY (VAGINOSCOPY) 2008 with laser tx for HPV - PAST SURGICAL HISTORY OF CHEST WALL BX.,PORT,EDWARDS CATHETER - PAST SURGICAL HISTORY OF 2009 Laser cone of cx and vaporization of upper vagina - VAGINOSCOPY 08/30/13 Benign BP 90/70 Pulse 95 Ht 5' 7 (1.70m) Wt 134 lb 12.8 oz (61.1kg) SpO2 98% LMP 02/18/2004 BMI 21.11 kg/(m2). Objective Physical Exam Constitutional: She is oriented to person, place, and time and well-developed, well-nourished, and in no distress. No distress. thin HENT: Head: Normocephalic and atraumatic. Mouth/Throat: Oropharynx is clear and moist. Eyes: Conjunctivae are normal. No scleral icterus. Neck: Normal range of motion. Neck supple. No JVD present. Carotid bruit is not present. Cardiovascular: Normal rate, regular rhythm, S1 normal, S2 normal, intact distal pulses and normal pulses. Exam reveals no gallop, no S3, no distant heart sounds and no friction rub. Murmur heard. Systolic murmur is present with a grade of 1/6 No diastolic murmur is present Pulses: Radial pulses are 2+ on the right side, and 2+ on the left side. Dorsalis pedis pulses are 2+ on the right side, and 2+ on the left side. Pulmonary/Chest: Breath sounds normal. No respiratory distress. She has no wheezes. She has no rales. She exhibits no tenderness. Abdominal: Bowel sounds are normal. She exhibits no distension. There is no tenderness. There is no guarding. Musculoskeletal: Normal range of motion. She exhibits no edema, tenderness or deformity. Neurological: She is alert and oriented to person, place, and time. No cranial nerve deficit. Gait normal. Coordination normal. Skin: Skin is warm and dry. No rash noted. She is not diaphoretic. No erythema. No pallor. Psychiatric: Mood, memory, affect and judgment normal. Cardiac Testing and Procedures: Electrocardiogram: Echocardiogram: Limited echo: 02/02/2018: Pericardium: A small, circumferential pericardial effusion is present. There is no echocardiographic evidence for pericardial tamponade. Severe left ventricular systolic dysfunction. The visually estimated LVEF is 20-25%. ? OSH 01/30/2018?Mildly dilated LV. Severe global left ventricular dysfunction. Estimated EF of 20%. Mild diffuse mitral valve thickening. Moderate 2+ mitral valve insufficiency. Mild tricuspid valve insufficiency. Moderately severe aortic valve insufficiency. Mild pulmonic valve insufficiency. Moderate pericardial effusion no indications of cardiac tamponade on. Echo lucency consistent with a pleural effusion. Right ventricular systolic pressure estimated at 56 mmHg with pulmonary hypertension. Transmitral diastolic flow velocity suggests diastolic dysfunction ? ? Cardiac Catheterization/Percutaneous Coronary Intervention (PCI): 02/04/19: Normal coronaries Recommendations: 1. Nonischemic cardiomyopathy: Patient's ejection fraction is in the 20-25% range previously, currently is up to 36% on a recent Limited echo on 03/24/2018. Early being treated with appropriate guideline directed therapy. Her meds have been up titrated and her blood pressure does not seem to be further tolerant of wart changes. She's currently on carvedilol 12.5 mg twice a day, and lisinopril 5 mg twice a day. She is taking Lasix as needed for weight gain of 3 pounds, or symptoms of shortness of breath. She currently appears to be euvolemic, and has had improvement in her dyspnea symptoms. She is probably NYHA class 2-3 currently for heart failure symptoms. Her current blood pressure medications as they are and she's had a fleeting episode of dizziness and blood pressure is quite low in the office today 90/70. She's been monitoring her blood pressure at home primarily 100/60, and her weights have remained stable. We'll see her back in 6 weeks to reassess her, and see if we can further optimize her medications. 2. Valvular heart disease: She has 2+ MR, was 1+ TR, 2+ aortic regurgitation on recent echocardiogram. We'll continue medical treatment. It is TE did not confirm severity of mitral and aortic valve regurgitation and was deemed not to be a surgical candidate by cardiothoracic surgery. 3. Pericardial effusion: She had noted moderate pericardial effusion prior to her [facility]. Despite titration of her beta shahrzad she still remains with somewhat elevated heart rates. Especially when she saw Dr. Weber heart rate was in the upper 90s to 100 range. She had repeat limited echo on 03/24/2018 which showed EF to be 36% and moderate pericardial effusion and no evidence of tamponade not. We'll continue to follow her expectantly. 4. History of asthma: She is on Singulair, and Advair diskus does have him Atrovent nebulizers, and Pro Air inhaler to use as well. 5. History of non-Hodgkin's lymphoma :status post stem cell transplant and chemotherapy and radiation therapy in 1999. Follow-up: Patient will follow-up in our office and see Gris Martínez APRN.CNP in the office in 6 weeks, and back to see Dr. Weber in 3 months. In the interim will try to see if we can optimize meds further. If unable to we'll plan on repeating echocardiogram after her next appointment. She's instructed to call with other symptoms or complaints. Thank you Gris Martínez APRN.NATALIIA Martínez APRN.CNP 04/15/2018 3:42 PM Signed Heart Failure What is heart failure? Heart failure (HF) means the heart is not pumping blood as well as it should. It may pump at a different speed, pump blood with less force, or pump less blood with each heartbeat. When less blood is flowing out of the heart to the body, muscles and other tissues may not get enough oxygen. The kidneys may not work as well to remove excess fluid in the form of urine. As a result, blood backs up into the blood vessels. The extra fluid seeps into the lungs or other parts of the body. Fluid in the lungs makes it hard to breathe. Fluid seeping into other parts of the body causes swelling. When there is too much fluid in the body, it puts more strain on the heart. Heart failure is one of the most common causes of heart-related illness and in the [place]. What is the cause? A number of things can cause heart failure, such as: -Narrowing or blockage in the arteries that bring blood to the heart muscle -Infection of the heart -Heart attack -High blood pressure -Heart valve problems -Genetic problems with the heart muscle -Alcoholism -Diabetes -Lung disease Problems that may worsen or trigger heart failure, especially if your heart muscle is weak, include: -Severe anemia (a low level of red blood cells) -An overactive or underactive thyroid gland -Infection -A heartbeat that is too fast or too slow -Too much salt or fluid in the diet -Working your body too hard with exercise or daily activities -Emotional stress What are the symptoms? The symptoms of heart failure may include: -Shortness of breath or trouble breathing, at first just during exercise, then with any activity, and finally even when you are resting -Waking up at night with trouble breathing or being unable to lie flat in bed because of shortness of breath -Coughing -Swollen ankles, feet, and legs -Weight gain caused by extra fluid in the body -Feeling tired most of the time and not able to do your usual activities -Lack of appetite and feeling sick to your stomach -Feeling like your heart is racing or fluttering -Lightheadedness or fainting How is it diagnosed? Your healthcare provider will ask about your symptoms and examine you. Tests may include: -Chest X-ray -An ECG (also called an EKG), which measures and records your heartbeat -Blood or urine tests -Echocardiogram, which uses sound waves (ultrasound) to see how well your heart muscle is pumping How is it treated? Heart failure can be treated and managed. The goals of treatment are: -Help your heart so it doesn?t have to work as hard -Help your heart pump blood better -Get rid of extra water in your body Your healthcare provider may prescribe medicine to relax the blood vessels and lower blood pressure. Then the heart doesn?t have to work as hard. You may need to take 2 or more medicines to treat your heart failure. It may take several weeks or months to find the best treatment for you. In some cases, heart failure can get better and even be cured. For example, if it is caused by an infection, it may be cured with treatment of the infection. Heart failure due to coronary artery disease is generally not cured and most often gets worse over time. However, carefully following your treatment plan can: -Slow down the worsening of heart failure and help you live longer -Help prevent trips to the hospital -Help you feel better and do more How can I take care of myself? If you have heart failure, there are things you can do to take care of yourself now and prevent problems in the future. Follow your treatment plan and know how to take your medicines. -Work as a partner with your provider. This means having regular provider visits and following your treatment plan. -Follow the directions that come with your medicine, including information about food or alcohol. Make sure you know how and when to take your medicine. Do not take more or less than you are supposed to take. -Many medicines have side effects. A side effect is a symptom or problem that is caused by the medicine. Ask your healthcare provider or pharmacist what side effects your medicine may cause and what you should do if you have side effects. Ask if you should avoid some nonprescription medicines. Don?t smoke, eat a healthy diet, and watch your weight and blood pressure. -Quit smoking if you are a smoker. -Lose weight if you are overweight and eat a healthy diet. ?Follow a low-salt (low-sodium) diet if it is recommended by your provider. Too much salt makes your body keep too much water and makes your heart have to work harder. ?Follow your healthcare provider's advice about how much liquid you should drink. ?Ask your provider if you should avoid drinking alcohol. Alcohol can weaken your heart or may worsen heart failure. Also, some of your medicines may not work well if you drink alcohol. -Weigh yourself every morning after you use the bathroom but before you eat or drink anything. Weighing yourself every day helps you know if extra fluid is building up in your body. A buildup of fluid is a sign that your heart failure may be getting worse. Weight gain can let you know about fluid buildup before you start having swelling. Keep track of your weight in a diary or on the calendar. Ask your healthcare provider when you should report weight gain. Letting your provider know about weight gain when it first happens can save you a trip to the emergency room or a stay in the hospital. -Also check your pulse and blood pressure every day. Learn how to take your own blood pressure or have a family member learn how to take it. Be as physically active as you can. -How active you can be depends on how bad the heart failure is. A program of gentle exercise helps most people. Your provider can tell you what level of exercise is right for you. Exercise helps your heart and body get stronger. It also improves your blood flow and energy level. Don?t exercise outdoors if it is very hot, cold, humid, or smoggy. Balance exercise with rest. Make sure that your activities don?t make you too tired or short of breath. Take rest breaks during the day. -Avoid getting very hot or cold because it may make your heart work harder. Try to lessen the stress in your life. -Anxiety and anger can cause a fast heart rate and high blood pressure. If you need help with this, ask your healthcare provider. Protect yourself against infections. -Get a flu shot every year. When you have heart failure, you should not get the nasal spray vaccine (FluMist). -Get the pneumococcal shot. Ask your healthcare provider: -How and when you will hear your test results -How long it will take to recover -What activities you should avoid and when you can return to your normal activities -How to take care of yourself at home -What symptoms or problems you should watch for and what to do if you have them Make sure you know when you should come back for a checkup. How can I help prevent heart failure? You can prevent this disease with a heart-healthy lifestyle: -Eat a healthy diet and keep a healthy weight. -Stay fit with the right kind of exercise for you. -Decrease stress. -Don?t smoke. -Limit your use of alcohol. Talk to your healthcare provider about your personal and family medical history and your lifestyle habits. This will help you know what you can do to lower your risk for heart failure. Developed by [employer]. Published by [employer]. Copyright ?2013 [employer] and/or one of its subsidiaries. All rights reserved. Referring Provider: BASSEM WEBER [[id number]] Allergies As of Date: 04/15/2018 Noted Allergy Reaction SULFA (SULFONAMIDE ANTIBIOTICS) 08/21/2005 2 - Rash 7 - Swelling CODEINE 09/17/2005 4 - Hives Environmental [Other] 10/03/2011 16 - Unknown Comments: Dust mites, trees GUIAFENESIN [Other] 09/17/2005 1 - Mental Status Change PENICILLINS 08/21/2005 2 - Rash Date Reviewed: 04/15/2018 Reviewed by: Gris ([facility]) Faiza - Fully Assessed Reason for Visit: CARD Follow Up 1 Month [1729] Primary Visit Diagnosis:Acute on chronic combined systolic and diastolic CHF (congestive heart failure) (HCC) [I50.43] Other Visit Diagnoses:Valvular heart disease [I38] Pericardial effusion [I31.3] Prescriptions as of 04/15/2018 Sig: LISINOPRIL 5 MG TABLET Take 1 tablet by mouth twice * CARVEDILOL 12.5 MG TABLET Take 1 tablet by mouth twice * FUROSEMIDE 20 MG TABLET Take 1 tablet by mouth as nee* OMEPRAZOLE 20 MG CAPSULE,VIRGIE* TAKE 1 CAPSULE BY MOUTH TWICE* FLUTICASONE 500 MCG-SALMETERO* Inhale 1 Puff as instructed t* IPRATROPIUM BROMIDE 0.02 % SO* Use 2.5 mL via nebulizer four* ALBUTEROL SULFATE 2.5 MG/3 ML* Use 3 mL via nebulizer every * VENLAFAXINE ER 37.5 MG CAPSUL* TAKE ONE CAPSULE BY MOUTH ROSA ELENA* MONTELUKAST 10 MG TABLET TAKE 1 TABLET BY MOUTH DAILY * ALBUTEROL SULFATE HFA 90 MCG/* Inhale 2 Puffs as instructed * DAILY MULTIVITAMIN TABLET Problem List As Of Date 04/15/2018 Noted Resolved Esophageal reflux [K21.9] INVALID FOR* More... Hodgkin's disease [201] INVALID FOR*11/06/2007 More... Absence of menstruation [N91.2] INVALID FOR*06/10/2012 Pneumonia, organism unspecified [J18.9] INVALID FOR*05/10/2011 TENOSYNOV HAND/WRIST NEC [M65.849, M65.839] INVALID FOR*12/19/2006 History of Hodgkin's disease [Z85.71] INVALID FOR* More... Personal history of pneumonia (recurrent) [Z87.*INVALID FOR* More... 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 Asthma [J45.909] INVALID FOR* More... Headache, migraine [G43.909] INVALID FOR* More... More... HFrEF (heart failure with reduced ejection frac*INVALID FOR* Acute on chronic combined systolic and diastoli*INVALID FOR* Pericardial effusion [I31.3] INVALID FOR* Valvular heart disease [I38] INVALID FOR* Other instructions from your clinician: Heart Failure What is heart failure? Heart failure (HF) means the heart is not pumping blood as well as it should. It may pump at a different speed, pump blood with less force, or pump less blood with each heartbeat. When less blood is flowing out of the heart to the body, muscles and other tissues may not get enough oxygen. The kidneys may not work as well to remove excess fluid in the form of urine. As a result, blood backs up into the blood vessels. The extra fluid seeps into the lungs or other parts of the body. Fluid in the lungs makes it hard to breathe. Fluid seeping into other parts of the body causes swelling. When there is too much fluid in the body, it puts more strain on the heart. Heart failure is one of the most common causes of heart- related illness and in the . What is the cause? A number of things can cause heart failure, such as: -Narrowing or blockage in the arteries that bring blood to the heart muscle -Infection of the heart -Heart attack -High blood pressure -Heart valve problems -Genetic problems with the heart muscle -Alcoholism -Diabetes -Lung disease Problems that may worsen or trigger heart failure, especially if your heart muscle is weak, include: -Severe anemia (a low level of red blood cells) -An overactive or underactive thyroid gland -Infection -A heartbeat that is too fast or too slow -Too much salt or fluid in the diet -Working your body too hard with exercise or daily activities -Emotional stress What are the symptoms? The symptoms of heart failure may include: -Shortness of breath or trouble breathing, at first just during exercise, then with any activity, and finally even when you are resting -Waking up at night with trouble breathing or being unable to lie flat in bed because of shortness of breath -Coughing -Swollen ankles, feet, and legs -Weight gain caused by extra fluid in the body -Feeling tired most of the time and not able to do your usual activities -Lack of appetite and feeling sick to your stomach -Feeling like your heart is racing or fluttering -Lightheadedness or fainting How is it diagnosed? Your healthcare provider will ask about your symptoms and examine you. Tests may include: -Chest X-ray -An ECG (also called an EKG), which measures and records your heartbeat -Blood or urine tests -Echocardiogram, which uses sound waves (ultrasound) to see how well your heart muscle is pumping How is it treated? Heart failure can be treated and managed. The goals of treatment are: -Help your heart so it doesn?t have to work as hard -Help your heart pump blood better -Get rid of extra water in your body Your healthcare provider may prescribe medicine to relax the blood vessels and lower blood pressure. Then the heart doesn?t have to work as hard. You may need to take 2 or more medicines to treat your heart failure. It may take several weeks or months to find the best treatment for you. In some cases, heart failure can get better and even be cured. For example, if it is caused by an infection, it may be cured with treatment of the infection. Heart failure due to coronary artery disease is generally not cured and most often gets worse over time. However, carefully following your treatment plan can: -Slow down the worsening of heart failure and help you live longer -Help prevent trips to the hospital -Help you feel better and do more How can I take care of myself? If you have heart failure, there are things you can do to take care of yourself now and prevent problems in the future. Follow your treatment plan and know how to take your medicines. -Work as a partner with your provider. This means having regular provider visits and following your treatment plan. -Follow the directions that come with your medicine, including information about food or alcohol. Make sure you know how and when to take your medicine. Do not take more or less than you are supposed to take. -Many medicines have side effects. A side effect is a symptom or problem that is caused by the medicine. Ask your healthcare provider or pharmacist what side effects your medicine may cause and what you should do if you have side effects. Ask if you should avoid some nonprescription medicines. Don?t smoke, eat a healthy diet, and watch your weight and blood pressure. -Quit smoking if you are a smoker. -Lose weight if you are overweight and eat a healthy diet. ?Follow a low-salt (low-sodium) diet if it is recommended by your provider. Too much salt makes your body keep too much water and makes your heart have to work harder. ?Follow your healthcare provider's advice about how much liquid you should drink. ?Ask your provider if you should avoid drinking alcohol. Alcohol can weaken your heart or may worsen heart failure. Also, some of your medicines may not work well if you drink alcohol. -Weigh yourself every morning after you use the bathroom but before you eat or drink anything. Weighing yourself every day helps you know if extra fluid is building up in your body. A buildup of fluid is a sign that your heart failure may be getting worse. Weight gain can let you know about fluid buildup before you start having swelling. Keep track of your weight in a diary or on the calendar. Ask your healthcare provider when you should report weight gain. Letting your provider know about weight gain when it first happens can save you a trip to the emergency room or a stay in the hospital. -Also check your pulse and blood pressure every day. Learn how to take your own blood pressure or have a family member learn how to take it. Be as physically active as you can. -How active you can be depends on how bad the heart failure is. A program of gentle exercise helps most people. Your provider can tell you what level of exercise is right for you. Exercise helps your heart and body get stronger. It also improves your blood flow and energy level. Don?t exercise outdoors if it is very hot, cold, humid, or smoggy. Balance exercise with rest. Make sure that your activities don?t make you too tired or short of breath. Take rest breaks during the day. -Avoid getting very hot or cold because it may make your heart work harder. Try to lessen the stress in your life. -Anxiety and anger can cause a fast heart rate and high blood pressure. If you need help with this, ask your healthcare provider. Protect yourself against infections. -Get a flu shot every year. When you have heart failure, you should not get the nasal spray vaccine (FluMist). -Get the pneumococcal shot. Ask your healthcare provider: -How and when you will hear your test results -How long it will take to recover -What activities you should avoid and when you can return to your normal activities -How to take care of yourself at home -What symptoms or problems you should watch for and what to do if you have them Make sure you know when you should come back for a checkup. How can I help prevent heart failure? You can prevent this disease with a heart-healthy lifestyle: -Eat a healthy diet and keep a healthy weight. -Stay fit with the right kind of exercise for you. -Decrease stress. -Don?t smoke. -Limit your use of alcohol. Talk to your healthcare provider about your personal and family medical history and your lifestyle habits. This will help you know what you can do to lower your risk for heart failure. Developed by [employer]. Published by [employer]. Copyright ?2014 [employer] and/or one of its subsidiaries. All rights reserved. Visit Notes: >> Leni BrandonRachelSingh Mata FriApr 15, 2018 3:24 PM Status: Signed Ms. Fernando is here for a 1 month follow up. No cardiac complaints today. Leni Mata CMA Disposition: Return in about 3 months (around 07/16/2018), or 6 weeks Gris Martínez for Dr. Weber. Follow-up and Disposition History Recorded Letter Text Encounter Status:Closed by GRIS MARTÍNEZ CNP on 04/15/18 OBSOLETE Observed: 04/10/2018 Status: COMPLETED Source: [place] 12:00 AM [facility] OTHER BOLES REPOSITORY Refill (AGCARDPODottie) ZEESHAN FERNANDO ([id number]) 1965 F TRN Date Time Provider Department 04/10/18 BASSEM WEBER During your visit today, we recorded the following information about you: Cata Randolph LPN 04/10/2018 10:06 AM Signed Patient phones requesting refills as follows: Pending Prescriptions Disp Refills LISINOPRIL 5 MG TABLET 180 tablet 3 Sig: Take 1 tablet by mouth twice daily. SG: No Please review and advise. Cata Randolph LPN On 04-01-2018 Dr. Weber increase the lisinopril to 5mg twice daily instead of once daily. Allergies As of Date: 04/10/2018 Noted Allergy Reaction SULFA (SULFONAMIDE ANTIBIOTICS) 08/21/2005 2 - Rash 7 - Swelling CODEINE 09/17/2005 4 - Hives Environmental [Other] 10/03/2011 16 - Unknown Comments: Dust mites, trees GUIAFENESIN [Other] 09/17/2005 1 - Mental Status Change PENICILLINS 08/21/2005 2 - Rash Date Reviewed: 03/12/2018 Reviewed by: Bassem Weber - Fully Assessed Reason for Visit: Refill Request [94] Order(s):lisinopril (ZESTRIL, PRINIVIL) 5 mg tabletTake 1 tablet by mouth twice daily.Disp: 180 tabletRfl: 3 Prescriptions as of 04/10/2018 Sig: LISINOPRIL 5 MG TABLET Take 1 tablet by mouth twice * CARVEDILOL 12.5 MG TABLET Take 1 tablet by mouth twice * FUROSEMIDE 20 MG TABLET Take 1 tablet by mouth as nee* OMEPRAZOLE 20 MG CAPSULE,VIRGIE* TAKE 1 CAPSULE BY MOUTH TWICE* FLUTICASONE 500 MCG-SALMETERO* Inhale 1 Puff as instructed t* IPRATROPIUM BROMIDE 0.02 % SO* Use 2.5 mL via nebulizer four* ALBUTEROL SULFATE 2.5 MG/3 ML* Use 3 mL via nebulizer every * VENLAFAXINE ER 37.5 MG CAPSUL* TAKE ONE CAPSULE BY MOUTH ROSA ELENA* MONTELUKAST 10 MG TABLET TAKE 1 TABLET BY MOUTH DAILY * ALBUTEROL SULFATE HFA 90 MCG/* Inhale 2 Puffs as instructed * DAILY MULTIVITAMIN TABLET Problem List As Of Date 04/10/2018 Noted Resolved Esophageal reflux [K21.9] INVALID FOR* More... Hodgkin's disease [201] INVALID FOR*11/06/2007 More... Absence of menstruation [N91.2] INVALID FOR*06/10/2012 Pneumonia, organism unspecified [J18.9] INVALID FOR*05/10/2011 TENOSYNOV HAND/WRIST NEC [M65.849, M65.839] INVALID FOR*12/19/2006 History of Hodgkin's disease [Z85.71] INVALID FOR* More... Personal history of pneumonia (recurrent) [Z87.*INVALID FOR* More... 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 Asthma [J45.909] INVALID FOR* More... Headache, migraine [G43.909] INVALID FOR* More... More... HFrEF (heart failure with reduced ejection frac*INVALID FOR* Acute on chronic combined systolic and diastoli*INVALID FOR* Pericardial effusion [I31.3] INVALID FOR* Prescriptions ordered this encounter Disp Refills Start End LISINOPRIL 5 MG TABLET 180 * 3 04/10/2018 Route: ORAL Sig: Take 1 tablet by mouth twice daily. Medications Discontinued During This Encounter lisinopril (ZESTRIL, PRINIVIL) 5 mg * 30 t* 0 03/24/2018 04/10/2018 Route: ORAL Sig: Take 1 tablet by mouth once daily. Disc: Reason for discontinue is not on file. Encounter Status:Closed by BASSEM WEBER MD on 04/10/18 CNPN Observed: 03/18/2018 Status: COMPLETED Source: [place] 12:00 AM [facility] OTHER BOLES REPOSITORY Telephone (AGCARDPOB) ZEESHAN FERNANDO ([id number]) 1965 F TRN Date Time Provider Department 03/18/18 BASSEM WBEER During your visit today, we recorded the following information about you: Jeremy Lin RN 03/18/2018 9:23 AM Signed Patient called in to report that her blood pressures have been running low 100s systolic and 60-70s diastolic. Her heart rates are running in the 90s.bpm. No c/o dizziness/lightheadedness. Patient was instructed last OV to call these in. She felt that her carvedilol was going to be increased but OV note states that the lisinopril was going to be increased to 10 mg daily if bp stable and no c/o lightheadedness. Please advise BRANDEE Juarez MD 03/18/2018 11:42 AM Signed D/W jeremy Lin RN. With her current blood pressures, I do not suggest titrating either Coreg or lisinopril. She can keep a log of her readings for another week or so. If her systolic blood pressures are consistently around 1 10 mmHg or above, we can then think about titrating Coreg versus lisinopril. Jeremy Lin RN 03/18/2018 11:46 AM Signed Spoke with Dr Duncan, as he is covering for Dr Weber, and he would not like to increase any medication at this time. Patient will continue to monitor heart rate and blood pressure and call office in 1 week to report. Patient notified and verbalized understanding. BRANDEE Juarez MD 03/23/2018 8:03 AM Signed Her baseline BP are always low. Please have her increase Coreg to 6.25mg bid while monitoring BP and HR. PLs have her call us back in 7- 10 days with BP and HR. MD Karen Reece RN 03/23/2018 9:07 AM Signed [facility] requesting pt return call for test results. Office phone number provided. BRANDEE Mcintyre RN 03/23/2018 9:18 AM Signed Pt returns call. She reports Yanique Mclaughlin increased Coreg to 6.25mg BID. She reports you had increased her Lisinopril to 5mg daily. She requests 90d rx for Lisinopril (in this encounter) and clarification on coreg dose. BRANDEE Mcintyre RN 03/23/2018 9:18 AM Signed Addended by: KAREN RESTREPO on: 03/23/2018 09:18 AM Modules accepted: Luis Weber MD 03/23/2018 6:25 PM Addendum Please have her increase her Coreg dose to 12.5 mg twice a day. I am planning to increase her lisinopril dose in the next few days so we will send only a 30 day prescription to the pharmacy for now. Please see if this is okay with her or if she wants only a 90 day supply. I will wait to sign off on the prescription until then. If her blood pressure remains stable at the increased dose of Coreg will then plan to increase her lisinopril in 10 days time. Please ask her to give us a call back then. MD Bassem Reece MD 03/23/2018 6:25 PM Signed Addended by: BASSEM WEBER MD on: 03/23/2018 06:25 PM Modules accepted: Orders Karen Restrepo RN 03/24/2018 9:11 AM Signed Spoke with pt. Notified of med changes. She voices understanding. She is agreeable to 30d rx on both. She will call in a week with BP and HR readings. Dr Weber-both rx's set up within this encounter. Please complete. Thank you. BRANDEE Mcintyre RN 03/24/2018 9:11 AM Signed Addended by: KAREN RESTREPO on: 03/24/2018 09:11 AM Modules accepted: Orders Bassem Weber MD 03/24/2018 9:20 AM Signed Addended by: BASSEM WEBER MD on: 03/24/2018 09:20 AM Modules accepted: Orders Allergies As of Date: 03/18/2018 Noted Allergy Reaction SULFA (SULFONAMIDE ANTIBIOTICS) 08/21/2005 2 - Rash 7 - Swelling CODEINE 09/17/2005 4 - Hives Environmental [Other] 10/03/2011 16 - Unknown Comments: Dust mites, trees GUIAFENESIN [Other] 09/17/2005 1 - Mental Status Change PENICILLINS 08/21/2005 2 - Rash Date Reviewed: 03/12/2018 Reviewed by: Bassem Weber - Fully Assessed Reason for Visit: Patient Update [1234] Order(s):lisinopril (ZESTRIL, PRINIVIL) 5 mg tabletTake 1 tablet by mouth once daily.Disp: 30 tabletRfl: 0 carvedilol (COREG) 12.5 mg tabletTake 1 tablet by mouth twice daily.Disp: 60 tabletRfl: 1 Prescriptions as of 03/18/2018 Sig: LISINOPRIL 5 MG TABLET Take 1 tablet by mouth once d* CARVEDILOL 12.5 MG TABLET Take 1 tablet by mouth twice * FUROSEMIDE 20 MG TABLET Take 1 tablet by mouth as nee* OMEPRAZOLE 20 MG CAPSULE,VIRGIE* TAKE 1 CAPSULE BY MOUTH TWICE* FLUTICASONE 500 MCG-SALMETERO* Inhale 1 Puff as instructed t* IPRATROPIUM BROMIDE 0.02 % SO* Use 2.5 mL via nebulizer four* ALBUTEROL SULFATE 2.5 MG/3 ML* Use 3 mL via nebulizer every * VENLAFAXINE ER 37.5 MG CAPSUL* TAKE ONE CAPSULE BY MOUTH ROSA ELENA* MONTELUKAST 10 MG TABLET TAKE 1 TABLET BY MOUTH DAILY * ALBUTEROL SULFATE HFA 90 MCG/* Inhale 2 Puffs as instructed * DAILY MULTIVITAMIN TABLET Problem List As Of Date 03/18/2018 Noted Resolved Esophageal reflux [K21.9] INVALID FOR* More... Hodgkin's disease [201] INVALID FOR*11/06/2007 More... Absence of menstruation [N91.2] INVALID FOR*06/10/2012 Pneumonia, organism unspecified [J18.9] INVALID FOR*05/10/2011 TENOSYNOV HAND/WRIST NEC [M65.849, M65.839] INVALID FOR*12/19/2006 History of Hodgkin's disease [Z85.71] INVALID FOR* More... Personal history of pneumonia (recurrent) [Z87.*INVALID FOR* More... 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 Asthma [J45.909] INVALID FOR* More... Headache, migraine [G43.909] INVALID FOR* More... More... HFrEF (heart failure with reduced ejection frac*INVALID FOR* Acute on chronic combined systolic and diastoli*INVALID FOR* Pericardial effusion [I31.3] INVALID FOR* Prescriptions ordered this encounter Disp Refills Start End LISINOPRIL 5 MG TABLET 30 t* 0 03/24/2018 Route: ORAL Sig: Take 1 tablet by mouth once daily. CARVEDILOL 12.5 MG TABLET 60 t* 1 03/24/2018 Route: ORAL Sig: Take 1 tablet by mouth twice daily. Medications Discontinued During This Encounter carvedilol (COREG) 6.25 mg tablet 60 t* 2 02/23/2018 03/24/2018 Route: ORAL Sig: Take 1 tablet by mouth twice daily with meals. Disc: Reason for discontinue is not on file. lisinopril 2.5 mg tablet 03/12/2018 03/24/2018 Class: Med Update Route: ORAL Sig: Take 1 tablet by mouth twice daily. Disc: Dosage adjustment Encounter Status:Closed by JEREMY LIN RN on 03/18/18 PROGRESS Observed: 03/12/2018 Status: COMPLETED Source: [place] 2:47 PM CLINIC OTHER CAMPUS REPOSITORY O ID: [id number] Author: Bassem Weber Service: (none) Author Type: Physician Type: Progress Notes Filed: 03/12/2018 2:56 PM Note Text: Chief Complaint: Patient presents with: Cardiology Follow Up : 2 wk f/u History of Present Illness: Zeeshan Fernando is a 52 year old female with history of diagnosed nonischemic cardiomyopathy, past history of non-Hodgkin's lymphoma status post stem cell transplant and radiation and chemotherapy in 1999, mitral and aortic regurgitation which were also newly diagnosed him as COPD has come for a follow-up visit. Patient was hospitalized from 01/30/2018 to [facility] with CHF exacerbation and pericardial effusion. [facility]chocardiogram [facility] on 30 January showed moderate sized effusion. Repeat echocardiogram on the showed small sized effusion. She did have thoracocentesis at [facility] where they drained 900 cc of transudative fluid. As part of cardiomyopathy workup she underwent a left heart catheterization which showed normal coronaries. A SANDEEP did not confirm severity of mitral and aortic valve regurgitation and she was deemed to not be a surgical candidate by the cardiothoracic surgeon. After hospital discharge she has come for a follow-up visit with my nurse practitioner where we have very slowly try to increase the dose of her cardiomyopathy medications. As her baseline blood pressure have always been in the low 100s or high 90s it has been difficult to up titrate them. As her heart rates were in the low 100s her Coreg dose was increased at a recent office visit 3 weeks back. Since then patient has been doing well. She has kept a log of her blood pressure readings at home and they all seem to be at baseline. Her heart rates however are still lingering around 100 bpm. She denies chest pain, shortness of breath, orthopnea, cough, edema, palpitations, PND, lightheadedness or syncope. PAST MEDICAL HISTORY Diagnosis Date - Asthma 2010 dust mites, tree pollen - Brain bleed (HCC) - Carcinoma in situ of cervix uteri 2008 Treated in [place] by Dr. Montilla - CHF (congestive heart failure) (HCC) - Esophageal reflux Gastroesophageal reflux - Hodgkin's disease, unspecified(201.90) 1999 Hodgkins Disease - HPV (human papillomavirus) vaccine 2008 - Migraine, unspecified, with intractable migraine, so stated, without mention of status migrainosus Migraine - Pap smear of cervix with ASCUS, cannot exclude HGSIL 06/28/13 HPV+ - Postmenopausal bleeding Postmenop. bleeding - Premature menopause - Thrombocytopenia, unspecified ([facility]LY [facility]) Thrombocytopenia - VAIN III (vaginal intraepithelial neoplasia III) 2008 As above PAST SURGICAL HISTORY Procedure Laterality Date - COLPOSCOPY (VAGINOSCOPY) 2008 with laser tx for HPV - PAST SURGICAL HISTORY OF CHEST WALL BX.,PORT,EDWARDS CATHETER - PAST SURGICAL HISTORY OF 2008 Laser cone of cx and vaporization of upper vagina - VAGINOSCOPY 08/30/13 Benign FAMILY HISTORY Problem Relation Age of Onset - Other [OTHER] Mother PARKINSON'S. - Hypertension Father - Cancer Maternal Grandmother Stomach? - Other [OTHER] Maternal Grandmother LAZARUS'S CHOREA. - Other [OTHER] Other No lung disease. Maybe some allergies, nothing major. 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 Alcohol use: Yes Comment: Seldom. Drug use: No Sexual activity: Yes Partners with: Male control/protection: Surgical Comment: Vasectomy Other Topics Concern Caffeine Concern Yes Comment:coffee, tea and soda Special Diet No Comment:low sodium Exercise Yes Comment:4-5 days a week Current Outpatient Prescriptions: lisinopril 2.5 mg tablet Take 2 tablets by mouth once daily. carvedilol (COREG) 6.25 mg tablet Take 1 tablet by mouth twice daily with meals. furosemide (LASIX) 20 mg tablet Take 1 tablet by mouth as needed (weight gain of 3 lbs overnight or 5 lbs in 1 week). omeprazole (PRILOSEC) 20 mg capsule TAKE 1 CAPSULE BY MOUTH TWICE DAILY BEFORE MEALS (0600/1600). 1/2 HR BEFORE MEAL. fluticasone-salmeterol (ADVAIR) 500-50 mcg/dose dsdv Inhale 1 Puff as instructed twice daily. ipratropium (ATROVENT) 0.02 % nebulizer solution Use 2.5 mL via nebulizer four times daily. Unit dose pack of 25 albuterol (PROVENTIL) 2.5 mg /3 mL (0.083 %) nebulizer solution Use 3 mL via nebulizer every 4 hours as needed. venlafaxine ER (EFFEXOR XR) 37.5 mg 24 hr capsule TAKE ONE CAPSULE BY MOUTH EVERY DAY montelukast (SINGULAIR) 10 mg tablet TAKE 1 TABLET BY MOUTH DAILY AT BEDTIME. albuterol HFA (PROAIR HFA) 90 mcg/actuation inhaler Inhale 2 Puffs as instructed every 4 hours as needed. For wheezing/shortness of breath. DAILY MULTIVITAMIN TAB No current facility-administered medications for this visit. ALLERGIES Allergen Reactions - Sulfa (Sulfonamide * Rash, Swelling - Codeine Hives - Environmental [Othe* Unknown Dust mites, trees - Guiafenesin [Other] Mental Status Change - Penicillins Rash Review of Systems: GENERAL: Negative for: Weight loss or gain, Fever or Chills, Weakness and Sleep difficulties. HEENT: Negative for: Headache, Impaired Vision, Glasses, Hearing Impairment, Ringing in Ears, Nosebleeds, Poor dental care, Bleeding Gums, Dentures NECK: Negative for: Swelling, Pain, Stiffness RESPIRATORY: Negative for: Cough, Blood in Sputum, Shortness of breath, Wheezing, Apnea GASTROINTESTINAL: Negative for: Trouble swallowing, Heartburn, Change in bowel habits, Blood in stool, Dark black stools MUSCULOSKELETAL: Negative for: Muscle or joint pain, Stiffness , Joint swelling NEUROLOGIC/PSYCHIATRIC: Negative for: Weakness, Paralysis, Numbness, Tingling, Tremor, Nervousness, Depressed mood, Memory loss SKIN: Negative for: Rashes, Itching HEMATOLOGICAL/LYMPHATIC: Negative for: Easy bruising , Easy bleeding ENDOCRINE: Negative for: Heat or cold intolerance, Excessive sweating, Frequent urination, Frequent thirst Physical Examination: BP 101/80 Pulse 100 Resp 16 Ht 5' 9 (1.75m) Wt 135 lb 6.4 oz (61.4kg) SpO2 99% LMP 02/18/2004 BMI 19.99 kg/(m2). General: Well appearing, in no acute distress. Skin: No clubbing, no cyanosis. Eyes: Extra ocular movements intact Oropharynx: Teeth in good repair. Neck: No jugular venous distention, no carotid bruits, carotids have a normal upstroke, no palpable thyromegaly. Lungs: Clear to auscultation bilaterally, no wheezing or rhonchi. Heart: Regular rhythm, PMI not displaced, S1, S2 normal, no S3, no S4, no heaves, no rub and no murmur. Abdomen: Soft, nontender, bowel sounds normal, no palpable organomegaly, no bruits. Extremities: No peripheral edema . Grade 2/4 distal pulses bilaterally. Neuro: Oriented to person, place and time, alert, cooperative, gait coordinated. Cardiac Testing and Procedures: Electrocardiogram: Echocardiogram: Limited echo: 02/02/2018: Pericardium: A small, circumferential pericardial effusion is present. There is no echocardiographic evidence for pericardial tamponade. Severe left ventricular systolic dysfunction. The visually estimated LVEF is 20-25%. ? OSH 01/30/2018 Mildly dilated LV. Severe global left ventricular dysfunction. Estimated EF of 20%. Mild diffuse mitral valve thickening. Moderate 2+ mitral valve insufficiency. Mild tricuspid valve insufficiency. Moderately severe aortic valve insufficiency. Mild pulmonic valve insufficiency. Moderate pericardial effusion no indications of cardiac tamponade on. Echo lucency consistent with a pleural effusion. Right ventricular systolic pressure estimated at 56 mmHg with pulmonary hypertension. Transmitral diastolic flow velocity suggests diastolic dysfunction Cardiac Catheterization/Percutaneous Coronary Intervention (PCI): 02/04/19: Normal coronaries ASSESSMENT/PLAN: 1. NICM (nonischemic cardiomyopathy) (FORMERLY [facility]) - ICD9: 425.4, ICD10: I42.8 (primary diagnosis) Patient appears euvolemic. She is following a strict salt and fluid restricted diet. She says she has not had to use Lasix since hospital discharge. She has been tolerating increased dose of Coreg. Currently as her blood pressure is stable I will increase the lisinopril further to 5 mg daily. I've asked her to be was a call in a week's time. If her blood pressure remains stable and if she is no longer lightheaded we will increase this up to 10 mg daily. I last her that we can even spread the doses into twice a day for blood pressure tolerability. 2. Non-rheumatic mitral regurgitation - ICD9: 424.0, ICD10: I34.0 This is likely secondary to nonischemic myopathy. 3. Nonrheumatic aortic valve insufficiency - ICD9: 424.1, ICD10: I35.1 No clear cause was identified. SANDEEP showed only mild to moderate AI. 4. Pericardial effusion (noninflammatory) - ICD9: 423.9, ICD10: I31.3 Clinically there are no signs of tamponade. I have repeated the blood pressure and there was no pulsus paradoxus. There is no JVD but her heart rate is still around 100 bpm in spite of increasing the Coreg dose to 6.25 twice a day. I have ordered a limited echocardiogram to evaluate the status of the pericardial effusion and to rule out tamponade. Bassem Weber MD CNOV Observed: 03/12/2018 Status: COMPLETED Source: [facility] 2:30 PM CLINIC OTHER BOLES REPOSITORY Office Visit (AGCARDPOB) ZEESHAN FERNANDO ([id number]) 1965 F TRN Date Time Provider Department 03/12/18 2:30 PM BASSEM WEBER During your visit today, we recorded the following information about you: Pulse Respiration Blood pressure Weight 100/minute 16/minute 110/90 61.4 kg Height 1.753 m Renetta Mijares CMA 03/12/2018 2:19 PM Signed Patient denies any cardiac complaints today. RACHEL Natarajan MD 03/12/2018 2:56 PM Signed Chief Complaint: Patient presents with: Cardiology Follow Up : 2 wk f/u History of Present Illness: Zeeshan Fernando is a 52 year old female with history of diagnosed nonischemic cardiomyopathy, past history of non-Hodgkin's lymphoma status post stem cell transplant and radiation and chemotherapy in 1999, mitral and aortic regurgitation which were also newly diagnosed him as COPD has come for a follow-up visit. Patient was hospitalized from 01/30/2018 to [facility] with CHF exacerbation and pericardial effusion. [facility] January showed moderate sized effusion. Repeat echocardiogram on the showed small sized effusion. She did have thoracocentesis at [facility] where they drained 900 cc of transudative fluid. As part of cardiomyopathy workup she underwent a left heart catheterization which showed normal coronaries. A SANDEEP did not confirm severity of mitral and aortic valve regurgitation and she was deemed to not be a surgical candidate by the cardiothoracic surgeon. After hospital discharge she has come for a follow-up visit with my nurse practitioner where we have very slowly try to increase the dose of her cardiomyopathy medications. As her baseline blood pressure have always been in the low 100s or high 90s it has been difficult to up titrate them. As her heart rates were in the low 100s her Coreg dose was increased at a recent office visit 3 weeks back. Since then patient has been doing well. She has kept a log of her blood pressure readings at home and they all seem to be at baseline. Her heart rates however are still lingering around 100 bpm. She denies chest pain, shortness of breath, orthopnea, cough, edema, palpitations, PND, lightheadedness or syncope. PAST MEDICAL HISTORY Diagnosis Date - Asthma 2010 dust mites, tree pollen - Brain bleed (HCC) - Carcinoma in situ of cervix uteri 2008 [address]ated [address] [place] [address] Montilla - CHF (congestive heart failure) (HCC) - Esophageal reflux Gastroesophageal reflux - Hodgkin's disease, unspecified(201.90) 1999 Hodgkins Disease - HPV (human papillomavirus) vaccine 2008 - Migraine, unspecified, with intractable migraine, so stated, without mention of status migrainosus Migraine - Pap smear of cervix with ASCUS, cannot exclude HGSIL 06/28/13 HPV+ - Postmenopausal bleeding Postmenop. bleeding - Premature menopause - Thrombocytopenia, unspecified (HCC) Thrombocytopenia - VAIN III (vaginal intraepithelial neoplasia III) 2008 As above PAST SURGICAL HISTORY Procedure Laterality Date - COLPOSCOPY (VAGINOSCOPY) 2008 with laser tx for HPV - PAST SURGICAL HISTORY OF CHEST WALL BX.,PORT,EDWARDS CATHETER - PAST SURGICAL HISTORY OF 2008 Laser cone of cx and vaporization of upper vagina - VAGINOSCOPY 08/30/13 Benign FAMILY HISTORY Problem Relation Age of Onset - Other [OTHER] Mother PARKINSON'S. - Hypertension Father - Cancer Maternal Grandmother Stomach? - Other [OTHER] Maternal Grandmother LAZARUS'S CHOREA. - Other [OTHER] Other No lung disease. Maybe some allergies, nothing major. 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 Alcohol use: Yes Comment: Seldom. Drug use: No Sexual activity: Yes Partners with: Male control/protection: Surgical Comment: Vasectomy Other Topics Concern Caffeine Concern Yes Comment:coffee, tea and soda Special Diet No Comment:low sodium Exercise Yes Comment:4-5 days a week Current Outpatient Prescriptions: lisinopril 2.5 mg tablet Take 2 tablets by mouth once daily. carvedilol (COREG) 6.25 mg tablet Take 1 tablet by mouth twice daily with meals. furosemide (LASIX) 20 mg tablet Take 1 tablet by mouth as needed (weight gain of 3 lbs overnight or 5 lbs in 1 week). omeprazole (PRILOSEC) 20 mg capsule TAKE 1 CAPSULE BY MOUTH TWICE DAILY BEFORE MEALS (0600/1600). 1/2 HR BEFORE MEAL. fluticasone-salmeterol (ADVAIR) 500-50 mcg/dose dsdv Inhale 1 Puff as instructed twice daily. ipratropium (ATROVENT) 0.02 % nebulizer solution Use 2.5 mL via nebulizer four times daily. Unit dose pack of 25 albuterol (PROVENTIL) 2.5 mg /3 mL (0.083 %) nebulizer solution Use 3 mL via nebulizer every 4 hours as needed. venlafaxine ER (EFFEXOR XR) 37.5 mg 24 hr capsule TAKE ONE CAPSULE BY MOUTH EVERY DAY montelukast (SINGULAIR) 10 mg tablet TAKE 1 TABLET BY MOUTH DAILY AT BEDTIME. albuterol HFA (PROAIR HFA) 90 mcg/actuation inhaler Inhale 2 Puffs as instructed every 4 hours as needed. For wheezing/shortness of breath. DAILY MULTIVITAMIN TAB No current facility-administered medications for this visit. ALLERGIES Allergen Reactions - Sulfa (Sulfonamide * Rash, Swelling - Codeine Hives - Environmental [Othe* Unknown Dust mites, trees - Guiafenesin [Other] Mental Status Change - Penicillins Rash Review of Systems: GENERAL: Negative for: Weight loss or gain, Fever or Chills, Weakness and Sleep difficulties. HEENT: Negative for: Headache, Impaired Vision, Glasses, Hearing Impairment, Ringing in Ears, Nosebleeds, Poor dental care, Bleeding Gums, Dentures NECK: Negative for: Swelling, Pain, Stiffness RESPIRATORY: Negative for: Cough, Blood in Sputum, Shortness of breath, Wheezing, Apnea GASTROINTESTINAL: Negative for: Trouble swallowing, Heartburn, Change in bowel habits, Blood in stool, Dark black stools MUSCULOSKELETAL: Negative for: Muscle or joint pain, Stiffness , Joint swelling NEUROLOGIC/PSYCHIATRIC: Negative for: Weakness, Paralysis, Numbness, Tingling, Tremor, Nervousness, Depressed mood, Memory loss SKIN: Negative for: Rashes, Itching HEMATOLOGICAL/LYMPHATIC: Negative for: Easy bruising , Easy bleeding ENDOCRINE: Negative for: Heat or cold intolerance, Excessive sweating, Frequent urination, Frequent thirst Physical Examination: BP 101/80 Pulse 100 Resp 16 Ht 5' 9 (1.75m) Wt 135 lb 6.4 oz (61.4kg) SpO2 99% LMP 02/18/2004 BMI 19.99 kg/(m2). General: Well appearing, in no acute distress. Skin: No clubbing, no cyanosis. Eyes: Extra ocular movements intact Oropharynx: Teeth in good repair. Neck: No jugular venous distention, no carotid bruits, carotids have a normal upstroke, no palpable thyromegaly. Lungs: Clear to auscultation bilaterally, no wheezing or rhonchi. Heart: Regular rhythm, PMI not displaced, S1, S2 normal, no S3, no S4, no heaves, no rub and no murmur. Abdomen: Soft, nontender, bowel sounds normal, no palpable organomegaly, no bruits. Extremities: No peripheral edema . Grade 2/4 distal pulses bilaterally. Neuro: Oriented to person, place and time, alert, cooperative, gait coordinated. Cardiac Testing and Procedures: Electrocardiogram: Echocardiogram: Limited echo: 02/02/2018: Pericardium: A small, circumferential pericardial effusion is present. There is no echocardiographic evidence for pericardial tamponade. Severe left ventricular systolic dysfunction. The visually estimated LVEF is 20-25%. ? OSH 01/30/2018 Mildly dilated LV. Severe global left ventricular dysfunction. Estimated EF of 20%. Mild diffuse mitral valve thickening. Moderate 2+ mitral valve insufficiency. Mild tricuspid valve insufficiency. Moderately severe aortic valve insufficiency. Mild pulmonic valve insufficiency. Moderate pericardial effusion no indications of cardiac tamponade on. Echo lucency consistent with a pleural effusion. Right ventricular systolic pressure estimated at 56 mmHg with pulmonary hypertension. Transmitral diastolic flow velocity suggests diastolic dysfunction Cardiac Catheterization/Percutaneous Coronary Intervention (PCI): 02/04/19: Normal coronaries ASSESSMENT/PLAN: 1. NICM (nonischemic cardiomyopathy) (HCC) - ICD9: 425.4, ICD10: I42.8 (primary diagnosis) Patient appears euvolemic. She is following a strict salt and fluid restricted diet. She says she has not had to use Lasix since hospital discharge. She has been tolerating increased dose of Coreg. Currently as her blood pressure is stable I will increase the lisinopril further to 5 mg daily. I've asked her to be was a call in a week's time. If her blood pressure remains stable and if she is no longer lightheaded we will increase this up to 10 mg daily. I last her that we can even spread the doses into twice a day for blood pressure tolerability. 2. Non-rheumatic mitral regurgitation - ICD9: 424.0, ICD10: I34.0 This is likely secondary to nonischemic myopathy. 3. Nonrheumatic aortic valve insufficiency - ICD9: 424.1, ICD10: I35.1 No clear cause was identified. SANDEEP showed only mild to moderate AI. 4. Pericardial effusion (noninflammatory) - ICD9: 423.9, ICD10: I31.3 Clinically there are no signs of tamponade. I have repeated the blood pressure and there was no pulsus paradoxus. There is no JVD but her heart rate is still around 100 bpm in spite of increasing the Coreg dose to 6.25 twice a day. I have ordered a limited echocardiogram to evaluate the status of the pericardial effusion and to rule out tamponade. Bassem Weber MD Referring Provider: SELF [[id number]] Allergies As of Date: 03/12/2018 Noted Allergy Reaction SULFA (SULFONAMIDE ANTIBIOTICS) 08/21/2005 2 - Rash 7 - Swelling CODEINE 09/17/2005 4 - Hives Environmental [Other] 10/03/2011 16 - Unknown Comments: Dust mites, trees GUIAFENESIN [Other] 09/17/2005 1 - Mental Status Change PENICILLINS 08/21/2005 2 - Rash Date Reviewed: 03/12/2018 Reviewed by: Bassem Weber - Fully Assessed Reason for Visit: Cardiology Follow Up [3272] Cmt: 2 wk f/u Primary Visit Diagnosis:NICM (nonischemic cardiomyopathy) (FORM[facility]LY [facility]) [I42.8] Other Visit Diagnoses:Non-rheumatic mitral regurgitation [I34.0] Nonrheumatic aortic valve insufficiency [I35.1] Pericardial effusion (noninflammatory) [I31.3] Order(s):ECHO [233720] Order #: [id number]: 1 FUTURE lisinopril 2.5 mg tabletTake 1 tablet by mouth twice daily.Disp: Rfl: Prescriptions as of 03/12/2018 Sig: LISINOPRIL 2.5 MG TABLET Take 1 tablet by mouth twice * CARVEDILOL 6.25 MG TABLET Take 1 tablet by mouth twice * FUROSEMIDE 20 MG TABLET Take 1 tablet by mouth as nee* OMEPRAZOLE 20 MG CAPSULE,VIRGIE* TAKE 1 CAPSULE BY MOUTH TWICE* FLUTICASONE 500 MCG-SALMETERO* Inhale 1 Puff as instructed t* IPRATROPIUM BROMIDE 0.02 % SO* Use 2.5 mL via nebulizer four* ALBUTEROL SULFATE 2.5 MG/3 ML* Use 3 mL via nebulizer every * VENLAFAXINE ER 37.5 MG CAPSUL* TAKE ONE CAPSULE BY MOUTH ROSA ELENA* MONTELUKAST 10 MG TABLET TAKE 1 TABLET BY MOUTH DAILY * ALBUTEROL SULFATE HFA 90 MCG/* Inhale 2 Puffs as instructed * DAILY MULTIVITAMIN TABLET Problem List As Of Date 03/12/2018 Noted Resolved Esophageal reflux [K21.9] INVALID FOR* More... Hodgkin's disease [201] INVALID FOR*11/06/2007 More... Absence of menstruation [N91.2] INVALID FOR*06/10/2012 Pneumonia, organism unspecified [J18.9] INVALID FOR*05/10/2011 TENOSYNOV HAND/WRIST NEC [M65.849, M65.839] INVALID FOR*12/19/2006 History of Hodgkin's disease [Z85.71] INVALID FOR* More... Personal history of pneumonia (recurrent) [Z87.*INVALID FOR* More... 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 Asthma [J45.909] INVALID FOR* More... Headache, migraine [G43.909] INVALID FOR* More... More... HFrEF (heart failure with reduced ejection frac*INVALID FOR* Acute on chronic combined systolic and diastoli*INVALID FOR* Pericardial effusion [I31.3] INVALID FOR* Visit Notes: >> Renetta Mijares [facility] March 12, 2018 2:17 PM Status: Signed Patient denies any cardiac complaints today. Renetta Mijares CMA Prescriptions ordered this encounter Disp Refills Start End LISINOPRIL 2.5 MG TABLET 30 t* 1 03/12/2018 03/12/2018 Class: Med Update Route: ORAL Sig: Take 2 tablets by mouth once daily. LISINOPRIL 2.5 MG TABLET 03/12/2018 Class: Med Update Route: ORAL Sig: Take 1 tablet by mouth twice daily. Medications Discontinued During This Encounter lisinopril 2.5 mg tablet 30 t* 1 02/04/2018 03/12/2018 Class: Print RX Route: ORAL Sig: Take 1 tablet by mouth once daily. Disc: Reason for discontinue is not on file. lisinopril 2.5 mg tablet 30 t* 1 03/12/2018 03/12/2018 Class: Med Update Route: ORAL Sig: Take 2 tablets by mouth once daily. Disc: Reason for discontinue is not on file. Level of Service: EST PATIENT VISIT LEVEL 4 [[id number]] Disposition: Return in about 4 weeks (around 04/09/2018) for follow up. Follow-up and Disposition History Recorded Encounter Status:Closed by BASSEM WEBER MD on 03/12/18 PROGRESS Observed: 02/23/2018 Status: COMPLETED Source: [place] 6:00 PM CLINIC OTHER CAMPUS REPOSITORY HNO ID: [id number] Author: Yanique Mclaughlin (Orthopedic Brace Maker) Service: (none) Author Type: Nurse Practitioner Type: Progress Notes Filed: 02/24/2018 6:26 PM Note Text: PRIMARY CARE PHYSICIAN: NIKIA PILLAI MD [address] [place] [address] Chief Complaint Patient presents with: [facility] Hospital Follow Up: Patient is here for hospital follow up for new onset of systolic HF. HISTORY OF PRESENT ILLNESS: Ms. Fernando is a 52 year old female with a past medical history of non-Hodgkin's lymphoma: Status post stem cell transplant with radiation and chemotherapy in 1999, new systolic and diastolic heart failure, valvular heart disease, hyponatremia, COPD. She is known to Dr Weber. She is presenting to the cardiology clinic for hospitalization follow-up for new heart failure Ms. Fernando was hospitalized for 01/30/2018-02/03/2018 originally transferred from [facility] with CHF exacerbation. Original echocardiogram 01/30/2018 showed moderate pericardial effusion. Repeat echocardiogram 02/02 showed small pericardial effusion She underwent thoracentesis for 900 cc of transudative fluid while at [place]. A left heart cath showed normal coronaries. She was diuresed with IV Lasix and started on appropriate heart failure medication. presents today doing very well. She looks great. Her weight is stable at around the 130-131 pounds at home. She has not had to use her prn Lasix. She denies chest pain, shortness of breath, palpitations, lower extremity edema, orthopnea, PND, dizziness or lightheadedness. She does admit to some fatigue as she is gradually trying to go back to work. I did caution her to make sure she is resting and not overdoing activity. She was seen by the heart failure clinic last . She felt this was very helpful. Her blood pressures at home have been running in the low 100s to 112. I will attempt to go up on her Coreg today to 6.25 twice a day as she remains tachycardic in the low 100s. She'll continue to monitor her blood pressures and call in if she is unable to tolerate. PAST MEDICAL HISTORY Diagnosis Date - Asthma 2010 dust mites, tree pollen - Brain bleed (HCC) - Carcinoma in situ of cervix uteri 2008 [address] [place] [address] Montilla - CHF (congestive heart failure) ([facility]) - Esophageal reflux Gastroesophageal reflux - Hodgkin's disease, unspecified(201.90) 1999 Hodgkins Disease - HPV (human papillomavirus) vaccine 2008 - Migraine, unspecified, with intractable migraine, so stated, without mention of status migrainosus Migraine - Pap smear of cervix with ASCUS, cannot exclude HGSIL 06/28/13 HPV+ - Postmenopausal bleeding Postmenop. bleeding - Premature menopause - Thrombocytopenia, unspecified ([facility]) Thrombocytopenia - VAIN III (vaginal intraepithelial neoplasia III) 2008 As above PAST SURGICAL HISTORY Procedure Laterality Date - COLPOSCOPY (VAGINOSCOPY) 2008 with laser tx for HPV - PAST SURGICAL HISTORY OF CHEST WALL BX.,PORT,EDWARDS CATHETER - PAST SURGICAL HISTORY OF 2008 Laser cone of cx and vaporization of upper vagina - VAGINOSCOPY 08/30/13 Benign FAMILY HISTORY Problem Relation Age of Onset - Other [OTHER] Mother PARKINSON'S. - Hypertension Father - Cancer Maternal Grandmother Stomach? - Other [OTHER] Maternal Grandmother LAZARUS'S CHOREA. - Other [OTHER] Other No lung disease. Maybe some allergies, nothing major. Social History Substance Use Topics - Smoking status: Never Smoker - Smokeless tobacco: Never Used Comment: No childhood or current household smokers. - Alcohol use Yes Comment: Seldom. ALLERGIES Allergen Reactions - Sulfa (Sulfonamide * Rash, Swelling - Codeine Hives - Environmental [Othe* Unknown Dust mites, trees - Guiafenesin [Other] Mental Status Change - Penicillins Rash Medications: Current Outpatient Prescriptions: carvedilol (COREG) 6.25 mg tablet Take 1 tablet by mouth twice daily with meals. Disp: 60 tablet Rfl: 2 lisinopril 2.5 mg tablet Take 1 tablet by mouth once daily. Disp: 30 tablet Rfl: 1 furosemide (LASIX) 20 mg tablet Take 1 tablet by mouth as needed (weight gain of 3 lbs overnight or 5 lbs in 1 week). Disp: 30 tablet Rfl: 1 omeprazole (PRILOSEC) 20 mg capsule TAKE 1 CAPSULE BY MOUTH TWICE DAILY BEFORE MEALS (0600/1600). 1/2 HR BEFORE MEAL. Disp: 180 capsule Rfl: 3 fluticasone-salmeterol (ADVAIR) 500-50 mcg/dose dsdv Inhale 1 Puff as instructed twice daily. Disp: 3 Inhaler Rfl: 1 ipratropium (ATROVENT) 0.02 % nebulizer solution Use 2.5 mL via nebulizer four times daily. Unit dose pack of 25 Disp: 1 Vial Rfl: 2 albuterol (PROVENTIL) 2.5 mg /3 mL (0.083 %) nebulizer solution Use 3 mL via nebulizer every 4 hours as needed. Disp: 1 Package Rfl: 5 venlafaxine ER (EFFEXOR XR) 37.5 mg 24 hr capsule TAKE ONE CAPSULE BY MOUTH EVERY DAY Disp: 90 capsule Rfl: 1 montelukast (SINGULAIR) 10 mg tablet TAKE 1 TABLET BY MOUTH DAILY AT BEDTIME. Disp: 90 tablet Rfl: 3 albuterol HFA (PROAIR HFA) 90 mcg/actuation inhaler Inhale 2 Puffs as instructed every 4 hours as needed. For wheezing/shortness of breath. Disp: 1 Inhaler Rfl: 2 DAILY MULTIVITAMIN TAB Disp: Rfl: 0 No current facility-administered medications for this visit. Review of Systems Constitutional: Negative. HENT: Negative for nosebleeds. Respiratory: Negative. Cardiovascular: Negative. Gastrointestinal: Negative for blood in stool, heartburn, melena, nausea and vomiting. Genitourinary: Negative for hematuria. Musculoskeletal: Negative for falls and myalgias. Skin: Negative. Neurological: Negative for dizziness and loss of consciousness. Endo/Heme/Allergies: Does not bruise/bleed easily. Psychiatric/Behavioral: The patient is not nervous/anxious and does not have insomnia. Physical Examination: Vitals:BP 90/60 Pulse 109 Resp 16 Ht 5' 9 (1.75m) Wt 136 lb (61.7kg) SpO2 99% LMP 02/18/2004 BMI 20.07 kg/(m2). Extended Vitals not filed for this encounter. Last 2 Encounter Wt Readings: Date: Wt: 02/23/2018 136 lb (61.7 kg) 02/09/2018 135 lb (61.2 kg) Physical Exam Constitutional: She is oriented to person, place, and time and well-developed, well-nourished, and in no distress. HENT: Head: Normocephalic. Eyes: Conjunctivae are normal. No scleral icterus. Neck: Normal range of motion. No JVD present. Carotid bruit is not present. Cardiovascular: Normal rate, regular rhythm, S1 normal, S2 normal and intact distal pulses. PMI is not displaced. Exam reveals no S3 and no S4. Murmur heard. Systolic murmur is present Pulmonary/Chest: Effort normal and breath sounds normal. Abdominal: Soft. Bowel sounds are normal. She exhibits no distension. There is no tenderness. Musculoskeletal: Normal range of motion. She exhibits no edema. Neurological: She is alert and oriented to person, place, and time. Skin: Skin is warm and dry. Psychiatric: Affect normal. Cardiac Testing: SANDEEP 02/02/2018: Left Atrium There is no evidence of a thrombus in the left atrial body or appendage. Normal pulmonary venous flow pattern for age. The left atrium appears normal in size. Mitral Valve Moderate (2+) mitral valve regurgitation. Mitral regurgitataion appears to be due to annular dilation and apical tethering. Aortic Valve The aortic valve is tricuspid. Mild to moderate (1-2+) aortic valve regurgitation. Tricuspid Valve Structurally normal tricuspid valve with trivial tricuspid regurgitation. Left Ventricle Severe left ventricular systolic dysfunction. The visually estimated LVEF is 20-25%.l Limited echo: 02/02/2018 Pericardium A small, circumferential pericardial effusion is present. There is no echocardiographic evidence for pericardial tamponade. Left Ventricle Severe left ventricular systolic dysfunction. The visually estimated LVEF is 20-25%. Echocardiogram [facility] 01/30/2018 pressure and mildly dilated LV. Severe global left ventricular dysfunction. Estimated EF of 20%. Mild diffuse mitral valve thickening. Moderate 2+ mitral valve insufficiency. Mild tricuspid valve insufficiency. Moderately severe aortic valve insufficiency. Mild pulmonic valve insufficiency. Moderate pericardial effusion no indications of cardiac tamponade on. Echo lucency consistent with a pleural effusion. Right ventricular systolic pressure estimated at 56 mmHg with pulmonary hypertension. 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 Etiology-> NICM -She remains euvolemic and asymptomatic. She is doing very well -Will increase Coreg to 6.25 twice a day today. Blood pressures at home have been running higher than documented blood pressure today at 90/60. Patient will continue to take her blood pressures and let me know if she is unable to tolerate the increased dose. She remains tachycardic -Has when necessary Lasix 20 mg and has not needed to use it -Would like to add [place] at some point in the near future if blood pressures are able to tolerate. -She is weighing herself daily, monitoring her sodium intake as well as her daily fluid intake and doing an excellent job. She is also established with the heart failure clinic -Has return to work for half days and is tolerating this fairly well Valvular heart disease?moderate MR/mild to moderate AR -Will continue to monitor. 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 Weber in 2 weeks. She will call if she is unable to tolerate increase in Coreg Electronically signed by Yanique Mclaughlin APRN.CNP on February 23, 2018, 6:00 PM The above note was partially created using a dictation recognition software. A reasonable attempt has been made to correct any errors. BASIC PANEL Collected: 02/23/2018 Status: F Source: [facility] 2:55 PM HEALTH SYSTEM REPOSITORY TYPE CODE TESTS RESULT OUT OF REFERENCE UNITS RANGE LAB NA(LOINC) 136-145 mEq/L Low Sodium Blood 134 LAB K(LOINC) 3.5-5.1 mEq/L Potassium Blood 4.1 LAB CL(LOINC) 98-107 mEq/L Chloride Blood 100 LAB CO2(LOINC) 21-32 mEq/L CO2 Blood 30 LAB GLU(LOINC) 70-99 mg/dL Glucose Blood 88 LAB BUN(LOINC) 7-18 mg/dL BUN Blood 11 LAB CREA(LOINC 0.51-0.95 mg/dL ) Creatinine Blood 0.75 LAB CA(LOINC) 8.5-10.1 mg/dL Calcium Blood 8.5 LAB ANGAP(LOIN 8-16 C) Anion Gap 8 Performed By: #### P8 #### [place] [address] MDRD GFR Collected: 02/23/2018 Status: F Source: [facility] 2:55 PM HEALTH SYSTEM REPOSITORY TYPE CODE TESTS RESULT OUT OF RANGE REFERENCE UNITS LAB GFRFN(LOINC >60mL/min/1.73m ) 2 eGFR >60 Result Comment: If the patient is , multiply the result by 1.210. Performed By: #### GFR #### [place] [address] CNOV Observed: 02/23/2018 Status: COMPLETED Source: [place] 2:00 PM CLINIC OTHER CAMPUS REPOSITORY Office Visit (AGCARDPOB) ZEESHAN FERNANDO ([id number]) 1965 F TRN Date Time Provider Department 02/23/18 2:00 PM YANIQUE MCLAUGHLIN ([facility]) AGCARDPOB During your visit today, we recorded the following information about you: Pulse Respiration Blood pressure Weight 109/minute 16/minute 90/60 61.7 kg Height 1.753 m Heidi Woody ([facility]) 02/23/2018 2:06 PM Signed Patient denies any cardiac complaints today. RACHEL Bravo Tari ([facility]) 02/23/2018 2:34 PM Signed Heart Failure What is heart failure? Heart failure (HF) means the heart is not pumping blood as well as it should. It may pump at a different speed, pump blood with less force, or pump less blood with each heartbeat. When less blood is flowing out of the heart to the body, muscles and other tissues may not get enough oxygen. The kidneys may not work as well to remove excess fluid in the form of urine. As a result, blood backs up into the blood vessels. The extra fluid seeps into the lungs or other parts of the body. Fluid in the lungs makes it hard to breathe. Fluid seeping into other parts of the body causes swelling. When there is too much fluid in the body, it puts more strain on the heart. Heart failure is one of the most common causes of heart-related illness and in the . What is the cause? A number of things can cause heart failure, such as: -Narrowing or blockage in the arteries that bring blood to the heart muscle -Infection of the heart -Heart attack -High blood pressure -Heart valve problems -Genetic problems with the heart muscle -Alcoholism -Diabetes -Lung disease Problems that may worsen or trigger heart failure, especially if your heart muscle is weak, include: -Severe anemia (a low level of red blood cells) -An overactive or underactive thyroid gland -Infection -A heartbeat that is too fast or too slow -Too much salt or fluid in the diet -Working your body too hard with exercise or daily activities -Emotional stress What are the symptoms? The symptoms of heart failure may include: -Shortness of breath or trouble breathing, at first just during exercise, then with any activity, and finally even when you are resting -Waking up at night with trouble breathing or being unable to lie flat in bed because of shortness of breath -Coughing -Swollen ankles, feet, and legs -Weight gain caused by extra fluid in the body -Feeling tired most of the time and not able to do your usual activities -Lack of appetite and feeling sick to your stomach -Feeling like your heart is racing or fluttering -Lightheadedness or fainting How is it diagnosed? Your healthcare provider will ask about your symptoms and examine you. Tests may include: -Chest X-ray -An ECG (also called an EKG), which measures and records your heartbeat -Blood or urine tests -Echocardiogram, which uses sound waves (ultrasound) to see how well your heart muscle is pumping How is it treated? Heart failure can be treated and managed. The goals of treatment are: -Help your heart so it doesn?t have to work as hard -Help your heart pump blood better -Get rid of extra water in your body Your healthcare provider may prescribe medicine to relax the blood vessels and lower blood pressure. Then the heart doesn?t have to work as hard. You may need to take 2 or more medicines to treat your heart failure. It may take several weeks or months to find the best treatment for you. In some cases, heart failure can get better and even be cured. For example, if it is caused by an infection, it may be cured with treatment of the infection. Heart failure due to coronary artery disease is generally not cured and most often gets worse over time. However, carefully following your treatment plan can: -Slow down the worsening of heart failure and help you live longer -Help prevent trips to the hospital -Help you feel better and do more How can I take care of myself? If you have heart failure, there are things you can do to take care of yourself now and prevent problems in the future. Follow your treatment plan and know how to take your medicines. -Work as a partner with your provider. This means having regular provider visits and following your treatment plan. -Follow the directions that come with your medicine, including information about food or alcohol. Make sure you know how and when to take your medicine. Do not take more or less than you are supposed to take. -Many medicines have side effects. A side effect is a symptom or problem that is caused by the medicine. Ask your healthcare provider or pharmacist what side effects your medicine may cause and what you should do if you have side effects. Ask if you should avoid some nonprescription medicines. Don?t smoke, eat a healthy diet, and watch your weight and blood pressure. -Quit smoking if you are a smoker. -Lose weight if you are overweight and eat a healthy diet. ?Follow a low-salt (low-sodium) diet if it is recommended by your provider. Too much salt makes your body keep too much water and makes your heart have to work harder. ?Follow your healthcare provider's advice about how much liquid you should drink. ?Ask your provider if you should avoid drinking alcohol. Alcohol can weaken your heart or may worsen heart failure. Also, some of your medicines may not work well if you drink alcohol. -Weigh yourself every morning after you use the bathroom but before you eat or drink anything. Weighing yourself every day helps you know if extra fluid is building up in your body. A buildup of fluid is a sign that your heart failure may be getting worse. Weight gain can let you know about fluid buildup before you start having swelling. Keep track of your weight in a diary or on the calendar. Ask your healthcare provider when you should report weight gain. Letting your provider know about weight gain when it first happens can save you a trip to the emergency room or a stay in the hospital. -Also check your pulse and blood pressure every day. Learn how to take your own blood pressure or have a family member learn how to take it. Be as physically active as you can. -How active you can be depends on how bad the heart failure is. A program of gentle exercise helps most people. Your provider can tell you what level of exercise is right for you. Exercise helps your heart and body get stronger. It also improves your blood flow and energy level. Don?t exercise outdoors if it is very hot, cold, humid, or smoggy. Balance exercise with rest. Make sure that your activities don?t make you too tired or short of breath. Take rest breaks during the day. -Avoid getting very hot or cold because it may make your heart work harder. Try to lessen the stress in your life. -Anxiety and anger can cause a fast heart rate and high blood pressure. If you need help with this, ask your healthcare provider. Protect yourself against infections. -Get a flu shot every year. When you have heart failure, you should not get the nasal spray vaccine (FluMist). -Get the pneumococcal shot. Ask your healthcare provider: -How and when you will hear your test results -How long it will take to recover -What activities you should avoid and when you can return to your normal activities -How to take care of yourself at home -What symptoms or problems you should watch for and what to do if you have them Make sure you know when you should come back for a checkup. How can I help prevent heart failure? You can prevent this disease with a heart-healthy lifestyle: -Eat a healthy diet and keep a healthy weight. -Stay fit with the right kind of exercise for you. -Decrease stress. -Don?t smoke. -Limit your use of alcohol. Talk to your healthcare provider about your personal and family medical history and your lifestyle habits. This will help you know what you can do to lower your risk for heart failure. Chris Yanique (Orthopedic [employer]ace [employer]) 02/24/2018 6:26 PM Signed PRIMARY CARE PHYSICIAN: NIKIA PILLAI MD [address] [place] [address] Chief Complaint Patient presents with: [facility] Hospital Follow Up: Patient is here for hospital follow up for new onset of systolic HF. HISTORY OF PRESENT ILLNESS: Ms. Fernando is a 52 year old female with a past medical history of non-Hodgkin's lymphoma: Status post stem cell transplant with radiation and chemotherapy in 1999, new systolic and diastolic heart failure, valvular heart disease, hyponatremia, COPD. She is known to Dr Weber. She is presenting to the cardiology clinic for hospitalization follow-up for new heart failure Ms. Fernando was hospitalized for 01/30/2018-02/03/2018 originally transferred from [facility] with CHF exacerbation. Original echocardiogram 01/30/2018 showed moderate pericardial effusion. Repeat echocardiogram 02/02 showed small pericardial effusion She underwent thoracentesis for 900 cc of transudative fluid while at [place]. A left heart cath showed normal coronaries. She was diuresed with IV Lasix and started on appropriate heart failure medication. presents today doing very well. She looks great. Her weight is stable at around the 130-131 pounds at home. She has not had to use her prn Lasix. She denies chest pain, shortness of breath, palpitations, lower extremity edema, orthopnea, PND, dizziness or lightheadedness. She does admit to some fatigue as she is gradually trying to go back to work. I did caution her to make sure she is resting and not overdoing activity. She was seen by the heart failure clinic last . She felt this was very helpful. Her blood pressures at home have been running in the low 100s to 112. I will attempt to go up on her Coreg today to 6.25 twice a day as she remains tachycardic in the low 100s. She'll continue to monitor her blood pressures and call in if she is unable to tolerate. PAST MEDICAL HISTORY Diagnosis Date - Asthma 2010 dust mites, tree pollen - Brain bleed (HCC) - Carcinoma in situ of cervix uteri 2008 Treated in [place] [address] Dr. Montilla - CHF (congestive heart failure) (HCC) - Esophageal reflux Gastroesophageal reflux - Hodgkin's disease, unspecified(201.90) 1999 Hodgkins Disease - HPV (human papillomavirus) vaccine 2008 - Migraine, unspecified, with intractable migraine, so stated, without mention of status migrainosus Migraine - Pap smear of cervix with ASCUS, cannot exclude HGSIL 06/28/13 HPV+ - Postmenopausal bleeding Postmenop. bleeding - Premature menopause - Thrombocytopenia, unspecified (HCC) Thrombocytopenia - VAIN III (vaginal intraepithelial neoplasia III) 2008 As above PAST SURGICAL HISTORY Procedure Laterality Date - COLPOSCOPY (VAGINOSCOPY) 2008 with laser tx for HPV - PAST SURGICAL HISTORY OF CHEST WALL BX.,PORT,EDWARDS CATHETER - PAST SURGICAL HISTORY OF 2008 Laser cone of cx and vaporization of upper vagina - VAGINOSCOPY 08/30/13 Benign FAMILY HISTORY Problem Relation Age of Onset - Other [OTHER] Mother PARKINSON'S. - Hypertension Father - Cancer Maternal Grandmother Stomach? - Other [OTHER] Maternal Grandmother LAZARUS'S CHOREA. - Other [OTHER] Other No lung disease. Maybe some allergies, nothing major. Social History Substance Use Topics - Smoking status: Never Smoker - Smokeless tobacco: Never Used Comment: No childhood or current household smokers. - Alcohol use Yes Comment: Seldom. ALLERGIES Allergen Reactions - Sulfa (Sulfonamide * Rash, Swelling - Codeine Hives - Environmental [Othe* Unknown Dust mites, trees - Guiafenesin [Other] Mental Status Change - Penicillins Rash Medications: Current Outpatient Prescriptions: carvedilol (COREG) 6.25 mg tablet Take 1 tablet by mouth twice daily with meals. Disp: 60 tablet Rfl: 2 lisinopril 2.5 mg tablet Take 1 tablet by mouth once daily. Disp: 30 tablet Rfl: 1 furosemide (LASIX) 20 mg tablet Take 1 tablet by mouth as needed (weight gain of 3 lbs overnight or 5 lbs in 1 week). Disp: 30 tablet Rfl: 1 omeprazole (PRILOSEC) 20 mg capsule TAKE 1 CAPSULE BY MOUTH TWICE DAILY BEFORE MEALS (0600/1600). 1/2 HR BEFORE MEAL. Disp: 180 capsule Rfl: 3 fluticasone-salmeterol (ADVAIR) 500-50 mcg/dose dsdv Inhale 1 Puff as instructed twice daily. Disp: 3 Inhaler Rfl: 1 ipratropium (ATROVENT) 0.02 % nebulizer solution Use 2.5 mL via nebulizer four times daily. Unit dose pack of 25 Disp: 1 Vial Rfl: 2 albuterol (PROVENTIL) 2.5 mg /3 mL (0.083 %) nebulizer solution Use 3 mL via nebulizer every 4 hours as needed. Disp: 1 Package Rfl: 5 venlafaxine ER (EFFEXOR XR) 37.5 mg 24 hr capsule TAKE ONE CAPSULE BY MOUTH EVERY DAY Disp: 90 capsule Rfl: 1 montelukast (SINGULAIR) 10 mg tablet TAKE 1 TABLET BY MOUTH DAILY AT BEDTIME. Disp: 90 tablet Rfl: 3 albuterol HFA (PROAIR HFA) 90 mcg/actuation inhaler Inhale 2 Puffs as instructed every 4 hours as needed. For wheezing/shortness of breath. Disp: 1 Inhaler Rfl: 2 DAILY MULTIVITAMIN TAB Disp: Rfl: 0 No current facility-administered medications for this visit. Review of Systems Constitutional: Negative. HENT: Negative for nosebleeds. Respiratory: Negative. Cardiovascular: Negative. Gastrointestinal: Negative for blood in stool, heartburn, melena, nausea and vomiting. Genitourinary: Negative for hematuria. Musculoskeletal: Negative for falls and myalgias. Skin: Negative. Neurological: Negative for dizziness and loss of consciousness. Endo/Heme/Allergies: Does not bruise/bleed easily. Psychiatric/Behavioral: The patient is not nervous/anxious and does not have insomnia. Physical Examination: Vitals:BP 90/60 Pulse 109 Resp 16 Ht 5' 9 (1.75m) Wt 136 lb (61.7kg) SpO2 99% LMP 02/18/2004 BMI 20.07 kg/(m2). Extended Vitals not filed for this encounter. Last 2 Encounter Wt Readings: Date: Wt: 02/23/2018 136 lb (61.7 kg) 02/09/2018 135 lb (61.2 kg) Physical Exam Constitutional: She is oriented to person, place, and time and well-developed, well-nourished, and in no distress. HENT: Head: Normocephalic. Eyes: Conjunctivae are normal. No scleral icterus. Neck: Normal range of motion. No JVD present. Carotid bruit is not present. Cardiovascular: Normal rate, regular rhythm, S1 normal, S2 normal and intact distal pulses. PMI is not displaced. Exam reveals no S3 and no S4. Murmur heard. Systolic murmur is present Pulmonary/Chest: Effort normal and breath sounds normal. Abdominal: Soft. Bowel sounds are normal. She exhibits no distension. There is no tenderness. Musculoskeletal: Normal range of motion. She exhibits no edema. Neurological: She is alert and oriented to person, place, and time. Skin: Skin is warm and dry. Psychiatric: Affect normal. Cardiac Testing: SANDEEP 02/02/2018: Left Atrium There is no evidence of a thrombus in the left atrial body or appendage. Normal pulmonary venous flow pattern for age. The left atrium appears normal in size. Mitral Valve Moderate (2+) mitral valve regurgitation. Mitral regurgitataion appears to be due to annular dilation and apical tethering. Aortic Valve The aortic valve is tricuspid. Mild to moderate (1-2+) aortic valve regurgitation. Tricuspid Valve Structurally normal tricuspid valve with trivial tricuspid regurgitation. Left Ventricle Severe left ventricular systolic dysfunction. The visually estimated LVEF is 20-25%.l Limited echo: 02/02/2018 Pericardium A small, circumferential pericardial effusion is present. There is no echocardiographic evidence for pericardial tamponade. Left Ventricle Severe left ventricular systolic dysfunction. The visually estimated LVEF is 20-25%. Echocardiogram OSH 01/30/2018 pressure and mildly dilated LV. Severe global left ventricular dysfunction. Estimated EF of 20%. Mild diffuse mitral valve thickening. Moderate 2+ mitral valve insufficiency. Mild tricuspid valve insufficiency. Moderately severe aortic valve insufficiency. Mild pulmonic valve insufficiency. Moderate pericardial effusion no indications of cardiac tamponade on. Echo lucency consistent with a pleural effusion. Right ventricular systolic pressure estimated at 56 mmHg with pulmonary hypertension. 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 Etiology-> NICM -She remains euvolemic and asymptomatic. She is doing very well -Will increase Coreg to 6.25 twice a day today. Blood pressures at home have been running higher than documented blood pressure today at 90/60. Patient will continue to take her blood pressures and let me know if she is unable to tolerate the increased dose. She remains tachycardic -Has when necessary Lasix 20 mg and has not needed to use it -Would like to add Van at some point in the near future if blood pressures are able to tolerate. -She is weighing herself daily, monitoring her sodium intake as well as her daily fluid intake and doing an excellent job. She is also established with the heart failure clinic -Has return to work for half days and is tolerating this fairly well Valvular heart disease?moderate MR/mild to moderate AR -Will continue to monitor. 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 Weber in 2 weeks. She will call if she is unable to tolerate increase in Coreg Electronically signed by Yanique Mclaughlin APRN.CNP on February 23, 2018, 6:00 PM The above note was partially created using a dictation recognition software. A reasonable attempt has been made to correct any errors. Referring Provider: YANIQUE MCLAUGHLIN ([facility]) [[id number]] Allergies As of Date: 02/23/2018 Noted Allergy Reaction SULFA (SULFONAMIDE ANTIBIOTICS) 08/21/2005 2 - Rash 7 - Swelling CODEINE 09/17/2005 4 - Hives Environmental [Other] 10/03/2011 16 - Unknown Comments: Dust mites, trees GUIAFENESIN [Other] 09/17/2005 1 - Mental Status Change PENICILLINS 08/21/2005 2 - Rash Date Reviewed: 02/23/2018 Reviewed by: Yanique Mclaughlin ([facility]) - Fully Assessed Reason for Visit: CARD Hospital Follow Up [1227] Cmt: Patient is here for hospital follow up for new onset of systolic HF. Primary Visit Diagnosis:Chronic systolic heart failure (HCC) [I50.22] Other Visit Diagnoses:COPD with acute bronchitis (HCC) [J44.0, J20.9] Valvular disease [I38] History of Hodgkin's disease [Z85.71] Order(s):carvedilol (COREG) 6.25 mg tabletTake 1 tablet by mouth twice daily with meals.Disp: 60 tabletRfl: 2 BASIC METABOLIC PNL [SQBMP] Order #: [id number] FUTURE Prescriptions as of 02/23/2018 Sig: CARVEDILOL 6.25 MG TABLET Take 1 tablet by mouth twice * LISINOPRIL 2.5 MG TABLET Take 1 tablet by mouth once d* FUROSEMIDE 20 MG TABLET Take 1 tablet by mouth as nee* OMEPRAZOLE 20 MG CAPSULE,VIRGIE* TAKE 1 CAPSULE BY MOUTH TWICE* FLUTICASONE 500 MCG-SALMETERO* Inhale 1 Puff as instructed t* IPRATROPIUM BROMIDE 0.02 % SO* Use 2.5 mL via nebulizer four* ALBUTEROL SULFATE 2.5 MG/3 ML* Use 3 mL via nebulizer every * VENLAFAXINE ER 37.5 MG CAPSUL* TAKE ONE CAPSULE BY MOUTH ROSA ELENA* MONTELUKAST 10 MG TABLET TAKE 1 TABLET BY MOUTH DAILY * ALBUTEROL SULFATE HFA 90 MCG/* Inhale 2 Puffs as instructed * DAILY MULTIVITAMIN TABLET Problem List As Of Date 02/23/2018 Noted Resolved Esophageal reflux [K21.9] INVALID FOR* More... Hodgkin's disease [201] INVALID FOR*11/06/2007 More... Absence of menstruation [N91.2] INVALID FOR*06/10/2012 Pneumonia, organism unspecified [J18.9] INVALID FOR*05/10/2011 TENOSYNOV HAND/WRIST NEC [M65.849, M65.839] INVALID FOR*12/19/2006 History of Hodgkin's disease [Z85.71] INVALID FOR* More... Personal history of pneumonia (recurrent) [Z87.*INVALID FOR* More... 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 Asthma [J45.909] INVALID FOR* More... Headache, migraine [G43.909] INVALID FOR* More... More... HFrEF (heart failure with reduced ejection frac*INVALID FOR* Acute on chronic combined systolic and diastoli*INVALID FOR* Pericardial effusion [I31.3] INVALID FOR* Other instructions from your clinician: Heart Failure What is heart failure? Heart failure (HF) means the heart is not pumping blood as well as it should. It may pump at a different speed, pump blood with less force, or pump less blood with each heartbeat. When less blood is flowing out of the heart to the body, muscles and other tissues may not get enough oxygen. The kidneys may not work as well to remove excess fluid in the form of urine. As a result, blood backs up into the blood vessels. The extra fluid seeps into the lungs or other parts of the body. Fluid in the lungs makes it hard to breathe. Fluid seeping into other parts of the body causes swelling. When there is too much fluid in the body, it puts more strain on the heart. Heart failure is one of the most common causes of heart- related illness and in the . What is the cause? A number of things can cause heart failure, such as: -Narrowing or blockage in the arteries that bring blood to the heart muscle -Infection of the heart -Heart attack -High blood pressure -Heart valve problems -Genetic problems with the heart muscle -Alcoholism -Diabetes -Lung disease Problems that may worsen or trigger heart failure, especially if your heart muscle is weak, include: -Severe anemia (a low level of red blood cells) -An overactive or underactive thyroid gland -Infection -A heartbeat that is too fast or too slow -Too much salt or fluid in the diet -Working your body too hard with exercise or daily activities -Emotional stress What are the symptoms? The symptoms of heart failure may include: -Shortness of breath or trouble breathing, at first just during exercise, then with any activity, and finally even when you are resting -Waking up at night with trouble breathing or being unable to lie flat in bed because of shortness of breath -Coughing -Swollen ankles, feet, and legs -Weight gain caused by extra fluid in the body -Feeling tired most of the time and not able to do your usual activities -Lack of appetite and feeling sick to your stomach -Feeling like your heart is racing or fluttering -Lightheadedness or fainting How is it diagnosed? Your healthcare provider will ask about your symptoms and examine you. Tests may include: -Chest X-ray -An ECG (also called an EKG), which measures and records your heartbeat -Blood or urine tests -Echocardiogram, which uses sound waves (ultrasound) to see how well your heart muscle is pumping How is it treated? Heart failure can be treated and managed. The goals of treatment are: -Help your heart so it doesn?t have to work as hard -Help your heart pump blood better -Get rid of extra water in your body Your healthcare provider may prescribe medicine to relax the blood vessels and lower blood pressure. Then the heart doesn?t have to work as hard. You may need to take 2 or more medicines to treat your heart failure. It may take several weeks or months to find the best treatment for you. In some cases, heart failure can get better and even be cured. For example, if it is caused by an infection, it may be cured with treatment of the infection. Heart failure due to coronary artery disease is generally not cured and most often gets worse over time. However, carefully following your treatment plan can: -Slow down the worsening of heart failure and help you live longer -Help prevent trips to the hospital -Help you feel better and do more How can I take care of myself? If you have heart failure, there are things you can do to take care of yourself now and prevent problems in the future. Follow your treatment plan and know how to take your medicines. -Work as a partner with your provider. This means having regular provider visits and following your treatment plan. -Follow the directions that come with your medicine, including information about food or alcohol. Make sure you know how and when to take your medicine. Do not take more or less than you are supposed to take. -Many medicines have side effects. A side effect is a symptom or problem that is caused by the medicine. Ask your healthcare provider or pharmacist what side effects your medicine may cause and what you should do if you have side effects. Ask if you should avoid some nonprescription medicines. Don?t smoke, eat a healthy diet, and watch your weight and blood pressure. -Quit smoking if you are a smoker. -Lose weight if you are overweight and eat a healthy diet. ?Follow a low-salt (low-sodium) diet if it is recommended by your provider. Too much salt makes your body keep too much water and makes your heart have to work harder. ?Follow your healthcare provider's advice about how much liquid you should drink. ?Ask your provider if you should avoid drinking alcohol. Alcohol can weaken your heart or may worsen heart failure. Also, some of your medicines may not work well if you drink alcohol. -Weigh yourself every morning after you use the bathroom but before you eat or drink anything. Weighing yourself every day helps you know if extra fluid is building up in your body. A buildup of fluid is a sign that your heart failure may be getting worse. Weight gain can let you know about fluid buildup before you start having swelling. Keep track of your weight in a diary or on the calendar. Ask your healthcare provider when you should report weight gain. Letting your provider know about weight gain when it first happens can save you a trip to the emergency room or a stay in the hospital. -Also check your pulse and blood pressure every day. Learn how to take your own blood pressure or have a family member learn how to take it. Be as physically active as you can. -How active you can be depends on how bad the heart failure is. A program of gentle exercise helps most people. Your provider can tell you what level of exercise is right for you. Exercise helps your heart and body get stronger. It also improves your blood flow and energy level. Don?t exercise outdoors if it is very hot, cold, humid, or smoggy. Balance exercise with rest. Make sure that your activities don?t make you too tired or short of breath. Take rest breaks during the day. -Avoid getting very hot or cold because it may make your heart work harder. Try to lessen the stress in your life. -Anxiety and anger can cause a fast heart rate and high blood pressure. If you need help with this, ask your healthcare provider. Protect yourself against infections. -Get a flu shot every year. When you have heart failure, you should not get the nasal spray vaccine (FluMist). -Get the pneumococcal shot. Ask your healthcare provider: -How and when you will hear your test results -How long it will take to recover -What activities you should avoid and when you can return to your normal activities -How to take care of yourself at home -What symptoms or problems you should watch for and what to do if you have them Make sure you know when you should come back for a checkup. How can I help prevent heart failure? You can prevent this disease with a heart-healthy lifestyle: -Eat a healthy diet and keep a healthy weight. -Stay fit with the right kind of exercise for you. -Decrease stress. -Don?t smoke. -Limit your use of alcohol. Talk to your healthcare provider about your personal and family medical history and your lifestyle habits. This will help you know what you can do to lower your risk for heart failure. Visit Notes: >> Heidi Woody (Rachel) FriFebruary 23, 2018 1:58 PM Status: Signed Patient denies any cardiac complaints today. Heidi Woody CMA Prescriptions ordered this encounter Disp Refills Start End CARVEDILOL 6.25 MG TABLET 60 t* 2 02/23/2018 03/25/2018 Route: ORAL Sig: Take 1 tablet by mouth twice daily with meals. Medications Discontinued During This Encounter carvedilol (COREG) 3.125 mg tablet 60 t* 1 02/03/2018 02/23/2018 Class: Print RX Route: ORAL Sig: Take 1 tablet by mouth twice daily with meals. Disc: Reason for discontinue is not on file. guaiFENesin (MUCINEX) 1,200 mg Ta12 20 t* 1 10/22/2017 02/23/2018 Route: ORAL Sig: Take 1 tablet by mouth twice daily as needed. Disc: Course of therapy completed ondansetron orally disintegrating (Z* 12 t* 0 01/21/2017 02/23/2018 Route: ORAL Sig: Take 1 tablet by mouth every 8 hours as needed. Disc: Reason for discontinue is not on file. Follow-up and Disposition History Recorded Encounter Status:Closed by YANIQUE MCLAUGHLIN CNP on 02/24/18 JENNIFER Observed: 02/12/2018 Status: COMPLETED Source: [facility] 8:30 AM CLINIC OTHER CAMPUS REPOSITORY Office Visit ([facility] ZEESHAN FERNANDO ([id number]) 1965 F TRN Date Time Provider Department 02/12/18 8:30 AM NURSE CARD [place] During your visit today, we recorded the following information about you: Choker Setter: Facesheet ID: [id number] 02/12/2018 12:00 AM Author: DONAL PROVIDER Signed by DONAL PROVIDER on 02/12/2018 at 8:19 AM Document text: Display document [id number] only Referring Provider: BASSEM WEBER [[id number]] Allergies As of Date: 02/12/2018 Noted Allergy Reaction SULFA (SULFONAMIDE ANTIBIOTICS) 08/21/2005 2 - Rash 7 - Swelling CODEINE 09/17/2005 4 - Hives Environmental [Other] 10/03/2011 16 - Unknown Comments: Dust mites, trees GUIAFENESIN [Other] 09/17/2005 1 - Mental Status Change PENICILLINS 08/21/2005 2 - Rash Date Reviewed: 02/09/2018 Reviewed by: Kika Gonzales Detective Chief - Fully Assessed Reason for Visit: CHF [22] Visit Diagnosis:Chronic systolic heart failure (HCC) [I50.22] Prescriptions as of 02/12/2018 Sig: CARVEDILOL 3.125 MG TABLET Take 1 tablet by mouth twice * LISINOPRIL 2.5 MG TABLET Take 1 tablet by mouth once d* FUROSEMIDE 20 MG TABLET Take 1 tablet by mouth as nee* OMEPRAZOLE 20 MG CAPSULE,VIRGIE* TAKE 1 CAPSULE BY MOUTH TWICE* FLUTICASONE 500 MCG-SALMETERO* Inhale 1 Puff as instructed t* IPRATROPIUM BROMIDE 0.02 % SO* Use 2.5 mL via nebulizer four* ALBUTEROL SULFATE 2.5 MG/3 ML* Use 3 mL via nebulizer every * VENLAFAXINE ER 37.5 MG CAPSUL* TAKE ONE CAPSULE BY MOUTH ROSA ELENA* GUAIFENESIN ER 1,200 MG TABLE* Take 1 tablet by mouth twice * MONTELUKAST 10 MG TABLET TAKE 1 TABLET BY MOUTH DAILY * ALBUTEROL SULFATE HFA 90 MCG/* Inhale 2 Puffs as instructed * ONDANSETRON 4 MG DISINTEGRATI* Take 1 tablet by mouth every * DAILY MULTIVITAMIN TABLET Problem List As Of Date 02/12/2018 Noted Resolved Esophageal reflux [K21.9] INVALID FOR* More... Hodgkin's disease [201] INVALID FOR*11/06/2007 More... Absence of menstruation [N91.2] INVALID FOR*06/10/2012 Pneumonia, organism unspecified [J18.9] INVALID FOR*05/10/2011 TENOSYNOV HAND/WRIST NEC [M65.849, M65.839] INVALID FOR*12/19/2006 History of Hodgkin's disease [Z85.71] INVALID FOR* More... Personal history of pneumonia (recurrent) [Z87.*INVALID FOR* More... 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 Asthma [J45.909] INVALID FOR* More... Headache, migraine [G43.909] INVALID FOR* More... More... HFrEF (heart failure with reduced ejection frac*INVALID FOR* Acute on chronic combined systolic and diastoli*INVALID FOR* Pericardial effusion [I31.3] INVALID FOR* Encounter Status:Closed by CLARISSA DENILSON BRAN on 02/12/18 PROGRESS Observed: 02/09/2018 Status: COMPLETED Source: [place] 1:50 PM [facility] REPOSITORY HNO ID: [id number] Author: Sindhu Holland) Older Service: (none) Author Type: Nurse Practitioner Type: Progress Notes Filed: 02/09/2018 2:16 PM Note Text: CC: Hospital follow-up HPI Zeeshan Fernando is a 52 year old female who presents today for hospital follow-up. Which facility: Transfer from [facility] to [facility] Date of visit: 01/30 to 02/03 Diagnosis: new CHF SUMMARY OF WHAT HAPPENED WHILE I WAS IN THE HOSPITAL: Transferred from [facility] on account of CHF exacerbation deemed secondary to pericardial effusion and valvular heart disease. Very low EF of about 20% noted. Patient underwent left heart cath that shoed normal coronaries and underwent a SANDEEP for evaluation of valvular structures and which showed no hemodynamically significant valvular abnormalities or significant pericardial effusion. Patient was seen by cardiology while hear and underwent effective diuresis with IV lasix Patient today is doing well and per cardiology is stable for discharge back home. Patient will follow up with the CHF clinic as an outpatient Current symptoms: Dizzy intermittently, usually only when riding in the car. Denies syncope. Checks BP before taking medications as instructed, advised to hold if SBP less than 95. This morning SBP was 105. Drinking 64 ounces of fluid as allowed. Appetite is good. Energy level improving, rests when she needs to. Weighs self daily, no change in weight. Denies swelling, SOB, chest pain, heart palpitations, PND, orthopnea. Denies any other concerns or issues today. Has appointment on in CHF clinic and in a few weeks with relay associate. REVIEW OF SYSTEMS General: no fevers and no chills Respiratory: no cough, no wheezing PAST MEDICAL HISTORY Diagnosis Date - Asthma 2010 dust mites, tree pollen - Brain bleed (HCC) - Carcinoma in situ of cervix uteri 2008 Tre[address] in [place] by Dr[address] Montilla - Esophageal reflux Gastroesophageal reflux - Hodgkin's disease, unspecified(201.90) 1999 Hodgkins Disease - HPV (human papillomavirus) vaccine 2008 - Migraine, unspecified, with intractable migraine, so stated, without mention of status migrainosus Migraine - Pap smear of cervix with ASCUS, cannot exclude HGSIL 06/28/13 HPV+ - Postmenopausal bleeding Postmenop. bleeding - Premature menopause - Thrombocytopenia, unspecified (HCC) Thrombocytopenia - VAIN III (vaginal intraepithelial neoplasia III) 2008 As above PAST SURGICAL HISTORY Procedure Laterality Date - COLPOSCOPY (VAGINOSCOPY) 2008 with laser tx for HPV - PAST SURGICAL HISTORY OF CHEST WALL BX.,PORT,EDWARDS CATHETER - PAST SURGICAL HISTORY OF 2008 Laser cone of cx and vaporization of upper vagina - VAGINOSCOPY 08/30/13 Benign ALLERGIES Sulfa (Sulfonamide Antibiotics); Codeine; Environmental [Other]; Guiafenesin [Other]; Penicillins MEDICATIONS carvedilol (COREG) 3.125 mg tablet Take 1 tablet by mouth twice daily with meals. lisinopril 2.5 mg tablet Take 1 tablet by mouth once daily. furosemide (LASIX) 20 mg tablet Take 1 tablet by mouth as needed (weight gain of 3 lbs overnight or 5 lbs in 1 week). omeprazole (PRILOSEC) 20 mg capsule TAKE 1 CAPSULE BY MOUTH TWICE DAILY BEFORE MEALS (0600/1600). 1/2 HR BEFORE MEAL. fluticasone-salmeterol (ADVAIR) 500-50 mcg/dose dsdv Inhale 1 Puff as instructed twice daily. ipratropium (ATROVENT) 0.02 % nebulizer solution Use 2.5 mL via nebulizer four times daily. Unit dose pack of 25 albuterol (PROVENTIL) 2.5 mg /3 mL (0.083 %) nebulizer solution Use 3 mL via nebulizer every 4 hours as needed. venlafaxine ER (EFFEXOR XR) 37.5 mg 24 hr capsule TAKE ONE CAPSULE BY MOUTH EVERY DAY guaiFENesin (MUCINEX) 1,200 mg Ta12 Take 1 tablet by mouth twice daily as needed. montelukast (SINGULAIR) 10 mg tablet TAKE 1 TABLET BY MOUTH DAILY AT BEDTIME. albuterol HFA (PROAIR HFA) 90 mcg/actuation inhaler Inhale 2 Puffs as instructed every 4 hours as needed. For wheezing/shortness of breath. ondansetron orally disintegrating (ZOFRAN ODT) 4 mg disintegrating tablet Take 1 tablet by mouth every 8 hours as needed. DAILY MULTIVITAMIN TAB FAMILY HISTORY Problem Relation Age of Onset - Other [OTHER] Mother PARKINSON'S. - Hypertension Father - Cancer Maternal Grandmother Stomach? - Other [OTHER] Maternal Grandmother LAZARUS'S CHOREA. - Other [OTHER] Other No lung disease. Maybe some allergies, nothing major. Social History Substance Use Topics - Smoking status: Never Smoker - Smokeless tobacco: Never Used Comment: No childhood or current household smokers. - Alcohol use Yes Comment: Seldom. PHYSICAL EXAM LMP 02/18/2004 General Appearance: well appearing, in no acute distress, alert Skin: Skin color, texture, turgor normal for age; Eyes: conjunctiva pink and moist, no icterus, sclera white, non-injected Oropharynx: moist Lungs: Good air exchange. Faint expiratory wheezing scattered. No rhonchi, rales Heart: RRR without murmur, gallop, or rubs. No ectopy Ext: no edema in LE bilaterally, good distal pulses COLORECTAL CANCER SCREENING,SEE MODIFIER due on 2016 INFLUENZA(Season Ended) due on 06/20/2018 MAMMOGRAM due on 08/18/2018 LIPID SCREEN due on 12/25/2020 DIABETES SCREEN due on 02/03/2021 PAP EVERY 5 YEARS due on 07/16/2021 HPV EVERY 5 YEARS due on 07/16/2021 TETANUS due on 03/06/2027 ASSESSMENT/PLAN: 1. Acute systolic heart failure (HCC) - ICD9: 428.21, ICD10: I50.21 (primary diagnosis) Stable. No concerning exam findings Continue with all medications as prescribed and follow-ups with cardiology Follow-up with PCP in March or April, sooner as needed 2. Dizziness - ICD9: 780.4, ICD10: R42 Possibly due to medications but symptoms not consistent with orthostatic Advised to call relay associate if dizziness continues or BP consistently low 3. Hypotension, unspecified hypotension type - ICD9: 458.9, ICD10: I95.9 As above Prescription instructions reviewed with patient as applicable. Potential red flag symptoms discussed with the patient. Reviewed appropriate action plan to take if red flag symptoms occur. Patient agreeable to treatment plan. Sindhu Birmingham APRN.NATALIIA RODRIGUEZ Observed: 02/09/2018 Status: COMPLETED Source: [place] 1:40 PM [facility] REPOSITORY Office Visit (INTMWS) ZEESHAN FERNANDO ([id number]) 1965 F TRN Date Time Provider Department 02/09/18 1:40 PM SINDHU BIRMINGHAM (NATALIIA) INTMWS During your visit today, we recorded the following information about you: Temperature Pulse Blood pressure Weight 98.3 degrees 89/minute 92/70 61.2 kg Sindhu Birmingham GROUNDS FOREMANCINTHIA 02/09/2018 2:16 PM Signed CC: Hospital follow-up HPI Zeeshan Fernando is a 52 year old female who presents today for hospital follow-up. Which facility: Transfer from [facility] to [facility] Date of visit: 01/30 to 02/03 Diagnosis: new CHF SUMMARY OF WHAT HAPPENED WHILE I WAS IN THE HOSPITAL: Transferred from [facility] on account of CHF exacerbation deemed secondary to pericardial effusion and valvular heart disease. Very low EF of about 20% noted. Patient underwent left heart cath that shoed normal coronaries and underwent a SANDEEP for evaluation of valvular structures and which showed no hemodynamically significant valvular abnormalities or significant pericardial effusion. Patient was seen by cardiology while hear and underwent effective diuresis with IV lasix Patient today is doing well and per cardiology is stable for discharge back home. Patient will follow up with the CHF clinic as an outpatient Current symptoms: Dizzy intermittently, usually only when riding in the car. Denies syncope. Checks BP before taking medications as instructed, advised to hold if SBP less than 95. This morning SBP was 105. Drinking 64 ounces of fluid as allowed. Appetite is good. Energy level improving, rests when she needs to. Weighs self daily, no change in weight. Denies swelling, SOB, chest pain, heart palpitations, PND, orthopnea. Denies any other concerns or issues today. Has appointment on in CHF clinic and in a few weeks with relay associate. REVIEW OF SYSTEMS General: no fevers and no chills Respiratory: no cough, no wheezing PAST MEDICAL HISTORY Diagnosis Date - Asthma 2010 dust mites, tree pollen - Brain bleed (HCC) - Carcinoma in situ of cervix uteri 2008 Tre[address] in [place] by Dr[address] Montilla - Esophageal reflux Gastroesophageal reflux - Hodgkin's disease, unspecified(201.90) 2000 Hodgkins Disease - HPV (human papillomavirus) vaccine 2008 - Migraine, unspecified, with intractable migraine, so stated, without mention of status migrainosus Migraine - Pap smear of cervix with ASCUS, cannot exclude HGSIL 06/28/13 HPV+ - Postmenopausal bleeding Postmenop. bleeding - Premature menopause - Thrombocytopenia, unspecified (HCC) Thrombocytopenia - VAIN III (vaginal intraepithelial neoplasia III) 2008 As above PAST SURGICAL HISTORY Procedure Laterality Date - COLPOSCOPY (VAGINOSCOPY) 2008 with laser tx for HPV - PAST SURGICAL HISTORY OF CHEST WALL BX.,PORT,EDWARDS CATHETER - PAST SURGICAL HISTORY OF 2008 Laser cone of cx and vaporization of upper vagina - VAGINOSCOPY 08/30/13 Benign ALLERGIES Sulfa (Sulfonamide Antibiotics); Codeine; Environmental [Other]; Guiafenesin [Other]; Penicillins MEDICATIONS carvedilol (COREG) 3.125 mg tablet Take 1 tablet by mouth twice daily with meals. lisinopril 2.5 mg tablet Take 1 tablet by mouth once daily. furosemide (LASIX) 20 mg tablet Take 1 tablet by mouth as needed (weight gain of 3 lbs overnight or 5 lbs in 1 week). omeprazole (PRILOSEC) 20 mg capsule TAKE 1 CAPSULE BY MOUTH TWICE DAILY BEFORE MEALS (0600/1600). 1/2 HR BEFORE MEAL. fluticasone-salmeterol (ADVAIR) 500-50 mcg/dose dsdv Inhale 1 Puff as instructed twice daily. ipratropium (ATROVENT) 0.02 % nebulizer solution Use 2.5 mL via nebulizer four times daily. Unit dose pack of 25 albuterol (PROVENTIL) 2.5 mg /3 mL (0.083 %) nebulizer solution Use 3 mL via nebulizer every 4 hours as needed. venlafaxine ER (EFFEXOR XR) 37.5 mg 24 hr capsule TAKE ONE CAPSULE BY MOUTH EVERY DAY guaiFENesin (MUCINEX) 1,200 mg Ta12 Take 1 tablet by mouth twice daily as needed. montelukast (SINGULAIR) 10 mg tablet TAKE 1 TABLET BY MOUTH DAILY AT BEDTIME. albuterol HFA (PROAIR HFA) 90 mcg/actuation inhaler Inhale 2 Puffs as instructed every 4 hours as needed. For wheezing/shortness of breath. ondansetron orally disintegrating (ZOFRAN ODT) 4 mg disintegrating tablet Take 1 tablet by mouth every 8 hours as needed. DAILY MULTIVITAMIN TAB FAMILY HISTORY Problem Relation Age of Onset - Other [OTHER] Mother PARKINSON'S. - Hypertension Father - Cancer Maternal Grandmother Stomach? - Other [OTHER] Maternal Grandmother LAZARUS'S CHOREA. - Other [OTHER] Other No lung disease. Maybe some allergies, nothing major. Social History Substance Use Topics - Smoking status: Never Smoker - Smokeless tobacco: Never Used Comment: No childhood or current household smokers. - Alcohol use Yes Comment: Seldom. PHYSICAL EXAM LMP 02/18/2004 General Appearance: well appearing, in no acute distress, alert Skin: Skin color, texture, turgor normal for age; Eyes: conjunctiva pink and moist, no icterus, sclera white, non-injected Oropharynx: moist Lungs: Good air exchange. Faint expiratory wheezing scattered. No rhonchi, rales Heart: RRR without murmur, gallop, or rubs. No ectopy Ext: no edema in LE bilaterally, good distal pulses COLORECTAL CANCER SCREENING,SEE MODIFIER due on 2016 INFLUENZA(Season Ended) due on 06/20/2018 MAMMOGRAM due on 08/18/2018 LIPID SCREEN due on 12/25/2020 DIABETES SCREEN due on 02/03/2021 PAP EVERY 5 YEARS due on 07/16/2021 HPV EVERY 5 YEARS due on 07/16/2021 TETANUS due on 03/06/2027 ASSESSMENT/PLAN: 1. Acute systolic heart failure (HCC) - ICD9: 428.21, ICD10: I50.21 (primary diagnosis) Stable. No concerning exam findings Continue with all medications as prescribed and follow-ups with cardiology Follow-up with PCP in March or April, sooner as needed 2. Dizziness - ICD9: 780.4, ICD10: R42 Possibly due to medications but symptoms not consistent with orthostatic Advised to call relay associate if dizziness continues or BP consistently low 3. Hypotension, unspecified hypotension type - ICD9: 458.9, ICD10: I95.9 As above Prescription instructions reviewed with patient as applicable. Potential red flag symptoms discussed with the patient. Reviewed appropriate action plan to take if red flag symptoms occur. Patient agreeable to treatment plan. Sindhu Birmingham, GROUNDS FOREMAN.NATALIIA Manley Older GROUNDS FOREMAN.TARIFF PUBLISHING AGENT 02/09/2018 2:05 PM Signed Call relay associate if dizziness continues or blood pressure consistently low Referring Provider: SELF [200] Allergies As of Date: 02/09/2018 Noted Allergy Reaction SULFA (SULFONAMIDE ANTIBIOTICS) 08/21/2005 2 - Rash 7 - Swelling CODEINE 09/17/2005 4 - Hives Environmental [Other] 10/03/2011 16 - Unknown Comments: Dust mites, trees GUIAFENESIN [Other] 09/17/2005 1 - Mental Status Change PENICILLINS 08/21/2005 2 - Rash Date Reviewed: 02/09/2018 Reviewed by: Kika Gonzales Detective Chief - Fully Assessed Primary Visit Diagnosis:Acute systolic heart failure (HCC) [I50.21] Other Visit Diagnoses:Dizziness [R42] Hypotension, unspecified hypotension type [I95.9] Prescriptions as of 02/09/2018 Sig: CARVEDILOL 3.125 MG TABLET Take 1 tablet by mouth twice * LISINOPRIL 2.5 MG TABLET Take 1 tablet by mouth once d* FUROSEMIDE 20 MG TABLET Take 1 tablet by mouth as nee* OMEPRAZOLE 20 MG CAPSULE,VIRGIE* TAKE 1 CAPSULE BY MOUTH TWICE* FLUTICASONE 500 MCG-SALMETERO* Inhale 1 Puff as instructed t* IPRATROPIUM BROMIDE 0.02 % SO* Use 2.5 mL via nebulizer four* ALBUTEROL SULFATE 2.5 MG/3 ML* Use 3 mL via nebulizer every * VENLAFAXINE ER 37.5 MG CAPSUL* TAKE ONE CAPSULE BY MOUTH ROSA ELENA* GUAIFENESIN ER 1,200 MG TABLE* Take 1 tablet by mouth twice * MONTELUKAST 10 MG TABLET TAKE 1 TABLET BY MOUTH DAILY * ALBUTEROL SULFATE HFA 90 MCG/* Inhale 2 Puffs as instructed * ONDANSETRON 4 MG DISINTEGRATI* Take 1 tablet by mouth every * DAILY MULTIVITAMIN TABLET Problem List As Of Date 02/09/2018 Noted Resolved Esophageal reflux [K21.9] INVALID FOR* More... Hodgkin's disease [201] INVALID FOR*11/06/2007 More... Absence of menstruation [N91.2] INVALID FOR*06/10/2012 Pneumonia, organism unspecified [J18.9] INVALID FOR*05/10/2011 TENOSYNOV HAND/WRIST NEC [M65.849, M65.839] INVALID FOR*12/19/2006 History of Hodgkin's disease [Z85.71] INVALID FOR* More... Personal history of pneumonia (recurrent) [Z87.*INVALID FOR* More... 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 Asthma [J45.909] INVALID FOR* More... Headache, migraine [G43.909] INVALID FOR* More... More... HFrEF (heart failure with reduced ejection frac*INVALID FOR* Acute on chronic combined systolic and diastoli*INVALID FOR* Pericardial effusion [I31.3] INVALID FOR* Other instructions from your clinician: Call relay associate if dizziness continues or blood pressure consistently low Encounter Status:Closed by SINDHU BIRMINGHAM CNP on 02/09/18 MARINE Observed: 02/04/2018 Status: COMPLETED Source: [place] 12:00 AM [facility] OTHER BOLES REPOSITORY Telephone (AKPRAD) ZEESHAN FERNANDO ([id number]) 1965 F TRN Date Time Provider Department 02/04/18 MCLAUGHLINYANIQUE CNP During your visit today, we recorded the following information about you: Yanique Mclaughlin APRN.NATLAIIA 02/04/2018 3:26 PM Signed Can you please make f/u appt for her week of the towards the end. She is being seen by CHF clinic 02/12. New systolic HF. Thank you Yanique Mclaughlin APRN.NATALIIA Merino 02/05/2018 8:52 AM Signed 02/18/2018 2:00 w/ Yanique Merino 02/05/2018 9:44 AM Signed Patient notified Allergies As of Date: 02/04/2018 Noted Allergy Reaction SULFA (SULFONAMIDE ANTIBIOTICS) 08/21/2005 2 - Rash 7 - Swelling CODEINE 09/17/2005 4 - Hives Environmental [Other] 10/03/2011 16 - Unknown Comments: Dust mites, trees GUIAFENESIN [Other] 09/17/2005 1 - Mental Status Change PENICILLINS 08/21/2005 2 - Rash Date Reviewed: 02/03/2018 Reviewed by: Palak (Rn) BRANDEE Leonard - Fully Assessed Reason for Visit: Appointment [186] Prescriptions as of 02/04/2018 Sig: CARVEDILOL 3.125 MG TABLET Take 1 tablet by mouth twice * LISINOPRIL 2.5 MG TABLET Take 1 tablet by mouth once d* FUROSEMIDE 20 MG TABLET Take 1 tablet by mouth as nee* OMEPRAZOLE 20 MG CAPSULE,VIRGIE* TAKE 1 CAPSULE BY MOUTH TWICE* FLUTICASONE 500 MCG-SALMETERO* Inhale 1 Puff as instructed t* IPRATROPIUM BROMIDE 0.02 % SO* Use 2.5 mL via nebulizer four* ALBUTEROL SULFATE 2.5 MG/3 ML* Use 3 mL via nebulizer every * VENLAFAXINE ER 37.5 MG CAPSUL* TAKE ONE CAPSULE BY MOUTH ROSA ELENA* GUAIFENESIN ER 1,200 MG TABLE* Take 1 tablet by mouth twice * MONTELUKAST 10 MG TABLET TAKE 1 TABLET BY MOUTH DAILY * ALBUTEROL SULFATE HFA 90 MCG/* Inhale 2 Puffs as instructed * ONDANSETRON 4 MG DISINTEGRATI* Take 1 tablet by mouth every * DAILY MULTIVITAMIN TABLET Problem List As Of Date 02/04/2018 Noted Resolved Esophageal reflux [K21.9] INVALID FOR* More... Hodgkin's disease [201] INVALID FOR*11/06/2007 More... Absence of menstruation [N91.2] INVALID FOR*06/10/2012 Pneumonia, organism unspecified [J18.9] INVALID FOR*05/10/2011 TENOSYNOV HAND/WRIST NEC [M65.849, M65.839] INVALID FOR*12/19/2006 History of Hodgkin's disease [Z85.71] INVALID FOR* More... Personal history of pneumonia (recurrent) [Z87.*INVALID FOR* More... 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 Asthma [J45.909] INVALID FOR* More... Headache, migraine [G43.909] INVALID FOR* More... More... HFrEF (heart failure with reduced ejection frac*INVALID FOR* Acute on chronic combined systolic and diastoli*INVALID FOR* Pericardial effusion [I31.3] INVALID FOR* Encounter Status:Closed by SALLIE MERINO MA on 02/05/18 12 LEAD ELECTROCARDIOGRAM Observed: 02/03/2018 Status: F Source: [place] 3:32 PM [facility] REPOSITORY [facility] Cardiovascular Services [address] [place] [address] 12 Lead EKG 01/30/18517 MR#: [id number] Acct: [id number] Name: ZEESHAN FERNANDO Rep #: [id number] : 1965 52 From: Nilton Anders MD Attending Dr: Aaron Gutierrez MD Status: DIS IN Ordering Dr: Mamta Combs Date: 01/30/18 Location: [facility] Sex: F C Admitted: 01/29/18 Test Reason : AM EKG Blood Pressure : / mmHG Vent. Rate : 097 BPM Atrial Rate : 097 BPM P-R Int : 162 ms QRS Dur : 132 ms QT Int : 456 ms P-R-T Axes : 085 055 007 degrees QTc Int : 579 ms Normal sinus rhythm Right bundle branch block Abnormal ECG When compared with ECG of 29-JAN-2018 11:41, MANUAL COMPARISON REQUIRED, DATA IS UNCONFIRMED Reconfirmed by NILTON ANDERS MD ([id number]), newspaper or periodical editor LYNN TURK ([id number]) on 02/03/2018 3:31:50 PM Referred By: DR RAMIREZ Confirmed By:NILTON ANDERS MD 02/03/18 1531 Date Nilton Anders MD CC: Mamta Combs; Nikia Pillai MD; Aaron Gutierrez MD Signed NURSING PROG Observed: 02/03/2018 Status: COMPLETED Source: [place] 3:10 PM [facility] OTHER CAMPUS REPOSITORY HNO ID: [id number] Author: Palak (Rn) BRANDEE Leonard Service: (none) Author Type: Registered Nurse Type: Nursing Progress Note Filed: 02/03/2018 3:13 PM Note Text: TARIFF PUBLISHING AGENT notified of Dr Herman decision concerning Lisinopril. She stated, I agree. No new orders 12 LEAD ELECTROCARDIOGRAM Observed: 02/03/2018 Status: F Source: [place] 2:17 PM [facility] REPOSITORY [facility] Cardiovascular Services [address] [place] [address] 12 Lead EKG 01/29/18 1141 MR#: [id number] Acct: [id number] Name: ZEESHAN FERNANDO Cindy Rep #: [id number] : 1965 52 From: Nilton Anders MD Attending Dr: Aaron Gutierrez MD Status: DIS IN Ordering Dr: Garrison Rodriguez DO Date: 01/29/18 Location: U Sex: F C Admitted: 01/29/18 Test Reason : CHEST PRESSURE Blood Pressure : / mmHG Vent. Rate : 119 BPM Atrial Rate : 119 BPM P-R Int : 136 ms QRS Dur : 124 ms QT Int : 350 ms P-R-T Axes : 067 -02 047 degrees QTc Int : 492 ms Sinus tachycardia Right bundle branch block Abnormal ECG Confirmed by NILTON ANDERS MD ([id number]), newspaper or periodical editor LYNN TURK ([id number]) on 02/03/2018 2:16:29 PM Referred By: Confirmed By:NILTON ANDERS MD 02/03/18 1416 Date Nilton Anders MD CC: Nikia Pillai MD; Aaron Gutierrez MD; Garrison Rodriguez DO Signed CNDS Observed: 02/03/2018 Status: COMPLETED Source: [place] 2:05 PM CLINIC OTHER CAMPUS REPOSITORY O ID: [id number] Author: Danay Brown (Pharmacist) Service: Pharmacy Author Type: Pharmacist Type: Discharge Summaries Filed: 02/03/2018 2:36 PM Note Text: DISCHARGE MEDICATION REVIEW AND COUNSELING BY PHARMACY Patient Name: Zeeshan Fernando Account #: Data Unavailable Admission Date: 01/30/2018 Date of Contact: February 03, 2018 Time of Contact: 2:05 PM LEARNERS Persons Present: Patient Primary Learner: Patient and Family: daughter Medication list was reviewed by a Pharmacist for drug interactions or drug related problems:Yes The patient was counseled on the medication(s) listed below and was given the opportunity to ask questions regarding indication, dosage, side effects and drug interactions READINESS TO LEARN COGNITIVE ABILITY:Alert and oriented MOTIVATION TO LEARN:Interested FAMILY SUPPORT:High - Very involved in pt care INSTRUCTION PROVIDED TO:Patient and family member PATIENT LEARNS BEST BY:Individual Instruction FACTORS AFFECTING LEARNING:None PHYSICAL LIMITATIONS AFFECTING LEARNING:None LEARNING RESPONSE PATIENT / FAMILY RESPONSE:Verbalizes understanding of: The signs and symptoms of a worsening condition that warrant a call to the physician. The correct action to take if medication dose is missed. DANAY BROWN, PHARMACIST February 03, 2018 2:05 PM Medication List START taking these medications carvedilol 3.125 mg tablet Commonly known as: COREG Take 1 tablet by mouth twice daily with meals. furosemide 20 mg tablet Commonly known as: LASIX Take 1 tablet by mouth as needed (weight gain of 3 lbs overnight or 5 lbs in 1 week). lisinopril 2.5 mg tablet Take 1 tablet by mouth once daily. Start taking on: 02/04/2018 CONTINUE taking these medications * albuterol HFA 90 mcg/actuation inhaler Commonly known as: PROAIR HFA Inhale 2 Puffs as instructed every 4 hours as needed. For wheezing/shortness of breath. * albuterol 2.5 mg /3 mL (0.083 %) nebulizer solution Commonly known as: PROVENTIL Use 3 mL via nebulizer every 4 hours as needed. DAILY MULTIVITAMIN tablet Generic drug: multivitamin fluticasone-salmeterol 500-50 mcg/dose Dsdv Commonly known as: ADVAIR Inhale 1 Puff as instructed twice daily. guaiFENesin 1,200 mg Ta12 Commonly known as: MUCINEX Take 1 tablet by mouth twice daily as needed. ipratropium 0.02 % nebulizer solution Commonly known as: ATROVENT Use 2.5 mL via nebulizer four times daily. Unit dose pack of 25 montelukast 10 mg tablet Commonly known as: SINGULAIR TAKE 1 TABLET BY MOUTH DAILY AT BEDTIME. omeprazole 20 mg capsule Commonly known as: PriLOSEC TAKE 1 CAPSULE BY MOUTH TWICE DAILY BEFORE MEALS (0600/1600). 1/2 HR BEFORE MEAL. ondansetron orally disintegrating 4 mg disintegrating tablet Commonly known as: ZOFRAN ODT Take 1 tablet by mouth every 8 hours as needed. oxyCODONE-acetaminophen 5-325 mg tablet Commonly known as: PERCOCET Take 1 tablet by mouth every 8 hours as needed for Pain. venlafaxine ER 37.5 mg 24 hr capsule Commonly known as: EFFEXOR XR TAKE ONE CAPSULE BY MOUTH EVERY DAY * Notice: This list has 2 medication(s) that are the same as other medications prescribed for you. Read the directions carefully, and ask your doctor or other care provider to review them with you. Where to Get Your Medications Information about where to get these medications is not yet available ! Ask your nurse or doctor about these medications - carvedilol 3.125 mg tablet - furosemide 20 mg tablet - lisinopril 2.5 mg tablet After talking to patient, found out Percocet order was from 2-3 years ago and she would like it off her med list. Paged and got ok to delete it off discharge med list. NURSING PROG Observed: 02/03/2018 Status: COMPLETED Source: [place] 1:29 PM [facility] REPOSITORY HNO ID: [id number] Author: Palak TaylorRn) BRANDEE Leonard Service: (none) Author Type: Registered Nurse Type: Nursing Progress Note Filed: 02/03/2018 1:32 PM Note Text: Dr Herman notified of bp readings per TARIFF PUBLISHING AGENT Yaniquemariela Mclaughlin request and that she had requested for him to change discharge orders for Lisinopril 2.5 mg to 1.25 mg. He stated pt ok to go home on prescribed dose of 2.5 mg. Family and pt notified of same and in agreement. NURSING PROG Observed: 02/03/2018 Status: COMPLETED Source: [place] 1:01 PM [facility] REPOSITORY HNO ID: [id number] Author: Palak TaylorRn) BRANDEE Leonard Service: (none) Author Type: Registered Nurse Type: Nursing Progress Note Filed: 02/03/2018 1:02 PM Note Text: TARIFF PUBLISHING AGENTYanique, notified of pt bp readings. She asked to have Sound physician, Dr Herman, notified of same so as to change discharge Lisinopril to 1.25 mg. paged. CNDS Observed: 02/03/2018 Status: COMPLETED Source: [place] 12:42 PM [facility] REPOSITORY HNO ID: [id number] Author: Lexa Herman MD Service: Hospital Medicine Author Type: Physician Type: Discharge Summaries Filed: 02/03/2018 12:44 PM Note Text: DISCHARGE SUMMARY PATIENT NAME: Zeeshan Fernando Admission Information Admission Information ADMIT DATE: 01/30/2018 DISCHARGE DATE: 02/03/2018 MY DOCTORS AND MEDICAL TEAM: My Main Hospital Doctor: Lexa Herman, * Primary Care Provider: NIKIA PILLAI MD My Medical Team Members: Treatment Team: Attending Provider: Lexa Herman MD Consulting: Aaron Peterson Consulting: Gumaro Palafox MY CONDITION AT DISCHARGE: Stable REASON I WAS IN THE HOSPITAL: CHF exacerbation SUMMARY OF WHAT HAPPENED WHILE I WAS IN THE HOSPITAL: Transferred from [facility] on account of CHF exacerbation deemed secondary to pericardial effusion and valvular heart disease. Very low EF of about 20% noted. Patient underwent left heart cath that shoed normal coronaries and underwent a SANDEEP for evaluation of valvular structures and which showed no hemodynamically significant valvular abnormalities or significant pericardial effusion. Patient was seen by cardiology while hear and underwent effective diuresis with IV lasix Patient today is doing well and per cardiology is stable for discharge back home. Patient will follow up with the CHF clinic as an outpatient OTHER PROBLEMS/DIAGNOSIS: Principal Problem: Acute on chronic combined systolic and diastolic CHF (congestive heart failure) (FORMERLY [facility]) Active Problems: HFrEF (heart failure with reduced ejection fraction) ([facility]) Pericardial effusion Resolved Problems: * No resolved hospital problems. * OPERATIONS PERFORMED WHILE IN THE HOSPITAL: None IMPORTANT TEST/PROCEDURES: Echocardiogram and Heart Catheterization: No intervention TEST RESULTS NOT AVAILABLE AT THIS TIME: No pending results Discharge Disposition Discharge Disposition: Home With Self Care Follow Up Appointments Follow-Up Appointment With: CHF clinic When: In 1 week Additional Provider to Provider Information: Principal Problem: Acute on chronic combined systolic and diastolic CHF (congestive heart failure) ([facility]) POA: Unknown Assessment AND Plan: Active Problems: HFrEF (heart failure with reduced ejection fraction) ([facility]) POA: Yes Assessment AND Plan: Pericardial effusion POA: Unknown Assessment AND Plan: Resolved Problems: * No resolved hospital problems. * Ruled Out FOLLOW-UP APPOINTMENTS ALREADY SCHEDULED WITH A [facility] PROVIDER: Future Appointments Date Time Provider Department Center 02/12/2018 8:30 AM [facility]UR[facility] DISCHARGE MEDICATION: Current Discharge Medication List START taking these medications carvedilol (COREG) 3.125 mg Take 3.125 mg by mouth twice daily with meals. Qty: 60 tablet Refills: 1 lisinopril 2.5 mg Take 2.5 mg by mouth once daily. Qty: 30 tablet Refills: 1 furosemide (LASIX) 20 mg Take 20 mg by mouth as needed (weight gain of 3 lbs overnight or 5 lbs in 1 week). Qty: 30 tablet Refills: 1 CONTINUE these medications which have NOT CHANGED omeprazole (PRILOSEC) 20 mg capsule TAKE 1 CAPSULE BY MOUTH TWICE DAILY BEFORE MEALS (0600/1600). 1/2 HR BEFORE MEAL. Qty: 180 capsule Refills: 3 fluticasone-salmeterol (ADVAIR) 1 Puff Inhale 1 Puff as instructed twice daily. Qty: 3 Inhaler Refills: 1 Associated Diagnoses:Moderate asthma with exacerbation, unspecified whether persistent ipratropium (ATROVENT) 0.5 mg Use 0.5 mg via nebulizer four times daily. Unit dose pack of 25 Qty: 1 Vial Refills: 2 Associated Diagnoses:Moderate asthma with exacerbation, unspecified whether persistent albuterol (PROVENTIL) 2.5 mg Use 2.5 mg via nebulizer every 4 hours as needed. Qty: 1 Package Refills: 5 venlafaxine ER (EFFEXOR XR) 37.5 mg 24 hr capsule TAKE ONE CAPSULE BY MOUTH EVERY DAY Qty: 90 capsule Refills: 1 guaiFENesin 1,200 mg Take 1,200 mg by mouth twice daily as needed. Qty: 20 tablet Refills: 1 montelukast (SINGULAIR) 10 mg tablet TAKE 1 TABLET BY MOUTH DAILY AT BEDTIME. Qty: 90 tablet Refills: 3 albuterol HFA (PROVENTIL HFA, VENTOLIN HFA) 2 Puffs Inhale 2 Puffs as instructed every 4 hours as needed. For wheezing/shortness of breath. Qty: 1 Inhaler Refills: 2 ondansetron orally disintegrating (ZOFRAN ODT) 4 mg Take 4 mg by mouth every 8 hours as needed. Qty: 12 tablet Refills: 0 Associated Diagnoses:Nausea and vomiting, intractability of vomiting not specified, unspecified vomiting type oxyCODONE-acetaminophen (PERCOCET) 1 tablet Take 1 tablet by mouth every 8 hours as needed for Pain. Qty: 45 tablet Refills: 0 Associated Diagnoses:History of Hodgkin's disease DAILY MULTIVITAMIN TAB Refills: 0 Discharge Physical Exam: VITAL SIGNS: BP 96/62 Pulse 102 Temp 36.3 ?C (97.3 ?F) (Oral) Resp 18 Ht 175.3 cm (5' 9) Wt 59 kg (130 lb 1.1 oz) LMP 02/18/2004 SpO2 100% BMI 19.21 kg/m2 GENERAL: Alert, no distress, cooperative SKIN: Skin color, texture, turgor normal. No rashes or lesions. NECK: No jugulovenous distention, No carotid bruits, Carotid pulse normal contour, Supple LUNGS: Lungs clear to auscultation, Good diaphragmatic excursion CARDIAC: Normal S1 and S2; no rubs, murmurs, or gallops ABDOMEN: Abdomen soft, non-tender, BS normal, No masses or organomegaly NEURO: Sensation grossly intact, Cranial nerves II-XII intact TIME OF CARE: Discharge Management: I personally spent greater than 30 minutes involved in the discharge management of this patient. 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 PT indicated a Anabaptist background. PT indicated the power cleaner operator has administered Holy Communion. Prayed before leaving. Entry Level Electrical Engineer Signature: CHAPLAIN Adán To contact the Spiritual Care Department: Please call [phone] or Page the On-Call Entry Level Electrical Engineer at pager [phone] Thank you for the opportunity to be of service. This is an electronically created document. IF PRINTED, PLEASE DO NOT REMOVE FROM THE CHART OR MODIFY PRINTED COPY. PROGRESS Observed: 02/03/2018 Status: COMPLETED Source: [place] 11:16 AM [facility] OTHER BOLES REPOSITORY HNO ID: [id number] Author: Yanique Mclaughlin Service: Cardiovascular Disease Author Type: Nurse Practitioner Type: Progress Notes Filed: 02/03/2018 11:49 AM Note Text: PROGRESS NOTE CARDIOLOGY SERVICE SERVICE DATE: 02/03/2018 SERVICE TIME: 11:16 AM Subjective INTERIM HISTORY: Feeling good and ready to go home. Denies CP/SOB is happy to be able to lay flat again. CARDIAC STATUS: As above Tele SR- ST- 90's-low 100's Objective PHYSICAL EXAM: Body mass index is 19.21 kg/(m2). O2 Therapy: Room Air No Data Recorded Patient Vitals for the past 24 hrs: BP Temp Temp src Pulse Resp SpO2 Weight 02/03/18 0855 100/64 - - - - - - 02/03/18 0747 98/68 36.9 ?C (98.4 ?F) Oral 103 16 100 % - 02/03/18 0600 - - - - - - 59 kg (130 lb 1.1 oz) 02/03/18 0553 95/67 36.4 ?C (97.5 ?F) Oral 102 18 97 % - 02/02/18 1823 99/69 36.6 ?C (97.9 ?F) Tympanic 108 18 99 % - 02/02/18 1658 100/72 - - 111 16 100 % - 02/02/18 1543 92/81 - - 109 16 98 % - 02/02/18 1443 92/68 36.4 ?C (97.5 ?F) Oral 108 18 100 % - 02/02/18 1430 89/59 - - 103 18 - - 02/02/18 1400 87/59 - - 108 20 99 % - 02/02/18 1330 86/65 - - 106 20 98 % - 02/02/18 1300 94/67 - - 113 25 95 % - 02/02/18 1230 96/74 - - 100 25 98 % - 02/02/18 1215 99/70 - - 117 18 99 % - Pleasant, comfortable, not in acute distress. Family at bedside and discussed homegoing instructions Awake, alert, oriented times 3. Moves all extremities. SKIN: No rash or lumps. HEENT: Normocephalic, face symmetrical. NECK: Supple, no JVD LUNGS: Faint expir wheeze R base, otherwise CTA but diminished CARDIAC: regular- tachy, S1 and S2, no murmurs. ABDOMEN: Soft, nontender, bowel sounds present. EXTREMITIES: No edema. MEDICATIONS: Current hospital medications: [START ON 02/04/2018] lisinopril 2.5 mg tab(s) 2.5 mg ORAL DAILY carvedilol 3.125 mg tab(s) (COREG) 3.125 mg ORAL BID w MEALS pill splitter (patient-specific) 1 Each Miscell. (Med.Supl.;Non- Drugs) PRN sodium chloride-aloe vera topical nasal gel (AYR GEL w/ALOE) INTRANASAL PRN albuterol 2.5 mg /3 mL (0.083 %) 2.5 mg (PROVENTIL) 2.5 mg INHALATION q 4 H PRN oxyCODONE-acetaminophen 5-325 mg 1 tablet (PERCOCET) 1 tablet ORAL q 8 H PRN 0.9% NaCl 3-5 mL 3-5 mL INTRAVENOUS q 12 H enoxaparin 40 mg injection (LOVENOX) 40 mg SUBCUTANEOUS DAILY pantoprazole DR 40 mg tab(s) (PROTONIX) 40 mg ORAL DAILY (6 AM) fluticasone-vilanterol 200-25 mcg/dose 1 Inhalation (BREO ELLIPTA) 1 Inhalation INHALATION DAILY guaiFENesin 1,200 mg ER tab(s) (MUCINEX) 1,200 mg ORAL q 12 H PRN DATA: Diagnostic tests reviewed for today's visit: Most recent labs and imaging results. Past 72 Hour Labs: Recent Labs 02/03/18 0602 02/02/18 0400 GLUC 91 91 BUN 20* 15 CREAT 0.71 0.83 NA 132* 131* K 4.0 3.8 CHLOR 101 97* CO2 26 29 TPROT -- 7.0 ALB -- 3.5 CA 8.6 8.9 ALKPHOS -- 104 TBILI -- 0.6 AST -- 55* ALT -- 72 MG -- 2.3 Last Lab Drawn: LDL Chol, Nallely 86 11/06/2009 Testing SANDEEP 02/02: Final Impressions: Left Atrium There is no evidence of a thrombus in the left atrial body or appendage. Normal pulmonary venous flow pattern for age. The left atrium appears normal in size. Mitral Valve Moderate (2+) mitral valve regurgitation. Mitral regurgitataion appears to be due to annular dilation and apical tethering. Aortic Valve The aortic valve is tricuspid. Mild to moderate (1-2+) aortic valve regurgitation. Tricuspid Valve Structurally normal tricuspid valve with trivial tricuspid regurgitation. Left Ventricle Severe left ventricular systolic dysfunction. The visually estimated LVEF is 20-25%. Limited echo 02/02: Pericardium A small, circumferential pericardial effusion is present. There is no echocardiographic evidence for pericardial tamponade. Left Ventricle Severe left ventricular systolic dysfunction. The visually estimated LVEF is 20-25% [facility] 02/02: FINDINGS: Hemodynamics: LVEDP: 7 mmHg LV - AORTA: No gradient. ? Coronary Angiography: Left Main: Normal ? Left Anterior Descending: Large normal artery Diagonal: ? Circumflex: Normal Marginal: ? Right Coronary Artery: Large dominant Normal artery ? Collaterals: None ? Assessment/Plan Mrs Fernando is a 52 yo CF with PMH of non-hodgkins lymphoma: s/p stem cell transplant and radiation therapy with chemo in 1999, COPD, bronchiectasis who presented from [place] ED for worsening MADDEN and orthopnea. New Acute systolic/diastolic HF (EF 20-25%) - ? viral etiology - C showed clean coronaries - is euvolemic now at 130lbs - plan for home today with lasix 20 mg prn weight gain of 3lbs overnight or 5 lbs in a week 2/2 hypotension. This has been discussed with patient and family. Daughter is a RN and they are agreeable to daily weight monitoring - tolerating low dose coreg 3.125 mg BID and lisinopril 1.25 mg daily. Will increase lisinopril to 2.5 mg today. RN will give dose and monitor BP after. If tolerated, she will go home on the 2.5 mg daily - she will follow up with HF clinic 02/12 @ 0830 and have an OV the following week. She has elected to follow with Dr Weber. Pericardial effusion - likely 2/2 decompensated HF - repeat limited echo showed small effusion. No signs of tamponade Valvular HD- mod MR/ mild-mod AR - per SANDEEP - cont to monitor Hyponatremia - NA 132 today- stable - will need BMP in 1 week as OP Ok for discharge today. Discussed plan with Dr Weber. Spoke at length with patient and family regarding daily weights, fluid restriction, 2 gm NA diet and monitoring BP at home. They are agreeable to prn lasix 20 mg as noted above. She has f/u in CHF cilnic next week 02/12 at 0830 and will follow with us in office week after. She will need a BMP in 1 week. Questions answered. Daughter is RN and will be helping her mom at home. Please page if questions. Thank you SIGNATURE: Yanique Mclaughlin APRN.TARIFF PUBLISHING AGENT PATIENT NAME: Zeeshan Fernando DATE: February 03, 2018 TIME: 11:16 AM PAGER/CONTACT #: [phone] ALLIED HEALTH Observed: 02/03/2018 Status: COMPLETED Source: [place] 11:10 AM CLINIC OTHER CAMPUS REPOSITORY O ID: [id number] Author: Kristen Solis (Cns) Service: Nursing Author Type: Nurse Specialist Type: Allied Health Filed: 02/03/2018 11:17 AM Note Text: HEART FAILURE COORDINATOR SERVICE DATE: 02/03/2018 SERVICE TIME: 11:10 AM Referral Source: Yanique Mclaughlin TARIFF PUBLISHING AGENT Met at bedside with patient, daughters and spouse. Heart failure written information and verbal education provided regarding: Disease Process: Reasonable level of understanding, Asked appropriate/meaningful questions, Further counseling, education and teaching warranted Heart Failure Zones: Good level of understanding, Asked appropriate/meaningful questions, Further counseling, education and teaching warranted Heart Failure Clinic Services: Good level of understanding Patient Response and Outcomes: Heart Failure Clinic appointment scheduled for 02/12/18 @ 8:30AM Additional Comments: Confirmed that patient owns a working scale. Reinforced the importance of daily weight tracking, maintaining sodium and fluid restrictions, medication compliance, physical activity, prompt reporting of yellow zone symptoms to HF Clinic or Pest Locator and follow-up care appointments with providers. All questions answered. Patient, spouse and family verbalized understanding was able to repeat back information. HF Clinic staff updated on patient. Cardiology TARIFF PUBLISHING AGENT notified of date/time of scheduled HF Clinic appointment. RN updated. SIGNATURE: Kristen Solis APRN.[facility] PATIENT NAME: Zeeshan Fernando DATE: February 03, 2018 TIME: 11:10 AM PAGER/CONTACT #: [phone] BASIC PANEL Collected: 02/03/2018 Status: F Source: [facility] 6:02 AM HEALTH SYSTEM REPOSITORY TYPE CODE TESTS RESULT OUT OF REFERENCE UNITS RANGE LAB NA(LOINC) 136-145 mEq/L Low Sodium Blood 132 LAB K(LOINC) 3.5-5.1 mEq/L Potassium Blood 4.0 LAB CL(LOINC) 98-107 mEq/L Chloride Blood 101 LAB CO2(LOINC) 21-32 mEq/L CO2 Blood 26 LAB GLU(LOINC) 70-99 mg/dL Glucose Blood 91 LAB BUN(LOINC) 7-18 mg/dL BUN High Blood 20 LAB CREA(LOINC 0.51-0.95 mg/dL ) Creatinine Blood 0.71 LAB CA(LOINC) 8.5-10.1 mg/dL Calcium Blood 8.6 LAB ANGAP(LOIN 8-16 C) Anion Gap 9 Performed By: #### P8 #### [facility] [address] [address] MDRD GFR Collected: 02/03/2018 Status: F Source: [facility] 6:02 AM HEALTH SYSTEM REPOSITORY TYPE CODE TESTS RESULT OUT OF RANGE REFERENCE UNITS LAB GFRFN(LOINC >60mL/min/1.73m ) 2 eGFR >60 Result Comment: If the patient is , multiply the result by 1.210. Performed By: #### GFR #### [facility] [address] [address] PROGRESS Observed: 02/02/2018 Status: COMPLETED Source: [place] 7:28 PM CLINIC OTHER CAMPUS REPOSITORY HNO ID: [id number] Author: Lexa Herman MD Service: Hospital Medicine Author Type: Physician Type: Progress Notes Filed: 02/02/2018 7:32 PM Note Text: DEPARTMENT OF HOSPITAL MEDICINE PROGRESS NOTE SERVICE DATE: 02/02/2018 SERVICE TIME: 7:28 PM Hospital Medicine/Primary Attending: Lexa Herman MD NIGHT AND WEEKEND COVERAGE: After 7pm please page [phone] CHIEF COMPLAINT: F/u for pericardial effsuion and CHF exacerbation SUBJECTIVE: Patient out of room for cardiac testing OBJECTIVE: PHYSICAL EXAM: BP 99/69 Pulse 108 Temp (Src) 97.9 (Tympanic) Resp 18 Ht 5' 9 (1.75m) Wt 124 lb 5.4 oz (56.4kg) SpO2 99% LMP 02/18/2004 BMI 18.35 kg/(m2). General - AANDOx3, NAD, Calm MEDICATIONS: Current hospital medications: carvedilol 3.125 mg tab(s) (COREG) 3.125 mg ORAL BID w MEALS lisinopril 1.25 mg tab(s) 1.25 mg ORAL DAILY pill splitter (patient-specific) 1 Each Miscell. (Med.Supl.;Non- Drugs) PRN sodium chloride-aloe vera topical nasal gel (AYR GEL w/ALOE) INTRANASAL PRN albuterol 2.5 mg /3 mL (0.083 %) 2.5 mg (PROVENTIL) 2.5 mg INHALATION q 4 H PRN oxyCODONE-acetaminophen 5-325 mg 1 tablet (PERCOCET) 1 tablet ORAL q 8 H PRN 0.9% NaCl 3-5 mL 3-5 mL INTRAVENOUS q 12 H enoxaparin 40 mg injection (LOVENOX) 40 mg SUBCUTANEOUS DAILY pantoprazole DR 40 mg tab(s) (PROTONIX) 40 mg ORAL DAILY (6 AM) fluticasone-vilanterol 200-25 mcg/dose 1 Inhalation (BREO ELLIPTA) 1 Inhalation INHALATION DAILY guaiFENesin 1,200 mg ER tab(s) (MUCINEX) 1,200 mg ORAL q 12 H PRN DATA: Diagnostic tests reviewed for today's visit: CBC: No results for input(s): WBC, RBC, HB, HCT, PLT, MCV, MCH, MPV, RDW in the last 24 hours. Coags: No results for input(s): INR, APTT in the last 24 hours. Invalid input(s): PT BMP: Recent Labs 02/02/18 0400 NA 131* K 3.8 CHLOR 97* CO2 29 BUN 15 CREAT 0.83 GLUC 91 CMP: Recent Labs 02/02/18 0400 NA 131* K 3.8 CHLOR 97* CO2 29 BUN 15 CREAT 0.83 GLUC 91 TPROT 7.0 CA 8.9 MG 2.3 TBILI 0.6 ALKPHOS 104 ALT 72 AST 55* ANION 9 Cardiac Enzymes: No results for input(s): CK, MB, CKMB, TROPT in the last 24 hours. Liver Function, Amylase, Lipase: Recent Labs 02/02/18 0400 TPROT 7.0 ALB 3.5 ALT 72 AST 55* ALKPHOS 104 TBILI 0.6 MG/PHOS: Recent Labs 02/02/18 0400 MG 2.3 Renal Panel: Recent Labs 02/02/18 0400 CREAT 0.83 BUN 15 GLUC 91 CA 8.9 CHLOR 97* K 3.8 CO2 29 NA 131* Heme: No results for input(s): RETICP, ABSRETIC, LD, RENETTA, FE, TIBC, TRANSFERSAT in the last 24 hours. No results found for: UALBCR Assessment/Plan 1. Acute on chronic systolic CHF. Continue with diutetics 2. Pericardial effusion. Uncertain about etiology VTE Prophylaxis: Early Ambulation Disposition: Home Plan of care discussed with: RN SIGNATURE: Lexa Herman MD PATIENT NAME: Zeeshan Fernando DATE: February 02, 2018 TIME: 7:28 PM PAGER/CONTACT #: cc PROGRESS Observed: 02/02/2018 Status: COMPLETED Source: [place] 4:49 PM [facility] OTHER [facility]OL[facility] REPOSITORY HNO ID: [id number] Author: Yanique Holland) Chris Service: Cardiovascular Disease Author Type: Nurse Practitioner Type: Progress Notes Filed: 02/02/2018 5:06 PM Note Text: Saw pt in follow-up s/p LHC (clean coronaries). Doing well. R radial site d/i with +2 pulse. Denies CP, SOB but does admit to lightheadedness upon standing at times. BP's remain in high 80-90's and after discussion with Dr Duncan and Dr Weber, will start low dose coreg 3.125 mg BID and lisinopril 1.25 mg with hold parameters.Lungs CTA, HR regular-tachy 90- low 100's. No LE edema. Family was at bedside and discussed HF measures with them. Will have EXHIBIT TECHNICIAN for HF come and do teaching tomorrow. Will continue to follow. 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 No Advance Directive: Patient declining additional information on advance directives at this time. Health Literacy: 1. How often do you need to have someone help you when you read instructions, pamphlets, or other written material from your doctor or pharmacy? Never - 1 2. How confident are you filling out medical forms by yourself? Extremely - 1 If Patient scores > 3 on either question, the following interventions were put into place: Patient did not score > 3 FUNCTIONAL AND COGNITIVE/BEHAVIORAL PRIOR TO ADMISSION: Baseline Mental Status: Alert AND Oriented, Person, Place , Time, Situation and Age Appropriate Functional Status: Independent Does Patient Currently Receive Any Community Services or Home Care? None Equipment Prior to Admission: None Has the Patient Been in a Chcf Facility in the Past 30 days? No SOCIAL: Living Arrangement: Home Lives With: Spouse and Son Financial Resources: Employed: [employer] Primary Contact: Extended Emergency Contact Information Primary Emergency Contact: Mahendra Fernando Address: [address] [place] [address] Mobile Relation: Spouse Supportive: Yes Other Important Patient Contacts: Family: Name: Apollo Tamayo Cell Caregiver Assessment: Caregiver is ready, willing and able to meet the patient's needs as recommended by the inter-professional team? Yes Patient's transition needs and plan for meeting these needs: Patient's family willing/ able to care for her as needed. Does the patient have an acute stroke diagnosis, or has the patient had a stroke during this admission? No Medication Adherence: I am convinced of the importance of my prescription medication: Agree completely - 0 I worry that my prescription medication will do more harm than good to me Disagree completely - 0 I feel financially burdened by my [id number] expenses for my prescription medication: Disagree completely - 0 Patient is categorized as low risk < 2 Are you interested in bedside delivery of your medications? No Food Concerns: In the Last Month, Have You had Trouble Getting Food? No trouble getting food During the Last Month, Have You Worried Whether Your Food Would Run Out Before You Had Enough Money to Buy More? No Is the Patient Psychosocially Complex? No ASSESSMENT AND PLAN: Medical Needs: 2 or more chronic diseases Psychosocial Needs: None FREEDOM OF CHOICE EXPLAINED: N/A POTENTIAL TRANSITION PLANS To Be Determined Patient independent at home prior to admission. Patient states plan is home at discharge. Patient's family willing/ able to care for her as needed and will provide transportation. Will continue to follow clinical progress for discharge needs. SIGNATURE: Nicolasa Graves RN PATIENT NAME: Zeeshan Fernando DATE: February 02, 2018 TIME: 3:07 PM PAGER/CONTACT #: [phone] NURSING PROG Observed: 02/02/2018 Status: COMPLETED Source: [place] 2:03 PM [facility] REPOSITORY HNO ID: [id number] Author: Jaylyn Farrell RN Service: ASSESSMENT Author Type: Registered Nurse Type: Nursing Progress Note Filed: 02/02/2018 2:05 PM Note Text: 1355 TR band removed, 2+ radial pulse upper arm soft + cap refill. Band aid applied. Family at bedside. Home instructions initiated for radial d/c. Cedrick IRVIN updated on band removal. NURSING PROG Observed: 02/02/2018 Status: COMPLETED Source: [place] 1:04 PM [facility] REPOSITORY HNO ID: [id number] Author: Jaylyn Farrell RN Service: ASSESSMENT Author Type: Registered Nurse Type: Nursing Progress Note Filed: 02/02/2018 1:05 PM Note Text: Nursing Progress Note Patient Name: Zeeshan Fernando Patient Location: [facility] 1300 Air release initiated -2 cc 2+ radial pulse, upper arm remains soft hand warm + cap refill. Continue to monitor. This note was completed by: Jaylyn Farrell RN BRIEF OP NOT Observed: 02/02/2018 Status: COMPLETED Source: [place] 12:10 PM [facility] REPOSITORY HNO ID: [id number] Author: Aaron Koenig Service: Cardiovascular Disease Author Type: Physician Type: Brief Op Note Filed: 02/02/2018 12:14 PM Note Text: CARDIAC CATHETERIZATION REPORT PATIENT NAME: Zeeshan Fernando SERVICE DATE: 02/02/2018 SERVICE TIME: 12:11 PM Pest Locator: Aaron Koenig MD Attending: Lexa Herman, * RECOMMENDATIONS: Medical treatment for non-ischemic cardiomyopathy Pre-Procedure Diagnosis: Congestive Heart Failure Post- Procedure Diagnosis: Normal coronary arteries. Procedure: Left Heart Catheterization Access: Right Radial Artery Under Local anesthesia the Right Radial Artery was entered by Modified Seldinger's technique using a micro puncture needle. A 5F sheath was introduced into the Right Radial Artery . Selective injections were made in the left and right coronary arteries in various right and left anterior oblique views. An LV angiogram was performed in 30 degree MAYBERRY. The sheath was removed and hemostatsis was established using R-Band closure device. There was no bleeding at the end of the procedure. The pt was returned to the recovery room in a stable condition. FINDINGS: Hemodynamics: LVEDP: 7 mmHg LV - AORTA: No gradient. Coronary Angiography: Left Main: Normal Left Anterior Descending: Large normal artery Diagonal: Circumflex: Normal Marginal: Right Coronary Artery: Large dominant Normal artery Collaterals: None LV Gram: LVEF: Wall Motion: Complications: None SIGNATURE: Aaron Koenig MD DATE: February 02, 2018 TIME: 12:11 PM BRIEF OP NOT Observed: 02/02/2018 Status: COMPLETED Source: [place] 9:13 AM [facility] REPOSITORY HNO ID: [id number] Author: Heron Bergman Service: Cardiovascular Disease Author Type: Physician Type: Brief Op Note Filed: 02/02/2018 9:15 AM Note Text: PRELIMINARY FINDINGS ONLY. FULL REPORT TO FOLLOW AFTER IMAGE PROCESSING AND FINAL REVIEW LV: Severe LV impairment EF 20% LA/ JADA: No smoke or thrombi in the JADA. RV: Normal. RA: Normal. VALVES:Mild AR moderate MR. No PV reversal. MASSES: None SHUNTS: Negative by color and bubble contrast. AORTA: Normal in size mild atherosclerotic changes PROBE TIME: 13 min. DIFFICULTY: NONE MEDS: Meperidine 50 mg Midazolam 5 mg HCG, QUAL. SERUM Collected: 02/02/2018 Status: F Source: [facility] 8:00 AM HEALTH SYSTEM REPOSITORY TYPE CODE TESTS RESULT OUT OF REFERENCE UNITS RANGE LAB SEHCG(LOINC Negative ) HCG, Negative Qual. Serum Performed By: #### SEHCG #### [place] [address] COMPREHENSIVE PANEL Collected: 02/02/2018 Status: F Source: [facility] 4:00 AM HEALTH SYSTEM REPOSITORY TYPE CODE TESTS RESULT OUT OF REFERENCE UNITS RANGE LAB NA(LOINC) 136-145 mEq/L Low Sodium Blood 131 LAB K(LOINC) 3.5-5.1 mEq/L Potassium Blood 3.8 LAB CL(LOINC) 98-107 mEq/L Low Chloride Blood 97 LAB CO2(LOINC) 21-32 mEq/L CO2 Blood 29 LAB GLU(LOINC) 70-99 mg/dL Glucose Blood 91 LAB BUN(LOINC) 7-18 mg/dL BUN Blood 15 LAB CREA(LOINC 0.51-0.95 mg/dL ) Creatinine Blood 0.83 LAB CA(LOINC) 8.5-10.1 mg/dL Calcium Blood 8.9 LAB ALB(LOINC) 3.4-5.0 g/dL Albumin Blood 3.5 LAB TP(LOINC) 6.4-8.2 g/dL Total Protein 7.0 LAB AST(LOINC) 9-37 U/L AST-SGOT High Blood 55 LAB ALT(LOINC) 12-78 U/L ALT-SGPT Blood 72 LAB ALKP(LOINC 46-116 U/L ) Alk Phosphatase 104 LAB BILIT(LOIN 0.2-1.0 mg/dL C) Total Bilirubin 0.6 LAB ANGAP(LOIN 8-16 C) Anion Gap 9 Performed By: #### P14 #### [place] [address] MAGNESIUM BLOOD Collected: 02/02/2018 Status: F Source: [facility] 4:00 AM HEALTH SYSTEM REPOSITORY TYPE CODE TESTS RESULT OUT OF REFERENCE UNITS RANGE LAB MAG(LOINC) 1.6-2.6 mg/dL Magnesium Blood 2.3 Performed By: #### MAG #### [place] [address] MDRD GFR Collected: 02/02/2018 Status: F Source: [facility] 4:00 AM [employer] [facility] REPOSITORY TYPE CODE TESTS RESULT OUT OF RANGE REFERENCE UNITS LAB GFRFN(LOINC >60mL/min/1.73m ) 2 eGFR >60 Result Comment: If the patient is , multiply the result by 1.210. Performed By: #### GFR #### [place] [address] PROGRESS Observed: 02/01/2018 Status: COMPLETED Source: [place] 4:04 PM CLINIC OTHER CAMPUS REPOSITORY HNO ID: [id number] Author: Rod Torres Service: Hospital Medicine Author Type: Physician Type: Progress Notes Filed: 02/01/2018 4:15 PM Note Text: PROGRESS NOTE - INTERNAL MEDICINE PATIENT NAME: Zeeshan Fernando SERVICE DATE: 02/01/2018 SERVICE TIME: 4:04 PM INTERVAL HPI: She reports that she is doing better. Denied fever or chills, noted improved breathing with ambulation. OBJECTIVE: Medications reviewed in [facility] PHYSICAL EXAM: BP 91/69 Pulse 107 Temp 36.4 ?C (97.5 ?F) (Oral) Resp 16 Ht 175.3 cm (5' 9) Wt 58.9 kg (129 lb 13.6 oz) LMP 02/18/2004 SpO2 97% BMI 19.18 kg/m2 Body mass index is 19.18 kg/(m2). GENERAL: Healthy, alert, no distress, cooperative, Smiling SKIN: Skin color, texture, turgor normal. No rashes or lesions. NECK: No jugulovenous distention, No carotid bruits, Carotid pulse normal contour, Supple LUNGS: Lungs clear to auscultation. Good diaphragmatic excursion. CARDIAC: Normal S1 and S2; no rubs, murmurs, or gallops ABDOMEN: Abdomen soft, non-tender. BS normal. No masses or organomegaly. EXTREMITIES: BLE without edema, no calf tenderness, +pulses NEURO: AxOx3, moves all extremities, no focal deficits DATA: Diagnostic tests were reviewed for today's visit including: Lab Results Component Value Date/Time GLUC 93 01/31/2018 04:21 AM K 3.4 (L) 01/31/2018 04:21 AM NA 133 (L) 01/31/2018 04:21 AM CHLOR 96 (L) 01/31/2018 04:21 AM CO2 32 01/31/2018 04:21 AM CREAT 0.96 (H) 01/31/2018 04:21 AM BUN 19 (H) 01/31/2018 04:21 AM ANION 8 01/31/2018 04:21 AM CA 8.9 01/31/2018 04:21 AM TPROT 6.2 08/18/2000 02:26 PM ALB 4.2 08/18/2000 02:26 PM TBILI 0.6 08/18/2000 02:26 PM ALKPHOS 64 08/18/2000 02:26 PM AST 31 08/18/2000 02:26 PM ALT 34 08/18/2000 02:26 PM WBC 5.93 01/31/2018 04:21 AM HB 11.7 01/31/2018 04:21 AM HB 11.5 01/15/2018 02:54 PM HCT 36.1 01/31/2018 04:21 AM MCV 86.0 01/31/2018 04:21 AM PLT 160 (L) 01/31/2018 04:21 AM INR 1.12 07/10/2000 04:00 AM ASSESSMENT AND PLAN: 1. Congestive heart failure systolic dysfunction: Continue to optimization of CHF. Cardio and CTS following Monitor output. 2. Pericardial Effusion: Per CTS; 3. GERD: On PPI 4. Hypokalemia: Repeat CMP and Mag in am. Replace as needed. SIGNATURE: Rod Torres MD DATE: February 01, 2018 TIME: 4:04 PM BASIC PANEL Collected: 02/01/2018 Status: F Source: [facility] 3:35 PM HEALTH SYSTEM REPOSITORY TYPE CODE TESTS RESULT OUT OF REFERENCE UNITS RANGE LAB NA(LOINC) 136-145 mEq/L Low Sodium Blood 131 LAB K(LOINC) 3.5-5.1 mEq/L Potassium Blood 3.8 LAB CL(LOINC) 98-107 mEq/L Low Chloride Blood 95 LAB CO2(LOINC) 21-32 mEq/L CO2 Blood 30 LAB GLU(LOINC) 70-99 mg/dL Glucose Blood 87 LAB BUN(LOINC) 7-18 mg/dL BUN Blood 18 LAB CREA(LOINC 0.51-0.95 mg/dL ) Creatinine Blood 0.82 LAB CA(LOINC) 8.5-10.1 mg/dL Calcium Blood 8.5 LAB ANGAP(LOIN 8-16 C) Anion Gap 10 Performed By: #### P8 #### [facility] [address] [place] [address] MDRD GFR Collected: 02/01/2018 Status: F Source: [facility] 3:35 PM HEALTH SYSTEM REPOSITORY TYPE CODE TESTS RESULT OUT OF RANGE REFERENCE UNITS LAB GFRFN(LOINC >60mL/min/1.73m ) 2 eGFR >60 Result Comment: If the patient is , multiply the result by 1.210. Performed By: #### GFR #### [facility] [address] [place] [address] CONSULT PROG Observed: 02/01/2018 Status: COMPLETED Source: [place] 11:53 AM CLINIC OTHER CAMPUS REPOSITORY HNO ID: [id number] Author: Bassem Weber Service: Cardiovascular Medicine Author Type: Physician Type: Consult Progress Note Filed: 02/01/2018 11:59 AM Note Text: CARDIOLOGY CONSULT PROGRESS NOTE CARDIOLOGY ATTENDING: Dr Weber Date and Reason for initial consult: PERTINENT ROS: Feeling better. SOB better. Occ lightheadedness MEDICATIONS: Current hospital medications: lisinopril 2.5 mg tab(s) 2.5 mg ORAL DAILY furosemide 40 mg injection (LASIX) 40 mg INTRAVENOUS DAILY sodium chloride-aloe vera topical nasal gel (AYR GEL w/ALOE) INTRANASAL PRN albuterol 2.5 mg /3 mL (0.083 %) 2.5 mg (PROVENTIL) 2.5 mg INHALATION q 4 H PRN oxyCODONE-acetaminophen 5-325 mg 1 tablet (PERCOCET) 1 tablet ORAL q 8 H PRN 0.9% NaCl 3-5 mL 3-5 mL INTRAVENOUS q 12 H enoxaparin 40 mg injection (LOVENOX) 40 mg SUBCUTANEOUS DAILY pantoprazole DR 40 mg tab(s) (PROTONIX) 40 mg ORAL DAILY (6 AM) fluticasone-vilanterol 200-25 mcg/dose 1 Inhalation (BREO ELLIPTA) 1 Inhalation INHALATION DAILY guaiFENesin 1,200 mg ER tab(s) (MUCINEX) 1,200 mg ORAL q 12 H PRN PHYSICAL EXAM: Vital Signs 02/01/18 0500 02/01/18 0713 02/01/18 0915 02/01/18 1131 BP: 107/70 91/70 100/65 Pulse: 102 107 108 Resp: 18 18 Temp: 36.5 ?C (97.7 ?F) 36.4 ?C (97.5 ?F) TempSrc: Oral Oral SpO2: 98% 99% Weight: 58.9 kg (129 lb 13.6 oz) Height: Temp (24hrs), Av.6 ?C (97.9 ?F), Min:36.4 ?C (97.5 ?F), Max:36.8 ?C (98.2 ?F) Intake/Output: Intake/Output Summary (Last 24 hours) at 02/01/18 1153 Last data filed at 02/01/18 0800 Gross per 24 hour Intake 720 ml Output 700 ml Net 20 ml Gen: AANDO x 3 Neck: no jugular venous distention Cardiac: RRR without murmur, gallop, or rubs. No ectopy. Resp: clear to auscultation bilaterally Abd: Soft, non-tender. Bowel sounds normal. No masses, organomegaly, hernias. Ext: no edema, moves all extremities with no apparent weakness Tele: normal sinus rhythm Labs: No results found for this basename: CK:3,MB:3,MBP:3,CKMBP:3,TROPT:3 Recent Labs 01/31/18 042 WBC 5.93 HB 11.7 HCT 36.1 PLT 160* Recent Labs 01/31/18 0421 NA 133* K 3.4* CHLOR 96* CO2 32 BUN 19* CREAT 0.96* GLUC 93 LDL Chol, [place] 86 11/06/2009 ASSESSMENT AND PLAN: 1. Acute systolic and diastolic heart failure: -2.1L with decrease in weight. Will discontinue lasix as SBP in 90s. Replace K. To keep strict intake output chart and daily weights. She also has pericardial effusion and we do not want to make her to dehydrated to the point where we cause tamponade. Will hold off on Coreg 3.125 mg twice a day and lisinopril 2.5 mg due to low normal BP. She says her baseline is low. The patient says her blood pressure usually runs on the lower side. We will hold off on Aldactone for now. Potassium is to be supplemented as her K is 3.4 today. To keep potassium above 4 and magnesium above 2. 2. Pericardial effusion: This is likely in the setting of decompensated heart failure. Clinically, there is no signs of tamponade. There is no JVD. No pulsus paradoxus by pulse and BP method. Her heart rate is low 100s at this time. We will continue to monitor her for signs of tamponade. Will get repeat limited echo in AM for tamponade. I have explained to pt and daughter that if she feels lightheaded or becomes hypotensive we may have to get a stat echo to rule out tamponade. Currently, there is no indication to do pericardiocentesis. 3. Aortic regurgitation: Moderately severe aortic regurgitation was noticed on the transthoracic echocardiogram. We could evaluate this further with a transesophageal echocardiogram, potentially for Friday if she is able to lie flat. This is to evaluate further the etiology of the valvular regurgitation and to quantify it. 4. As part of cardiomyopathy workup, we would also need to do ischemic evaluation with a heart catheterization. I have told her that the valvular regurgitation could be a reason for her cardiomyopathy, but given the fact that she has also had radiation therapy in the past, it would not be surprising if there is some element of coronary artery disease causing her to have cardiomyopathy as well. If she is able to lie flat on Friday, we could potentially do this on Friday as well. 5. Hyponatremia: This is likely hypervolemic given the fact that she was in decompensated heart failure. Further workup for this is to be carried out by the primary team. Limited echo in AM for tamponade. If negative can do SANDEEP and cath later on in day. Updated daughter at bedside and RN of plan of care. SIGNATURE:Bassem Weber PAGER:[phone] DATE / TIME of SERVICE: February 01, 2018 11:53 AM This note is not final until Authenticated by responsible provider. SOCIAL WORK Observed: 02/01/2018 Status: COMPLETED Source: [place] 10:01 AM CLINIC OTHER CAMPUS REPOSITORY HNO ID: [id number] Author: Gris Diaz (Sw) Service: Social Work Author Type: [employer] Operator Type: Social Work Filed: 02/01/2018 10:02 AM Note Text: SOCIAL WORK PROGRESS NOTE SERVICE DATE: 02/01/2018 SERVICE TIME: 10:01 AM LOS: 2 days Advanced Directives Met with pt in room; pt does not have Advance Directives. Discussed use and purpose of documents; provided pt with Advance Directive Packet. Pt stated not ready to complete documents at this time. Advised to contact [facility] if wishing to complete. Time Spent (minutes): 15 SIGNATURE: ELMIRA Mahan PATIENT NAME: Zeeshan Fernando DATE: February 01, 2018 TIME: 10:01 AM PAGER/CONTACT #: ALLIED HEALTH Observed: 01/31/2018 Status: COMPLETED Source: [place] 2:38 PM [facility] OTHER CAMPUS REPOSITORY HNO ID: [id number] Author: Chaplain Dawson (Chaplain) Service: Spiritual Care Author Type: Entry Level Electrical Engineer Type: Allied Health Filed: 01/31/2018 2:39 PM Note Text: Spiritual Care Record ? Anointing/Clements PATIENT NAME: Zeeshan Fernando DATE: January 31, 2018 NOTE: Patient was anointed by Fr. JONES from [facility] on (date): 01/31/18. Signature: Chaplain Eunice Question? Please contact the Spiritual Care Department for assistance. This is an electronically created document. IF PRINTED, PLEASE DO NOT REMOVE FROM THE CHART OR MODIFY PRINTED COPY. ALLIED HEALTH Observed: 01/31/2018 Status: COMPLETED Source: [place] 2:37 PM [facility] REPOSITORY HNO ID: [id number] Author: Chaplain Dawson (Chaplain) Service: Spiritual Care Author Type: Entry Level Electrical Engineer Type: Allied Health Filed: 01/31/2018 2:38 PM Note Text: SPIRITUALCARE Spiritual Care Visit- Brief Note Name: Zeeshan Fernando Date: January 31, 2018 Notes: PT requested [place] visit w/sacraments. Her dtr was in room w/PT. Entry Level Electrical Engineer Signature: Chaplain Eunice To contact the Spiritual Care Department: Please call [phone] or Page the On-Call Entry Level Electrical Engineer at pager [phone] Thank you for the opportunity to be of service. This is an electronically created document. IF PRINTED, PLEASE DO NOT REMOVE FROM THE CHART OR MODIFY PRINTED COPY. PROGRESS Observed: 01/31/2018 Status: COMPLETED Source: [place] 12:25 PM [facility] OTHER [facility] REPOSITORY HNO ID: [id number] Author: Rod Torres Service: Hospital Medicine Author Type: Physician Type: Progress Notes Filed: 01/31/2018 12:30 PM Note Text: PROGRESS NOTE - INTERNAL MEDICINE PATIENT NAME: eZeshan Fernando SERVICE DATE: 01/31/2018 SERVICE TIME: 12:25 PM INTERVAL HPI: Reports feeling better. Noted intention for cardiac cath on Friday. OBJECTIVE: Medications reviewed in [facility] PHYSICAL EXAM: BP 106/74 Pulse 101 Temp 36.6 ?C (97.9 ?F) (Oral) Resp 18 Ht 175.3 cm (5' 9) Wt 60.1 kg (132 lb 9.6 oz) LMP 02/18/2004 SpO2 97% BMI 19.58 kg/m2 Body mass index is 19.58 kg/(m2). GENERAL: Healthy, alert, no distress, cooperative, Smiling SKIN: Skin color, texture, turgor normal. No rashes or lesions. NECK: No jugulovenous distention, No carotid bruits, Carotid pulse normal contour, Supple LUNGS: Lungs clear to auscultation. Good diaphragmatic excursion. CARDIAC: Normal S1 and S2; no rubs, murmurs, or gallops ABDOMEN: Abdomen soft, non-tender. BS normal. No masses or organomegaly. EXTREMITIES: BLE without edema, no calf tenderness, +pulses NEURO: AxOx3, moves all extremities, no focal deficits DATA: Diagnostic tests were reviewed for today's visit including: Lab Results Component Value Date/Time GLUC 93 01/31/2018 04:21 AM K 3.4 (L) 01/31/2018 04:21 AM NA 133 (L) 01/31/2018 04:21 AM CHLOR 96 (L) 01/31/2018 04:21 AM CO2 32 01/31/2018 04:21 AM CREAT 0.96 (H) 01/31/2018 04:21 AM BUN 19 (H) 01/31/2018 04:21 AM ANION 8 01/31/2018 04:21 AM CA 8.9 01/31/2018 04:21 AM TPROT 6.2 08/18/2000 02:26 PM ALB 4.2 08/18/2000 02:26 PM TBILI 0.6 08/18/2000 02:26 PM ALKPHOS 64 08/18/2000 02:26 PM AST 31 08/18/2000 02:26 PM ALT 34 08/18/2000 02:26 PM WBC 5.93 01/31/2018 04:21 AM HB 11.7 01/31/2018 04:21 AM HB 11.5 01/15/2018 02:54 PM HCT 36.1 01/31/2018 04:21 AM MCV 86.0 01/31/2018 04:21 AM PLT 160 (L) 01/31/2018 04:21 AM INR 1.12 07/10/2000 04:00 AM ASSESSMENT AND PLAN: 1. Congestive heart failure systolic dysfucntion: Continue lasix Cardiology and CTS following Monitor I/o Continue cardiac diet. 2. Pericardial Effusion: Per CTS. 3. GERD: ON PPI 4. Hypokalemia: Will replace with 40meq K-dur SIGNATURE: Rod Torres MD DATE: January 31, 2018 TIME: 12:25 PM HEMOGRAM Collected: 01/31/2018 Status: F Source: [facility] 4:21 [facility] SYSTEM REPOSITORY TYPE CODE TESTS RESULT OUT OF REFERENCE UNITS RANGE LAB WBC(LOINC) 3.98-10.04 thou/cmm WBC 5.93 LAB RBC(LOINC) 3.93-5.22 mil/cmm RBC 4.20 LAB HGB(LOINC) 11.2-15.7 g/dL Hgb 11.7 LAB HCT(LOINC) 34.1-44.9 % Hct 36.1 LAB MCV(LOINC) 79.4-94.8 fl MCV 86.0 LAB MCH(LOINC) 25.6-32.2 pg MCH 27.9 LAB MCHC(LOINC) 31.6-34.8 % MCHC 32.4 LAB RDW(LOINC) 11.7-14.4 % High RDW 14.6 LAB RDWSD(LOINC 36.4-46.3 fl ) RDW SD 44.9 LAB PLT(LOINC) 182-369 thou/cmm Low Platelet 160 LAB MPV(LOINC) 9.4-12.3 fl MPV 9.8 Performed By: #### CBC1 #### [facility] [address] [place] [address] BASIC PANEL Collected: 01/31/2018 Status: F Source: [facility] 4:21 HEALTH SYSTEM REPOSITORY TYPE CODE TESTS RESULT OUT OF REFERENCE UNITS RANGE LAB NA(LOINC) 136-145 mEq/L Low Sodium Blood 133 LAB K(LOINC) 3.5-5.1 mEq/L Low Potassium Blood 3.4 LAB CL(LOINC) 98-107 mEq/L Low Chloride Blood 96 LAB CO2(LOINC) 21-32 mEq/L CO2 Blood 32 LAB GLU(LOINC) 70-99 mg/dL Glucose Blood 93 LAB BUN(LOINC) 7-18 mg/dL BUN High Blood 19 LAB CREA(LOINC 0.51-0.95 mg/dL ) High Creatinine Blood 0.96 LAB CA(LOINC) 8.5-10.1 mg/dL Calcium Blood 8.9 LAB ANGAP(LOIN 8-16 C) Anion Gap 8 Performed By: #### P8 #### [facility] [address] [place] [address] MDRD GFR Collected: 01/31/2018 Status: F Source: [facility] 4:21 AM HEALTH SYSTEM REPOSITORY TYPE CODE TESTS RESULT OUT OF RANGE REFERENCE UNITS LAB GFRFN(LOINC >60mL/min/1.73m ) 2 eGFR >60 Result Comment: If the patient is , multiply the result by 1.210. Performed By: #### GFR #### [facility] [address] [place] [address] CONSULT Observed: 01/31/2018 Status: COMPLETED Source: [place] 12:00 AM CLINIC OTHER CAMPUS REPOSITORY HNO ID: [id number] Author: Bassem Weber Service: Cardiovascular Medicine Author Type: Physician Type: Consults Filed: 01/31/2018 5:57 PM Note Text: [facility] - Consultation PATIENT NAME: ZEESHAN FERNANDO CSN: [id number] DATE OF : 1965 SEX/AGE: F/52 PATIENT TYPE: I HOSP SVC: INTM LOCATION: [facility] DATE OF SERVICE: 01/31/2018 CONSULT REQUESTED BY: Dr. Coates. REASON FOR CONSULT: Heart failure. HISTORY OF PRESENT ILLNESS: The patient is a 52-year-old lady with history of non- Hodgkin lymphoma, status post stem cell transplant and radiation therapy with chemotherapy back in 1999, first initially presented to the [facility] for worsening shortness of breath on exertion and orthopnea. She said initially her symptoms started in September of 2017, but has gotten worse in the last 3 to 4 weeks. She said she had gone to the ER a few weeks back and she was given some breathing treatments and sent home. During this hospitalization, she underwent further testing after admission including an echocardiogram, which showed her EF to be around 20%. She also had ygzfzyer-bn-yajjka aortic regurgitation and a moderate-sized pericardial effusion. She also had pleural effusions and around 900 mL of transudative fluid was tapped. She was evaluated by Cardiology at [facility] and was transferred here to our hospital for further management of her cardiomyopathy, pericardial effusion, and valvular regurgitation. The patient denies any chest pain, palpitations, lightheadedness, or syncope. She says her breathing has gotten much better after her thoracocentesis. She is still not able to lie flat and is propped up at this time. She says at home, she usually lies with 3 to 4 pillows. She said, but for the last month or so, she has been sleeping in a recliner. She also has complain of little leg edema, which has since subsided. PAST MEDICAL HISTORY: Non-Hodgkin lymphoma, COPD, bronchiectasis. ALLERGIES: Sulfa. MEDICATIONS: Please see medical reconciliation form. SURGICAL HISTORY: Stem-cell transplant in 1999. FAMILY HISTORY: No premature coronary artery disease in the family. SOCIAL HISTORY: No tobacco, alcohol, or illicit drug use. REVIEW OF SYSTEMS: A 10-point system reviewed, negative unless otherwise noted in HPI. PHYSICAL EXAMINATION: VITAL SIGNS: Temperature of 36.6, pulse of 101, respiratory 18, blood pressure of 106/74, oxygen saturation 97% on room air. GENERAL: She is awake, alert. HEENT: PERRLA. Mucosa moist. NECK: Supple. No JVD. HEART: S1, S2. Rate regular rhythm, but tachycardic. No murmur. LUNGS: Breath sounds are equal. No basilar crackles. Scattered rhonchi present. ABDOMEN: Soft, nontender. No organomegaly. EXTREMITIES: No pedal edema. SKIN: Warm to touch. LABORATORY FINDING AND SIGNIFICANT DIAGNOSTIC STUDIES: Sodium of 133, potassium of 3.4, chloride of 96, bicarb is 32, BUN is 19, creatinine is 0.96. WBC is 6, hemoglobin is 12, hematocrit is 36, platelets is 160. The patient had a 12-lead EKG done, which I personally reviewed, which shows normal sinus rhythm at 97 beats per minute, right bundle branch block. The patient had a 2D echocardiogram done yesterday at [facility], which shows an EF of 20%, global hypokinesis, stage II diastolic dysfunction. Normal RV size and systolic function. 2+ mitral regurgitation, 3+ aortic regurgitation. Pulmonary artery pressure of 56 mmHg. Normal size aortic root. Moderate pericardial effusion with no echocardiographic signs of tamponade. ASSESSMENT AND PLAN: In summary, this is a 52-year-old lady with history of COPD, remote history of non-Hodgkin lymphoma status post chemotherapy, radiation therapy, and stem cell transplant, who came in to the hospital for signs and symptoms of decompensated heart failure. 1. Acute systolic and diastolic heart failure: We will continue to diurese the patient with Lasix 40 mg IV daily. To keep strict intake output chart and daily weights. She also has pericardial effusion and we do not want to make her to diet dehydrated to the point where we can cause tamponade. I will start her on low-dose beta shahrzad i.e. Coreg 3.125 mg twice a day along with lisinopril 2.5 mg daily. We keep an eye on her blood pressure. The patient says her blood pressure usually runs on the lower side. We will hold off on Aldactone for now. Potassium is to be supplemented as her K is 3.4 today. To keep potassium above 4 and magnesium above 2. 2. Pericardial effusion: This is likely in the setting of decompensated heart failure. Clinically, there is no signs of tamponade. There is no JVD. No pulsus paradoxus. Her heart rate is 101 at this time. We will continue to monitor her for signs of tamponade. Currently, there is no indication to do pericardiocentesis. 3. Aortic regurgitation: Moderately severe aortic regurgitation was noticed on the transthoracic echocardiogram. We could evaluate this further with a transesophageal echocardiogram, potentially for Friday if she is able to lie flat. This is to evaluate further the etiology of the valvular regurgitation and to quantify it. 4. As part of cardiomyopathy workup, we would also need to do ischemic evaluation with a heart catheterization. I have told her that the valvular regurgitation could be a reason for her cardiomyopathy, but given the fact that she has also had radiation therapy in the past, it would not be surprising if there is some element of coronary artery disease causing her to have cardiomyopathy as well. If she is able to lie flat on Friday, we could potentially do this on Friday as well. 5. Hyponatremia: This is likely hypervolemic given the fact that she was in decompensated heart failure. Further workup for this is to be carried out by the primary team. Bassem Weber MD Cardiology VMP:modl /[id number] HISTORY PHYSICAL Observed: 01/30/2018 Status: COMPLETED Source: [place] 9:32 PM CLINIC OTHER CAMPUS REPOSITORY HNO ID: [id number] Author: Ben Coates Service: Hospital Medicine Author Type: Physician Type: HANDP Filed: 01/30/2018 9:57 PM Note Text: DEPARTMENT OF HOSPITAL MEDICINE HISTORY AND PHYSICAL EXAM SERVICE DATE: 01/30/2018 SERVICE TIME: 2099 Primary Care Physician: NIKIA PILLAI MD NIGHT AND WEEKEND COVERAGE: From 7am - 7pm, please call Sound Admit After 7pm, please call cross cover pager #[phone] Subjective CHIEF COMPLAINT: SOB HPI: This is a 52 year old female with history of Asthma who presents from [facility]. She initially presented with complaints of progressively worsening dyspnea, LE edema and orthopnea. Patient has no prior history of CAD or CHF. She was found to have bilateral pleural effusions, ECHO was done which showed EF of 20%, Moderate to severe Aortic insufficiency and Moderate pericardial effusion with no evidence of cardiac tamponade. Patient was hospitalized she underwent R. Thoracentesis (700 cc), pleural fluid analysis consistent with transudative effusion. She was transferred to [facility] for further evaluation of pericardial effusion since no CTS is available there Currently patient is doing much better, LE edema is improved. SOB is resolving. PAST MEDICAL HISTORY Diagnosis Date - Asthma 2010 dust mites, tree pollen - Brain bleed (HCC) - Carcinoma in situ of cervix uteri 2008 Treated in [place] by Dr. Montilla - Esophageal reflux Gastroesophageal reflux - Hodgkin's disease, unspecified(201.90) 1999 Hodgkins Disease - HPV (human papillomavirus) vaccine 2008 - Migraine, unspecified, with intractable migraine, so stated, without mention of status migrainosus Migraine - Pap smear of cervix with ASCUS, cannot exclude HGSIL 06/28/13 HPV+ - Postmenopausal bleeding Postmenop. bleeding - Premature menopause - Thrombocytopenia, unspecified (HCC) Thrombocytopenia - VAIN III (vaginal intraepithelial neoplasia III) 2008 As above PAST SURGICAL HISTORY Procedure Laterality Date - COLPOSCOPY (VAGINOSCOPY) 2008 with laser tx for HPV - PAST SURGICAL HISTORY OF CHEST WALL BX.,PORT,EDWARDS CATHETER - PAST SURGICAL HISTORY OF 2009 Laser cone of cx and vaporization of upper vagina - VAGINOSCOPY 08/30/13 Benign FAMILY HISTORY Problem Relation Age of Onset - Other [OTHER] Mother PARKINSON'S. - Hypertension Father - Cancer Maternal Grandmother Stomach? - Other [OTHER] Maternal Grandmother LAZARUS'S CHOREA. - Other [OTHER] Other No lung disease. Maybe some allergies, nothing major. Social History Substance Use Topics - Smoking status: Never Smoker - Smokeless tobacco: Never Used Comment: No childhood or current household smokers. - Alcohol use Yes Comment: Seldom. MEDICATIONS: Reviewed Prescriptions Prior to Admission: omeprazole (PRILOSEC) 20 mg capsule TAKE 1 CAPSULE BY MOUTH TWICE DAILY BEFORE MEALS (0600/1600). 1/2 HR BEFORE MEAL. Disp: 180 capsule Rfl: 3 Unknown at Unknown time fluticasone-salmeterol (ADVAIR) 500-50 mcg/dose dsdv Inhale 1 Puff as instructed twice daily. Disp: 3 Inhaler Rfl: 1 Unknown at Unknown time ipratropium (ATROVENT) 0.02 % nebulizer solution Use 2.5 mL via nebulizer four times daily. Unit dose pack of 25 Disp: 1 Vial Rfl: 2 Unknown at Unknown time albuterol (PROVENTIL) 2.5 mg /3 mL (0.083 %) nebulizer solution Use 3 mL via nebulizer every 4 hours as needed. Disp: 1 Package Rfl: 5 Unknown at Unknown time venlafaxine ER (EFFEXOR XR) 37.5 mg 24 hr capsule TAKE ONE CAPSULE BY MOUTH EVERY DAY Disp: 90 capsule Rfl: 1 Unknown at Unknown time guaiFENesin (MUCINEX) 1,200 mg Ta12 Take 1 tablet by mouth twice daily as needed. Disp: 20 tablet Rfl: 1 Unknown at Unknown time montelukast (SINGULAIR) 10 mg tablet TAKE 1 TABLET BY MOUTH DAILY AT BEDTIME. Disp: 90 tablet Rfl: 3 Unknown at Unknown time albuterol HFA (PROAIR HFA) 90 mcg/actuation inhaler Inhale 2 Puffs as instructed every 4 hours as needed. For wheezing/shortness of breath. Disp: 1 Inhaler Rfl: 2 Unknown at Unknown time ondansetron orally disintegrating (ZOFRAN ODT) 4 mg disintegrating tablet Take 1 tablet by mouth every 8 hours as needed. Disp: 12 tablet Rfl: 0 Unknown at Unknown time oxyCODONE-acetaminophen (PERCOCET) 5-325 mg tablet Take 1 tablet by mouth every 8 hours as needed for Pain. Disp: 45 tablet Rfl: 0 Unknown at Unknown time DAILY MULTIVITAMIN TAB Disp: Rfl: 0 Unknown at Unknown time ALLERGIES Allergen Reactions - Sulfa (Sulfonamide * Rash, Swelling - Codeine Hives - Environmental [Othe* Unknown Dust mites, trees - Guiafenesin [Other] Mental Status Change - Penicillins Rash REVIEW OF SYSTEM: PAIN ASSESSMENT: Negative for pain, history of chronic pain, or current treatment for a chronic pain condition. GENERAL: No weight loss, malaise or fevers HEENT: Negative for frequent or significant headaches, No changes in hearing or vision, no nose bleeds or other nasal problems RESPIRATORY: See HPI CARDIOVASCULAR: See HPI GI: No nausea, vomiting, or diarrhea : No history of dysuria, frequency or incontinence SKIN: Negative for lesions, rash, and itching ENDOCRINE: Negative for cold or heat intolerance, polyuria, polydipsia and goiter NEURO: No history of headaches, syncope, paralysis, seizures or tremors Objective PHYSICAL EXAM: BP 105/79 Pulse 105 Temp (Src) 98.6 (Oral) Resp 18 Ht 5' 9 (1.75m) Wt 132 lb 4.4 oz (60.0kg) SpO2 98% LMP 02/18/2004 BMI 19.52 kg/(m2). Physical Exam Performed: GENERAL: Alert, no distress, cooperative HEAD/SINUSES: No significant findings EYES: PERRLA, EOMI OROPHARYNX: Lips, mucosa, and tongue normal. Teeth and gums normal. Oropharynx normal. NECK: No carotid bruits, Carotid pulse normal contour, Supple BACK: Back symmetric, Normal curvature, No CVAT. LUNGS: Lungs clear to auscultation, Good diaphragmatic excursion CARDIAC: RRR, +L4FGCV3, no murmurs +Pericardial Rub ABDOMEN: Abdomen soft, non-tender, BS normal, No masses or organomegaly EXTREMITIES: Extremities normal, no deformities, edema, clubbing or skin discoloration. Good capillary refill., No ulcers NEURO: Grossly normal cognition, motor function, and cranial nerves III-XII, Cranial nerves II-XII intact PULSES: 2+ radial, 2+ carotid Lines, Drains, and Airways Line Peripheral 01/30/181939 Admission to Hospital Short Left Antecubital 22 Gauge less than 1 day Reviewed lines, drains, AND airways. Need to be continued . DATA: Diagnostic tests reviewed for today's visit: Most recent labs and imaging results. Assessment/Plan # HFrEF - New Diagnosis. LVEF of 20%. Consult Cardiology. Clinically improved. Transition to oral Lasix. 1500 cc fluid restriction, strict I/O, low sodium diet. Daily weights. # Moderate pericardial effusion - No signs of tamponade. CTS/Cardiology evaluation. # Asthma - Con't Albuterol/Advair. Stable # GERD - con't PPI Code Status: Full Code VTE Prophylaxis: Lovenox 40mg Sub Q Daily Disposition: Home Plan of care discussed with: Patient and Family/Other: SIGNATURE: Ben Coates DO PATIENT NAME: Zeeshan Fernando DATE: January 30, 2018 TIME: 9:32 PM PAGER/CONTACT #: Javi Admit etx [phone] NURSING PROG Observed: 01/30/2018 Status: COMPLETED Source: [place] 7:37 PM CLINIC OTHER CAMPUS REPOSITORY O ID: [id number] Author: Britt (Rn) BRANDEE Chou Service: (none) Author Type: Registered Nurse Type: Nursing Progress Note Filed: 01/30/2018 7:39 PM Note Text: Nursing Progress Note Patient Name: Zeeshan Fernando Patient Location: [place] [address]/[place] [address]* Dr. Coates notified that patient arrived from [place]. This note was completed by: Britt Chou, SOAPSTONER SUMMARY Observed: 01/30/2018 Status: F Source: [place] 5:35 PM [facility] REPOSITORY [facility] Medical Records Department [address] [place], [place] [address] [address] Discharge Summary 01/30/18 1647 MR#: [id number] Acct: [id number] Name: ZEESHAN FERNANDO Rep #: [id number] : 1965 52 From: Hayde Pascual COLOR SEPARATION PHOTOGRAPHERReggieC PCP: Nikia Pillai MD Status: ADM IN Y Location: [place] [address]-1 <Hayde Pascual - Last Filed: 01/30/18 16:52> Discharge Date and Diagnosis Date of Admission: 01/29/18 Date of Discharge: 01/30/18 - Primary Discharge Diagnosis Active and Suspected Problems 1. Acute systolic CHF 2. Moderate to large pericardial effusion 3. Severe aortic regurgitation 4. Moderate mitral regurgitation 5. Pleural effusion status post thoracentesis - Secondary Discharge Diagnosis Chronic Problems Non-Hodgkin lymphoma in remission (Chronic) History of stem cell transplant (Chronic) Bilateral pleural effusion (Chronic) Mass of left lung (Chronic) Hospital Course and Treatment Imaging Results: Diagnostic Data Chest CTA 01/29/18 11:51 IMPRESSION: Bilateral pleural effusions right greater than left with underlying atelectasis. Stable fibrocalcific scarring in the left lung apex with bronchiectasis. Moderate sized pericardial effusion. Abnormal appearance of the upper thoracic vertebrae. Metastasis should be ruled out. Electronically Signed: Blayne Kamara MD at 13:04 EDT Tel [phone], Service support , Thoracic Spine X-Ray 01/30/18 08:58 IMPRESSION: Multilevel disc space narrowing in the thoracic level. Osteopenia of the thoracic vertebrae worse in the upper thoracic spine. Correlation with the bone scan is recommended. Electronically Signed: Blayne Kamara MD at 13:00 EDT Tel [phone], Service support , Thoracentesis Ultrasound 01/30/18 10:00 IMPRESSION: Ultrasound-guided right thoracentesis. Electronically Signed: Blayne Kamara MD at 10:55 EDT Tel [phone], Service support , Chest X-Ray 01/30/18 10:09 IMPRESSION: Status post right thoracentesis. There is no evidence of pneumothorax. Electronically Signed: Blayne Kamara MD at 13:37 EDT Tel [phone], Service support , Dr. Staples- Pulmonary Medicine Dr. Benz- Cardiology Operations: None Procedures: 2-D Echocardiogram, Thoracentesis Summary of Care Provided: Patient is a 52-year-old female admitted 01/29/18 due to worsening shortness of breath. She has a past medical history of non-Hodgkin's lymphoma, asthma, depression, GERD. 1. Acute systolic CHF-CT of chest showed bilateral pleural effusions. Patient underwent thoracentesis this morning with approximately 870 mL of fluid removed. Appears to be transudative. Pulmonary and cardiology consulted. Echocardiogram showed an EF of 20%, severe global systolic dysfunction, RVSP of 56 mmHg, moderate to large pericardial effusion, diastolic dysfunction, severe aortic regurgitation, moderate mitral valve regurgitation. Patient improved symptomatically. Patient received Lasix during admission. Continue isosorbide, lisinopril, Aldactone. Cardiology recommending transfer to outside facility who has available cardiothoracic surgery given significant valvular dysfunction and large pericardial effusion. Patient subsequently transferred to [facility] for further care. 2. Valvular dysfunction/pericardial effusion-echo noted severe aortic regurgitation, moderate mitral valve regurgitation, moderate large pericardial effusion. 3. History of non-Hodgkin's lymphoma-status post stem cell transplant-in remission since 1999. 4. Asthma-no acute exacerbation-continue DuoNeb aerosol as needed. 5. Depression-continue Effexor, amitriptyline regimen. 6. GERD-continue omeprazole. General: Alert, Oriented x3, Cooperative HEENT: Atraumatic, PERRLA, EOMI, Normocephalic Neck: Supple, No JVD, Negative Carotid Bruits Lungs: Clear to auscultation, Normal air movement Cardiovascular: Regular rate, Regular Rhythm, Normal S1, Normal S2 Abdomen: Bowel Sounds Present, Soft, Non Tender, Non-Distended Extremities: No clubbing, No cyanosis, No edema, Capillary Refill Less than 3 Seconds Skin: No rashes, No breakdown Musculoskeletal: No Tenderness to Palpation of Joints or Extremities Neurological: Cranial nerves II-XII grossly intact, Neuro grossly intact Psych/Mental Status: Normal Affect, Appropriate Patient seen and examined prior to discharge. Physical assessment as noted above. Patient is stable at time of transfer to [facility]. This patient was seen by WENDI Vann under the supervision of Dr. Gutierrez. Home Medications: Medications to take at Discharge Montelukast [Singulair] 10 mg PO DAILY 11/17/14 Omeprazole [Omeprazole] 20 mg PO BID 11/17/14 Albuterol Sulfate 1.25 mg IH Q4H PRN PRN 01/29/18 Amitriptyline HCl [Elavil] 50 mg PO DAILY 01/29/18 Fluticasone/Salmeterol [Advair 500-50 Diskus] 1 puff IH BID 01/29/18 Ipratropium [Atrovent] 0.5 mg INHALATION Q4H PRN PRN 01/29/18 Venlafaxine XR [Effexor Xr] 37.5 mg PO QHS 01/29/18 Primary Care Physician: Nikia Pillai MD [Primary Care Provider] - Disposition: Acute care Hospital Minutes spent on discharge:: 35 Patient Condition:: Stable Medical Necessity - Tobacco Use Smoking Status: Never smoker Tobacco Use: Non-smoker Meaningful Use Info Meaningful Use Diagnoses (Choose all that apply): CHF - CHF GERALDO/ARB ordered at discharge?: Yes Documented LVEF (%): 20 <Aaron Gutierrez - Last Filed: 01/30/18 17:34> Discharge Date and Diagnosis - Secondary Discharge Diagnosis Chronic Problems Non-Hodgkin lymphoma in remission (Chronic) History of stem cell transplant (Chronic) Bilateral pleural effusion (Chronic) Mass of left lung (Chronic) Hospital Course and Treatment Imaging Results: 01/30/18 08:58 Xray Spine [Thoracic Spine 3 Views] [RAD] Urgent 01/30/18 10:00 Thoracentesis W US [US] DAILY 01/30/18 10:09 Chest Insp/Exp 2 View [RAD] Urgent Summary of Care Provided: This patient was seen in conjunction with WENDI Vann. I have independently interviewed and examined the patient and reviewed pertinent historical, laboratory, and other data. Please refer to Maribeth Vannote for details of this patient's presentation, findings, and recommendations. I have reviewed WENDI Vann note and concur with documented findings. In brief, Patient is an 52-year-old lady with history of Non Hodgkin's lymphoma who presented with progressive shortness of breath imaging studies obtained on admission demonstrated bilateral pleural effusion. An assessment of acute systolic congestive heart failure was made patient admitted to monitored bed for further management patient underwent subsequent evaluation with a 2D echo was treated EF of 20% with global hypokinesis and significant pleural effusion was seen in consultation by cardiology Dr. Benz who recommended for patient to be transferred to a tertiary care center for further management Hospital course; as detailed above by Hayde Pascual NP Meaningful Use Info Meaningful Use Diagnoses (Choose all that apply): CHF - CHF GERALDO/ARB ordered at discharge?: Yes Documented LVEF (%): 20 Code Visit Inpatient E AND M: 88006 Disch Hosp 01/30/18 1653 <Electronically signed by Hayde Pascual NP-C> Date Hayde Pascual COLOR SEPARATION PHOTOGRAPHER-C 01/30/18 1735<Electronically signed by Aaron Gutierrez MD> Cosigner Signature (if applicable): Date Aaron Gutierrez MD CC: COLOR SEPARATION PHOTOGRAPHER-C Hayde Pascual; Nikia Pillai MD; Aaron Gutierrez MD Signed CONSULTATION Observed: 01/30/2018 Status: F Source: [place] 1:57 PM [facility] REPOSITORY [facility] Medical Records Department [address] [place] [id number] Consultation 01/30/18 1323 MR#: [id number] Acct: [id number] Name: ZEESHAN FERNANDO Rep #: [id number] : 1965 52 From: Master Benz MD PCP: Nikia Pillai MD Status: ADM IN Y Location: [place] [address] Problem List (1) Heart failure Status: Acute Reason for Consult Date of Consultation: 01/30/18 History of Present Illness: The patient is a 52 year old F with past medical history significant for non-Hodgkin's lymphoma, status post stem cell transplant. Last chemotherapy was back in the year 1999. According to the patient, she has since been cured. According to the patient, she noticed getting progressively short of breath with exertion back in September of this year. Also started noticing ankle swelling. This became really worse over the last 3-4 weeks. Recently she felt herself to be short of breath with mild exertion. Also positive orthopnea. No paroxysmal nocturnal dyspnea. Positive ankle edema. Before presented to the hospital. She was noted to have large pleural effusions. She has had thoracentesis done this morning with aspiration of about 875 mL of fluid. She has been feeling better since. Patient has had an echocardiogram done which showed severe LV systolic dysfunction with an ejection fraction of about 20%. It was reported as also showing a moderate pericardial effusion, moderate to severe aortic regurgitation and moderate mitral regurgitation. Pulmonary artery systolic pressure was noted to be 56 mmHg. Patient denies any previous history of heart disease. According to her, she may have had flulike symptoms back in October. Denies any chest pains. No palpitations. No syncope or presyncope. [] Past Medical History Allergies/Adverse Reactions: Allergies guaifenesin Allergy (Verified 01/29/18 11:28) Other Penicillins [PCN] Allergy (Verified 01/29/18 11:28) Itching Sulfa (Sulfonamide Antibiotics) Allergy (Verified 01/29/18 11:28) Rash Home Medications: Ambulatory Orders Medication Instructions Recorded Past Medical History (Chronic Problems): Chronic Problems Non-Hodgkin lymphoma in remission (Chronic) History of stem cell transplant (Chronic) Bilateral pleural effusion (Chronic) Mass of left lung (Chronic) Surgical History: - - stem cell transplant 1999 Psychiatric History: No pertinent psych hx [employer]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 Denies: Fever, Night Sweats HEENT: Denies: Sinus Congestion, Sore Throat Cardiovascular: Reports: Shortness of Breath with Exertion, Orthopnea, Peripheral Edema. Denies: Chest Discomfort, Chest Discomfort at Rest, Chest Discomfort with Exertion, Chest Pressure, Chest Tightness, Chest Heaviness, PND, Palpitations Respiratory: Denies: Cough, Hemoptysis Gastrointestinal: Denies: Abdominal Discomfort, Jaundice, Hematemesis, Melena Muscoloskeletal: Denies: Myalgias Neurological: Denies: Confusion, Seizure, History of TIA, History of CVA Endocrine: Denies: Heat Intolerance, Cold Intolerance Hematologic/ Lymphatic: Denies: Easy Brusing, Easy Bleeding Subjectve: Comfortable. No apparent distress. Objective: Vital Signs Temp Pulse Resp BP Pulse Ox 98.2 F 98 24 H 97/74 95 01/30/18 10:55 01/30/18 11:12 01/30/18 11:12 01/30/18 10:55 01/30/18 11:12 Oxygen Flow Rate (L/min) 2 Oxygen Delivery Method Room Air Weight: 61.8 kg Body Mass Index (BMI) 21.0 Intake and Output for Last 24 Hours Intake Total 200 / 200 800 / 800 Output Total 2000 / 1999 1500 / 1500 Balance -1800 / -1800 -700 / -700 General: Awake, Alert, Oriented x 3, No Acute Distress HEENT: Atraumatic, Normocephalic Oral: Moist Mucosa Neck: Supple, No JVD Lungs: Clear to auscultation Cardiovascular: Regular Rhythm - Distant heart sounds, Normal S1, Normal S2 Vascular: No Carotid Bruits Abdomen: Bowel Sounds Present, Soft Extremities: - - Trace bilateral ankle edema Neurological: No Focal Motor or Sensory Deficit Psych/Mental Status: Appropriate 01/29/18 16:17: Troponin I < 0.02 01/29/18 18:05: Urine Color Straw, Urine Clarity Clear, Urine pH 7.0, Ur Specific Enloe 1.010, Urine Protein Negative, Urine Glucose (UA) Normal, Urine Ketones Negative, Urine Occult Blood Negative, Urine Nitrite Negative, Urine Bilirubin Negative, Urine Urobilinogen Normal, Ur Leukocyte Esterase Negative 01/29/18 20:10: Troponin I < 0.02 01/30/18 02:18: Sodium 132 L, Potassium 3.7, Chloride 94 L, Carbon Dioxide 26.0, Anion Gap 12, BUN 17, Creatinine 0.83, Est GFR (MDRD) Af Amer 93, Est GFR (MDRD) Non-Af 77, BUN/Creatinine Ratio 20.4 H, Glucose 124 H, Calcium 8.3 L, Triglycerides 43, Cholesterol 159, LDL Cholesterol 76, VLDL Cholesterol 9, HDL Cholesterol 74 01/30/18 02:18: Troponin I < 0.02 01/30/18 02:18: WBC 3.2 L, RBC 4.24, Hgb 11.8 L, Hct 34.7 L, MCV 81.8, MCH 27.8, MCHC 34.0, RDW 14.1, RDW Differential 41.2, Plt Count 155, MPV 9.6 01/30/18 02:18: PT 14.4, INR 1.1 Rhythm: Normal sinus rhythm. EKG: Normal sinus rhythm. ECHO: Ejection fraction 20%. Moderate mitral regurgitation. Moderate to severe aortic regurgitation. Large pericardial effusion around the right atrium and basal right ventricle. Small pericardial effusion posterior to the left ventricle. Assessment/Plan 1. Acute on chronic systolic congestive heart failure. Functional class III. Etiology unknown. Patient has history of non-Hodgkin's lymphoma and received chemo and radiation therapy for that second year 1999. Will need to evaluate for coronary artery disease regardless. Recommend coronary angiography either as inpatient or outpatient. Agree with medical treatment with GERALDO inhibitors and beta blockers. Continue diuretics. Switch to p.o. start on low-dose Aldactone 2. Aortic regurgitation appears to be more on the severe side. Patient will need more evaluation for that either with a cardiac MRI or SANDEEP 3. Moderate mitral regurgitation. See #1 above 4. History of non-Hodgkin's lymphoma and stem cell transplant. Per patient, she had her last chemotherapy year 1999. She also received radiation therapy to her mediastinum 5. Moderate to large pericardial effusion. No echo evidence of tamponade at present. However patient is being diuresed. Monitor closely for any hemodynamic instability. If any hemodynamic instability, then the pericardial effusion may need to be drained and patient may need a pericardial window X 6. Moderate pulmonary hypertension 7. Pleural effusion status post thoracentesis The above were discussed in detail with the patient and her family. In my opinion, she needs to be evaluated further for her aortic regurgitation. She also needs to be closely monitored for any hemodynamic instability in view of her moderate to large pericardial effusion. I therefore recommend transfer to a center with cardiothoracic surgical facilities. Patient is in agreement with the plan. 01/30/18 5866 <Electronically signed by Master Benz MD> Date Master Benz MD [facility] Signature (if applicable): Date CC: Nikia Pillai MD; Dimitris Staples D.O.; Polina Laureano MD Signed CONSULTATION Observed: 01/30/2018 Status: F Source: [place] 1:42 PM [facility] REPOSITORY [facility] Medical Records Department [address] [place] [address] Consultation 01/30/18 1058 MR#: [id number] Acct: [id number] Name: ZEESHAN FERNANDO Rep #: [id number] : 1965 52 From: Tammy Mcnair COLOR SEPARATION PHOTOGRAPHER-C PCP: Nikia Pillai MD Status: ADM IN [facility] ADDENDUM by Dimitris Staples D.O. on 01/30/18 at 1342 Code Visit The patient was seen and examined independently in conjunction with the nurse practitioner. All data was personally reviewed, including the note below, and I agree with the added comments. The patient is a 52-year-old female who presented to the emergency department on January 29 with complaints of progressive shortness of breath and lower extremity edema. The patient does endorse a history of asthma and was recently seen by Dr. Lobo at [facility]. She states that she is currently utilizing DuoNeb's in her home environment. The patient states that she recently completed pulmonary function testing approximately 5 days ago and was told that her lung function is significantly diminished. The exact results of those PFTs are not available to me currently. The patient does have a history of Hodgkin's lymphoma for which she is status post chemotherapy with ABVD along with radiation therapy to the mediastinum. She also underwent a stem cell transplant in June 2000. On presentation to the emergency department, the patient was noted to be tachycardic and tachypneic. Despite this, she was maintaining appropriate oxygen saturations on room air. A CTA chest was obtained which demonstrated no evidence for pulmonary embolism. Moderate- sized bilateral pleural effusions were noted. Post radiation fibrosis was also noted along with focal areas of bronchiectasis. A subsequent surface echocardiogram was obtained and revealed severe global LV systolic dysfunction with an ejection fraction of 20% along with stage II diastolic dysfunction and a right ventricular systolic pressure estimated to be 56 mmHg. The patient then underwent an ultrasound-guided thoracentesis of her right hemithorax with 870 mL's of bia colored fluid drained. Pleural fluid studies were consistent with a transudate. The patient has also been diuresed. Since that time, the patient reports improvement in her breathing quality. The patient is currently overall net -2.1 L for the admission. The patient's most recent lab work, culture data and imaging studies have all been personally reviewed. Pleural fluid Gram stain revealed no organisms. Respiratory viral panel was negative. Strep and urine Legionella antigens were also both negative. I agree with the physical examination as documented below. The patient's family is present at the bedside. The patient is alert, cooperative and in no apparent distress, resting comfortably in bed. Lung doherty are diminished bilaterally with scant basilar rales. Cardiac exam reveals a regular rate and rhythm without murmurs, rubs or gallops. Abdominal exam is benign. Lower extremity edema is present. The patient is neurologically intact. IMPRESSION/PLAN: 1. Acute hypoxic respiratory insufficiency/shortness of breath due to bilateral pleural effusions in the setting of decompensated heart failure The patient is status post thoracentesis with pleural fluid analysis consistent with a transudate. She has been diuresed accordingly with subjective improvement in her breathing quality. Unclear chronicity for the patient's underlying heart failure. However, strongly recommend cardiology evaluation. Recommend ongoing diuresis as tolerated. Wean supplemental oxygen to maintain saturations at or above 90%. Encourage incentive spirometer use and mobilize patient as tolerated. The patient can follow-up in our pulmonary medicine office upon discharge for further optimization of her underlying asthma. Inpatient E AND M: 63603 Init Hosp L3 01/30/18 1342 <Electronically signed by Dimitris Staples DO> Date Dimitris Staples DO cc: Nikia Pillai MD; Dimitris Staples D.O.; Polina Laureano MD * Signed Problem List (1) Acute combined systolic and diastolic congestive heart failure Status: Acute (2) Non-Hodgkin lymphoma in remission Status: Chronic (3) History of stem cell transplant Status: Chronic (4) Bilateral pleural effusion Status: Chronic (5) Mass of left lung Status: Chronic Reason for Consult Date of Consultation: 01/30/18 Reason for Consultation: bilat pleural effusions, ?new onset CHF History of Present Illness: The patient is a 52 year old F with a past medical history as below, presented to the ED on 01/29/18 with complaints of 2-3 week history of progressive shortness of breath, lower extremity edema, and orthopnea. Patient complains of a cough with clear sputum production. She denies any fever or chills. Denies hemoptysis. Denies recent weight changes. She has been sleeping in a recliner for several weeks and has not been able to do her chores. Her legs became quite edematous which was new for her. Patient actually saw Dr. Lobo as a new consult on Friday, at which time she had pulmonary function tests and was told she had half her lung function. She was to have a chest CT next week but got so short of breath that she went to the ED. She has never had home oxygen. She was just placed on an albuterol rescue inhaler and ipratropium nebulizer, which helps her symptoms. Initial vital signs BP 120/90, pulse 124, RR 24, 98.5 F, and 93% on room air. Blood work showed a white count of 4.2, hemoglobin 11.6 and hematocrit 35. Coags were normal. Sodium mildly low at 131 and chloride 96. BUN normal at 18 and creatinine 1.03. LDH 296 and BNP 1357. Urinalysis not indicative of infection. Urine strep and Legionella antigens were negative. Viral respiratory panel negative. CT of the chest on 01/29 showed bilateral pleural effusions right greater than left with underlying atelectasis. There is stable fibrocalcific scarring in the left lung apex with bronchiectasis. There is a moderate sized pericardial effusion and abnormal appearance of the upper thoracic vertebrae with questionable metastases. Chest x-ray on 01/30 showed bilateral pleural effusions with underlying bibasilar atelectasis superimposed on mild degree of CHF, stable changes left suprahilar region and both lung apices. Echocardiogram showed a mildly dilated left ventricle, severe global LV systolic dysfunction, estimated EF of 20%, mild diffuse MV thickening, moderate MVI, mild TVI, moderately severe ROLA, mild TVI, moderate pericardial effusion with no evidence of cardiac tamponade on, and RVSP estimated at 56 mmHg. A thoracentesis was performed this morning with results pending. Thoracic spine x-ray is pending. Pulmonary was consulted for CHF and bilateral pleural effusions. Past Medical History Past Medical History (Chronic Problems): Chronic Problems Non-Hodgkin lymphoma in remission (Chronic) History of stem cell transplant (Chronic) Bilateral pleural effusion (Chronic) Mass of left lung (Chronic) Allergies guaifenesin Allergy (Verified 01/29/18 11:28) Other Penicillins [PCN] Allergy (Verified 01/29/18 11:28) Itching Sulfa (Sulfonamide Antibiotics) Allergy (Verified 01/29/18 11:28) Rash Home Medications: Ambulatory Orders Medication Instructions Recorded Surgical History: - - stem cell transplant 1999 Psychiatric History: No pertinent psych hx [employer] History: No pertinent [employer] history Lives: Spouse/ Significant Other Smoking Status: Never smoker Tobacco Use: Non-smoker Alcohol: None Drugs: None - *Family History Paternal History Items: No pertinent history Maternal History Items: No pertinent history Review of Systems Constitutional: Reports: Fatigue. Denies: Anorexia, Chills, Fever, Night Sweats, Malaise, Weakness, Weight Change Eyes: Denies: Vision Change HEENT: Denies: Difficulty Swallowing, Nasal bleeding, Nasal Congestion, Post Nasal Drip, Sinus Congestion, Sinus Drainage, Sore Throat Cardiovascular: Reports: Edema, Orthopnea. Denies: Chest Pain, Chest Tightness, Light Headedness, Palpitations, Paroxysmal Noc. Dyspnea, Syncope Respiratory: Reports: Cough, Shortness of breath upon exertion, Sputum production. Denies: Hemoptysis, Wheezing Gastrointestinal: Reports: - - + abdominal distention. Denies: Abdominal Pain, Constipation, Diarrhea, Hematemesis, Hematochezia, Nausea, Melena, Vomiting Genitourinary: Denies: Dysuria, Frequency, Hematuria, Retention Gynecological: Denies: Breast symptoms Musculoskeletal: Reports: - - muscle cramps legs w/diuresis. Denies: Back Pain Skin: Denies: Rash, Wounds Neurological: Denies: Balance problems, Change in Speech, Focal weakness, Numbness, Tingling, Tremor, Seizures Psychiatric: Reports: Depression. Denies: Anxiety Endocrine: Denies: Change in Body Habitus, Polydipsia, Polyuria Hematologic/ Lymphatic: Reports: Anemia, Easy Bruising. Denies: Adenopathy, Easy Bleeding, Hx of blood clot Patient Problems: Active and Suspected Problems Heart failure (Acute) Fracture of spine (Acute) Acute combined systolic and diastolic congestive heart failure (Acute) Subjective: The patient was seen and examined. She is sitting up in bed in no acute distress, her daughter and are at the bedside. Just returned a while ago from her thoracentesis and reports significant subjective improvement in her breathing, she has been weaned to room air. Objective: Clinical Impression(s) from Imaging Studies Chest CTA 01/29/18 11:51 IMPRESSION: Bilateral pleural effusions right greater than left with underlying atelectasis. Stable fibrocalcific scarring in the left lung apex with bronchiectasis. Moderate sized pericardial effusion. Abnormal appearance of the upper thoracic vertebrae. Metastasis should be ruled out. Electronically Signed: Blayne Kamara MD at 13:04 EDT Tel [phone], Service support , Chest X-Ray 01/30/18 05:55 IMPRESSION: Bilateral pleural effusions with underlying bibasilar atelectasis superimposed on mild degree of CHF. Stable changes in the left suprahilar region and both lung apices. Electronically Signed: Blayne Kamara MD at 10:07 EDT Tel [phone], Service support , Thoracentesis Ultrasound 01/30/18 10:00 IMPRESSION: Ultrasound-guided right thoracentesis. Electronically Signed: Blayne Kamara MD at 10:55 EDT Tel [phone], Service support , - Physical Exam General: Alert, Oriented x3, Cooperative, No apparent distress, Well developed, Well nourished, - - No conversational dyspnea HEENT: Atraumatic, Normocephalic Oral: Moist Mucosa, No Gingival or Mucosal Lesions/ Ulcerations Neck: Supple, No Nodes, Trachea Midline Lungs: No rhonchi, No wheeze, No rales, Diminished, - - Symmetrical expansion, no dullness to percussion. No crepitus over the thoracentesis site on the right Cardiovascular: Regular rate, Regular Rhythm, Normal S1, Normal S2, No murmurs, No rub noted, No Gallop Abdomen: Bowel Sounds Present, Soft, Non Tender, Non-Distended Extremities: No clubbing, No cyanosis, No Calf Tenderness, Edema - Trace bilateral lower extremities Skin: No rashes, - - bandaid over thora site R back Musculoskeletal: No Tenderness to Palpation of Joints or Extremities Lymphatic: No Cervical, Supraclavicular, or Inguinal Adenopathy Neurological: Cranial nerves II-XII grossly intact, Neuro grossly intact, Motor Exam 5/5 strength throughout Psych/Mental Status: Alert and oriented to time, place, person, mood and affect Vital Signs Temp Pulse Resp BP Pulse Ox 98.2 F 96 12 97/74 98 01/30/18 10:55 01/30/18 10:55 01/30/18 10:55 01/30/18 10:55 01/30/18 10:55 Oxygen Flow Rate (L/min) 2 Oxygen Delivery Method Room Air Weight: 136 lb 3.931 oz Body Mass Index (BMI) 21.0 Intake and Output for Last 24 Hours Intake Total 200 / 200 800 / 800 Output Total 2000 / 2000 1500 / 1500 Balance -1800 / -1800 -700 / -700 Microbiology Past 72 Hours 01/30/18 05:05 Respiratory Panel (PCR) - Final Laboratory Tests Past 24 Hrs WBC RBC Hgb Hct MCV MCH MCHC RDW RDW Differential Plt Count WBC RBC Hgb Hct MCV MCH MCHC RDW RDW Differential Plt Count WBC 3.2 L RBC 4.24 Hgb 11.8 L Hct 34.7 L MCV 81.8 WBC RBC Hgb Hct MCV MCH MCHC RDW RDW Differential Plt Count MPV Assessment/Plan Active and Suspected Problems Heart failure (Acute) Fracture of spine (Acute) Acute combined systolic and diastolic congestive heart failure (Acute) RECOMMENDATIONS 1. Wean oxygen supplementation to keep saturations >90% 2. Encourage incentive spirometer/Acapella 3. Increase activity as tolerated, ambulate. 4. Continue bronchodilators. No indication for antibiotics or steroids. 5. Continue volume optimization with diureses. Fluid restriction, limit salt, daily weights 6. Cardiology consult IMPRESSIONS 1. New onset combined congestive heart failure/pulmonary hypertension BNP elevated. CT chest w/ bilateral pleural effusions. Some scarring in bronchiectasis in the left apex, moderate pericardial effusion. Echo shows an EF of 20%, severe global LV systolic dysfunction, RVSP of 56 mmHg, moderate pericardial effusion, diastolic dysfunction. Possibly chemo-induced, patient had a lung transplant in 1999, no recent follow-up with oncology. Continue efforts of volume optimization with diuresis, 1.5 L fluid restriction, daily weights. Patient will need education on new diagnosis of CHF. I did review this diagnosis with her and provided start of education. She is currently saturating appropriately on room air after thoracentesis this morning with approximately 870 mL of fluid removal. Appears to be transudative. Encourage incentive spirometer/Acapella, does have some bronchiectasis on CT. Consult cardiology. 2. History NHL s/p stem cell transplant/self-reported asthma/depression Complicates care, management, recovery, and prognosis. Continue home medications as indicated. Will obtain records from Dr. Lobo's office. Thank you for the opportunity to participate in this patient's care, please do not hesitate contact us with any further questions or concerns. This note was generated with [employer] dictation software. It may contain incorrect words, spelling, and punctuation that were not noted in checking the note before signing. 01/30/18 1244 <Electronically signed by Tammy ADAME> Date Tammy ADAME Cosigner Signature (if applicable): Date CC: Nikia Pillai MD; Dimitris Staples D.O.; Polina Laureano MD Signed CHEST INSP/EXP 2 VIEW Observed: 01/30/2018 Status: F Source: [place] 10:10 AM [facility] REPOSITORY [facility] Imaging Services [address] [place] [address] Chest Insp/Exp 2 View MR#: [id number] Acct: [id number] Name: ZEESHAN FERNANDO Rep #: [id number] : 1965 F 52 From: Blayne Kamara MD PCP: Nikia Pillai MD Status: ADM IN Study: Chest Insp/Exp 2 View Date of Exam: 01/30/18 Exam# [id number] Ordering Dr: Blayne Kamara MD STUDY: X-RAY CHEST REASON FOR EXAM: Female, 52 years old. Post right thoracentesis. TECHNIQUE: Inspiration and expiration views. COMPARISON: Comparison prior examination dated January 30, 2018 at 6:40 AM. FINDINGS: Hyperinflation. The patient is status post right thoracentesis. There is no evidence of thorax. Stable appearance of the left lung. RAD/Chest Insp/Exp 2 View IMPRESSION: Status post right thoracentesis. There is no evidence of pneumothorax. Electronically Signed: Blayne Kamara MD at 13:37 EDT Tel [phone], Service support , CC: Nikia Pillai MD; Blayne Kamara MD Cyber Instructor: Signed ECHOCARDIOGRAM COMPLETE Observed: 01/30/2018 Status: F Source: [place] 9:36 AM [facility] REPOSITORY [facility] Cardiovascular Services [address] [place] [address] Echo Complete 01/30/18 0801 MR#: [id number] Acct: [id number] Name: ZEESHAN FERNANDO Rep #: [id number] : 1965 52 From: Terrance Roland MD Attending Dr: Aaron Gutierrez MD Status: ADM IN Ordering Dr: Omar Ramirez MD Date: 01/29/18 Location: [facility] Sex: F C Admitted: 01/29/18 Reason For Study: Heart Failure Procedure This was a 2D Doppler, Color Flow transthoracic echocardiogram. The exam was of adequate technical quality. Exam performed portable in patient room. Left Ventricle Mildly dilated left ventricle. Severe global left ventricular systolic dysfunction. The estimated ejection fraction is 20 %. Transmitral diastolic flow velocities suggest moderate (stage 2) diastolic dysfunction (pseudonormal pattern). Right Ventricle Normal RV size. Normal systolic function. Atria Normal left atrium. Normal right atrium. No doppler evidence for ASD. Mitral Valve There is no mitral annular calcification. Mild diffuse mitral valve thickening. Moderate (2+) mitral valve insufficiency. Tricuspid Valve Normal tricuspid valve. Mild tricuspid valve insufficiency. Right ventricular systolic pressure estimated to be 56 mmHg. Aortic Valve Trisinus/trileaflet aortic valve. Normal aortic valve. Moderately severe (3+) aortic valve insufficiency. Pulmonic Valve The pulmonic valve is not well visualized. Mild (1+) pulmonic valve insufficiency. Great Vessels Normal sized aortic root. Pericardium/Pleural Moderate pericardial effusion. There are no echocardiographic indications of cardiac tamponade. Echolucency c/w a pleural effusion. MMode/2D Measurements AND Calculations LVIDd: 5.8 cm IVSd: 0.98 cm Ao root diam: 3.3 cm LVIDs: 5.1 cm LVPWd: 1.0 cm LA dimension: 4.2 cm RVDd: 2.8 cm FS: 12.7 % LAV(MOD-bp): 45.2 ml LA A4 area: 14.3 cm2 RA A4 area: 9.5 cm2 LAV(MOD-bp) Indexed: 25.8 ml/m2 LAV(MOD-sp2): 53.2 ml LAV(MOD-sp4): 33.5 ml Doppler Measurements AND Calculations MV E max jennifer: 105.8 cm/sec Lat Peak E' Jennifer: 5.7 cm/sec Med Peak E' Jennifer: 7.8 cm/sec MV A max jennifer: 88.4 cm/sec E/E' lat: 18.6 E/E' med: 13.5 MV E/A: 1.2 Ao V2 max: 121.5 cm/sec AI max jennifer: 440.0 cm/sec LV V1 max: 98.4 cm/sec Ao max P.9 mmHg AI max P.4 mmHg LV V1 max P.9 mmHg Ao V2 mean: 88.1 cm/sec AI dec slope: 337.4 cm/sec2 Ao mean P.4 mmHg AI P1/2t: 382.0 msec Ao V2 VTI: 20.3 cm PA V2 max: 75.9 cm/sec PI end-d jennifer: 182.2 cm/sec TR max jennifer: 347.3 cm/sec TR max P.2 mmHg Interpretation Summary Mildly dilated left ventricle. Severe global left ventricular systolic dysfunction. The estimated ejection fraction is 20 %. Mild diffuse mitral valve thickening. Moderate (2+) mitral valve insufficiency. Mild tricuspid valve insufficiency. Moderately severe (3+) aortic valve insufficiency. Mild (1+) pulmonic valve insufficiency. Moderate pericardial effusion. There are no echocardiographic indications of cardiac tamponade. Echolucency c/w a pleural effusion. Right ventricular systolic pressure estimated to be 56 mmHg c/w pulmonary hypertension. Transmitral diastolic flow velocities suggest diastolic dysfunction. Ordering Physician: Omar Ramirez Performed By: Graciela Stein, TITUS, RVT 01/30/18934 Date Terrance Roland MD CC: Nikia Pillai MD; Aaron Gutierrez MD; Omar Ramirez MD Date Dictated: 01/30/18800 Date Transcribed: 01/30/18934 Cyber Instructor: Signed BODY FLUID CELL Collected: 01/30/2018 Status: C Source: [place] COUNT+DIFF 9:30 AM [facility] REPOSITORY Order Comment: The reference range and other method performance specifications have not been established for this body fluid. The test must be integrated into the clinical context for interpretation. Specimen Source: THORACENTESIS TYPE CODE TESTS RESULT OUT OF RANGE REFERENCE UNITS LAB L200.3380 0.000-0.000 10 3/ul High BFTC# 0.882 Result Comment: This is the Total Number of Nucleated Cell Types in the Body Fluid. LAB L200.3400 10 6/ul Normal RBC/BF 0.26453 LAB L200.3500 10 3/uL Normal 0.806 WBC/BF LAB L200.3510 % Normal 1.7 BF PMN WBC% LAB L200.3515 % Normal 98.3 BF MN WBC% LAB L200.3520 10 3/uL Normal 0.792 BF MN WBC# LAB L200.3525 10 3/uL Normal 0.014 BF PMN WBC# LAB L200.4400 Normal PATH COMM/BF Reviewed Result Comment: Negative for malignant cells. Braden Keller M.D. 02/02/18 AMENDED REPORT 02/02/18 1005 PATH COMM/BF previously reported as: May follow LAB L200.3100 SOURCE/BF THORACENTESIS Normal LAB L200.3200 COLOR/BF YELLOW Normal LAB L200.3300 APPEAR/BF SL CLDY Normal LAB L200.4420 BFM 2ND SEE COMMENT Normal SPEC LAB L200.3600 % PMN 1 Normal LAB L200.3700 % LYMPH 77 Normal LAB L200.3900 % MESOTHELIAL 3 Normal LAB L200.3950 % MACROPHAGES 19 Normal Performed By: #### L200.0200 #### [facility] [address] [place], [address] PROTEIN, BODY FLUID Collected: 01/30/2018 Status: F Source: [place] 9:30 AM [facility] REPOSITORY TYPE CODE TESTS RESULT OUT OF RANGE REFERENCE UNITS LAB L503.0300 Not Establ. g/dL Normal 2.5 PROTEIN,BF Performed By: #### L503.0300 #### [facility] [address] [place], [address] GLUCOSE, BODY FLUID Collected: 01/30/2018 Status: F Source: [place] 9:30 AM [facility] REPOSITORY Order Comment: Comments: Thoracentesis TYPE CODE TESTS RESULT OUT OF RANGE REFERENCE UNITS LAB L503.0100 40-70 mg/dL High GLU,BF 120 Performed By: #### L503.0100, L504.0250 #### [facility] [address] [place], [address] LDH,BODY FLUID Collected: 01/30/2018 Status: F Source: [place] 9:30 AM [facility] REPOSITORY Order Comment: Comments: Thoracentesis TYPE CODE TESTS RESULT OUT OF RANGE REFERENCE UNITS LAB L504.0250 Not Establ. Units/l Normal LDH,BF 74 Performed By: #### L503.0100, L504.0250 #### [facility] [address] [place], [address] Observed: 01/30/2018 Status: F Source: [place] CULTURE, BODY FLUID 9:30 AM [facility] REPOSITORY List Antibiotics Last 48 Hours? UNK List Antibiotics to be Started? UNK Gram Stain Centrifuged Specimen? Culture performed on centrifuged specimen Gram Stain 1+ White Blood Cells No organisms seen Body Fluid Cult No growth aerobically. Cult, Anaerobic No growth in 5 days. Performed By: #### M100.1300 #### [facility] [address] [place], [address] CYTOLOGY, BODY FLUID / Collected: 01/30/2018 Status: F Source: [place] CSF 9:30 AM [facility] REPOSITORY Order Comment: Comments: Thoracentesis Specimen Source: THORACENTESIS TYPE CODE TESTS RESULT OUT OF RANGE REFERENCE UNITS LAB L350.1000 SEE Normal PATHOLOGY CYTOLOGY,BF REPORT /CSF Result Comment: Specimen submitted to Anatomical Pathology Department for testing. Performed By: #### L350.1000 #### [facility] [address] [place], [address] THORACIC SPINE 3 Observed: 01/30/2018 Status: F Source: [place] VIEWS 9:00 AM [facility] REPOSITORY [facility] Imaging Services [address] [facility] [place] [address] Thoracic Spine 3 Views MR#: [id number] Acct: [id number] Name: KELSIZEESHAN MUNIZ Cindy Rep #: [id number] : 1965 F 52 From: Blayne Kamara MD PCP: Nikia Pillai MD Status: ADM IN Study: Thoracic Spine 3 Views Date of Exam: 01/30/18 Exam# [id number] Ordering Dr: Polina Laureano MD STUDY: X-RAY - THORACIC SPINE REASON FOR EXAM: Female, 52 years old. History of arthritis. Possible metastasis. TECHNIQUE: 3 view(s) of the thoracic spine were obtained. COMPARISON: None. FINDINGS: Normal kyphosis of the thoracic spine. There is no substantial scoliosis. There is demineralization of the thoracic spine. There is multilevel disc space narrowing of the thoracic spine. Bilateral pleural effusions and bibasilar infiltrates and/or atelectasis. RAD/Thoracic Spine 3 Views IMPRESSION: Multilevel disc space narrowing in the thoracic level. Osteopenia of the thoracic vertebrae worse in the upper thoracic spine. Correlation with the bone scan is recommended. Electronically Signed: Blayne Kamara MD at 13:00 EDT Tel [phone], Service support , CC: Nikia Pillai MD; Polina Laureano MD Cyber Instructor: Signed CONSULTATION Observed: 01/30/2018 Status: F Source: [place] 8:58 AM [facility] REPOSITORY [facility] Medical Records Department [address] [place] [address] Consultation 01/30/18 0823 MR#: [id number] Acct: [id number] Name: ZEESHAN FERNANDO Rep #: [id number] : 1965 52 From: Polina Laureano MD PCP: Nikia Pillai MD Status: ADM IN Y Location: [place] [address] Problem List (1) Non-Hodgkin lymphoma in remission Status: Chronic (2) History of stem cell transplant Status: Chronic (3) Fracture of spine Status: Acute Qualifiers: Thoracic vertebra fracture level: unspecified thoracic vertebra Fracture type: closed Fracture morphology: unspecified fracture morphology Fracture healing: with routine healing - Consult Date of Consult: 01/30/[address] Ramirez regarding a patient with history of Hodgkin lymphoma, status post transplant presented with congestive heart failure. My final recommendations will be communicated to Dr. Ramirez, nursing staff, and also by electronic medical records. - Reason for Consult History of Hodgkin lymphoma- in remission Status post bone marrow transplant 1999 Congestive heart failure Thoracic spine fractures History of Present Illness Date of Admission: 01/29/18 The patient is a 52 year old F with history of Hodgkin's lymphoma diagnosed 1998 status post chemotherapy ABVD x 6 months and involved field radiation therapy to mediastinum, and stem cell transplant in June 2000. He had previous evaluation in [facility] after bone marrow transplant regarding heart. Patient came to ER with progressively worsening of shortness of breath for 3 weeks. Patient also orthopneic and sleep in recliner with bilateral lower legs edema for couple weeks. she also developed asthma/ pulmonary toxicity after chemoradiation in 1999. She first noticed increased dyspnea on exertion last September. She was having problems walking up a hill, but she denies chest pain/tightness or near syncope. She denies fever chills, cough or flulike symptoms. She had several bouts of colds and bronchitis in October and November. In ED, EKG shows sinus tachycardia at 119 bpm with right bundle branch block. CT chest was done and shows bilateral pleural effusion right more than left and left lung mass in the lingular lobe (chronic). There is also evidence of possible old compression fracture of the thoracic spine. She has not followed oncologist last 6 years, used to follow-up in [facility]. She denies any previous cardiac history. No tobacco or ETOH used and no family history of heat disease. Denies history of fall or back pain, no neurological symptoms. Past Medical History Past Medical History (Chronic Problems): Chronic Problems Non-Hodgkin lymphoma in remission (Chronic) History of stem cell transplant (Chronic) Bilateral pleural effusion (Chronic) Mass of left lung (Chronic) Asthma (Chronic) Allergies guaifenesin Allergy (Verified 01/29/18 11:28) Other Penicillins [PCN] Allergy (Verified 01/29/18 11:28) Itching Sulfa (Sulfonamide Antibiotics) Allergy (Verified 01/29/18 11:28) Rash Home Medications: Ambulatory Orders Medication Instructions Recorded Smoking Status: Never smoker - *Family History Paternal History Items: No pertinent history Review of Systems Constitutional: Reports: Weakness, - - Denies recent weight loss in last 6 months. Denies: Chills, Fever, Weight Change HEENT: Denies: Head Aches, Sinus Congestion, Sinus Drainage Cardiovascular: Denies: Chest Pain, Palpitations Respiratory: Reports: Shortness of breath upon exertion. Denies: Cough, Shortness of breath at rest, Sputum production Gastrointestinal: Denies: Abdominal Pain, Nausea, Vomiting Genitourinary: Denies: Dysuria Musculoskeletal: Denies: Joint Pain, Joint Tenderness Skin: Denies: Rash, Wounds Neurological: Denies: Numbness, Tingling, Focal weakness Psychiatric: Denies: Anxiety, Depression, Homicidal Ideations, Suicidal Ideations Hematologic/ Lymphatic: Denies: Easy Bruising, Easy Bleeding Heart failure (Acute/Chonic) - Physical Exam General: Alert, Oriented x3, Cooperative HEENT: Atraumatic, PERRLA, EOMI, Normocephalic Neck: Supple, No JVD, Negative Carotid Bruits Lungs: Diminished, Rales, - - Bilateral pleural effusion, right more than left. Stony dullness present on the right side below fourth intercostal space Cardiovascular: Regular rate, Regular Rhythm, Normal S1, Normal S2, No murmurs Abdomen: Bowel Sounds Present, Soft, Non Tender, Non-Distended Extremities: Capillary Refill Less than 3 Seconds, Edema Skin: No rashes, No breakdown Musculoskeletal: No Tenderness to Palpation of Joints or Extremities Neurological: Cranial nerves II-XII grossly intact Psych/Mental Status: Normal Affect, Appropriate Vital Signs Temp Pulse Resp BP Pulse Ox 98.5 F 123 H 33 H 133/98 H 94 01/29/18 11:28 01/29/18 15:09 01/29/18 15:09 01/29/18 15:09 01/29/18 15:09 Assessment/Plan Active and Suspected Problems Heart failure (Acute) The patient is a 52 year old F with history of Hodgkin's lymphoma diagnosed 1998 status post ABVD x 6 months and stem cell transplant in June 2000 and then chest radiation therapy. She came to ER with progressively worsening of shortness of breath for 3 weeks, edema and orthopnea. In ED, EKG shows sinus tachycardia at 119 bpm with right bundle branch block. 1. Clinically new onset heart failure: Possible chronic heart failure from chemotherapy-induced; and radiation therapy. Plan: -Obtain a record of EKG and echocardiogram after transplant for comparison -Cardiac workup in progress -Cardiology consult 2. Hodgkin's lymphoma status post stem cell transplant in remission: Plan: - no further evaluation needed. 3. abormal upper thoracic vertebra on CT scan-patient has no back pain Plan: -X-ray thoracic spine evaluation -Check SPEP AND immunofixation Laboratory Results 01/29/18 11:55: WBC 4.2 L, RBC 4.14 L, Hgb 11.6 L, Hct 35.0 L, MCV 84.5, MCH 28.0, MCHC 33.1, RDW 14.2, RDW Differential 42.9, Plt Count 160, MPV 9.2, Immature Gran % (Auto) 0.000, Neut % (Auto) 74.9 H, Lymph % (Auto) 15.1 L, Blaine % (Auto) 9.6, Eos % (Auto) 0.2, Baso % (Auto) 0.2, Absolute Neuts (auto) 3.1, Absolute Lymphs (auto) 0.63 L, Total Counted Not Reportable 01/29/18 11:55: Sodium 131 L, Potassium 3.9, Chloride 96 L, Carbon Dioxide 24.0, Anion Gap 11, BUN 18, Creatinine 1.03 H, Estim Creat Clear Calc 67.53, Est GFR (MDRD) Af Amer 73, Est GFR (MDRD) Non-Af 60, BUN/Creatinine Ratio 17.5, Glucose 101, Calcium 8.5, Troponin I < 0.02 01/29/18 11:55: B-Natriuretic Peptide 1357.5 H 01/29/18 11:55: Magnesium 2.0 01/29/18 16:17: Troponin I Pending Clinical Impression(s) from Imaging Studies Chest CTA 01/29/18 11:51 IMPRESSION: Bilateral pleural effusions right greater than left with underlying atelectasis. Stable fibrocalcific scarring in the left lung apex with bronchiectasis. Moderate sized pericardial effusion. Abnormal appearance of the upper thoracic vertebrae. Metastasis should be ruled out. Electronically Signed: Blayne Kamara MD at 13:04 EDT cc: Dr. Omar Ramirez; Dr. Polina Laureano; Dr. Nikia Pillai 01/30/18 0858 <Electronically signed by Polina Laureano MD> Date Polina Laureano MD Cosigner Signature (if applicable): Date CC: Nikia Pillai MD; Dimitris Staples D.O.; Polina Laureano MD Signed Observed: 01/30/2018 Status: F Source: [place] RESPIRATORY PANEL 5:05 AM [facility] MOLECULAR REPOSITORY RP PANEL Normal Reference Range = Not Detected ADENOVIRUS Not Detected HUMAN METAPHNEUMO Not Detected INFLUENZA A Not Detected INFLUENZA A (SUBTYPE H1) Not Detected INFLUENZA A (SUBTYPE H3) Not Detected INFLUENZA B Not Detected PARAINFLUENZA 1 Not Detected PARAINFLUENZA 2 Not Detected PARAINFLUENZA 3 Not Detected PARAINFLUENZA 4 Not Detected RHINOVIRUS Not Detected RSV A Not Detected RSV B Not Detected NAAT METHOD Testing was performed using nucleic acid amplification Performed By: #### M100.638 #### [facility] [address], [place], [address] TROPONIN-I Collected: 01/30/2018 Status: F Source: [place] 2:18 AM [facility] REPOSITORY Order Comment: 'TROP' Serial specimen #1, #2, #3, or #4: 4 TYPE CODE TESTS RESULT OUT OF RANGE REFERENCE UNITS LAB L501.4010 <0.06 ng/mL Normal < 0.02 TROPONIN-I Result Comment: TROPONIN-I EXPECTED VALUES <0.05 NEGATIVE 0.06 - 0.59 AT RISK OF HI > OR = 0.60 SUGGEST HI Performed By: #### L501.4010 #### [facility] [address], [place], [address] CBC-COMPLETE BLOOD CNT Collected: 01/30/2018 Status: F Source: [place] NO DIFF 2:18 AM [facility] REPOSITORY TYPE CODE TESTS RESULT OUT OF RANGE REFERENCE UNITS LAB L100.1000 4.4-11.0 K/mm3 Low WBC 3.2 LAB L100.1200 4.2-5.4 M/mm3 Normal RBC 4.24 LAB L100.1300 12.0-15.0 g/dl Low HGB 11.8 LAB L100.1400 37-47 % Low HCT 34.7 LAB L100.1500 81-99 fL Normal MCV 81.8 LAB L100.1600 27.0-32.0 pg Normal MCH 27.8 LAB L100.1700 32-36 g/gl Normal MCHC 34.0 LAB L100.1810 11.6-14.6 % Normal RDW CV 14.1 LAB L100.1820 35.1-43.9 fl Normal RDW SD 41.2 LAB L100.1900 150-450 K/mm3 Normal PLT 155 LAB L100.2000 6.2-12.0 fl Normal MPV 9.6 Performed By: #### L100.0500 #### [facility] [address] [place], [address] PROTEIN, TOTAL Collected: 01/30/2018 Status: F Source: [place] 2:18 AM [facility] REPOSITORY TYPE CODE TESTS RESULT OUT OF RANGE REFERENCE UNITS LAB L501.1500 6.4-8.2 g/dL Normal T PROT 6.9 LAB L501.1950 2.2-4.2 g/dL Normal GLOB 3.4 LAB L501.2000 0.9-2.4 RATIO Normal A/G 1.0 Performed By: #### L001.0705, L500.2500, L500.4100, L501.9520 #### [facility] [address] [place], [address] BASIC METABOLIC Collected: 01/30/2018 Status: F Source: [place] PROFILE (BMP) 2:18 AM [facility] REPOSITORY TYPE CODE TESTS RESULT OUT OF RANGE REFERENCE UNITS LAB L501.0100 74-106 mg/dL High GLU 124 Result Comment: Fasting Glucose result from 100 to 125 mg/dL suggests IMPAIRED HOMEOSTASIS per A.D.A. criteria. Please note revised GLUCOSE reference range effective 2017. LAB L501.1000 7-18 mg/dL Normal BUN 17 LAB L501.1100 0.55-1.02 mg/dL Normal CREAT,SERUM 0.83 Result Comment: The validity of the calculated GFR AND GFRAA in patients over 70 years has not been determined. Clinical correlation is essential. LAB L501.1110 >60 mL/min Normal EST GFR 77 Result Comment: Non- GFR Calc LAB L501.1115 >60 mL/min Normal EST GFR - AA 93 Result Comment: GFR Calc LAB L501.1255 ml/min Normal Estimated CRCL 81.90 LAB L501.1300 10-20 RATIO High BUN/CRE 20.4 LAB L501.2200 8.5-10 mg/dL Low .1 CA 8.3 LAB L501.5300 136-14 mmol/L Low 5 NA 132 LAB L501.5600 3.5-5. mmol/L Normal 1 K 3.7 LAB L501.5900 98-107 mmol/L Low CL 94 LAB L501.6100 21.0-3 mmol/L Normal 2.0 CO2 26.0 LAB L501.6200 5-15 Normal GAP 12 Performed By: #### L001.0705, L500.2500, L500.4100, L501.9520 #### [facility] [address] [facility] [place], [place], [id number] LIPID PROFILE Collected: 01/30/2018 Status: F Source: [place] 2:18 AM [facility] REPOSITORY TYPE CODE TESTS RESULT OUT OF RANGE REFERENCE UNITS LAB L501.4900 200 mg/dL Normal CHOL 159 Result Comment: <200 mg/dL Desirable 200-240 mg/dL Borderline >240 mg/dL High Risk LAB L501.5000 mg/dL Normal TRIG 43 Result Comment: The drugs N-Acetylcysteine and Metamizole may falsely depress this assay. Serum Triglycerides Reference Interval Normal <150 mg/dL Borderline high 150 - 199 mg/dL High 200 - 499 mg/dL Very High > or = 500 mg/dL LAB L501.6400 mg/dL Normal HDL 74 Result Comment: The drugs N-Acetylcysteine and Metamizole may falsely depress this assay. Reference Range HDL <40 mg/dL Low HDL Cholesterol HDL >or= 60 mg/dL High HDL Cholesterol LAB L501.6500 0-130 mg/dL Normal LDL 76 LAB L501.6600 5-40 mg/dL Normal VLDL 9 Performed By: #### L001.0705, L500.2500, L500.4100, L501.9520 #### [facility] [address] [facility]. [place], [place], [id number] THYROID STIM HORMONE Collected: 01/30/2018 Status: F Source: [place] (TSH) 2:18 AM [facility] REPOSITORY TYPE CODE TESTS RESULT OUT OF RANGE REFERENCE UNITS LAB L501.9520 0.358-3.74 uIU/mL Normal TSH 0.71 Performed By: #### L001.0705, L500.2500, L500.4100, L501.9520 #### [facility] [address] [facility] [address] [place], [place], [id number] PROTHROMBIN TIME W/INR Collected: 01/30/2018 Status: F Source: [place] 2:18 AM [facility] REPOSITORY TYPE CODE TESTS RESULT OUT OF RANGE REFERENCE UNITS LAB L300.4150 11.7-14.9 SECONDS Normal PROTIME 14.4 LAB L300.4200 Normal INR 1.1 Performed By: #### L300.3900 #### [facility] [address] [place], [address] CHEST PA AND LATERAL Observed: 01/30/2018 Status: F Source: [place] 12:01 AM [facility] REPOSITORY [facility] Imaging Services [address] [place] [address] Chest PA and Lateral MR#: [id number] Acct: [id number] Name: ZEESHAN FERNANDO Rep #: [id number] : 1965 F 52 From: Blayne Kamara MD PCP: Nikia Pillai MD Status: ADM IN Study: Chest PA and Lateral Date of Exam: 01/30/18 Exam# [id number] Ordering Dr: Omar Ramirez MD STUDY: X-RAY CHEST REASON FOR EXAM: Female, 52 years old. Shortness of breath. TECHNIQUE: AP and lateral views of the chest. COMPARISON: Comparison is made with prior study dated January 11, 2018. FINDINGS: EKG electrodes are seen. Is evidence of bilateral pleural effusions with bibasilar atelectasis. Mild degree of vascular congestion. Stable scarring in the left suprahilar region with volume loss in the left upper lobe most likely secondary to prior radiation treatment or surgery. Stable pleural thickening of both lung apices worse on the left side. There is mild cardiac enlargement. Normal mediastinum and prabhjot. Normal visualized pulmonary arteries. There is atherosclerotic tortuosity of the aortic arch and descending thoracic aorta. Normal visualized thoracic spine. Normal visualized ribs, clavicles, and shoulders. There is no demonstrated abnormality of the visualized soft tissue structures of the upper abdomen. RAD/Chest PA and Lateral IMPRESSION: Bilateral pleural effusions with underlying bibasilar atelectasis superimposed on mild degree of CHF. Stable changes in the left suprahilar region and both lung apices. Electronically Signed: Blayne Kamara MD at 10:07 EDT Tel [phone], Service support , CC: Nikia Pillai MD; Omar Ramirez MD Cyber Instructor: Signed THORACENTESIS W US Observed: 01/30/2018 Status: F Source: [place] 12:01 AM [facility] REPOSITORY [facility] Imaging Services [address] [place] [address] Thoracentesis W US MR#: [id number] Acct: [id number] Name: ZEESHAN FERNANDO Rep #: [id number] : 1965 F 52 From: Blayne Kamara MD PCP: Nikia Pillai MD Status: ADM IN Study: Thoracentesis W US Date of Exam: 01/30/18 Exam# [id number] Ordering Dr: Omar Ramirez MD PROCEDURE: ULTRASOUND GUIDED THORACENTESIS. DATE: January 30, 2018.. INDICATION: Female, 52 years old. Right pleural effusion. PHYSICIAN: Blayne Kamara M.D. PROCEDURE: The risks, benefits, and alternatives to the procedure were explained to the patient. The specific risks of bleeding, infection, and pneumothorax requiring chest tube insertion were discussed and accepted. Written informed consent was obtained. Ultrasonographic evaluation of the right lower pleural space was carried out. An adequate pocket was identified. The patient was placed in the sitting, upright position. The overlying skin was prepped and draped in sterile fashion. 1% lidocaine was administered subcutaneously for local anesthesia. Under ultrasound guidance, a 6 Dominican thoracentesis needle/catheter system was advanced into the right posterior lower pleural fluid collection. Approximately 870 mL of bia-colored fluid was drained. The catheter was removed, and a sterile dressing was applied. A specimen was collected and sent to the laboratory for analysis, as requested by the referring clinician. The patient tolerated the procedure well. A chest x-ray was ordered. US/Thoracentesis W US IMPRESSION: Ultrasound-guided right thoracentesis. Electronically Signed: Blayne Kamara MD at 10:55 EDT Tel [phone], Service support , CC: Nikia Pillai MD; Omar Ramirez MD Cyber Instructor: Signed FLUID/WASHING Observed: 01/30/2018 Status: F Source: [place] 12:00 AM [facility] REPOSITORY Patient: ZEESHAN FERNANDO : 1965 (52/F) Acct Num: [id number] Phys: Brenda ASHAaron Unit Num: [id number] Loc: U [id number] Specimen: [id number] Received: 01/30/18 - 1305 Spec Type: Fluid TISSUES TISSUES: THORACIC FLUID CYTOLOGY GROSS Received is 100 ml of yellow cloudy fluid labeled with the patient's name and and designated per the requisition as thoracentesis. Submitted for cytology preparation including cell block. / 01/30/18 TC:5 CPT: 04658, 69693 CYTOLOGY STUDY Slides are reviewed. The specimen consists of macrophages, mesothelial cells and inflammatory cells. DIAGNOSIS CYTOLOGY Thoracentesis fluid for cytology (cytospin and cell block): Negative for malignant cells. SJ:twin 02/02/18 HEADER OPERATION: Ultrasound-guided right thoracentesis PRE-OP DIAGNOSIS: Right pleural effusion TISSUE SUBMITTED: Thoracentesis fluid for cytology Signed Braden Keller 02/02/18 <signature on file> Performed By: #### PFLU #### [facility] [address] [place], [place] [address], [address] HOSP Observed: 01/30/2018 Status: COMPLETED Source: [place] 12:00 AM [facility] OTHER CAMPUS REPOSITORY Patient:Zeeshan Fernando MRN: <[id number]> Height:5' 9(1.753 m) Weight:124 lb 5.4 oz (56.4 kg) Outpatient Medications as of 02/02/18: omeprazole (PRILOSEC) 20 mg capsule fluticasone-salmeterol (ADVAIR) 500-50 mcg/dose dsdv ipratropium (ATROVENT) 0.02 % nebulizer solution albuterol (PROVENTIL) 2.5 mg /3 mL (0.083 %) nebulizer solution venlafaxine ER (EFFEXOR XR) 37.5 mg 24 hr capsule guaiFENesin (MUCINEX) 1,200 mg Ta12 montelukast (SINGULAIR) 10 mg tablet albuterol HFA (PROAIR HFA) 90 mcg/actuation inhaler ondansetron orally disintegrating (ZOFRAN ODT) 4 mg disintegrating tablet oxyCODONE-acetaminophen (PERCOCET) 5-325 mg tablet DAILY MULTIVITAMIN TAB Admission/Clinic Administered Medications as of 02/02/18: heparin 1,000 Units in D5W 250 mL heparin 3,000 Units in NaCl 0.9% 500 mL irrigation sodium chloride-aloe vera topical nasal gel (AYR GEL w/ALOE) albuterol 2.5 mg /3 mL (0.083 %) 2.5 mg (PROVENTIL) oxyCODONE-acetaminophen 5-325 mg 1 tablet (PERCOCET) 0.9% NaCl 3-5 mL enoxaparin 40 mg injection (LOVENOX) pantoprazole DR 40 mg tab(s) (PROTONIX) fluticasone-vilanterol 200-25 mcg/dose 1 Inhalation (BREO ELLIPTA) guaiFENesin 1,200 mg ER tab(s) (MUCINEX) Problem List: Esophageal reflux [K21.9] History of Hodgkin's disease [Z85.71] Personal history of pneumonia (recurrent) [Z87.01] Premature menopause [E28.319] Postmenopausal atrophic vaginitis [N95.2] Cervical high risk human papillomavirus (HPV) DNA test positive [R87.810] Symptomatic menopausal or female climacteric states [N95.1] COPD with acute bronchitis (HCC) [J44.0, J20.9] Closed fracture of metatarsal bone(s) [S92.309A] Capsulitis [M77.9] 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] Papanicolaou smear of cervix with atypical squamous cells of undetermined significance (ASC-US) [R87.610] Subarachnoid bleed ([facility]) [I60.9] Asthma [J45.909] Headache, migraine [G43.909] HFrEF (heart failure with reduced ejection fraction) ([facility]) [I50.20] Allergies: Sulfa (Sulfonamide Antibiotics) Codeine Environmental [Other] GUIAFENESIN [Other] Penicillins Date Verified: 02/02/18 Lab Values Lab Value Units Date High Low POTA* 3.8 mEq/L 02/02/2018 5.1 3.5 BRENDA* 36.1 % 01/31/2018 44.9 34.1 Progress Notes (): Britt Chou RN, RN 01/30/2018 7:39 PM Signed Nursing Progress Note Patient Name: Zeeshan Fernando Patient Location: [place] [address]/[place] [address]* Dr. Coates notified that patient arrived from [place]. This note was completed by: BRANDEE Braun DO 01/30/2018 9:57 PM Signed [facility] MEDICINE HISTORY AND PHYSICAL EXAM SERVICE DATE: 01/30/2018 SERVICE TIME: 2099 Primary Care Physician: NIKIA PILLAI MD NIGHT AND WEEKEND COVERAGE: From 7am - 7pm, please call Sound Admit After 7pm, please call cross cover pager #[phone] Subjective CHIEF COMPLAINT: SOB HPI: This is a 52 year old female with history of Asthma who presents from [facility]. She initially presented with complaints of progressively worsening dyspnea, LE edema and orthopnea. Patient has no prior history of CAD or CHF. She was found to have bilateral pleural effusions, ECHO was done which showed EF of 20%, Moderate to severe Aortic insufficiency and Moderate pericardial effusion with no evidence of cardiac tamponade. Patient was hospitalized she underwent R. Thoracentesis (700 cc), pleural fluid analysis consistent with transudative effusion. She was transferred to [facility] for further evaluation of pericardial effusion since no CTS is available there Currently patient is doing much better, LE edema is improved. SOB is resolving. PAST MEDICAL HISTORY Diagnosis Date - Asthma 2010 dust mites, tree pollen - Brain bleed (HCC) - Carcinoma in situ of cervix uteri 2008 Treated in [place] by Dr. Montilla - Esophageal reflux Gastroesophageal reflux - Hodgkin's disease, unspecified(201.90) 1999 Hodgkins Disease - HPV (human papillomavirus) vaccine 2008 - Migraine, unspecified, with intractable migraine, so stated, without mention of status migrainosus Migraine - Pap smear of cervix with ASCUS, cannot exclude HGSIL 06/28/13 HPV+ - Postmenopausal bleeding Postmenop. bleeding - Premature menopause - Thrombocytopenia, unspecified (HCC) Thrombocytopenia - VAIN III (vaginal intraepithelial neoplasia III) 2008 As above PAST SURGICAL HISTORY Procedure Laterality Date - COLPOSCOPY (VAGINOSCOPY) 2008 with laser tx for HPV - PAST SURGICAL HISTORY OF CHEST WALL BX.,PORT,EDWARDS CATHETER - PAST SURGICAL HISTORY OF 2008 Laser cone of cx and vaporization of upper vagina - VAGINOSCOPY 08/30/13 Benign FAMILY HISTORY Problem Relation Age of Onset - Other [OTHER] Mother PARKINSON'S. - Hypertension Father - Cancer Maternal Grandmother Stomach? - Other [OTHER] Maternal Grandmother LAZARUS'S CHOREA. - Other [OTHER] Other No lung disease. Maybe some allergies, nothing major. Social History Substance Use Topics - Smoking status: Never Smoker - Smokeless tobacco: Never Used Comment: No childhood or current household smokers. - Alcohol use Yes Comment: Seldom. MEDICATIONS: Reviewed Prescriptions Prior to Admission: omeprazole (PRILOSEC) 20 mg capsule TAKE 1 CAPSULE BY MOUTH TWICE DAILY BEFORE MEALS (0600/1600). 1/2 HR BEFORE MEAL. Disp: 180 capsule Rfl: 3 Unknown at Unknown time fluticasone-salmeterol (ADVAIR) 500-50 mcg/dose dsdv Inhale 1 Puff as instructed twice daily. Disp: 3 Inhaler Rfl: 1 Unknown at Unknown time ipratropium (ATROVENT) 0.02 % nebulizer solution Use 2.5 mL via nebulizer four times daily. Unit dose pack of 25 Disp: 1 Vial Rfl: 2 Unknown at Unknown time albuterol (PROVENTIL) 2.5 mg /3 mL (0.083 %) nebulizer solution Use 3 mL via nebulizer every 4 hours as needed. Disp: 1 Package Rfl: 5 Unknown at Unknown time venlafaxine ER (EFFEXOR XR) 37.5 mg 24 hr capsule TAKE ONE CAPSULE BY MOUTH EVERY DAY Disp: 90 capsule Rfl: 1 Unknown at Unknown time guaiFENesin (MUCINEX) 1,200 mg Ta12 Take 1 tablet by mouth twice daily as needed. Disp: 20 tablet Rfl: 1 Unknown at Unknown time montelukast (SINGULAIR) 10 mg tablet TAKE 1 TABLET BY MOUTH DAILY AT BEDTIME. Disp: 90 tablet Rfl: 3 Unknown at Unknown time albuterol HFA (PROAIR HFA) 90 mcg/actuation inhaler Inhale 2 Puffs as instructed every 4 hours as needed. For wheezing/shortness of breath. Disp: 1 Inhaler Rfl: 2 Unknown at Unknown time ondansetron orally disintegrating (ZOFRAN ODT) 4 mg disintegrating tablet Take 1 tablet by mouth every 8 hours as needed. Disp: 12 tablet Rfl: 0 Unknown at Unknown time oxyCODONE-acetaminophen (PERCOCET) 5-325 mg tablet Take 1 tablet by mouth every 8 hours as needed for Pain. Disp: 45 tablet Rfl: 0 Unknown at Unknown time DAILY MULTIVITAMIN TAB Disp: Rfl: 0 Unknown at Unknown time ALLERGIES Allergen Reactions - Sulfa (Sulfonamide * Rash, Swelling - Codeine Hives - Environmental [Othe* Unknown Dust mites, trees - Guiafenesin [Other] Mental Status Change - Penicillins Rash REVIEW OF SYSTEM: PAIN ASSESSMENT: Negative for pain, history of chronic pain, or current treatment for a chronic pain condition. GENERAL: No weight loss, malaise or fevers HEENT: Negative for frequent or significant headaches, No changes in hearing or vision, no nose bleeds or other nasal problems RESPIRATORY: See HPI CARDIOVASCULAR: See HPI GI: No nausea, vomiting, or diarrhea : No history of dysuria, frequency or incontinence SKIN: Negative for lesions, rash, and itching ENDOCRINE: Negative for cold or heat intolerance, polyuria, polydipsia and goiter NEURO: No history of headaches, syncope, paralysis, seizures or tremors Objective PHYSICAL EXAM: BP 105/79 Pulse 105 Temp (Src) 98.6 (Oral) Resp 18 Ht 5' 9 (1.75m) Wt 132 lb 4.4 oz (60.0kg) SpO2 98% LMP 02/18/2004 BMI 19.52 kg/(m2). Physical Exam Performed: GENERAL: Alert, no distress, cooperative HEAD/SINUSES: No significant findings EYES: PERRLA, EOMI OROPHARYNX: Lips, mucosa, and tongue normal. Teeth and gums normal. Oropharynx normal. NECK: No carotid bruits, Carotid pulse normal contour, Supple BACK: Back symmetric, Normal curvature, No CVAT. LUNGS: Lungs clear to auscultation, Good diaphragmatic excursion CARDIAC: RRR, +[id number], no murmurs +Pericardial Rub ABDOMEN: Abdomen soft, non-tender, BS normal, No masses or organomegaly EXTREMITIES: Extremities normal, no deformities, edema, clubbing or skin discoloration. Good capillary refill., No ulcers NEURO: Grossly normal cognition, motor function, and cranial nerves III-XII, Cranial nerves II-XII intact PULSES: 2+ radial, 2+ carotid Lines, Drains, and Airways Line Peripheral 01/30/181939 Admission to Hospital Short Left Antecubital 22 Gauge less than 1 day Reviewed lines, drains, AND airways. Need to be continued . DATA: Diagnostic tests reviewed for today's visit: Most recent labs and imaging results. Assessment/Plan # HFrEF - New Diagnosis. LVEF of 20%. Consult Cardiology. Clinically improved. Transition to oral Lasix. 1500 cc fluid restriction, strict I/O, low sodium diet. Daily weights. # Moderate pericardial effusion - No signs of tamponade. CTS/Cardiology evaluation. # Asthma - Con't Albuterol/Advair. Stable # GERD - con't PPI Code Status: Full Code VTE Prophylaxis: Lovenox 40mg Sub Q Daily Disposition: Home Plan of care discussed with: Patient and Family/Other: SIGNATURE: Ben Coates DO PATIENT NAME: Zeeshan Fernando DATE: January 30, 2018 TIME: 9:32 PM PAGER/CONTACT #: Javi Admit etx [phone] Bassem Weber MD 01/31/2018 5:57 PM Signed [facility] - Consultation PATIENT NAME: ZEESHAN FERNANDO CSN: [id number] DATE OF : 1965 SEX/AGE: F/52 PATIENT TYPE: I [facility]OSP [facility] [place]: [facility] LOCATION: [id number] DATE OF SERVICE: 01/31/2018 CONSULT REQUESTED BY: Dr. Coates. REASON FOR CONSULT: Heart failure. HISTORY OF PRESENT ILLNESS: The patient is a 52-year-old lady with history of non- Hodgkin lymphoma, status post stem cell transplant and radiation therapy with chemotherapy back in 1999, first initially presented to the [facility] for worsening shortness of breath on exertion and orthopnea. She said initially her symptoms started in September of 2017, but has gotten worse in the last 3 to 4 weeks. She said she had gone to the ER a few weeks back and she was given some breathing treatments and sent home. During this hospitalization, she underwent further testing after admission including an echocardiogram, which showed her EF to be around 20%. She also had [id number] aortic regurgitation and a moderate-sized pericardial effusion. She also had pleural effusions and around 900 mL of transudative fluid was tapped. She was evaluated by Cardiology at [facility] and was transferred here to our hospital for further management of her cardiomyopathy, pericardial effusion, and valvular regurgitation. The patient denies any chest pain, palpitations, lightheadedness, or syncope. She says her breathing has gotten much better after her thoracocentesis. She is still not able to lie flat and is propped up at this time. She says at home, she usually lies with 3 to 4 pillows. She said, but for the last month or so, she has been sleeping in a recliner. She also has complain of little leg edema, which has since subsided. PAST MEDICAL HISTORY: Non-Hodgkin lymphoma, COPD, bronchiectasis. ALLERGIES: Sulfa. MEDICATIONS: Please see medical reconciliation form. SURGICAL HISTORY: Stem-cell transplant in 1999. FAMILY HISTORY: No premature coronary artery disease in the family. SOCIAL HISTORY: No tobacco, alcohol, or illicit drug use. REVIEW OF SYSTEMS: A 10-point system reviewed, negative unless otherwise noted in HPI. PHYSICAL EXAMINATION: VITAL SIGNS: Temperature of 36.6, pulse of 101, respiratory 18, blood pressure of 106/74, oxygen saturation 97% on room air. GENERAL: She is awake, alert. HEENT: PERRLA. Mucosa moist. NECK: Supple. No JVD. HEART: S1, S2. Rate regular rhythm, but tachycardic. No murmur. LUNGS: Breath sounds are equal. No basilar crackles. Scattered rhonchi present. ABDOMEN: Soft, nontender. No organomegaly. EXTREMITIES: No pedal edema. SKIN: Warm to touch. LABORATORY FINDING AND SIGNIFICANT DIAGNOSTIC STUDIES: Sodium of 133, potassium of 3.4, chloride of 96, bicarb is 32, BUN is 19, creatinine is 0.96. WBC is 6, hemoglobin is 12, hematocrit is 36, platelets is 160. The patient had a 12-lead EKG done, which I personally reviewed, which shows normal sinus rhythm at 97 beats per minute, right bundle branch block. The patient had a 2D echocardiogram done yesterday at [facility], which shows an EF of 20%, global hypokinesis, stage II diastolic dysfunction. Normal RV size and systolic function. 2+ mitral regurgitation, 3+ aortic regurgitation. Pulmonary artery pressure of 56 mmHg. Normal size aortic root. Moderate pericardial effusion with no echocardiographic signs of tamponade. ASSESSMENT AND PLAN: In summary, this is a 52-year-old lady with history of COPD, remote history of non-Hodgkin lymphoma status post chemotherapy, radiation therapy, and stem cell transplant, who came in to the hospital for signs and symptoms of decompensated heart failure. 1. Acute systolic and diastolic heart failure: We will continue to diurese the patient with Lasix 40 mg IV daily. To keep strict intake output chart and daily weights. She also has pericardial effusion and we do not want to make her to diet dehydrated to the point where we can cause tamponade. I will start her on low-dose beta shahrzad i.e. Coreg 3.125 mg twice a day along with lisinopril 2.5 mg daily. We keep an eye on her blood pressure. The patient says her blood pressure usually runs on the lower side. We will hold off on Aldactone for now. Potassium is to be supplemented as her K is 3.4 today. To keep potassium above 4 and magnesium above 2. 2. Pericardial effusion: This is likely in the setting of decompensated heart failure. Clinically, there is no signs of tamponade. There is no JVD. No pulsus paradoxus. Her heart rate is 101 at this time. We will continue to monitor her for signs of tamponade. Currently, there is no indication to do pericardiocentesis. 3. Aortic regurgitation: Moderately severe aortic regurgitation was noticed on the transthoracic echocardiogram. We could evaluate this further with a transesophageal echocardiogram, potentially for Friday if she is able to lie flat. This is to evaluate further the etiology of the valvular regurgitation and to quantify it. 4. As part of cardiomyopathy workup, we would also need to do ischemic evaluation with a heart catheterization. I have told her that the valvular regurgitation could be a reason for her cardiomyopathy, but given the fact that she has also had radiation therapy in the past, it would not be surprising if there is some element of coronary artery disease causing her to have cardiomyopathy as well. If she is able to lie flat on Friday, we could potentially do this on Friday as well. 5. Hyponatremia: This is likely hypervolemic given the fact that she was in decompensated heart failure. Further workup for this is to be carried out by the primary team. Bassem Weber MD Cardiology VMP:modl /[id number] Previous Version Rod Torres MD 01/31/2018 12:30 PM Signed PROGRESS NOTE - INTERNAL MEDICINE PATIENT NAME: Zeeshan Fernando SERVICE DATE: 01/31/2018 SERVICE TIME: 12:25 PM INTERVAL HPI: Reports feeling better. Noted intention for cardiac cath on Friday. OBJECTIVE: Medications reviewed in EPIC PHYSICAL EXAM: BP 106/74 Pulse 101 Temp 36.6 ?C (97.9 ?F) (Oral) Resp 18 Ht 175.3 cm (5' 9) Wt 60.1 kg (132 lb 9.6 oz) [facility] 02/18/2004 SpO2 97% BMI 19.58 kg/m2 Body mass index is 19.58 kg/(m2). GENERAL: Healthy, alert, no distress, cooperative, Smiling SKIN: Skin color, texture, turgor normal. No rashes or lesions. NECK: No jugulovenous distention, No carotid bruits, Carotid pulse normal contour, Supple LUNGS: Lungs clear to auscultation. Good diaphragmatic excursion. CARDIAC: Normal S1 and S2; no rubs, murmurs, or gallops ABDOMEN: Abdomen soft, non-tender. BS normal. No masses or organomegaly. EXTREMITIES: BLE without edema, no calf tenderness, +pulses NEURO: AxOx3, moves all extremities, no focal deficits DATA: Diagnostic tests were reviewed for today's visit including: Lab Results Component Value Date/Time GLUC 93 01/31/2018 04:21 AM K 3.4 (L) 01/31/2018 04:21 AM NA 133 (L) 01/31/2018 04:21 AM CHLOR 96 (L) 01/31/2018 04:21 AM CO2 32 01/31/2018 04:21 AM CREAT 0.96 (H) 01/31/2018 04:21 AM BUN 19 (H) 01/31/2018 04:21 AM ANION 8 01/31/2018 04:21 AM CA 8.9 01/31/2018 04:21 AM TPROT 6.2 08/18/2000 02:26 PM ALB 4.2 08/18/2000 02:26 PM TBILI 0.6 08/18/2000 02:26 PM ALKPHOS 64 08/18/2000 02:26 PM AST 31 08/18/2000 02:26 PM ALT 34 08/18/2000 02:26 PM WBC 5.93 01/31/2018 04:21 AM HB 11.7 01/31/2018 04:21 AM HB 11.5 01/15/2018 02:54 PM HCT 36.1 01/31/2018 04:21 AM MCV 86.0 01/31/2018 04:21 AM PLT 160 (L) 01/31/2018 04:21 AM INR 1.12 07/10/2000 04:00 AM ASSESSMENT AND PLAN: 1. Congestive heart failure systolic dysfucntion: Continue lasix Cardiology and CTS following Monitor I/o Continue cardiac diet. 2. Pericardial Effusion: Per CTS. 3. GERD: ON PPI 4. Hypokalemia: Will replace with 40meq K-dur SIGNATURE: Rod Torres MD DATE: January 31, 2018 TIME: 12:25 PM Chaplain Dawson Chaplain 01/31/2018 2:38 PM Signed SPIRITUALCARE Spiritual Care Visit- Brief Note Name: Zeeshan Fernando Date: January 31, 2018 Notes: PT requested SC visit w/sacraments. Her dtr was in room w/PT. Entry Level Electrical Engineer Signature: Chaplain Eunice To contact the Spiritual Care Department: Please call [phone] or Page the On-Call Entry Level Electrical Engineer at pager [phone] Thank you for the opportunity to be of service. This is an electronically created document. IF PRINTED, PLEASE DO NOT REMOVE FROM THE CHART OR MODIFY PRINTED COPY. Chaplain Dawson Chaplain 01/31/2018 2:39 PM Signed Spiritual Care Record ? Anointing/Clements PATIENT NAME: Zeeshan Fernando DATE: January 31, 2018 NOTE: Patient was anointed by Fr. JONES from [facility] on (date): 01/31/18. Signature: Chaplain Eunice Question? Please contact the Spiritual Care Department for assistance. This is an electronically created document. IF PRINTED, PLEASE DO NOT REMOVE FROM THE CHART OR MODIFY PRINTED COPY. ELMIRA Mahan 02/01/2018 10:02 AM Signed SOCIAL WORK PROGRESS NOTE SERVICE DATE: 02/01/2018 SERVICE TIME: 10:01 AM LOS: 2 days Advanced Directives Met with pt in room; pt does not have Advance Directives. Discussed use and purpose of documents; provided pt with Advance Directive Packet. Pt stated not ready to complete documents at this time. Advised to contact SW if wishing to complete. Time Spent (minutes): 15 SIGNATURE: ELMIRA Mahan PATIENT NAME: Zeeshan Fernando DATE: February 01, 2018 TIME: 10:01 AM PAGER/CONTACT #: Bassem Weber MD 02/01/2018 11:59 AM Signed CARDIOLOGY CONSULT PROGRESS NOTE CARDIOLOGY ATTENDING: Dr Weber Date and Reason for initial consult: PERTINENT ROS: Feeling better. SOB better. Occ lightheadedness MEDICATIONS: Current hospital medications: lisinopril 2.5 mg tab(s) 2.5 mg ORAL DAILY furosemide 40 mg injection (LASIX) 40 mg INTRAVENOUS DAILY sodium chloride-aloe vera topical nasal gel (AYR GEL w/ALOE) INTRANASAL PRN albuterol 2.5 mg /3 mL (0.083 %) 2.5 mg (PROVENTIL) 2.5 mg INHALATION q 4 H PRN oxyCODONE-acetaminophen 5-325 mg 1 tablet (PERCOCET) 1 tablet ORAL q 8 H PRN 0.9% NaCl 3-5 mL 3-5 mL INTRAVENOUS q 12 H enoxaparin 40 mg injection (LOVENOX) 40 mg SUBCUTANEOUS DAILY pantoprazole DR 40 mg tab(s) (PROTONIX) 40 mg ORAL DAILY (6 AM) fluticasone-vilanterol 200-25 mcg/dose 1 Inhalation (BREO ELLIPTA) 1 Inhalation INHALATION DAILY guaiFENesin 1,200 mg ER tab(s) (MUCINEX) 1,200 mg ORAL q 12 H PRN PHYSICAL EXAM: Vital Signs 02/01/18 0500 02/01/18 0713 02/01/18 0915 02/01/18 1131 BP: 107/70 91/70 100/65 Pulse: 102 107 108 Resp: 18 Temp: 36.5 ?C (97.7 ?F) 36.4 ?C (97.5 ?F) TempSrc: Oral Oral SpO2: 98% 99% Weight: 58.9 kg (129 lb 13.6 oz) Height: Temp (24hrs), Av.6 ?C (97.9 ?F), Min:36.4 ?C (97.5 ?F), Max:36.8 ?C (98.2 ?F) Intake/Output: Intake/Output Summary (Last 24 hours) at 02/01/18 1153 Last data filed at 02/01/18 0800 Gross per 24 hour Intake 720 ml Output 700 ml Net 20 ml Gen: AANDO x 3 Neck: no jugular venous distention Cardiac: RRR without murmur, gallop, or rubs. No ectopy. Resp: clear to auscultation bilaterally Abd: Soft, non-tender. Bowel sounds normal. No masses, organomegaly, hernias. Ext: no edema, moves all extremities with no apparent weakness Tele: normal sinus rhythm Labs: No results found for this basename: CK:3,MB:3,MBP:3,CKMBP:3,TROPT:3 Recent Labs 01/31/18 0421 WBC 5.93 HB 11.7 HCT 36.1 PLT 160* Recent Labs 01/31/18 0421 NA 133* K 3.4* CHLOR 96* CO2 32 BUN 19* CREAT 0.96* GLUC 93 LDL Chol, [place] 86 11/06/2009 ASSESSMENT AND PLAN: 1. Acute systolic and diastolic heart failure: -2.1L with decrease in weight. Will discontinue lasix as SBP in 90s. Replace K. To keep strict intake output chart and daily weights. She also has pericardial effusion and we do not want to make her to dehydrated to the point where we cause tamponade. Will hold off on Coreg 3.125 mg twice a day and lisinopril 2.5 mg due to low normal BP. She says her baseline is low. The patient says her blood pressure usually runs on the lower side. We will hold off on Aldactone for now. Potassium is to be supplemented as her K is 3.4 today. To keep potassium above 4 and magnesium above 2. 2. Pericardial effusion: This is likely in the setting of decompensated heart failure. Clinically, there is no signs of tamponade. There is no JVD. No pulsus paradoxus by pulse and BP method. Her heart rate is low 100s at this time. We will continue to monitor her for signs of tamponade. Will get repeat limited echo in AM for tamponade. I have explained to pt and daughter that if she feels lightheaded or becomes hypotensive we may have to get a stat echo to rule out tamponade. Currently, there is no indication to do pericardiocentesis. 3. Aortic regurgitation: Moderately severe aortic regurgitation was noticed on the transthoracic echocardiogram. We could evaluate this further with a transesophageal echocardiogram, potentially for Friday if she is able to lie flat. This is to evaluate further the etiology of the valvular regurgitation and to quantify it. 4. As part of cardiomyopathy workup, we would also need to do ischemic evaluation with a heart catheterization. I have told her that the valvular regurgitation could be a reason for her cardiomyopathy, but given the fact that she has also had radiation therapy in the past, it would not be surprising if there is some element of coronary artery disease causing her to have cardiomyopathy as well. If she is able to lie flat on Friday, we could potentially do this on Friday as well. 5. Hyponatremia: This is likely hypervolemic given the fact that she was in decompensated heart failure. Further workup for this is to be carried out by the primary team. Limited echo in AM for tamponade. If negative can do SANDEEP and cath later on in day. Updated daughter at bedside and RN of plan of care. SIGNATURE:Bassem Weber PAGER:[phone] DATE / TIME of SERVICE: February 01, 2018 11:53 AM This note is not final until Authenticated by responsible provider. Rod Torres MD 02/01/2018 4:15 PM Signed PROGRESS NOTE - INTERNAL MEDICINE PATIENT NAME: Zeeshan Fernando SERVICE DATE: 02/01/2018 SERVICE TIME: 4:04 PM INTERVAL HPI: She reports that she is doing better. Denied fever or chills, noted improved breathing with ambulation. OBJECTIVE: Medications reviewed in EPIC PHYSICAL EXAM: BP 91/69 Pulse 107 Temp 36.4 ?C (97.5 ?F) (Oral) Resp 16 Ht 175.3 cm (5' 9) Wt 58.9 kg (129 lb 13.6 oz) LMP 02/18/2004 SpO2 97% BMI 19.18 kg/m2 Body mass index is 19.18 kg/(m2). GENERAL: Healthy, alert, no distress, cooperative, Smiling SKIN: Skin color, texture, turgor normal. No rashes or lesions. NECK: No jugulovenous distention, No carotid bruits, Carotid pulse normal contour, Supple LUNGS: Lungs clear to auscultation. Good diaphragmatic excursion. CARDIAC: Normal S1 and S2; no rubs, murmurs, or gallops ABDOMEN: Abdomen soft, non-tender. BS normal. No masses or organomegaly. EXTREMITIES: BLE without edema, no calf tenderness, +pulses NEURO: AxOx3, moves all extremities, no focal deficits DATA: Diagnostic tests were reviewed for today's visit including: Lab Results Component Value Date/Time GLUC 93 01/31/2018 04:21 AM K 3.4 (L) 01/31/2018 04:21 AM NA 133 (L) 01/31/2018 04:21 AM CHLOR 96 (L) 01/31/2018 04:21 AM CO2 32 01/31/2018 04:21 AM CREAT 0.96 (H) 01/31/2018 04:21 AM BUN 19 (H) 01/31/2018 04:21 AM ANION 8 01/31/2018 04:21 AM CA 8.9 01/31/2018 04:21 AM TPROT 6.2 08/18/2000 02:26 PM ALB 4.2 08/18/2000 02:26 PM TBILI 0.6 08/18/2000 02:26 PM ALKPHOS 64 08/18/2000 02:26 PM AST 31 08/18/2000 02:26 PM ALT 34 08/18/2000 02:26 PM WBC 5.93 01/31/2018 04:21 AM HB 11.7 01/31/2018 04:21 AM HB 11.5 01/15/2018 02:54 PM HCT 36.1 01/31/2018 04:21 AM MCV 86.0 01/31/2018 04:21 AM PLT 160 (L) 01/31/2018 04:21 AM INR 1.12 07/10/2000 04:00 AM ASSESSMENT AND PLAN: 1. Congestive heart failure systolic dysfunction: Continue to optimization of CHF. Cardio and CTS following Monitor output. 2. Pericardial Effusion: Per CTS; 3. GERD: On PPI 4. Hypokalemia: Repeat CMP and Mag in am. Replace as needed. SIGNATURE: Rod Torres MD DATE: February 01, 2018 TIME: 4:04 PM Heron Bergman MD 02/02/2018 9:15 AM Signed PRELIMINARY FINDINGS ONLY. FULL REPORT TO FOLLOW AFTER IMAGE PROCESSING AND FINAL REVIEW LV: Severe LV impairment EF 20% LA/ JADA: No smoke or thrombi in the JADA. RV: Normal. RA: Normal. VALVES:Mild AR moderate MR. No PV reversal. MASSES: None SHUNTS: Negative by color and bubble contrast. AORTA: Normal in size mild atherosclerotic changes PROBE TIME: 13 min. DIFFICULTY: NONE MEDS: Meperidine 50 mg Midazolam 5 mg Progress Notes ([facility] Quiana Kruse MA 01/30/2018 2:08 PM Signed Received a call from Ailyn at [facility]. This patient has been admitted and they are requesting a copy of last office visit note, PFT's and chest imaging. Information can be faxed to: [phone]. CRIS Jimenes LPN 01/30/2018 4:09 PM Signed Records sent. Gema Pantea SHRIMP PACKER URINALYSIS, ROUTINE Collected: 01/29/2018 Status: F Source: [place] (DIPSTICK) 6:05 PM [facility] REPOSITORY Order Comment: How was Urine Obtained? LIVE SOURCE OPERATOR TO SPECIFY TYPE CODE TESTS RESULT OUT OF RANGE REFERENCE UNITS LAB L400.3000 Yellow COLOR Normal Straw LAB L400.3050 Clear Normal CLARITY Clear LAB L400.3200 Normal mg/dl Normal GLUCOSE, UR Normal LAB L400.3300 Negative mg/dL Normal BILIRUBIN URINE Negative LAB L400.3400 Negative mg/dl Normal KETONE UR Negative LAB L400.3465 1.002-1.030 Normal SP.GR. DIPSTX 1.010 LAB L400.3550 5.0 - 8.0 pH UR Normal 7.0 LAB L400.3600 Negative mg/dl PROT Normal DIPSTX Negative LAB L400.3700 Normal mg/dl Normal UROBILI Normal LAB L400.3750 Negative Normal NITRITE UR Negative LAB L400.3780 Negative /ul Normal OCCULT BLOOD-UR Negative LAB L400.3800 Negative /ul LEUK Normal ESTERASE Negative Performed By: #### L400.2010 #### [facility] [address] [place], [place], [address] Observed: 01/29/2018 Status: F Source: NALLELY LEGIONELLA ANTIGEN 6:05 PM [facility] URINE REPOSITORY Legionella, UR Legionella Antigen result interpretation: Negative Presumptive negative for Legionella pneumophila serogroup 1 antigen in urine, suggesting no recent or current infection. POSITIVE Presumptive positive for Legionella pneumophila serogroup 1 antigen in urine, suggesting current or past infection. Legionella Ag, Urine Negative (See interpretation below) Performed By: #### M300.4500 #### [facility] [address] [place], [address] STREP Observed: 01/29/2018 Status: F Source: NALLELY PNEUMONIAE ANTIG(UR,CSF) 6:05 PM [facility] REPOSITORY S pneumo Ag URINE INTERPRETATION Positive Urine Positive for pneumococcal pneumonia. Negative Urine Presumptive negative for pneumococcal pneumonia, suggesting no current or recent pneumococcal infection. Infection due to S pneumoniae cannot be ruled out since the antigen present in the sample may be below the detection limit of the test. CSF INTERPRETATION Positive CSF Positive for pneumococcal meningitis. Negative CSF Presumptive negative for pneumococcal meningitis. Infection due to S pneumoniae cannot be ruled out since the antigen present in the sample may be below the detection limit of the test. Strep pneumo Test Negative URINE (See interpretation below) Performed By: #### M300.4600 #### [facility] [address] [place], [address] HISTORY AND PHYSICAL Observed: 01/29/2018 Status: F Source: [place] EXAM 5:14 PM [facility] REPOSITORY [facility] Medical Records Department [address] [place] [address] History and Physical 01/29/18 1621 MR#: [id number] Acct: [id number] Name: ZEESHAN FERNANDO Rep #: [id number] : 1965 52 From: Omar Ramirez MD PCP: Nikia Pillai MD Status: ADM IN Y Location: [place] [address] Problem List (1) Non-Hodgkin lymphoma in remission Status: Chronic (2) History of stem cell transplant Status: Chronic (3) Bilateral pleural effusion Status: Chronic (4) Mass of left lung Status: Chronic (5) Heart failure Status: Acute History of Present Illness Date of Admission: 01/29/18 Chief Complaint: Shortness of breath for 3 weeks, progressively worsening The patient is a 52 year old F with history of Hodgkin's lymphoma diagnosed 1998 status post chemo and stem cell transplant in June 2000 and then chest radiation came to ER with progressively worsening of shortness of breath for 3 weeks. Patient also orthopneic and sleep in recliner with bilateral lower legs edema. As per the patient he had chemo with the bleomycin and developed asthma after chemoradiation. She denies chest pain/tightness or near syncope. She denies fever chills, cough or flulike symptoms. In ED, EKG shows sinus tachycardia at 119 bpm with right bundle branch block. CT chest was done and shows bilateral pleural effusion right more than left and left lung mass in the lingular lobe. She has not followed oncologist last 6 years, used to follow-up in [facility]. She denies any previous cardiac history. [] Past Medical History Past Medical History (Chronic Problems): Chronic Problems Non-Hodgkin lymphoma in remission (Chronic) History of stem cell transplant (Chronic) Bilateral pleural effusion (Chronic) Mass of left lung (Chronic) Allergies guaifenesin Allergy (Verified 01/29/18 11:28) Other Penicillins [PCN] Allergy (Verified 01/29/18 11:28) Itching Sulfa (Sulfonamide Antibiotics) Allergy (Verified 01/29/18 11:28) Rash Home Medications: Ambulatory Orders Medication Instructions Recorded Smoking Status: Never smoker - *Family History Paternal History Items: No pertinent history Review of Systems Constitutional: Reports: Weakness, - - Denies recent weight loss in last 6 months. Denies: Chills, Fever, Weight Change HEENT: Denies: Head Aches, Sinus Congestion, Sinus Drainage Cardiovascular: Denies: Chest Pain, Palpitations Respiratory: Reports: Shortness of breath upon exertion. Denies: Cough, Shortness of breath at rest, Sputum production Gastrointestinal: Denies: Abdominal Pain, Nausea, Vomiting Genitourinary: Denies: Dysuria Musculoskeletal: Denies: Joint Pain, Joint Tenderness Skin: Denies: Rash, Wounds Neurological: Denies: Numbness, Tingling, Focal weakness Psychiatric: Denies: Anxiety, Depression, Homicidal Ideations, Suicidal Ideations Hematologic/ Lymphatic: Denies: Easy Bruising, Easy Bleeding VTE Information - Inpt Only VTE Present on Admission: No VTE Mechan Device Prophylaxis: SCD's VTE Pharm Prophylaxis ordered?: Yes Patient Problems: Active and Suspected Problems Heart failure (Acute) - Physical Exam General: Alert, Oriented x3, Cooperative HEENT: Atraumatic, PERRLA, EOMI, Normocephalic Neck: Supple, No JVD, Negative Carotid Bruits Lungs: Diminished, Rales, - - Bilateral pleural effusion, right more than left. Stony dullness present on the right side below fourth intercostal space Cardiovascular: Regular rate, Regular Rhythm, Normal S1, Normal S2, No murmurs Abdomen: Bowel Sounds Present, Soft, Non Tender, Non-Distended Extremities: Capillary Refill Less than 3 Seconds, Edema Skin: No rashes, No breakdown Musculoskeletal: No Tenderness to Palpation of Joints or Extremities Neurological: Cranial nerves II-XII grossly intact Psych/Mental Status: Normal Affect, Appropriate Vital Signs Temp Pulse Resp BP Pulse Ox 98.5 F 123 H 33 H 133/98 H 94 01/29/18 11:28 01/29/18 15:09 01/29/18 15:09 01/29/18 15:09 01/29/18 15:09 Assessment/Plan Active and Suspected Problems Heart failure (Acute) The patient is a 52 year old F with history of Hodgkin's lymphoma diagnosed 1999 status post chemo and stem cell transplant in June 2000 and then chest radiation came to ER with progressively worsening of shortness of breath for 3 weeks. Patient also orthopneic and sleep in recliner with bilateral lower legs edema. As per the patient he had chemo with the bleomycin and developed asthma after chemoradiation. She denies chest pain/tightness or near syncope. She denies fever chills, cough or flulike symptoms. In ED, EKG shows sinus tachycardia at 119 bpm with right bundle branch block. CT chest was done and shows bilateral pleural effusion right more than left and left lung mass in the lingular lobe. She has not followed oncologist last 6 years, used to follow-up in [facility]. She denies any previous cardiac history. 1. Clinically new onset heart failure: The patient is being admitted to PCU. Serial cardiac enzymes ordered. 2D echo ordered. Started on Lasix 40 mg IV twice daily. Started on metoprolol low-dose, lisinopril and Isordil. 2. Bilateral pleural effusion with possibility of underlying atelectasis/pneumonia/bronchiectasis and left upper lobe lung mass: As per the patient, she had pneumonia about 2 months ago. Patient will need thoracocentesis and pleural fluid analysis. Pulmonary consult. Urinary antigens ordered. Chest CT scan shows soft tissue density and bronchiectasis in the medial aspect of the left upper lobe with volume loss of left upper lobe. Suspicion of postradiation fibrosis and bronchiectasis. And atelectasis in the lung bases. Clinically, she is not having symptoms of fever chills or cough suggestive of pneumonia so will hold off antibiotic and follow clinically. 3. Intermittent acquired asthma most rarely after chemoradiation: On Pulmicort inhalation. DuoNeb every 4 hourly as needed. 4. Hodgkin's lymphoma status post stem cell transplant, chemoradiation in remission: Consult Dr. Solis for further opinion. DVT prophylaxis: On Lovenox 40 mg subcu daily and bilateral SCDs. Laboratory Results 01/29/18 11:55: WBC 4.2 L, RBC 4.14 L, Hgb 11.6 L, Hct 35.0 L, MCV 84.5, MCH 28.0, MCHC 33.1, RDW 14.2, RDW Differential 42.9, Plt Count 160, MPV 9.2, Immature Gran % (Auto) 0.000, Neut % (Auto) 74.9 H, Lymph % (Auto) 15.1 L, Blaine % (Auto) 9.6, Eos % (Auto) 0.2, Baso % (Auto) 0.2, Absolute Neuts (auto) 3.1, Absolute Lymphs (auto) 0.63 L, Total Counted Not Reportable 01/29/18 11:55: Sodium 131 L, Potassium 3.9, Chloride 96 L, Carbon Dioxide 24.0, Anion Gap 11, BUN 18, Creatinine 1.03 H, Estim Creat Clear Calc 67.53, Est GFR (MDRD) Af Amer 73, Est GFR (MDRD) Non-Af 60, BUN/Creatinine Ratio 17.5, Glucose 101, Calcium 8.5, Troponin I < 0.02 01/29/18 11:55: B-Natriuretic Peptide 1357.5 H 01/29/18 11:55: Magnesium 2.0 01/29/18 16:17: Troponin I Pending Clinical Impression(s) from Imaging Studies Chest CTA 01/29/18 11:51 IMPRESSION: Bilateral pleural effusions right greater than left with underlying atelectasis. Stable fibrocalcific scarring in the left lung apex with bronchiectasis. Moderate sized pericardial effusion. Abnormal appearance of the upper thoracic vertebrae. Metastasis should be ruled out. Electronically Signed: Blayne Kamara MD at 13:04 EDT Tel [phone], Service support , Code Visit Inpatient E AND M: 50600 Init Hosp L3 01/29/18 1714 <Electronically signed by Omar Ramirez MD> Date Omar Ramirez MD Cosigner Signature: Date (if applicable) CC: Nikia Pillai MD; Omar Ramirez MD Signed TROPONIN-I Collected: 01/29/2018 Status: F Source: [place] 4:17 PM [facility] REPOSITORY Order Comment: 'TROP' Serial specimen #1, #2, #3, or #4: 2 TYPE CODE TESTS RESULT OUT OF RANGE REFERENCE UNITS LAB L501.4010 <0.06 ng/mL Normal < 0.02 TROPONIN-I Result Comment: TROPONIN-I EXPECTED VALUES <0.05 NEGATIVE 0.06 - 0.59 AT RISK OF HI > OR = 0.60 SUGGEST HI Performed By: #### L501.4010 #### [facility] [address] [place], [address] LDH Collected: 01/29/2018 Status: F Source: [place] 4:17 PM [facility] REPOSITORY TYPE CODE TESTS RESULT OUT OF RANGE REFERENCE UNITS LAB L504.2610 84-246 U/L High LDH 296 Performed By: #### L504.2610 #### [facility] [address] [place], [address] EMERGENCY DEPARTMENT Observed: 01/29/2018 Status: F Source: [place] SUMMARY 2:54 PM [facility] REPOSITORY [facility] Medical Records Department [address] [place] [address] Emergency Department Summary 01/29/18 1447 MR#: [id number] Acct: [id number] Name: ZEESHAN FERNANDO Rep #: [id number] : 1965 52 From: Garrison Rodriguez DO PCP: Nikia Pillai MD Status: REG ER - ER Visit Summary Date of Service: 01/29/18 Chief Complaint: [Shortness of breath] History of Present Illness: The patient is a 52 F [presents with shortness of breath that started 2 weeks ago. Patient's had a cough but only bringing up some clear phlegm. Patient complains of some pain with deep breathing. Patient states that she has been sleeping in a recliner because she cannot lay flat. Patient denies any fever. Patient gives history of asthma and prior history of Hodgkin's lymphoma that is in remission.] Physical Examination: [HEENT-PERRLA, EOMI. Cranial nerves II through XII grossly intact. TMs clear. Mucous membranes moist. No adenopathy. Cardiovascular-regular rate and rhythm without murmur or ectopy Lungs-good aeration bilaterally. Patient has Rales in both bases with rhonchi and wheezing throughout. Mild tachypnea. No accessory muscle use or retractions. Abdomen-normoactive bowel sounds, soft, nontender, no rebound or rigidity, no peritoneal signs. Extremities-intact 4, normal range of motion, normal pulses, atraumatic]. Patient has +1 edema both lower extremities. Test Results: [EKG obtained on arrival shows sinus tachycardia with a ventricular rate of 119 bpm with a right bundle branch block. CBC with differential showed a white blood cell count of 4.2, hemoglobin 11.6, hematocrit 35, platelets 160. Chemistries unremarkable other than a depressed sodium of 131. Troponin was less than 0.02. BNP was 1357. CT scan of the chest with IV contrast was ordered which showed bronchiectasis of the left upper lobe. Patient had moderate pericardial effusion. Patient had cardiomegaly. Patient had moderate bilateral pleural effusions. Patient also had abnormal appearance of C7 and T1 and there is a question of metastasis.] Emergency Department Course and Treatment: [Patient received Lasix 80 mg IV. Patient received a DuoNeb aerosol and Solu-Medrol.] Treatment Plan: [Admit for further workup and evaluation of CHF and pleural effusions as well as pericardial effusion] Disposition: [Admit] Impression: [CHF-new onset Bilateral pleural effusions Pericardial effusion] Concern for bony metastasis to C7 and T1 This note was generated with [employer] dictation software. It may contain incorrect words, spelling, and punctuation that were not noted in review of the chart prior to signing ED Disposition - Plan for ED Patient: Chief Complaint: Shortness of Breath Referrals: Nikia Pillai MD [Primary Care Provider] - What to do if you have Problems For any increased pain, shortness of breath, bleeding, nausea or vomiting, chest pain, or any unexpected problems, contact your Primary Care Provider. Call [facility] ([phone]) or report to the closest Emergency Room. Call 911 if necessary. 01/29/18 4329 <Electronically signed by Garrison Rodriguez DO> Date Remus Ungur DO Cosigner Signature (If Indicated): Date CC: Nikia Pillai MD CBC W/DIFF, AUTOMATED Collected: 01/29/2018 Status: F Source: [place] 11:55 AM [facility] REPOSITORY TYPE CODE TESTS RESULT OUT OF RANGE REFERENCE UNITS LAB L100.1000 4.4-11.0 K/mm3 Low WBC 4.2 LAB L100.1200 4.2-5.4 M/mm3 Low RBC 4.14 LAB L100.1300 12.0-15.0 g/dl Low HGB 11.6 LAB L100.1400 37-47 % Low HCT 35.0 LAB L100.1500 81-99 fL Normal MCV 84.5 LAB L100.1600 27.0-32.0 pg Normal MCH 28.0 LAB L100.1700 32-36 g/gl Normal MCHC 33.1 LAB L100.1810 11.6-14.6 % Normal RDW CV 14.2 LAB L100.1820 35.1-43.9 fl Normal RDW SD 42.9 LAB L100.1900 150-450 K/mm3 Normal PLT 160 LAB L100.2000 6.2-12.0 fl Normal MPV 9.2 LAB L100.2100 47-70 % High NEUT% 74.9 LAB L100.2200 19-41 % Low LY% 15.1 LAB L100.2300 0-10 % Normal MONO% 9.6 LAB L100.2400 0-5 % Normal EO% 0.2 LAB L100.2500 0-1 % Normal BASO% 0.2 LAB L100.2550 0.0-0.9 % Normal IM GRAN % 0.000 Result Comment: IG% - Immature Granulocytes (promyelocytes, myelocytes and metamyelocytes) > 1% indicates that a LEFT SHIFT is Present. LAB L100.2620 2.0-7.7 X10 3/uL Normal Absolute Neut 3.1 LAB L100.2720 0.83-4.51 X10 3/ul Low Absolute Lymph 0.63 Performed By: #### L100.0100 #### [facility] [address] [place], [place], [address] BASIC METABOLIC Collected: 01/29/2018 Status: F Source: [place] PROFILE (BMP) 11:55 AM [facility] REPOSITORY Order Comment: 'TROP' Serial specimen #1, #2, #3, or #4: 1 TYPE CODE TESTS RESULT OUT OF RANGE REFERENCE UNITS LAB L501.0100 74-106 mg/dL Normal GLU 101 Result Comment: Fasting Glucose result from 100 to 125 mg/dL suggests IMPAIRED HOMEOSTASIS per A.D.A. criteria. Please note revised GLUCOSE reference range effective 2017. LAB L501.1000 7-18 mg/dL Normal BUN 18 LAB L501.1100 0.55-1.02 mg/dL High CREAT,SERUM 1.03 Result Comment: The validity of the calculated GFR AND GFRAA in patients over 70 years has not been determined. Clinical correlation is essential. LAB L501.1110 >60 mL/min Normal EST GFR 60 Result Comment: Non- GFR Calc LAB L501.1115 >60 mL/min Normal EST GFR - AA 73 Result Comment: GFR Calc LAB L501.1255 ml/min Normal Estimated CRCL 67.53 LAB L501.1300 10-20 RATIO Normal BUN/CRE 17.5 LAB L501.2200 8.5-10 mg/dL Normal .1 CA 8.5 LAB L501.5300 136-14 mmol/L Low 5 NA 131 LAB L501.5600 3.5-5. mmol/L Normal 1 K 3.9 LAB L501.5900 98-107 mmol/L Low CL 96 LAB L501.6100 21.0-3 mmol/L Normal 2.0 CO2 24.0 LAB L501.6200 5-15 Normal GAP 11 Performed By: #### L500.2500, L501.4010 #### [facility] [address] [place], [address] TROPONIN-I Collected: 01/29/2018 Status: F Source: [place] 11:55 AM [facility] REPOSITORY Order Comment: 'TROP' Serial specimen #1, #2, #3, or #4: 1 TYPE CODE TESTS RESULT OUT OF RANGE REFERENCE UNITS LAB L501.4010 <0.06 ng/mL Normal < 0.02 TROPONIN-I Result Comment: TROPONIN-I EXPECTED VALUES <0.05 NEGATIVE 0.06 - 0.59 AT RISK OF HI > OR = 0.60 SUGGEST HI Performed By: #### L500.2500, L501.4010 #### [facility] [address] [place], [address] BNP,B-TYPE NATRIURETIC Collected: 01/29/2018 Status: F Source: [place] PEPTIDE 11:55 AM [facility] REPOSITORY TYPE CODE TESTS RESULT OUT OF RANGE REFERENCE UNITS LAB L503.6620 0-100 pg/mL High B-TYPE 1357.5 DANIEL PEP Performed By: #### L503.6620 #### [facility] [address] [place], [address] MAGNESIUM Collected: 01/29/2018 Status: F Source: [place] 11:55 AM [facility] REPOSITORY TYPE CODE TESTS RESULT OUT OF RANGE REFERENCE UNITS LAB L501.5200 1.6-2.6 mg/dL Normal MG 2.0 Result Comment: Please note revised Magnesium reference range effective 2017. Performed By: #### L501.5200 #### [facility] [address] [place], [address] PROTEIN ELECTROPH, S Collected: 01/29/2018 Status: F Source: [place] 11:55 AM [facility] REPOSITORY TYPE CODE TESTS RESULT OUT OF RANGE REFERENCE UNITS LAB L3100.3500 6.0-8.5 g/dL Normal PROTEIN,TOTAL 6.7 LAB L3100.3600 2.9-4.4 g/dL Normal ALBUMIN 3.8 LAB L3100.3700 0.0-0.4 g/dL Normal ALPHA-1 GLOBUL 0.3 LAB L3100.3800 0.4-1.0 g/dL Normal ALPHA-2 GLOBUL 0.7 LAB L3100.3900 0.7-1.3 g/dL Normal BETA GLOBULIN 1.0 LAB L3100.4000 0.4-1.8 g/dL Normal GAMMA GLOBULIN 1.0 LAB L3100.4110 Normal M-SPIKE Result Comment: Not Observed LAB L3100.4200 2.2-3.9 g/dL GLOBULIN, TOTAL Normal 2.9 LAB L3100.4300 0.7-1.7 A/G RATIO Normal 1.3 LAB L3100.4320 . INTERPRETATION Normal Comment Result Comment: Protein electrophoresis scan will follow via computer, mail, or stock preparation operator delivery. LAB L3100.4340 . Normal NOTE: Comment Result Comment: The SPE pattern appears essentially unremarkable. Evidence of monoclonal protein is not apparent. Performed By: #### L3100.3450, L3200.1275 #### [facility] (refer to report for specific site) refer to report for address and phone number IMMUNOFIXATION, SERUM Collected: 01/29/2018 Status: F Source: [place] 11:55 AM [facility] REPOSITORY TYPE CODE TESTS RESULT OUT OF RANGE REFERENCE UNITS LAB L3200.7310 850-2434 mg/dL Normal IMMUNO G 877 LAB L3200.1400 87-352 mg/dL Normal IMMUNO A 219 LAB L3200.1500 26-217 mg/dL Normal IMMUNOGL M 52 Result Comment: Performed at: - [facility] [id number] Pig Sticker: Fuasto Wolf PhD, Phone: [phone] LAB L3200.1351 . Normal COURTNEY RESULT,S Comment Result Comment: No monoclonality detected. Performed By: #### L3100.3450, L3200.1275 #### [facility] (refer to report for specific site) refer to report for address and phone number CTA CHEST W/WO Observed: 01/29/2018 Status: F Source: [place] CONTRAST 11:52 AM [facility] REPOSITORY [facility] Imaging Services [address] [place] [address] CTA Chest W/WO Contrast MR#: [id number] Acct: [id number] Name: VALERIAESTEBANZEESHAN M Rep #: [id number] : 1965 F 52 From: Blayne Kamara MD PCP: Nikia Pillai MD Status: REG ER Study: CTA Chest W/WO Contrast Date of Exam: 01/29/18 Exam# [id number] Ordering Dr: Garrison Rodriguez DO STUDY: CTA CHEST REASON FOR EXAM: Female, 52 years old. Shortness of breath and chest pressure. Lower extremity edema. History of Hodgkin's lymphoma. RADIATION DOSAGE (If Supplied By Facility): CTDIvol = ( 7.86 ) mGy, DLP = ( 198.95 ) mGycm TECHNIQUE: The examination was performed with the intravenous administration of 75mL ml of Isovue 370 contrast material. Post-processing of the angiographic images was performed, with multiplanar reformation and 3D reconstruction. Individualized dose optimization techniques were used for this CT. COMPARISON: Comparison is made with prior study dated January 21, 2017. FINDINGS: Normal enhancement of the main pulmonary artery and right and left pulmonary arteries. Normal enhancement of the bilateral peripheral pulmonary arteries. There is no demonstrated pulmonary embolism. There is atherosclerotic calcification of the aortic arch with tortuosity. There is no demonstrated aortic dissection. Moderate sized pericardial effusion. Cardiomegaly. Normal mediastinum. Normal hilar regions. Normal visualized trachea and bronchi. Moderate size bilateral pleural effusion right greater than left. Soft tissue density and bronchiectasis in the medial aspect of the left upper lobe with volume loss of the left upper lobe. This may represent postradiation fibrosis and bronchiectasis. Increased markings are also seen in the right upper lobe most likely due to scarring. There is also evidence of increased linear markings with areas of confluence along the lateral aspect of the left lower lobe anteriorly. This may represent scarring. Dependent atelectasis is seen at the lung bases worse on the right side. Normal chest wall structures. Osteopenia of the thoracic vertebrae. Abnormal appearance of the C7 and T1 vertebra suggestive of possible metastasis. Normal visualized upper abdomen. CT/CTA Chest W/WO Contrast IMPRESSION: Bilateral pleural effusions right greater than left with underlying atelectasis. Stable fibrocalcific scarring in the left lung apex with bronchiectasis. Moderate sized pericardial effusion. Abnormal appearance of the upper thoracic vertebrae. Metastasis should be ruled out. Electronically Signed: Blayne Kamara MD at 13:04 EDT Tel [phone], Service support , CC: Nikia Pillai MD; Garrison Rodriguez DO Cyber Instructor: Signed MARINE Observed: 01/28/2018 Status: COMPLETED Source: [place] 12:00 AM [facility] REPOSITORY Telephone ([facility]) ZEESHAN FERNANDO ([id number]) 1965 F TRN Date Time Provider Department 01/28/18 GEORGE LOBO [facility] During your visit today, we recorded the following information about you: Aminata Burns RN 01/28/2018 1:33 PM Signed Patient calling to see if she can get her CT Scan earlier than Friday in [place]. Advised that I can transfer to see if Lewis has sooner, but also need enough time for insurance to approve as well. She states that she is doing the Advair and the Duoneb treatments every 4 hours but still sometimes feeling SOB with minimal activities with stairs. She wants to know if there is anything else she can do prior to CT Scan to help. Advised if SOB worsening or any signs of distress to get to the ER. Transferred for sooner CT. Pharmacy verified if anything else added. Please advise. Patient is requesting a return call from our office. Aminata Lobo MD 01/29/2018 8:08 AM Signed The schedulers always try to book the earliest available appointment. The only way to move it up is if it is emergent. I will ask to move the scan up based on elevated D-dimer and concern for PE. At 01/26 2018 oxygen saturation was normal and VS were normal. Sent this message to patient this AM via [employer] message. George Lobo MD, [facility] [place] [facility] [address] [place] [address] P: [phone] F: [phone] [email or web address] Gema Rao LPN 01/29/2018 11:00 AM Signed Scan already authorized by insurance. [place] PSRs checking for an appointment this week Gema Rao LPN 01/29/2018 11:02 AM Signed Nothing available in [place] today or tomorrow. Could we check Lewis? Gema Rao LPN [facility] 01/29/2018 11:16 AM Signed Called patient and scheduled her for CT at [facility]. Advised of 4 hour fasting requirement. Patient was waiting to be seen at [place] ED. Allergies As of Date: 01/28/2018 Noted Allergy Reaction SULFA (SULFONAMIDE ANTIBIOTICS) 08/21/2005 2 - Rash 7 - Swelling CODEINE 09/17/2005 4 - Hives Environmental [Other] 10/03/2011 16 - Unknown Comments: Dust mites, trees GUIAFENESIN [Other] 09/17/2005 1 - Mental Status Change PENICILLINS 08/21/2005 2 - Rash Date Reviewed: 01/26/2018 Reviewed by: George Lobo - Fully Assessed Reason for Visit: SOB continued [Other] Prescriptions as of 01/28/2018 Sig: OMEPRAZOLE 20 MG CAPSULE,VIRGIE* TAKE 1 CAPSULE BY MOUTH TWICE* FLUTICASONE 500 MCG-SALMETERO* Inhale 1 Puff as instructed t* IPRATROPIUM BROMIDE 0.02 % SO* Use 2.5 mL via nebulizer four* ALBUTEROL SULFATE 2.5 MG/3 ML* Use 3 mL via nebulizer every * VENLAFAXINE ER 37.5 MG CAPSUL* TAKE ONE CAPSULE BY MOUTH ROSA ELENA* GUAIFENESIN ER 1,200 MG TABLE* Take 1 tablet by mouth twice * MONTELUKAST 10 MG TABLET TAKE 1 TABLET BY MOUTH DAILY * ALBUTEROL SULFATE HFA 90 MCG/* Inhale 2 Puffs as instructed * ONDANSETRON 4 MG DISINTEGRATI* Take 1 tablet by mouth every * OXYCODONE-ACETAMINOPHEN 5 MG-* Take 1 tablet by mouth every * DAILY MULTIVITAMIN TABLET Problem List As Of Date 01/28/2018 Noted Resolved Esophageal reflux [K21.9] INVALID FOR* More... Hodgkin's disease [201] INVALID FOR*11/06/2007 More... Absence of menstruation [N91.2] INVALID FOR*06/10/2012 Pneumonia, organism unspecified [J18.9] INVALID FOR*05/10/2011 TENOSYNOV HAND/WRIST NEC [M65.849, M65.839] INVALID FOR*12/19/2006 History of Hodgkin's disease [Z85.71] INVALID FOR* More... Personal history of pneumonia (recurrent) [Z87.*INVALID FOR* More... 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 Asthma [J45.909] INVALID FOR* More... Headache, migraine [G43.909] INVALID FOR* More... More... Encounter Status:Closed by GEMA RAO LPN on 01/29/18 IMMUNOGLOBULINS PEREZ Collected: 01/26/2018 Status: F Source: [place] 10:30 AM [facility] REPOSITORY TYPE CODE TESTS RESULT OUT OF RANGE REFERENCE UNITS LAB IGG 717-1411 mg/dL IgG 979 LAB IGA 78-391 mg/dL IgA 204 LAB IGM 53-334 mg/dL Low IgM 49 Performed By: #### SERIMM, DDMER #### [facility] [address] [place], [place] [address] D DIMER Collected: 01/26/2018 Status: F Source: [place] 10:30 AM [facility] REPOSITORY TYPE CODE TESTS RESULT OUT OF REFERENCE UNITS RANGE LAB DDMER <500 ng/mL FEU High D dimer 590 Result Comment: The D-dimer assay can be used to exclude pulmonary embolism (PE) and deep vein thrombosis (DVT) in conjunction with a low pre-test probability. For patients with a suspected DVT, a D-dimer level below 500 ng/mL FEU has a negative predictive value of 99.2%, a sensitivity of 98.9%, and a specificity of 36.1%. For patients with a suspected PE, a D -dimer level below 500 ng/mL FEU has a negative predictive value of 99.1%, a sensitivity of 97.8%, and a specificity of 41.7%. Performed By: #### LORENZO HURLEY #### [facility] [address] [place], [place] [address] CNOV Observed: 01/26/2018 Status: COMPLETED Source: [place] 9:00 AM [facility] REPOSITORY Office Visit (PULMWS) ZEESHAN FERNANDO ([id number]) 1965 F TRN Date Time Provider Department 01/26/18 9:00 AM GEORGE LOBO During your visit today, we recorded the following information about you: Pulse Respiration Blood pressure Weight 115/minute 16/minute 108/72 64 kg Height 1.753 m George Lobo MD 01/26/2018 10:00 PM Signed [facility] [place] Consultation Note, 01/26/2018: Introduction: The patient is seen in consultation today for evaluation of COPD. This consultation is requested by her Primary Care physician, NIKIA PILLAI MD. A copy of this encounter will be made available as a report via [facility] electronic medical record to Dr. Pillai. HPI: Moderate persistent asthma and allergic rhinitis previously diagnosed and treated by Jennifer Leal MD. 2 weeks ago required emergency department evaluation/treatment, responded to Albuterol/Ipratropium nebs. Never hospitalized. Hodgkin's lymphoma treated with XRT and Bleomycin 1999, followed by stem cell transplant. No rejection or graft vs host disease. Coughs associated with post nasal drip, sometoimes productive clear white mucus, occasionally in AM clear gooey stuff. Never hemoptysis. More cough at night, in supine position, and does waken from sleep; sleeps in chair for weeks. Triggers include: dust, cold weather extremes, stress, respiratory infections, laughter, exertion. Not short of breath at rest. Notes exertional dyspnea with walking from [place] yesterday, 1 flight of stairs, +/- showering, vacuuming, carrying groceries, ANDquot;Walking any distance.ANDquot; Notes wheezing. No hemoptysis. Initially did notice chest discomfort with shortness of breath, relieved by bending over. Has noted relief with nebulized Ipratropium/Albuterol. PAST MEDICAL HISTORY Diagnosis Date - Asthma 2010 dust mites, tree pollen - Brain bleed (HCC) - Carcinoma in situ of cervix uteri 2008 Treated in [place] by Dr. Montilla - Esophageal reflux Gastroesophageal reflux - Hodgkin's disease, unspecified(201.90) 1999 Hodgkins Disease - HPV (human papillomavirus) vaccine 2008 - Migraine, unspecified, with intractable migraine, so stated, without mention of status migrainosus Migraine - Pap smear of cervix with ASCUS, cannot exclude HGSIL 06/28/13 HPV+ - Postmenopausal bleeding Postmenop. bleeding - Premature menopause - Thrombocytopenia, unspecified (HCC) Thrombocytopenia - VAIN III (vaginal intraepithelial neoplasia III) 2008 As above No COPD, lung cancer, HI, CHF, HBP, DM, DVT, PE. PAST SURGICAL HISTORY Procedure Laterality Date - COLPOSCOPY (VAGINOSCOPY) 2008 with laser tx for HPV - PAST SURGICAL HISTORY OF CHEST WALL BX.,PORT,EDWARDS CATHETER - PAST SURGICAL HISTORY OF 2009 Laser cone of cx and vaporization of upper vagina - VAGINOSCOPY 08/30/13 Benign FAMILY HISTORY Problem Relation Age of Onset - Other [Other] [OTHER] Mother PARKINSON'S - Cancer Maternal Grandmother Stomach? 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 [employer] Social History Main Topics Smoking status: Never Smoker Smokeless status: Never Used Comment: No one in household smokes Alcohol use: Yes Comment: Seldom Drug use: No Sexual activity: Yes Partners with: Male control/protection: Surgical Comment: Vasectomy Immunization History Administered Date(s) Administered Influenza Vaccine, Split-Non Spec 08/27/2005 10/28/2007 07/20/2008 Pneumovax 11/19/2006 05/04/2012 Tdap (Age 7+) 11/19/2006 Tetanus Diphtheria Booster (Age ANDgt;7) Pres Free 03/06/2017 MEDICATIONS and ALLERGIES: Reviewed, updated and reconciled with the patient today, as noted in the medication and allergy sections of the encounter. ROS: Reviewed with patient, confirmed as documented by Gema Rao LPN. TO PHYSICAL EXAMINATION: BP 108/72 Pulse 115 Resp 16 Ht 5' 9ANDquot; (1.75m) Wt 141 lb (64.0kg) SpO2 98% LMP 02/18/2004 BMI 20.81 kg/(m2). Gen: No acute distress. Cooperative with examination. ENT: Sclerae clear. Nares clear. Oral hygeine good. Pharynx clear. Resp: No stridor, accessory respiratory muscle use, supra- sternal or intercostal retractions. A-P diameter normal. No crackles, wheezes, rubs. CV: Regular rythm. Heart tones normal. Radial pulses normal. Abd: Not distended. MSK: No kyphoscoliosis, joint deformities of the extremities. Ext: Warm and well perfused. No clubbing, cyanosis. Doughy edema left ankle more than right. No sclerodactyly, Raynaud's. Skin: No rash, eczema, urticaria, petechiae, telangiectasia, ecchymoses. Endo: No goiter, exophthalmos, onycholysis. Neuro: Mental status normal. Affect normal. Muscle strength normal. No tremor. DATA REVIEW: PFT 01/26/2018 02/07/2014 FVC(L) 1.33, 32%. -6% post BD. 3.07, 78%. -1% post BD. FEV1(L) 0.83, 26%. +5% post BD 1.91, 83%. +10% post BD. FEV1% 0.62 0.62. 0.69 post BD. CXR 11/14/2017: Comparison: ?Comparison is made to prior chest dated 14 July 2014 RESULT: Lines, tubes, and devices: ?None. Lungs and pleura: ?Postsurgical changes at the left hilum with volume loss and left apical pleural thickening and parenchymal retraction. Scattered chronic interstitial changes also remain stable. There is no focal consolidation or acute pleural process. There is no overt pulmonary edema. Cardiomediastinal silhouette: ?The cardiac, mediastinal and hilar shadows are unchanged. Other: ?The visualized bony structures are intact IMPRESSION: No acute radiographic abnormality. I have personally and independently reviewed these chest x- ray images and I do not appreciate ANDquot;chronic interstitial changes.ANDquot; There is no change compared to prior images. TO Component Ref Rng ANDamp; Units 01/15/2018 WBC 3.70 - 11.00 k/uL 6.17 RBC 3.90 - 5.20 m/uL 4.14 Hemoglobin 11.5 - 15.5 g/dL 11.5 Hematocrit 36.0 - 46.0 % 36.0 MCV 80.0 - 100.0 fL 87.0 MCH 26.0 - 34.0 pG 27.8 MCHC 30.5 - 36.0 g/dL 31.9 RDW-CV 11.5 - 15.0 % 14.4 Platelet Count 150 - 400 k/uL 225 Abs Neut (ANC) 1.45 - 7.50 k/uL 5.64 Abs Lymph 1.00 - 4.00 k/uL 0.37 (L) Abs Eosin ANDlt;0.46 k/uL ANDlt;0.03 Component Ref Rng ANDamp; Units 08/01/2011 Diphtheria Ab 0.030 (L) . Tetanus Ab 0.307 . . . IgM, Serum 61 (L) IgA, Serum 231 (L) IgE, Serum 188.0 (H) IgG, Total 1152 . . . Pneumococcal Type 1 2.8 . . . Pneumococcal Type 3 0.2 (L) . . . Pneumococcal Type 4 ANDlt;0.2 (L) . . . Pneumo Serotype 5 IgG (P13,PNX) 0.4 (L) . . . Pneumococcal Type 6B 0.2 (L) . . . Pneumococcal Type 7F ANDlt;0.2 (L) . . . Pneumococcal Type 8 3.9 . . . Pneumococcal Type 9N ANDlt;0.2 (L) . . . Pneumo Serotype 9V IgG (P7,P13,PNX) ANDlt;0.2 (L) . . . Pneumococcal Type 12F ANDlt;0.2 (L) . . . Pneumococcal Type 14 13.8 . . . Pneumococcal Type 18C 1.1 . . . Pneumococcal Type 19F ANDgt;20.0 . . . Pneumococcal Type 23F ANDlt;0.2 (L) . . . WBC, [place] 3.7 - 11.0 k/uL 4.1 RBC, [place] 3.90 - 5.20 m/uL 4.29 Hemoglobin, [place] 11.5 - 15.5 g/dL 12.8 Hematocrit, [place] 36.0 - 46.0 % 38.3 Platelet Cnt, [place] 150 - 400 k/uL 196 Abs Neut 1.45 - 7.50 k/uL 2.67 Abs Lymp 1.00 - 4.00 k/uL 0.80 (L) Abs Eos 0.00 - 0.45 k/uL 0.14 IMPRESSION/RECOMMEND: Increased exertional dyspnea associated with marked decrease in lung volume raises the following differential diagnosis: drug induced lung disease (Bleomycin), opportunistic infection (low ANC), possibly pulmonary embolism (asymmetric leg swelling of legs, chest discomfort). No evidence for congestive heart failure. Initial evaluation: - D-dimer. - Quantitative immunoglobulins in light of low ANC, to screen for risk for opportunstic infections. - CTA chest to screen for pulmonary embolism and interstitial lung disease. - Further recommendations will follow these results, but may include Flexible bronchoscopy with bronchoalveolar lavage and biopsy. I addressed the questions of the patient, and she expressed understanding and acceptance of my answers. George Lobo MD, [facility] [place] [facility] [address] [place] [address] P: [phone] F: [phone] [email or web address] Gema Rao LPN 01/26/2018 8:52 AM Signed Intake information documented in the prior visit with Diya Mcbride, [employer] [employer] today. Gema Rao LPN 01/26/2018 9:01 AM Attested Attestation signed by George Lobo at 01/26/2018 9:07 AM (Updated) Reviewed with patient, confirmed as documented by Gema Rao LPN. TO Decreased appetite for a month, maybe weight loss. Early low grade fever, none since. Left leg edema more than right. No leg pain. ROS: General: Generally feels short of breath. Appetite poor for the last month. Eyes, Ears, nose, throat: notes post nasal drip. notes rhinorrhea. denies purulent nasal discharge. notes epistaxis. denies hoarseness. Vision no eye pain or blurred vision. Cardiac: denies angina, notes edema, notes orthopnea. GI: denies heartburn. denies dysphagia. denies diarrhea. 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 denies hesitancy. denies nocturia. Menses: post menopausal Musculoskeletal: denies pain. Neuro: denies headache, denies focal weakness. denies tremor. Skin: denies rash. Otherwise negative. Removed attestation signed by George Lobo at 01/26/2018 9:06 AM (removed by George Lobo at 01/26/2018 9:07 AM) Reviewed with patient, confirmed as documented by Gema Rao LPN. TO George Lobo MD 01/26/2018 9:39 AM Signed IMPRESSION/RECOMMEND: Increased exertional dyspnea associated with marked decrease in lung volume raises the following differential diagnosis: drug induced lung disease (Bleomycin), opportunistic infection (low ANC), possibly pulmonary embolism (asymmetric leg swelling of legs, chest discomfort). No evidence for congestive heart failure. Initial evaluation: - D-dimer. - Quantitative immunoglobulins in light of low ANC, to screen for risk for opportunstic infections. - CTA chest to screen for pulmonary embolism and interstitial lung disease. - Further recommendations will follow these results, but may include Flexible bronchoscopy with bronchoalveolar lavage and biopsy. I addressed the questions of the patient, and she expressed understanding and acceptance of my answers. George Lobo MD, [facility] [place] [facility] [address] [place] [address] P: [phone] F: [phone] [email or web address] Referring Provider: NIKIA PILLAI [[id number]] Allergies As of Date: 01/26/2018 Noted Allergy Reaction SULFA (SULFONAMIDE ANTIBIOTICS) 08/21/2005 2 - Rash 7 - Swelling CODEINE 09/17/2005 4 - Hives Environmental [Other] 10/03/2011 16 - Unknown Comments: Dust mites, trees GUIAFENESIN [Other] 09/17/2005 1 - Mental Status Change PENICILLINS 08/21/2005 2 - Rash Date Reviewed: 01/26/2018 Reviewed by: George Lobo - Fully Assessed Primary Visit Diagnosis:Asthma, moderate persistent, poorly- controlled [J45.40] Other Visit Diagnoses:Abnormal CXR [R93.8] SOB (shortness of breath) [R06.02] Chest pain, unspecified type [R07.9] Order(s):OXIMETRY WITH AMBULATION [[id number]] Order #: [id number] FUTURE LUNG VOLUMES [[id number]] Order #: [id number] FUTURE LUNG DIFFUSION CAPACITY (DLCO) [[id number]] Order #: [id number] FUTURE IMMUNOGLOBULINS PEREZ [SQSERIMM] Order #: [id number] FUTURE D-DIMER [SQDDMER] Order #: [id number] FUTURE CT CHEST W IVCON PE [[id number]] Order #: [id number] FUTURE [] iv contrast (radiology procedure)CT Chest PE -Inject, intravenously, once for 1 dose.No IV access, insert saline lock prior to the beginning of sedation, infusion, injection of imaging exam. Discontinue saline lock post exam. If Pt. has a central line or IVAD, may access for administration according to line specific nursing protocol. Once exam is complete flush line and de- access according to line specific nursing protocol in the CT contrast administration guidelines link.Disp: 1 EachRfl: 0 Prescriptions as of 01/26/2018 Sig: OMEPRAZOLE 20 MG CAPSULE,VIRGIE* TAKE 1 CAPSULE BY MOUTH TWICE* FLUTICASONE 500 MCG-SALMETERO* Inhale 1 Puff as instructed t* IPRATROPIUM BROMIDE 0.02 % SO* Use 2.5 mL via nebulizer four* ALBUTEROL SULFATE 2.5 MG/3 ML* Use 3 mL via nebulizer every * VENLAFAXINE ER 37.5 MG CAPSUL* TAKE ONE CAPSULE BY MOUTH ROSA ELENA* GUAIFENESIN ER 1,200 MG TABLE* Take 1 tablet by mouth twice * MONTELUKAST 10 MG TABLET TAKE 1 TABLET BY MOUTH DAILY * ALBUTEROL SULFATE HFA 90 MCG/* Inhale 2 Puffs as instructed * ONDANSETRON 4 MG DISINTEGRATI* Take 1 tablet by mouth every * OXYCODONE-ACETAMINOPHEN 5 MG-* Take 1 tablet by mouth every * DAILY MULTIVITAMIN TABLET IV CONTRAST (RADIOLOGY PROCED* CT Chest PE -Inject, intraven* Problem List As Of Date 01/26/2018 Noted Resolved Esophageal reflux [K21.9] INVALID FOR* More... Hodgkin's disease [201] INVALID FOR*11/06/2007 More... Absence of menstruation [N91.2] INVALID FOR*06/10/2012 Pneumonia, organism unspecified [J18.9] INVALID FOR*05/10/2011 TENOSYNOV HAND/WRIST NEC [M65.849, M65.839] INVALID FOR*12/19/2006 History of Hodgkin's disease [Z85.71] INVALID FOR* More... Personal history of pneumonia (recurrent) [Z87.*INVALID FOR* More... 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 Asthma [J45.909] INVALID FOR* More... Headache, migraine [G43.909] INVALID FOR* More... More... Notes for Staff Call patient with results Other instructions from your clinician: IMPRESSION/RECOMMEND: Increased exertional dyspnea associated with marked decrease in lung volume raises the following differential diagnosis: drug induced lung disease (Bleomycin), opportunistic infection (low ANC), possibly pulmonary embolism (asymmetric leg swelling of legs, chest discomfort). No evidence for congestive heart failure. Initial evaluation: - D-dimer. - Quantitative immunoglobulins in light of low ANC, to screen for risk for opportunstic infections. - CTA chest to screen for pulmonary embolism and interstitial lung disease. - Further recommendations will follow these results, but may include Flexible bronchoscopy with bronchoalveolar lavage and biopsy. I addressed the questions of the patient, and she expressed understanding and acceptance of my answers. George Lobo MD, [facility] [place] [facility] [address] [place] [address] P: [phone] F: [phone] Visit Notes: >> Gema Rao LPN FriJan 26, 2018 8:51 AM Status: Signed Intake information documented in the prior visit with Diya Mcbride CRT today. >> Gema Rao LPN FriJan 26, 2018 8:56 AM Status: Attested ROS: General: Generally feels short of breath. Appetite poor for the last month. Eyes, Ears, nose, throat: notes post nasal drip. notes rhinorrhea. denies purulent nasal discharge. notes epistaxis. denies hoarseness. Vision no eye pain or blurred vision. Cardiac: denies angina, notes edema, notes orthopnea. GI: denies heartburn. denies dysphagia. denies diarrhea. 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 denies hesitancy. denies nocturia. Menses: post menopausal Musculoskeletal: denies pain. Neuro: denies headache, denies focal weakness. denies tremor. Skin: denies rash. Otherwise negative. Prescriptions ordered this encounter Disp Refills Start End IV CONTRAST (RADIOLOGY PROCEDURE) 1 Ea* 0 01/26/2018 01/27/2018 Class: In Office Sig: CT Chest PE -Inject, intravenously, once for 1 dose.No IV access, insert saline lock prior to the beginning of sedation, infusion, injection of imaging exam. Discontinue saline lock post exam. If Pt. has a central line or IVAD, may access for administration according to line specific nursing protocol. Once exam is complete flush line and de-access according to line specific nursing protocol in the CT contrast administration guidelines link. Follow Up: Call patient with results Follow-up and Disposition History Recorded Encounter Status:Closed by GEORGE LOBO MD on 01/26/18 PROGRESS Observed: 01/26/2018 Status: COMPLETED Source: [place] 8:13 AM [facility] REPOSITORY HNO ID: [id number] Author: George Lobo Service: (none) Author Type: Physician Type: Progress Notes Filed: 01/26/2018 10:00 PM Note Text: [facility] [place] Consultation Note, 01/26/2018: Introduction: The patient is seen in consultation today for evaluation of COPD. This consultation is requested by her Primary Care physician, NIKIA PILLAI MD. A copy of this encounter will be made available as a report via [employer] electronic medical record to Dr. Pillai. HPI: Moderate persistent asthma and allergic rhinitis previously diagnosed and treated by Jennifer Leal MD. 2 weeks ago required emergency department evaluation/treatment, responded to Albuterol/Ipratropium nebs. Never hospitalized. Hodgkin's lymphoma treated with XRT and Bleomycin 1999, followed by stem cell transplant. No rejection or graft vs host disease. Coughs associated with post nasal drip, sometoimes productive clear white mucus, occasionally in AM clear gooey stuff. Never hemoptysis. More cough at night, in supine position, and does waken from sleep; sleeps in chair for weeks. Triggers include: dust, cold weather extremes, stress, respiratory infections, laughter, exertion. Not short of breath at rest. Notes exertional dyspnea with walking from [employer] yesterday, 1 flight of stairs, +/- showering, vacuuming, carrying groceries, Walking any distance. Notes wheezing. No hemoptysis. Initially did notice chest discomfort with shortness of breath, relieved by bending over. Has noted relief with nebulized Ipratropium/Albuterol. PAST MEDICAL HISTORY Diagnosis Date - Asthma 2010 dust mites, tree pollen - Brain bleed (HCC) - Carcinoma in situ of cervix uteri 2008 Treated in [place] by Dr. Montilla - Esophageal reflux Gastroesophageal reflux - Hodgkin's disease, unspecified(201.90) 1999 Hodgkins Disease - HPV (human papillomavirus) vaccine 2008 - Migraine, unspecified, with intractable migraine, so stated, without mention of status migrainosus Migraine - Pap smear of cervix with ASCUS, cannot exclude HGSIL 06/28/13 HPV+ - Postmenopausal bleeding Postmenop. bleeding - Premature menopause - Thrombocytopenia, unspecified (HCC) Thrombocytopenia - VAIN III (vaginal intraepithelial neoplasia III) 2008 As above No COPD, lung cancer, HI, CHF, HBP, DM, DVT, PE. PAST SURGICAL HISTORY Procedure Laterality Date - COLPOSCOPY (VAGINOSCOPY) 2008 with laser tx for HPV - PAST SURGICAL HISTORY OF CHEST WALL BX.,PORT,EDWARDS CATHETER - PAST SURGICAL HISTORY OF 2009 Laser cone of cx and vaporization of upper vagina - VAGINOSCOPY 08/30/13 Benign FAMILY HISTORY Problem Relation Age of Onset - Other [Other] [OTHER] Mother PARKINSON'S - Cancer Maternal Grandmother Stomach? 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 [employer] Social History Main Topics Smoking status: Never Smoker Smokeless status: Never Used Comment: No one in household smokes Alcohol use: Yes Comment: Seldom Drug use: No Sexual activity: Yes Partners with: Male control/protection: Surgical Comment: Vasectomy Immunization History Administered Date(s) Administered Influenza Vaccine, Split-Non Spec 08/27/2005 10/28/2007 07/20/2008 Pneumovax 11/19/2006 05/04/2012 Tdap (Age 7+) 11/19/2006 Tetanus Diphtheria Booster (Age >7) Pres Free 03/06/2017 MEDICATIONS and ALLERGIES: Reviewed, updated and reconciled with the patient today, as noted in the medication and allergy sections of the encounter. ROS: Reviewed with patient, confirmed as documented by Gema Rao LPN. TO PHYSICAL EXAMINATION: BP 108/72 Pulse 115 Resp 16 Ht 5' 9 (1.75m) Wt 141 lb (64.0kg) SpO2 98% LMP 02/18/2004 BMI 20.81 kg/(m2). Gen: No acute distress. Cooperative with examination. ENT: Sclerae clear. Nares clear. Oral hygeine good. Pharynx clear. Resp: No stridor, accessory respiratory muscle use, supra- sternal or intercostal retractions. A-P diameter normal. No crackles, wheezes, rubs. CV: Regular rythm. Heart tones normal. Radial pulses normal. Abd: Not distended. MSK: No kyphoscoliosis, joint deformities of the extremities. Ext: Warm and well perfused. No clubbing, cyanosis. Doughy edema left ankle more than right. No sclerodactyly, Raynaud's. Skin: No rash, eczema, urticaria, petechiae, telangiectasia, ecchymoses. Endo: No goiter, exophthalmos, onycholysis. Neuro: Mental status normal. Affect normal. Muscle strength normal. No tremor. DATA REVIEW: PFT 01/26/2018 02/07/2014 FVC(L) 1.33, 32%. -6% post BD. 3.07, 78%. -1% post BD. FEV1(L) 0.83, 26%. +5% post BD 1.91, 83%. +10% post BD. FEV1% 0.62 0.62. 0.69 post BD. CXR 11/14/2017: Comparison: ?Comparison is made to prior chest dated 14 July 2014 RESULT: Lines, tubes, and devices: ?None. Lungs and pleura: ?Postsurgical changes at the left hilum with volume loss and left apical pleural thickening and parenchymal retraction. Scattered chronic interstitial changes also remain stable. There is no focal consolidation or acute pleural process. There is no overt pulmonary edema. Cardiomediastinal silhouette: ?The cardiac, mediastinal and hilar shadows are unchanged. Other: ?The visualized bony structures are intact IMPRESSION: No acute radiographic abnormality. I have personally and independently reviewed these chest x- ray images and I do not appreciate chronic interstitial changes. There is no change compared to prior images. TO Component Ref Rng AND Units 01/15/2018 WBC 3.70 - 11.00 k/uL 6.17 RBC 3.90 - 5.20 m/uL 4.14 Hemoglobin 11.5 - 15.5 g/dL 11.5 Hematocrit 36.0 - 46.0 % 36.0 MCV 80.0 - 100.0 fL 87.0 MCH 26.0 - 34.0 pG 27.8 MCHC 30.5 - 36.0 g/dL 31.9 RDW-CV 11.5 - 15.0 % 14.4 Platelet Count 150 - 400 k/uL 225 Abs Neut (ANC) 1.45 - 7.50 k/uL 5.64 Abs Lymph 1.00 - 4.00 k/uL 0.37 (L) Abs Eosin <0.46 k/uL <0.03 Component Ref Rng AND Units 08/01/2011 Diphtheria Ab 0.030 (L) . Tetanus Ab 0.307 . . . IgM, Serum 61 (L) IgA, Serum 231 (L) IgE, Serum 188.0 (H) IgG, Total 1152 . . . Pneumococcal Type 1 2.8 . . . Pneumococcal Type 3 0.2 (L) . . . Pneumococcal Type 4 <0.2 (L) . . . Pneumo Serotype 5 IgG (P13,PNX) 0.4 (L) . . . Pneumococcal Type 6B 0.2 (L) . . . Pneumococcal Type 7F <0.2 (L) . . . Pneumococcal Type 8 3.9 . . . Pneumococcal Type 9N <0.2 (L) . . . Pneumo Serotype 9V IgG (P7,P13,PNX) <0.2 (L) . . . Pneumococcal Type 12F <0.2 (L) . . . Pneumococcal Type 14 13.8 . . . Pneumococcal Type 18C 1.1 . . . Pneumococcal Type 19F >20.0 . . . Pneumococcal Type 23F <0.2 (L) . . . WBC, [place] 3.7 - 11.0 k/uL 4.1 RBC, [place] 3.90 - 5.20 m/uL 4.29 Hemoglobin, [place] 11.5 - 15.5 g/dL 12.8 Hematocrit, [place] 36.0 - 46.0 % 38.3 Platelet Cnt, [place] 150 - 400 k/uL 196 Abs Neut 1.45 - 7.50 k/uL 2.67 Abs Lymp 1.00 - 4.00 k/uL 0.80 (L) Abs Eos 0.00 - 0.45 k/uL 0.14 IMPRESSION/RECOMMEND: Increased exertional dyspnea associated with marked decrease in lung volume raises the following differential diagnosis: drug induced lung disease (Bleomycin), opportunistic infection (low ANC), possibly pulmonary embolism (asymmetric leg swelling of legs, chest discomfort). No evidence for congestive heart failure. Initial evaluation: - D-dimer. - Quantitative immunoglobulins in light of low ANC, to screen for risk for opportunstic infections. - CTA chest to screen for pulmonary embolism and interstitial lung disease. - Further recommendations will follow these results, but may include Flexible bronchoscopy with bronchoalveolar lavage and biopsy. I addressed the questions of the patient, and she expressed understanding and acceptance of my answers. George Lobo MD, [facility] [place] [facility] [address] [place] [address] P: [phone] F: [phone] CBC AND DIFFERENTIAL Collected: 01/15/2018 Status: F Source: [place] 2:54 PM [facility] REPOSITORY TYPE CODE TESTS RESULT OUT OF REFERENCE UNITS RANGE LAB WBC 3.70-11.00 k/uL WBC 6.17 LAB RBC 3.90-5.20 m/uL RBC 4.14 LAB HGB 11.5-15.5 g/dL Hemoglobin 11.5 LAB HCT 36.0-46.0 % Hematocrit 36.0 LAB MCV 80.0-100.0 fL MCV 87.0 LAB MCH 26.0-34.0 pG MCH 27.8 LAB MCHC 30.5-36.0 g/dL MCHC 31.9 LAB RDWCV 11.5-15.0 % RDW-CV 14.4 LAB PLTCT 150-400 k/uL Platelet Count 225 LAB MPV 9.0-12.7 fL MPV 9.9 LAB ANEUT % Neut% 91.4 LAB AANEUT 1.45-7.50 k/uL Abs Neut 5.64 LAB ALYMP % Lymph% 6.0 LAB AALYMP 1.00-4.00 k/uL Low Abs Lymph 0.37 LAB AMONO % Blaine% 2.6 LAB AAMONO <0.87 k/uL Abs Blaine 0.16 LAB AEOS % Eosin% 0.0 LAB AAEOS <0.46 k/uL Abs Eosin <0.03 LAB ABASO % Baso% 0.0 LAB AABASO <0.11 k/uL Abs Baso <0.03 LAB AUNRBC 0 /100 WBC NRBCs 0.0 LAB ABNRBC <0.01 k/uL Absolute nRBC <0.01 LAB DTYP DTYPE Auto Diff Performed By: #### CBCDIF #### [facility] [address] [place], [place] [address] PROGRESS Observed: 01/15/2018 Status: COMPLETED Source: [place] 2:16 PM [facility] REPOSITORY HNO ID: [id number] Author: Fritz Durham Service: (none) Author Type: Nurse Practitioner Type: Progress Notes Filed: 01/16/2018 8:00 AM Note Text: CC: Patient presents with: [facility] Follow up: Shortness of breath-appointment with pulmunologist on 01/26/2018 ALLIE Zeeshan Fernando is a 52 year old female who presents today for [facility] ER follow up from 01/11/18. Patient presented with asthma exacerbation with specific complaints of worsening SOB, intermittent productive cough. Patient was noted to have bilateral wheezing. Chest Xray showed chronic changes without evidence of infiltrate. Patient was given albuterol and atrovent and prednisone. Patient was discharged with additional course of prednisone. She presents today with complaint of asthma exacerbation, wheezing, shortness of breath on exertion, chest pain, r/t coughing and worsening night time cough for 3 months. She attributes current increase of symptoms to nothing Baseline symptoms include intermittent cough and is treated with Proair Inhaler, Albuterol nebulizer and Advair 250/50 one inhalation bid. Patient has done poor since their last visit. Waking at night with cough and with wheezing frequent (more than twice a week). Frequency of albuterol use is Q 6hours. Last use of rescue beta agonist was 2 days ago. Last exacerbation was 01/11/18 Last steriod course was: currently on 60mg daily prescribed in ER with 3 courses in the past 3 months Last ED visit 01/11/18 REVIEW OF SYSTEMS General: no fevers, no chills, no night sweats, no recurrent infections, no change in appetite, no significant changes in weight. Positive: Fatigue and feeling warm HEENT: no frequent or significant headaches, no changes in hearing, no visual changes, no nose bleeds, no sinus or nasal problems Neck: no lumps, no pain and no swelling Respiratory: no hemoptysis, See HPI Cardiovascular: no chest pressure, no palpitations, no swelling and See HPI Hematologic/Lymph: Negative for prolonged bleeding, bruising easily or swollen nodes Neurologic: No headache, weakness, numbness, tingling, neck stiffness, tremor, vertigo, dizziness, memory loss, syncope. PAST MEDICAL HISTORY Diagnosis Date - Asthma 2010 dust mites, tree pollen - Brain bleed (HCC) - Carcinoma in situ of cervix uteri 2008 Treated in [place] by Dr. Montilla - Esophageal reflux Gastroesophageal reflux - Hodgkin's disease, unspecified(201.90) 1999 Hodgkins Disease - HPV (human papillomavirus) vaccine 2008 - Migraine, unspecified, with intractable migraine, so stated, without mention of status migrainosus Migraine - Pap smear of cervix with ASCUS, cannot exclude HGSIL 06/28/13 HPV+ - Postmenopausal bleeding Postmenop. bleeding - Premature menopause - Thrombocytopenia, unspecified (HCC) Thrombocytopenia - VAIN III (vaginal intraepithelial neoplasia III) 2008 As above PAST SURGICAL HISTORY Procedure Laterality Date - COLPOSCOPY (VAGINOSCOPY) 2008 with laser tx for HPV - PAST SURGICAL HISTORY OF CHEST WALL BX.,PORT,EDWARDS CATHETER - PAST SURGICAL HISTORY OF 2009 Laser cone of cx and vaporization of upper vagina - VAGINOSCOPY 08/30/13 Benign ALLERGIES Codeine; Environmental [Other]; Guiafenesin [Other]; Penicillins; Sulfa (Sulfonamide Antibiotics) MEDICATIONS albuterol (PROVENTIL) 2.5 mg /3 mL (0.083 %) nebulizer solution Use 3 mL via nebulizer every 4 hours as needed. albuterol (PROVENTIL) 5 mg/mL nebu Inhale 0.5 mL as instructed one time only for 1 dose. 1 DOSE NOW - BACK OFFICE. PLACE 0.5 ML PER DROPPER AND 2.5 ML OF NORMAL SALINE INTO RESERVOIR. venlafaxine ER (EFFEXOR XR) 37.5 mg 24 hr capsule TAKE ONE CAPSULE BY MOUTH EVERY DAY guaiFENesin (MUCINEX) 1,200 mg Ta12 Take 1 tablet by mouth twice daily as needed. montelukast (SINGULAIR) 10 mg tablet TAKE 1 TABLET BY MOUTH DAILY AT BEDTIME. albuterol HFA (PROAIR HFA) 90 mcg/actuation inhaler Inhale 2 Puffs as instructed every 4 hours as needed. For wheezing/shortness of breath. ADVAIR DISKUS 250-50 mcg/dose dsdv ONE INHALATION TWICE A DAY. RINSE MOUTH OUT AFTER USE. ondansetron orally disintegrating (ZOFRAN ODT) 4 mg disintegrating tablet Take 1 tablet by mouth every 8 hours as needed. oxyCODONE-acetaminophen (PERCOCET) 5-325 mg tablet Take 1 tablet by mouth every 8 hours as needed for Pain. DAILY MULTIVITAMIN TAB predniSONE (DELTASONE) 20 mg tablet Take 1 tablet by mouth as directed. omeprazole (PRILOSEC) 20 mg capsule Take 1 capsule by mouth twice daily before meals (0600/1600). 1/2 hr before meal. benzonatate (TESSALON PERLE) 100 mg capsule Take 1 capsule by mouth three times daily as needed. FAMILY HISTORY Problem Relation Age of Onset - Other [Other] [OTHER] Mother PARKINSON'S - Cancer Maternal Grandmother Stomach? - Other [Other] [OTHER] Maternal Grandmother LAZARUS'S CHOREA - Hypertension Father Social History Substance Use Topics - Smoking status: Never Smoker - Smokeless tobacco: Never Used Comment: No one in household smokes - Alcohol use Yes Comment: Seldom PHYSICAL EXAM BP 120/84 Pulse (!) 121 Temp (!) 35.7 ?C (96.3 ?F) (Temporal Artery) Resp 18 Wt 65.3 kg (144 lb) LMP 02/18/2004 SpO2 97% BMI 21.27 kg/m2 General Appearance: alert, mildly ill appearing. No distress Skin: Skin color, texture, turgor normal for age; Head: normocephalic, atraumatic Eyes: conjunctiva pink and moist, no icterus, sclera white, non-injected Lungs: Positive findings: wheezing throughout lung doherty , Cough Heart: Tachycardic regular rhythm without murmur, gallop, or rubs. No ectopy COLORECTAL CANCER SCREENING,SEE MODIFIER due on 2016 INFLUENZA(1) due on 06/20/2017 DIABETES SCREEN due on 11/20/2017 MAMMOGRAM due on 08/18/2018 LIPID SCREEN due on 12/25/2020 PAP EVERY 5 YEARS due on 07/16/2021 HPV EVERY 5 YEARS due on 07/16/2021 TETANUS due on 03/06/2027 ASSESSMENT/PLAN: 1. Moderate asthma with exacerbation, unspecified whether persistent - ICD9: 493.92, ICD10: J45.901 (primary diagnosis) - Begin Atrovent w/albuterol nebulizer BID. Discussed frequency of use of rescue inhaler no more than every 4 hours and when to return to the ER. Patient verbalizes understanding - Increase Advair: Advair 500/50 1 puff twice daily - Follow up with Pulmonology as scheduled 01/26/18 - FLUTICASONE 500 MCG-SALMETEROL 50 MCG/DOSE BLISTR POWDR FOR INHALATION - IPRATROPIUM BROMIDE 0.02 % SOLUTION FOR INHALATION - Patient to follow up in 3 days if no symptom improvement, sooner if new or worsening symptoms. 2. SOB (shortness of breath) - ICD9: 786.05, ICD10: R06.02 - Plan as above, see #1 - CBC + DIFF Prescription instructions reviewed with patient as applicable. Potential red flag symptoms discussed with the patient. Reviewed appropriate action plan to take if red flag symptoms occur. Patient agreeable to treatment plan. Fritz Durham APRN.NATALIIA GONZALEZOV Observed: 01/15/2018 Status: COMPLETED Source: [place] 2:00 PM [facility] REPOSITORY Office Visit (INTMWS) ZEESHAN FERNANDO ([id number]) 1965 F TRN Date Time Provider Department 01/15/18 2:00 PM FRITZ DURHAM (NATALIIA) INTMWS During your visit today, we recorded the following information about you: Temperature Pulse Respiration Blood pressure 96.3 degrees 121/minute 18/minute 120/84 Weight 65.3 kg Fritz Durham APRN.CNP 01/16/2018 8:00 AM Signed CC: Patient presents with: [facility] ER Follow up: Shortness of breath-appointment with pulmunologist on 01/26/2018 HPI Zeeshan Fernando is a 52 year old female who presents today for [facility] ER follow up from 01/11/18. Patient presented with asthma exacerbation with specific complaints of worsening SOB, intermittent productive cough. Patient was noted to have bilateral wheezing. Chest Xray showed chronic changes without evidence of infiltrate. Patient was given albuterol and atrovent and prednisone. Patient was discharged with additional course of prednisone. She presents today with complaint of asthma exacerbation, wheezing, shortness of breath on exertion, chest pain, r/t coughing and worsening night time cough for 3 months. She attributes current increase of symptoms to nothing Baseline symptoms include intermittent cough and is treated with Proair Inhaler, Albuterol nebulizer and Advair 250/50 one inhalation bid. Patient has done poor since their last visit. Waking at night with cough and with wheezing frequent (more than twice a week). Frequency of albuterol use is Q 6hours. Last use of rescue beta agonist was 2 days ago. Last exacerbation was 01/11/18 Last steriod course was: currently on 60mg daily prescribed in ER with 3 courses in the past 3 months Last ED visit 01/11/18 REVIEW OF SYSTEMS General: no fevers, no chills, no night sweats, no recurrent infections, no change in appetite, no significant changes in weight. Positive: Fatigue and feeling ANDquot;warmANDquot; HEENT: no frequent or significant headaches, no changes in hearing, no visual changes, no nose bleeds, no sinus or nasal problems Neck: no lumps, no pain and no swelling Respiratory: no hemoptysis, See HPI Cardiovascular: no chest pressure, no palpitations, no swelling and See HPI Hematologic/Lymph: Negative for prolonged bleeding, bruising easily or swollen nodes Neurologic: No headache, weakness, numbness, tingling, neck stiffness, tremor, vertigo, dizziness, memory loss, syncope. PAST MEDICAL HISTORY Diagnosis Date - Asthma 2010 dust mites, tree pollen - Brain bleed (HCC) - Carcinoma in situ of cervix uteri 2008 Treated [address] [place] [address] Montilla - Esophageal reflux Gastroesophageal reflux - Hodgkin's disease, unspecified(201.90) 1999 Hodgkins Disease - HPV (human papillomavirus) vaccine 2008 - Migraine, unspecified, with intractable migraine, so stated, without mention of status migrainosus Migraine - Pap smear of cervix with ASCUS, cannot exclude HGSIL 06/28/13 HPV+ - Postmenopausal bleeding Postmenop. bleeding - Premature menopause - Thrombocytopenia, unspecified (HCC) Thrombocytopenia - VAIN III (vaginal intraepithelial neoplasia III) 2008 As above PAST SURGICAL HISTORY Procedure Laterality Date - COLPOSCOPY (VAGINOSCOPY) 2008 with laser tx for HPV - PAST SURGICAL HISTORY OF CHEST WALL BX.,PORT,EDWARDS CATHETER - PAST SURGICAL HISTORY OF 2008 Laser cone of cx and vaporization of upper vagina - VAGINOSCOPY 08/30/13 Benign ALLERGIES Codeine; Environmental [Other]; Guiafenesin [Other]; Penicillins; Sulfa (Sulfonamide Antibiotics) MEDICATIONS albuterol (PROVENTIL) 2.5 mg /3 mL (0.083 %) nebulizer solution Use 3 mL via nebulizer every 4 hours as needed. albuterol (PROVENTIL) 5 mg/mL nebu Inhale 0.5 mL as instructed one time only for 1 dose. 1 DOSE NOW - BACK OFFICE. PLACE 0.5 ML PER DROPPER AND 2.5 ML OF NORMAL SALINE INTO RESERVOIR. venlafaxine ER (EFFEXOR XR) 37.5 mg 24 hr capsule TAKE ONE CAPSULE BY MOUTH EVERY DAY guaiFENesin (MUCINEX) 1,200 mg Ta12 Take 1 tablet by mouth twice daily as needed. montelukast (SINGULAIR) 10 mg tablet TAKE 1 TABLET BY MOUTH DAILY AT BEDTIME. albuterol HFA (PROAIR HFA) 90 mcg/actuation inhaler Inhale 2 Puffs as instructed every 4 hours as needed. For wheezing/shortness of breath. ADVAIR DISKUS 250-50 mcg/dose dsdv ONE INHALATION TWICE A DAY. RINSE MOUTH OUT AFTER USE. ondansetron orally disintegrating (ZOFRAN ODT) 4 mg disintegrating tablet Take 1 tablet by mouth every 8 hours as needed. oxyCODONE-acetaminophen (PERCOCET) 5-325 mg tablet Take 1 tablet by mouth every 8 hours as needed for Pain. DAILY MULTIVITAMIN TAB predniSONE (DELTASONE) 20 mg tablet Take 1 tablet by mouth as directed. omeprazole (PRILOSEC) 20 mg capsule Take 1 capsule by mouth twice daily before meals (0600/1600). 1/2 hr before meal. benzonatate (TESSALON PERLE) 100 mg capsule Take 1 capsule by mouth three times daily as needed. FAMILY HISTORY Problem Relation Age of Onset - Other [Other] [OTHER] Mother PARKINSON'S - Cancer Maternal Grandmother Stomach? - Other [Other] [OTHER] Maternal Grandmother LAZARUS'S CHOREA - Hypertension Father Social History Substance Use Topics - Smoking status: Never Smoker - Smokeless tobacco: Never Used Comment: No one in household smokes - Alcohol use Yes Comment: Seldom PHYSICAL EXAM BP 120/84 Pulse (!) 121 Temp (!) 35.7 ?C (96.3 ?F) (Temporal Artery) Resp 18 Wt 65.3 kg (144 lb) LMP 02/18/2004 SpO2 97% BMI 21.27 kg/m2 General Appearance: alert, mildly ill appearing. No distress Skin: Skin color, texture, turgor normal for age; Head: normocephalic, atraumatic Eyes: conjunctiva pink and moist, no icterus, sclera white, non-injected Lungs: Positive findings: wheezing throughout lung doherty , Cough Heart: Tachycardic regular rhythm without murmur, gallop, or rubs. No ectopy COLORECTAL CANCER SCREENING,SEE MODIFIER due on 2016 INFLUENZA(1) due on 06/20/2017 DIABETES SCREEN due on 11/20/2017 MAMMOGRAM due on 08/18/2018 LIPID SCREEN due on 12/25/2020 PAP EVERY 5 YEARS due on 07/16/2021 HPV EVERY 5 YEARS due on 07/16/2021 TETANUS due on 03/06/2027 ASSESSMENT/PLAN: 1. Moderate asthma with exacerbation, unspecified whether persistent - ICD9: 493.92, ICD10: J45.901 (primary diagnosis) - Begin Atrovent w/albuterol nebulizer BID. Discussed frequency of use of rescue inhaler no more than every 4 hours and when to return to the ER. Patient verbalizes understanding - Increase Advair: Advair 500/50 1 puff twice daily - Follow up with Pulmonology as scheduled 01/26/18 - FLUTICASONE 500 MCG-SALMETEROL 50 MCG/DOSE BLISTR POWDR FOR INHALATION - IPRATROPIUM BROMIDE 0.02 % SOLUTION FOR INHALATION - Patient to follow up in 3 days if no symptom improvement, sooner if new or worsening symptoms. 2. SOB (shortness of breath) - ICD9: 786.05, ICD10: R06.02 - Plan as above, see #1 - CBC + DIFF Prescription instructions reviewed with patient as applicable. Potential red flag symptoms discussed with the patient. Reviewed appropriate action plan to take if red flag symptoms occur. Patient agreeable to treatment plan. Fritz Durham APRN.TAR[employer] PUBLISHING AGENT Referring Provider: SELF [[id number]] Allergies As of Date: 01/15/2018 Noted Allergy Reaction CODEINE 09/17/2005 4 - Hives Environmental [Other] 10/03/2011 16 - Unknown Comments: Dust mites, trees GUIAFENESIN [Other] 09/17/2005 1 - Mental Status Change PENICILLINS 08/21/2005 2 - Rash SULFA (SULFONAMIDE ANTIBIOTICS) 08/21/2005 7 - Swelling Date Reviewed: 01/15/2018 Reviewed by: Kiak Gonzales Detective Chief - Fully Assessed Reason for Visit: [facility] ER Follow up [Other] Cmt: Shortness of breath-appointment with pulmunologist on 01/26/2018 Reason For Visit History Recorded Primary Visit Diagnosis:Moderate asthma with exacerbation, unspecified whether persistent [J45.901] Other Visit Diagnosis:SOB (shortness of breath) [R06.02] Order(s):fluticasone-salmeterol (ADVAIR) 500-50 mcg/dose dsdvInhale 1 Puff as instructed twice daily.Disp: 3 InhalerRfl: 1 ipratropium (ATROVENT) 0.02 % nebulizer solutionUse 2.5 mL via nebulizer four times daily. Unit dose pack of 25Disp: 1 VialRfl: 2 CBC + DIFF [SQCBCDIF] Order #: [id number] FUTURE Prescriptions as of 01/15/2018 Sig: ALBUTEROL SULFATE 2.5 MG/3 ML* Use 3 mL via nebulizer every * VENLAFAXINE ER 37.5 MG CAPSUL* TAKE ONE CAPSULE BY MOUTH ROSA ELENA* GUAIFENESIN ER 1,200 MG TABLE* Take 1 tablet by mouth twice * MONTELUKAST 10 MG TABLET TAKE 1 TABLET BY MOUTH DAILY * ALBUTEROL SULFATE HFA 90 MCG/* Inhale 2 Puffs as instructed * ONDANSETRON 4 MG DISINTEGRATI* Take 1 tablet by mouth every * OXYCODONE-ACETAMINOPHEN 5 MG-* Take 1 tablet by mouth every * DAILY MULTIVITAMIN TABLET FLUTICASONE 500 MCG-SALMETERO* Inhale 1 Puff as instructed t* IPRATROPIUM BROMIDE 0.02 % SO* Use 2.5 mL via nebulizer four* OMEPRAZOLE 20 MG CAPSULE,VIRGIE* Take 1 capsule by mouth twice* Problem List As Of Date 01/15/2018 Noted Resolved Esophageal reflux [K21.9] INVALID FOR* More... Hodgkin's disease [201] INVALID FOR*11/06/2007 More... Absence of menstruation [N91.2] INVALID FOR*06/10/2012 Pneumonia, organism unspecified [J18.9] INVALID FOR*05/10/2011 TENOSYNOV HAND/WRIST NEC [M65.849, M65.839] INVALID FOR*12/19/2006 History of Hodgkin's disease [Z85.71] INVALID FOR* More... Personal history of pneumonia (recurrent) [Z87.*INVALID FOR* More... 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 Asthma [J45.909] INVALID FOR* More... Headache, migraine [G43.909] INVALID FOR* More... More... Prescriptions ordered this encounter Disp Refills Start End FLUTICASONE 500 MCG-SALMETEROL 50 MC* 3 In* 1 01/15/2018 Route: INHALATION Sig: Inhale 1 Puff as instructed twice daily. IPRATROPIUM BROMIDE 0.02 % SOLUTION * 1 Vi* 2 01/15/2018 Route: NEBULIZATION Sig: Use 2.5 mL via nebulizer four times daily. Unit dose pack of 25 Medications Discontinued During This Encounter albuterol (PROVENTIL) 5 mg/mL nebu 1 mL 0 12/02/2017 01/15/2018 Class: Back Office Route: INHALATION Sig: Inhale 0.5 mL as instructed one time only for 1 dose. 1 DOSE NOW - BACK OFFICE. PLACE 0.5 ML PER DROPPER AND 2.5 ML OF NORMAL SALINE INTO RESERVOIR. Disc: Reason for discontinue is not on file. predniSONE (DELTASONE) 20 mg tablet 5 ta* 0 10/31/2017 01/15/2018 Route: ORAL Sig: Take 1 tablet by mouth as directed. Disc: Reason for discontinue is not on file. benzonatate (TESSALON PERLE) 100 mg * 30 c* 2 12/04/2015 01/15/2018 Route: ORAL Sig: Take 1 capsule by mouth three times daily as needed. Disc: Reason for discontinue is not on file. ADVAIR DISKUS 250-50 mcg/dose dsdv 3 In* 3 01/21/2017 01/15/2018 Sig: ONE INHALATION TWICE A DAY. RINSE MOUTH OUT AFTER USE. Disc: Reason for discontinue is not on file. Encounter Status:Closed by FRITZ DURHAM CNP on 01/16/18 EMERGENCY DEPARTMENT Observed: 01/12/2018 Status: F Source: [place] SUMMARY 12:51 AM [facility] REPOSITORY [facility] Medical Records Department [address] [place] [address] Emergency Department Summary 01/11/18 2305 MR#: [id number] Acct: [id number] Name: ZEESHAN FERNANDO Rep #: [id number] : 1965 52 From: Gideon Carmona MD PCP: Nikia Pillai MD Status: DEP ER - ER Visit Summary Date of Service: 01/11/18 Chief Complaint: Asthma exacerbation History of Present Illness: The patient is a 52 F presenting for evaluation due to asthma exacerbation. Patient states that she has a underlying history of asthma, had been dealing with respiratory illness couple of months ago, was on a prolonged period of antibiotics and steroids that she finished 3 weeks ago. Patient states that progressively since coming off of the steroids she feels that she has been having worsening shortness of breath but specifically worse today. Patient states that it is associated with a cough intermittently productive of sputum. She denies any presence of fevers. Patient states that she does have an underlying history of Hodgkin's lymphoma and has chronic changes on her left lung on chest x-ray. Review of systems otherwise negative. Physical Examination: Vital signs notable for triage heart rate of 120 respiratory rate 25 pulse ox 95% on room air no hypoxia. Well-nourished female no acute distress no conjunctival pallor no scleral icterus moist mucous membranes. Neck was supple no JVD. Heart was tachycardic and regular. No respiratory distress, but there was tachypnea with wheezing in the bilateral lung doherty with decreased sounds noted on the left consistent with patient's history. Abdomen soft nontender no peripheral edema remainder physical otherwise unremarkable. Test Results: Chest x-ray shows chronic changes with no evidence of superimposed infiltrate per radiology Emergency Department Course and Treatment: Patient presented for evaluation secondary to shortness of breath. Patient was given albuterol and Atrovent treatments as well as prednisone. Patient's chest x-ray shows no evidence of pneumonia. Patient had some dramatic improvement on repeat evaluation has no hypoxia and was able to ambulate on room air and keep her saturations to 96% without significant dyspnea. This point patient has follow-up with pulmonology coming early next month, I believe that she is safe for discharge with a course of prednisone. First dose given in the emergency department patient was discharged in stable condition. Disposition: Discharge Impression: 1. Asthma exacerbation This note was generated with [employer] software. It may contain incorrect words, spelling, and punctuation that were not noted in review of the chart prior to signing ED Disposition - Plan for ED Patient: Disposition: Home or Assisted Living Chief Complaint: Shortness of Breath Diagnosis: Asthma exacerbation Instructions: ED Bronchitis Asthmatic Prescriptions: Prednisone [Deltasone] 60 mg PO DAILY #15 tab Additional Instructions: Followup with Pulmonology as scheduled What to do if you have Problems For any increased pain, shortness of breath, bleeding, nausea or vomiting, chest pain, or any unexpected problems, contact your Primary Care Provider. Call [facility] ([phone]) or report to the closest Emergency Room. Call 911 if necessary. 01/12/18 0051 <Electronically signed by Gideon Carmona MD> Date Gideon Carmona MD Cosigner Signature (If Indicated): Date CC: Nikia Pillai MD CHEST PA AND LATERAL Observed: 01/11/2018 Status: F Source: [place] 9:00 PM [facility] REPOSITORY [facility] Imaging Services [address] [place] [id number] Chest PA and Lateral MR#: [id number] Acct: [id number] Name: ZEESHAN FERNANDO Rep #: [id number] : 1965 F 52 From: Zeeshan Gonzalez MD PCP: Nikia Pillai MD Status: REG ER Study: Chest PA and Lateral Date of Exam: 01/11/18 Exam# [id number] Ordering Dr: Gideon Carmona MD STUDY: X-RAY CHEST REASON FOR EXAM: Female, 52 years old. PT REPORTS I AM HAVING AN ASTHMA ATTACK. COUGH X3 WEEKS. SORE THROAT, CONGESTION AND SOB TECHNIQUE: PA and lateral views of the chest. COMPARISON: Chest x-ray January 21, 2017, chest CT January 21, 2017 FINDINGS: Chronic fibrotic changes as previously described with retraction of the left upper lobe and bronchiectasis as well as periapical soft tissue prominence noted. There is relative volume loss of the left chest with elevation of the left hemidiaphragm. This was present previously. The right lung is relatively clear. The appearance is stable. There is no demonstrated pleural abnormality. Heart size is stable. Normal mediastinum and prabhjot. Normal visualized pulmonary arteries. Atherosclerosis of the aortic arch noted. Normal visualized thoracic spine. Normal visualized ribs, clavicles, and shoulders. There is no demonstrated abnormality of the visualized soft tissue structures of the upper abdomen. RAD/Chest PA and Lateral IMPRESSION: Chronic changes as described. No acute superimposed abnormality. Electronically Signed: Zeeshan Gonzalez MD at 23:01 EDT Tel , Service support , CC: Nikia Pillai MD; Gideon Carmona Cyber Instructor: Signed PROGRESS Observed: 12/02/2017 Status: COMPLETED Source: [place] 7:02 AM [facility] REPOSITORY HNO ID: [id number] Author: Debbie Mcelroy) Mihir Service: (none) Author Type: Physician Therapeutic Activities Services Worker Type: Progress Notes Filed: 12/02/2017 7:36 AM Note Text: HPI Pt presents with cough x 1 month. She has had worsening symptoms for 5 days. She saw her pcp on 11/25 who prescribed doxycycline but she hasn't filled it. She has been taking delsym for cough. She does have history of asthma. ehad a history of hodkins lymphoma however last chemo was in 1999. She had a cxr on 11/14 which showed scarring in left base of lung. She was feeling short of breath last night but is not feeling that here. She denies chest pains except some rib pain from coughing. Review of Systems Constitutional: Positive for fever. HENT: Negative. Respiratory: Positive for cough, sputum production and wheezing. Negative for shortness of breath. Cardiovascular: Rib pain from cough Gastrointestinal: Negative. Genitourinary: Negative. Musculoskeletal: Negative. Skin: Negative. Neurological: Negative. Endo/Heme/Allergies: Negative. Psychiatric/Behavioral: Negative. All other systems reviewed and are negative. PAST MEDICAL HISTORY Diagnosis Date - Asthma 2010 dust mites, tree pollen - Brain bleed (HCC) - Carcinoma in situ of cervix uteri 2008 Treated [address] [place] [address] Dr[address] Montilla - Esophageal reflux Gastroesophageal reflux - Hodgkin's disease, unspecified(201.90) 1999 Hodgkins Disease - HPV (human papillomavirus) vaccine 2008 - Migraine, unspecified, with intractable migraine, so stated, without mention of status migrainosus Migraine - Pap smear of cervix with ASCUS, cannot exclude HGSIL 06/28/13 HPV+ - Postmenopausal bleeding Postmenop. bleeding - Premature menopause - Thrombocytopenia, unspecified (HCC) Thrombocytopenia - VAIN III (vaginal intraepithelial neoplasia III) 2008 As above Current Outpatient Prescriptions: venlafaxine ER (EFFEXOR XR) 37.5 mg 24 hr capsule TAKE ONE CAPSULE BY MOUTH EVERY DAY Disp: 90 capsule Rfl: 1 guaiFENesin (MUCINEX) 1,200 mg Ta12 Take 1 tablet by mouth twice daily as needed. Disp: 20 tablet Rfl: 1 montelukast (SINGULAIR) 10 mg tablet TAKE 1 TABLET BY MOUTH DAILY AT BEDTIME. Disp: 90 tablet Rfl: 3 albuterol HFA (PROAIR HFA) 90 mcg/actuation inhaler Inhale 2 Puffs as instructed every 4 hours as needed. For wheezing/shortness of breath. Disp: 1 Inhaler Rfl: 2 ADVAIR DISKUS 250-50 mcg/dose dsdv ONE INHALATION TWICE A DAY. RINSE MOUTH OUT AFTER USE. Disp: 3 Inhaler Rfl: 3 ondansetron orally disintegrating (ZOFRAN ODT) 4 mg disintegrating tablet Take 1 tablet by mouth every 8 hours as needed. Disp: 12 tablet Rfl: 0 oxyCODONE-acetaminophen (PERCOCET) 5-325 mg tablet Take 1 tablet by mouth every 8 hours as needed for Pain. Disp: 45 tablet Rfl: 0 omeprazole (PRILOSEC) 20 mg capsule Take 1 capsule by mouth twice daily before meals (0600/1600). 1/2 hr before meal. Disp: 180 capsule Rfl: 3 DAILY MULTIVITAMIN TAB Disp: Rfl: 0 albuterol (PROVENTIL) 5 mg/mL nebu Inhale 0.5 mL as instructed one time only for 1 dose. 1 DOSE NOW - BACK OFFICE. PLACE 0.5 ML PER DROPPER AND 2.5 ML OF NORMAL SALINE INTO RESERVOIR. Disp: 1 mL Rfl: 0 predniSONE (DELTASONE) 10 mg tablet Take 4 tabs daily for 3 days, then 2 tabs daily for 3 days, then 1 tab daily for 3 days with food. Disp: 21 tablet Rfl: 0 doxycycline (VIBRA-TABS) 100 mg tablet Take 1 tablet by mouth twice daily for 10 days. Disp: 20 tablet Rfl: 0 albuterol (PROVENTIL) 2.5 mg /3 mL (0.083 %) nebulizer solution Use 3 mL via nebulizer every 4 hours as needed. Disp: 1 Package Rfl: 0 doxycycline (VIBRA-TABS) 100 mg tablet Take 1 tablet by mouth twice daily for 10 days. antibiotic. Take with food. Disp: 20 tablet Rfl: 0 predniSONE (DELTASONE) 20 mg tablet Take 1 tablet by mouth as directed. Disp: 5 tablet Rfl: 0 benzonatate (TESSALON PERLE) 100 mg capsule Take 1 capsule by mouth three times daily as needed. Disp: 30 capsule Rfl: 2 No current facility-administered medications for this visit. PAST SURGICAL HISTORY Procedure Laterality Date - COLPOSCOPY (VAGINOSCOPY) 2008 with laser tx for HPV - PAST SURGICAL HISTORY OF CHEST WALL BX.,PORT,EDWARDS CATHETER - PAST SURGICAL HISTORY OF 2008 Laser cone of cx and vaporization of upper vagina - VAGINOSCOPY 08/30/13 Benign FAMILY HISTORY Problem Relation Age of Onset - Other [Other] [OTHER] Mother PARKINSON'S - Cancer Maternal Grandmother Stomach? - Other [Other] [OTHER] Maternal Grandmother LAZARUS'S CHOREA - Hypertension Father Social History Substance Use Topics - Smoking status: Never Smoker - Smokeless tobacco: Never Used Comment: No one in household smokes - Alcohol use Yes Comment: Seldom Physical Exam Constitutional: She is oriented to person, place, and time and well-developed, well-nourished, and in no distress. HENT: Head: Normocephalic and atraumatic. Right Ear: External ear normal. Left Ear: External ear normal. Nose: Nose normal. Mouth/Throat: Oropharynx is clear and moist. Eyes: Conjunctivae are normal. Pupils are equal, round, and reactive to light. Neck: Normal range of motion. Neck supple. Cardiovascular: Normal rate, regular rhythm and normal heart sounds. Pulmonary/Chest: Effort normal. Pt has inspiratory and expiratory wheezes and rhonchi. She is speaking in full sentences. She is in no respiratory distress. Lymphadenopathy: She has no cervical adenopathy. Neurological: She is alert and oriented to person, place, and time. Skin: Skin is warm and dry. No rash noted. Psychiatric: Affect and judgment normal. Nursing note and vitals reviewed. ASSESSMENT/PLAN: 1. Acute bronchitis, unspecified organism - ICD9: 466.0, ICD10: J20.9 Pt will be placed on prednisone taper, she states she hasn't been on it in about a month. She was given a nebulizer machine from here as well and instructed on use over the next couple days every 6 hours while awake and then as needed. She should continue the advair. I discussed that she has a low grade temp here of 100.5 . She did have a negative chest xray on 11/14 but told her I feel she needs to fill the antibiotics her PCP gave her. She would like to have the doxycycline called in so she doesn't have to make an extra trip.She was given the nebulizer solution script and instructed to continue the delsym for cough. She is oxygenating well here at 96%. While taking prednisone patient was informed not to take any nsaids. Discussed with patient concerning symptoms to go to the emergency department or follow up here. Pt agreeable with this plan. Debbie Ash PA-C PROGRESS Observed: 11/25/2017 Status: COMPLETED Source: [place] 3:31 PM [facility] REPOSITORY HNO ID: [id number] Author: Ailyn Schmitt) LISS Rosas Service: (none) Author Type: Nurse Specialist Type: Progress Notes Filed: 11/25/2017 4:33 PM Note Text: OUTPATIENT VISIT DATE November 25, 2017 OUTPATIENT VISIT TYPE ESTABLISHED PRIMARY CARE PHYSICIAN: NIKIA PILLAI MD CHIEF COMPLAINT: Patient presents with: Wheezing History of Present Illness: Zeeshan Fernando is a 52 year old female who was last seen 10/22/2017 by NIKIA PILLAI MD. She has been seen in the past for ACTIVE PROBLEM LIST Esophageal Reflux History of Hodgkin's Disease Personal history of pneumonia (recurrent) Premature Menopause Postmenopausal Atrophic Vaginitis Cervical High Risk Human Papillomavirus (Hpv) Dna Test Positive Symptomatic Menopausal Or Female Climacteric States COPD with acute bronchitis (HCC) Closed Fracture of Metatarsal Bone(s) Capsulitis Carcinoma in Situ of Cervix Uteri Vain Iii (Vaginal Intraepithelial Neoplasia Grade Iii) Papanicolaou Smear of Cervix With Atypical Squamous Cells of Undetermined Significance (Asc-Us) Subarachnoid Bleed (Hcc) Asthma Headache, Migraine Seen in urgent care 11/14/2017 for cough x 1 week. CXR showed scarring LLL. Treated with azithromycin, prednisone. Called office 11/17/2017 with wheezing and report of lung pain. CT chest [facility] 01/2017. Since the last visit, she states that she is feeling better but persists with productive cough clear sputum and wheezing. She has completed all antibiotics and prednisone. She is consistently using Advair and albuterol inhalers. These are helping. No fever. Some PND reported. Partial relief of symptoms with inhalers, mucinex.. The ROS is otherwise negative. The patient's pmh, medications, allergies, and past visits are reviewed. PHYSICAL EXAM: BP 122/84 (BP Site: Left Arm, BP Position: Sitting, BP Cuff Size: Regular Adult) Pulse 116 Temp 36.5 ?C (97.7 ?F) (Temporal Artery) Resp 18 Wt 64.4 kg (142 lb) LMP 02/18/2004 SpO2 100% BMI 20.97 kg/m2 General appearance: alert, cooperative, pleasant Head: Normocephalic Eyes: conjunctiva/corneas normal Oropharynx: moist without lesions Neck: supple and no adenopathy Heart: regular rate and rhythm, without murmur Lungs: clear to auscultation, without rales or wheeze, good air exchange PAST MEDICAL HISTORY Diagnosis Date - Asthma 2010 dust mites, tree pollen - Brain bleed (HCC) - Carcinoma in situ of cervix uteri 2008 [address] [place] [address] Montilla - Esophageal reflux Gastroesophageal reflux - Hodgkin's disease, unspecified(201.90) 1999 Hodgkins Disease - HPV (human papillomavirus) vaccine 2008 - Migraine, unspecified, with intractable migraine, so stated, without mention of status migrainosus Migraine - Pap smear of cervix with ASCUS, cannot exclude HGSIL 06/28/13 HPV+ - Postmenopausal bleeding Postmenop. bleeding - Premature menopause - Thrombocytopenia, unspecified (HCC) Thrombocytopenia - VAIN III (vaginal intraepithelial neoplasia III) 2008 As above PAST SURGICAL HISTORY Procedure Laterality Date - COLPOSCOPY (VAGINOSCOPY) 2009 with laser tx for HPV - PAST SURGICAL HISTORY OF CHEST WALL BX.,PORT,EDWARDS CATHETER - PAST SURGICAL HISTORY OF 2009 Laser cone of cx and vaporization of upper vagina - VAGINOSCOPY 08/30/13 Benign FAMILY HISTORY Problem Relation Age of Onset - Other [Other] [OTHER] Mother PARKINSON'S - Cancer Maternal Grandmother Stomach? - Other [Other] [OTHER] Maternal Grandmother LAZARUS'S CHOREA - Hypertension Father Social History Substance Use Topics - Smoking status: Never Smoker - Smokeless tobacco: Never Used Comment: No one in household smokes - Alcohol use Yes Comment: Seldom ALLERGIES: ALLERGIES Allergen Reactions - Codeine Hives - Environmental [Othe* Unknown Dust mites, trees - Guiafenesin [Other] Mental Status Change - Penicillins Rash - Sulfa (Sulfonamide * Swelling MEDICATIONS doxycycline (VIBRA-TABS) 100 mg tablet Take 1 tablet by mouth twice daily for 10 days. antibiotic. Take with food. venlafaxine ER (EFFEXOR XR) 37.5 mg 24 hr capsule TAKE ONE CAPSULE BY MOUTH EVERY DAY predniSONE (DELTASONE) 20 mg tablet Take 1 tablet by mouth as directed. guaiFENesin (MUCINEX) 1,200 mg Ta12 Take 1 tablet by mouth twice daily as needed. montelukast (SINGULAIR) 10 mg tablet TAKE 1 TABLET BY MOUTH DAILY AT BEDTIME. albuterol HFA (PROAIR HFA) 90 mcg/actuation inhaler Inhale 2 Puffs as instructed every 4 hours as needed. For wheezing/shortness of breath. ADVAIR DISKUS 250-50 mcg/dose dsdv ONE INHALATION TWICE A DAY. RINSE MOUTH OUT AFTER USE. ondansetron orally disintegrating (ZOFRAN ODT) 4 mg disintegrating tablet Take 1 tablet by mouth every 8 hours as needed. oxyCODONE-acetaminophen (PERCOCET) 5-325 mg tablet Take 1 tablet by mouth every 8 hours as needed for Pain. omeprazole (PRILOSEC) 20 mg capsule Take 1 capsule by mouth twice daily before meals (0600/1600). 1/2 hr before meal. benzonatate (TESSALON PERLE) 100 mg capsule Take 1 capsule by mouth three times daily as needed. DAILY MULTIVITAMIN TAB I personally interviewed, confirmed and edited the above information if obtained by others. TESTING: Glucose (mg/dL) Date Value 11/20/2014 128 Potassium (mEq/L) Date Value 11/20/2014 3.7 Sodium (mEq/L) Date Value 11/20/2014 136 Chloride (mEq/L) Date Value 11/20/2014 103 CO2 (mEq/L) Date Value 11/20/2014 26 Creatinine (mg/dL) Date Value 11/20/2014 0.70 BUN (mg/dL) Date Value 11/20/2014 7 Anion Gap (no units) Date Value 11/20/2014 11 Calcium (mg/dL) Date Value 11/20/2014 9.1 Glucose (mg/dL) Date Value 11/20/2014 128 Potassium (mEq/L) Date Value 11/20/2014 3.7 Sodium (mEq/L) Date Value 11/20/2014 136 Chloride (mEq/L) Date Value 11/20/2014 103 CO2 (mEq/L) Date Value 11/20/2014 26 Creatinine (mg/dL) Date Value 11/20/2014 0.70 BUN (mg/dL) Date Value 11/20/2014 7 Anion Gap (no units) Date Value 11/20/2014 11 Calcium (mg/dL) Date Value 11/20/2014 9.1 Protein, Total (g/dL) Date Value 08/18/2000 6.2 Albumin (g/dL) Date Value 08/18/2000 4.2 Bilirubin, Total (mg/dL) Date Value 08/18/2000 0.6 Alkaline Phosphatase (U/L) Date Value 08/18/2000 64 AST (U/L) Date Value 08/18/2000 31 ALT (U/L) Date Value 08/18/2000 34 Hemoglobin (g/dL) Date Value 11/21/2014 9.8 Hematocrit (%) Date Value 11/21/2014 29.2 WBC (thou/cmm) Date Value 11/21/2014 10.6 LDL Chol, [place] (mg/dL) Date Value 11/06/2009 86 No results found for: HBA1C Ejection Fraction: No results found CT WITH CONTRAST [facility] 01/2017 Findings consistent with left pillar retraction and fibrosis extending into the left apical region with scattered areas of granulomatous changes likely consistent with previous infectious etiology. No evidence of hilar lymphadenopathy or masses present. No evidence of pulmonary embolism. Recommend pulmonary consultation for further assessment and evaluation for granulomatous sequela. IMPRESSION: Ms. Fernando is a 52 year old woman with history of Hodgkins with persistent cough After my examination and review of data, I make the following recommendations. PLAN AND RECOMMENDATIONS: 1. Bronchitis - ICD9: 490, ICD10: J40 (primary diagnosis) 2. 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 Use Delsym as needed for cough. For nasal drainage try loratadine or cetirizine Skin also use fluticasone nasal spray as needed If not continuing to improve or feeling worse with increased cough wheezing fever etc. Take antibiotic - script provided. Advised to go to ER if develops chest pain, shortness of breath, or severe worsening of symptoms. Discussed risks, benefits, alternatives, and potential side effects of medications. Ms. Fernando expressed understanding and agreed with the plan. LISS Landry Observed: 11/15/2017 Status: COMPLETED Source: [place] 12:00 AM [facility] REPOSITORY [facility] ZEESHAN FERNANDO ([id number]) 1965 F TRN Date Time Provider Department 11/15/17 ROSA BOYLE ([facility]) [facility] During your visit today, we recorded the following information about you: Olamide Elise LPN 11/15/2017 10:02 AM Signed ----- Message from Rosa (Nataliia) Gwen sent at 11/15/2017 9:50 AM EST ----- Chest xray is negative per radiologist, may continue to take prescribed antibiotic, Follow instructions given by provider at visit, f/u with PCP if symptoms persist or worsen. NATALIIA Knight LPN 11/15/2017 11:00 AM Signed Left message to call back. Claudia Carlton SHRIMP PACKER 11/15/2017 11:19 AM Signed pt notified with understanding Valentina Herron Psr 11/17/2017 8:35 AM Signed Patient calling back today and has one more pill left in her zpack. Patient was in a lot of pain on Friday (left lung). Patient states it does feel better, but she is still wheezing. Patient calling to give an update and what she needs to do. Allergies As of Date: 11/15/2017 Noted Allergy Reaction CODEINE 09/17/2005 4 - Hives Environmental [Other] 10/03/2011 16 - Unknown Comments: Dust mites, trees GUIAFENESIN [Other] 09/17/2005 1 - Mental Status Change PENICILLINS 08/21/2005 2 - Rash SULFA (SULFONAMIDE ANTIBIOTICS) 08/21/2005 7 - Swelling Date Reviewed: 11/14/2017 Reviewed by: Zeeshan Godwin Ma - Fully Assessed Reason for Visit: Results [95] Prescriptions as of 11/15/2017 Sig: AZITHROMYCIN 250 MG TABLET Take 2 tablets day one, then,* VENLAFAXINE ER 37.5 MG CAPSUL* TAKE ONE CAPSULE BY MOUTH ROSA ELENA* PREDNISONE 20 MG TABLET Take 1 tablet by mouth as dir* GUAIFENESIN ER 1,200 MG TABLE* Take 1 tablet by mouth twice * MONTELUKAST 10 MG TABLET TAKE 1 TABLET BY MOUTH DAILY * ALBUTEROL SULFATE HFA 90 MCG/* Inhale 2 Puffs as instructed * ADVAIR DISKUS 250 MCG-50 MCG/* ONE INHALATION TWICE A DAY. R* ONDANSETRON 4 MG DISINTEGRATI* Take 1 tablet by mouth every * OXYCODONE-ACETAMINOPHEN 5 MG-* Take 1 tablet by mouth every * OMEPRAZOLE 20 MG CAPSULE,VIRGIE* Take 1 capsule by mouth twice* BENZONATATE 100 MG CAPSULE Take 1 capsule by mouth three* DAILY MULTIVITAMIN TABLET Problem List As Of Date 11/15/2017 Noted Resolved Esophageal reflux [K21.9] INVALID FOR* More... Hodgkin's disease [201] INVALID FOR*11/06/2007 More... Absence of menstruation [N91.2] INVALID FOR*06/10/2012 Pneumonia, organism unspecified [J18.9] INVALID FOR*05/10/2011 TENOSYNOV HAND/WRIST NEC [M65.849, M65.839] INVALID FOR*12/19/2006 History of Hodgkin's disease [Z85.71] INVALID FOR* More... Personal history of pneumonia (recurrent) [Z87.*INVALID FOR* More... 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 Asthma [J45.909] INVALID FOR* More... Headache, migraine [G43.909] INVALID FOR* More... More... Encounter Status:Closed by CLAUDIA CARLTON LPN on 11/15/17 XR CHEST 2V FRONTAL/LAT Observed: 11/14/2017 Status: F Source: [place] 5:33 PM [facility] REPOSITORY * * *Final Report* * * DATE OF EXAM: Nov 14 2017 5:33PM WOX [id number] - XR CHEST 2V FRONTAL/LAT / PROCEDURE REASON: Cough * * * * Physician Interpretation * * * * EXAMINATION: CHEST RADIOGRAPH (2 VIEW FRONTAL and LATERAL) Clinical History: Cough M: XC2_3 Comparison: Comparison is made to prior chest dated 14 July 2014 RESULT: Lines, tubes, and devices: None. Lungs and pleura: Postsurgical changes at the left hilum with volume loss and left apical pleural thickening and parenchymal retraction. Scattered chronic interstitial changes also remain stable. There is no focal consolidation or acute pleural process. There is no overt pulmonary edema. Cardiomediastinal silhouette: The cardiac, mediastinal and hilar shadows are unchanged. Other: The visualized bony structures are intact IMPRESSION: No acute radiographic abnormality. Cyber Instructor: PSCB Transcribe Date/Time: Nov 15 2017 8:14A Dictated by : INOCENCIO WHITE MD This examination was interpreted and the report reviewed and electronically signed by: INOCENCIO WHITE MD on Nov 15 2017 8:16AM EST [id number] PROGRESS Observed: 11/14/2017 Status: COMPLETED Source: [place] 5:24 PM [facility] REPOSITORY HNO ID: [id number] Author: Raghu Ambrose (Rt) Service: (none) Author Type: Electrician Sound Type: Progress Notes Filed: 11/14/2017 5:29 PM Note Text: Radiology Service Progress Note PATIENT NAME: Zeeshan Fernando DATE OF SERVICE: November 14, 2017 TIME: 5:24 PM PATIENT IDENTITY VERIFICATION COMPLETED USING TWO (2) METHODS: Patient confirmed name verbally and Date of . PATIENT GENDER DATA: Female. status: : No status: NO. PATIENT RELEVANT IMPLANT DATA REVIEWED: Not Applicable RADIOLOGY DEPARTMENT: General X-ray: Exam(s) Completed: Chest X-Ray PERIPHERAL IV DATA: Not applicable SIGNED BY: RT Arnol November 14, 2017 5:24 PM PROGRESS Observed: 11/14/2017 Status: COMPLETED Source: [place] 4:52 PM [facility] HNO ID: [id number] Author: Reji Johnson Service: (none) Author Type: Physician Type: Progress Notes Filed: 11/14/2017 6:10 PM Note Text: Patient presents with: Breathing Problem: x1 week HPI: Feeling sick for 1 week. Treated for cough 3 weeks ago with prednisone and zpak. Positive symptoms: Cough, fatigue, mild shortness of breath/Wheezing, Chest tightness, Chest pain on the left side with deep breaths feels like pneumonia, Feverish the last couple days after working, Negative symptoms: Nasal Congestion, Rhinorrhea, OTC: Mucinex, Tylenol, advair, albuterol PAST MEDICAL HISTORY Diagnosis Date - Asthma 2010 dust mites, tree pollen - Brain bleed (HCC) - Carcinoma in situ of cervix uteri 2008 [address] [place] [address] Montilla - Esophageal reflux Gastroesophageal reflux - Hodgkin's disease, unspecified(201.90) 1999 Hodgkins Disease - HPV (human papillomavirus) vaccine 2008 - Migraine, unspecified, with intractable migraine, so stated, without mention of status migrainosus Migraine - Pap smear of cervix with ASCUS, cannot exclude HGSIL 06/28/13 HPV+ - Postmenopausal bleeding Postmenop. bleeding - Premature menopause - Thrombocytopenia, unspecified (HCC) Thrombocytopenia - VAIN III (vaginal intraepithelial neoplasia III) 2008 As above MEDICATIONS: Current Outpatient Prescriptions: venlafaxine ER (EFFEXOR XR) 37.5 mg 24 hr capsule TAKE ONE CAPSULE BY MOUTH EVERY DAY guaiFENesin (MUCINEX) 1,200 mg Ta12 Take 1 tablet by mouth twice daily as needed. montelukast (SINGULAIR) 10 mg tablet TAKE 1 TABLET BY MOUTH DAILY AT BEDTIME. albuterol HFA (PROAIR HFA) 90 mcg/actuation inhaler Inhale 2 Puffs as instructed every 4 hours as needed. For wheezing/shortness of breath. ADVAIR DISKUS 250-50 mcg/dose dsdv ONE INHALATION TWICE A DAY. RINSE MOUTH OUT AFTER USE. ondansetron orally disintegrating (ZOFRAN ODT) 4 mg disintegrating tablet Take 1 tablet by mouth every 8 hours as needed. oxyCODONE-acetaminophen (PERCOCET) 5-325 mg tablet Take 1 tablet by mouth every 8 hours as needed for Pain. omeprazole (PRILOSEC) 20 mg capsule Take 1 capsule by mouth twice daily before meals (0600/1600). 1/2 hr before meal. benzonatate (TESSALON PERLE) 100 mg capsule Take 1 capsule by mouth three times daily as needed. DAILY MULTIVITAMIN TAB predniSONE (DELTASONE) 20 mg tablet Take 1 tablet by mouth as directed. azithromycin (ZITHROMAX) 250 mg tablet Take 1 tablet by mouth once daily. No current facility-administered medications for this visit. ALLERGIES: ALLERGIES Allergen Reactions - Codeine Hives - Environmental [Othe* Unknown Dust mites, trees - Guiafenesin [Other] Mental Status Change - Penicillins Rash - Sulfa (Sulfonamide * Swelling VITALS: BP 120/80 Pulse 103 Temp 37.5 ?C (99.5 ?F) (Tympanic) Resp 16 Wt 65 kg (143 lb 3.2 oz) LMP 02/18/2004 BMI 21.15 kg/m2 PHYSICAL EXAM: GEN: pleasant, mildly ill appearing HEENT: PERRL, EOMI, conjunctiva clear Ears: canals clear, TMs without erythema, bulge, or effusion Sinuses: non-tender frontal sinus, non-tender maxillary sinuses Throat: moist mucous membranes, mild erythema, no exudate Neck: supple, no thyromegaly, no lymphadenopathy HEART: regular rate and rhythm, no murmurs LUNGS: clear to auscultation, no wheezes or crackles, no increased WOB ASSESSMENT/PLAN: 1. Cough - ICD9: 786.2, ICD10: R05 Recurrent pneumonia by report, appears to be diagnosed by symptoms or grouped with bronchitis - XR CHEST 2V FRONTAL/LAT - no acute pneumonia, but LLL is obscured by scaring on the PA. Treat based on symptoms - AZITHROMYCIN 250 MG TABLET Denies breathing is flared enough to need repeat steroid. Reji Johnson MD CNOV Observed: 11/14/2017 Status: COMPLETED Source: [place] 4:15 PM [facility] REPOSITORY Office Visit ([facility]) ZEESHAN FERNANDO ([id number]) 1965 F TRN Date Time Provider Department 11/14/17 4:15 PM [facility] During your visit today, we recorded the following information about you: Temperature Pulse Respiration Blood pressure 99.5 degrees 103/minute 16/minute 120/80 Weight 65 kg Reji Johnson MD 11/14/2017 6:10 PM Signed Patient presents with: Breathing Problem: x1 week HPI: Feeling sick for 1 week. Treated for cough 3 weeks ago with prednisone and zpak. Positive symptoms: Cough, fatigue, mild shortness of breath/Wheezing, Chest tightness, Chest pain on the left side with deep breaths feels like pneumonia, Feverish the last couple days after working, Negative symptoms: Nasal Congestion, Rhinorrhea, OTC: Mucinex, Tylenol, advair, albuterol PAST MEDICAL HISTORY Diagnosis Date - Asthma 2010 dust mites, tree pollen - Brain bleed (HCC) - Carcinoma in situ of cervix uteri 2008 [address] [place] [address] Montilla - Esophageal reflux Gastroesophageal reflux - Hodgkin's disease, unspecified(201.90) 1999 Hodgkins Disease - HPV (human papillomavirus) vaccine 2008 - Migraine, unspecified, with intractable migraine, so stated, without mention of status migrainosus Migraine - Pap smear of cervix with ASCUS, cannot exclude HGSIL 06/28/13 HPV+ - Postmenopausal bleeding Postmenop. bleeding - Premature menopause - Thrombocytopenia, unspecified (HCC) Thrombocytopenia - VAIN III (vaginal intraepithelial neoplasia III) 2008 As above MEDICATIONS: Current Outpatient Prescriptions: venlafaxine ER (EFFEXOR XR) 37.5 mg 24 hr capsule TAKE ONE CAPSULE BY MOUTH EVERY DAY guaiFENesin (MUCINEX) 1,200 mg Ta12 Take 1 tablet by mouth twice daily as needed. montelukast (SINGULAIR) 10 mg tablet TAKE 1 TABLET BY MOUTH DAILY AT BEDTIME. albuterol HFA (PROAIR HFA) 90 mcg/actuation inhaler Inhale 2 Puffs as instructed every 4 hours as needed. For wheezing/shortness of breath. ADVAIR DISKUS 250-50 mcg/dose dsdv ONE INHALATION TWICE A DAY. RINSE MOUTH OUT AFTER USE. ondansetron orally disintegrating (ZOFRAN ODT) 4 mg disintegrating tablet Take 1 tablet by mouth every 8 hours as needed. oxyCODONE-acetaminophen (PERCOCET) 5-325 mg tablet Take 1 tablet by mouth every 8 hours as needed for Pain. omeprazole (PRILOSEC) 20 mg capsule Take 1 capsule by mouth twice daily before meals (0600/1600). 1/2 hr before meal. benzonatate (TESSALON PERLE) 100 mg capsule Take 1 capsule by mouth three times daily as needed. DAILY MULTIVITAMIN TAB predniSONE (DELTASONE) 20 mg tablet Take 1 tablet by mouth as directed. azithromycin (ZITHROMAX) 250 mg tablet Take 1 tablet by mouth once daily. No current facility-administered medications for this visit. ALLERGIES: ALLERGIES Allergen Reactions - Codeine Hives - Environmental [Othe* Unknown Dust mites, trees - Guiafenesin [Other] Mental Status Change - Penicillins Rash - Sulfa (Sulfonamide * Swelling VITALS: BP 120/80 Pulse 103 Temp 37.5 ?C (99.5 ?F) (Tympanic) Resp 16 Wt 65 kg (143 lb 3.2 oz) LMP 02/18/2004 BMI 21.15 kg/m2 PHYSICAL EXAM: GEN: pleasant, mildly ill appearing HEENT: PERRL, EOMI, conjunctiva clear Ears: canals clear, TMs without erythema, bulge, or effusion Sinuses: non-tender frontal sinus, non-tender maxillary sinuses Throat: moist mucous membranes, mild erythema, no exudate Neck: supple, no thyromegaly, no lymphadenopathy HEART: regular rate and rhythm, no murmurs LUNGS: clear to auscultation, no wheezes or crackles, no increased WOB ASSESSMENT/PLAN: 1. Cough - ICD9: 786.2, ICD10: R05 Recurrent pneumonia by report, appears to be diagnosed by symptoms or grouped with bronchitis - XR CHEST 2V FRONTAL/LAT - no acute pneumonia, but LLL is obscured by scaring on the PA. Treat based on symptoms - AZITHROMYCIN 250 MG TABLET Denies breathing is flared enough to need repeat steroid. Reji Johnson MD Referring Provider: SELF [200] Allergies As of Date: 11/14/2017 Noted Allergy Reaction CODEINE 09/17/2005 4 - Hives Environmental [Other] 10/03/2011 16 - Unknown Comments: Dust mites, trees GUIAFENESIN [Other] 09/17/2005 1 - Mental Status Change PENICILLINS 08/21/2005 2 - Rash SULFA (SULFONAMIDE ANTIBIOTICS) 08/21/2005 7 - Swelling Date Reviewed: 11/14/2017 Reviewed by: Zeeshan Godwin Ma - Fully Assessed Reason for Visit: Breathing Problem [17] Cmt: x1 week Primary Visit Diagnosis:Cough [R05] Order(s):XR CHEST 2V FRONTAL/LAT [[id number]] Order #: [id number] FUTURE azithromycin (ZITHROMAX Z-VIVIANE) 250 mg tabletTake 2 tablets day one, then, 1 tablet daily until gone.Disp: 1 PackageRfl: 0 Prescriptions as of 11/14/2017 Sig: VENLAFAXINE ER 37.5 MG CAPSUL* TAKE ONE CAPSULE BY MOUTH ROSA ELENA* GUAIFENESIN ER 1,200 MG TABLE* Take 1 tablet by mouth twice * MONTELUKAST 10 MG TABLET TAKE 1 TABLET BY MOUTH DAILY * ALBUTEROL SULFATE HFA 90 MCG/* Inhale 2 Puffs as instructed * ADVAIR DISKUS 250 MCG-50 MCG/* ONE INHALATION TWICE A DAY. R* ONDANSETRON 4 MG DISINTEGRATI* Take 1 tablet by mouth every * OXYCODONE-ACETAMINOPHEN 5 MG-* Take 1 tablet by mouth every * OMEPRAZOLE 20 MG CAPSULE,VIRGIE* Take 1 capsule by mouth twice* BENZONATATE 100 MG CAPSULE Take 1 capsule by mouth three* DAILY MULTIVITAMIN TABLET AZITHROMYCIN 250 MG TABLET Take 2 tablets day one, then,* PREDNISONE 20 MG TABLET Take 1 tablet by mouth as dir* Medication notes this encounter PREDNISONE 20 MG TABLET >> Zeeshan Godwin Ma 11/14/2017 4:47 PM >> ZEESHAN GODWIN MA FriNov 14, 2017 4:47 PM completed AZITHROMYCIN 250 MG TABLET >> Zeeshan Godwin Ma 11/14/2017 4:47 PM >> ZEESHAN GODWIN MA FriNov 14, 2017 4:47 PM completed Problem List As Of Date 11/14/2017 Noted Resolved Esophageal reflux [K21.9] INVALID FOR* More... Hodgkin's disease [201] INVALID FOR*11/06/2007 More... Absence of menstruation [N91.2] INVALID FOR*06/10/2012 Pneumonia, organism unspecified [J18.9] INVALID FOR*05/10/2011 TENOSYNOV HAND/WRIST NEC [M65.849, M65.839] INVALID FOR*12/19/2006 History of Hodgkin's disease [Z85.71] INVALID FOR* More... Personal history of pneumonia (recurrent) [Z87.*INVALID FOR* More... 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 Asthma [J45.909] INVALID FOR* More... Headache, migraine [G43.909] INVALID FOR* More... More... Prescriptions ordered this encounter Disp Refills Start End AZITHROMYCIN 250 MG TABLET 1 Pa* 0 11/14/2017 11/19/2017 Sig: Take 2 tablets day one, then, 1 tablet daily until gone. Medications Discontinued During This Encounter azithromycin (ZITHROMAX) 250 mg tabl* 6 ta* 0 10/22/2017 11/14/2017 Route: ORAL Sig: Take 1 tablet by mouth once daily. Disc: Course of therapy completed Encounter Status:Closed by REJI JOHNSON MD on 11/14/17 OBSOLETE Observed: 11/10/2017 Status: COMPLETED Source: [place] 12:00 AM [facility] REPOSITORY Refill (FAMPWS) ZEESHAN FERNANDO ([id number]) 1965 F TRN Date Time Provider Department 11/10/17 NIKIA PILLAIWS During your visit today, we recorded the following information about you: Cristina Cisse LPN 11/11/2017 10:02 AM Signed Patient has been identified by name and date of : Yes Pharmacy phones for refill(s): Pending Prescriptions Disp Refills VENLAFAXINE ER 37.5 MG CAPSULE,EXTENDED RELEASE 24 HR 90 capsule 1 Sig: TAKE ONE CAPSULE BY MOUTH EVERY DAY SG: Yes Date of last office visit in primary care: 10/22/17 Last 2 Encounter Wt Readings: Date: Wt: 10/22/2017 65.3 kg (144 lb) 01/21/2017 65.2 kg (143 lb 12.8 oz) Previous labs/tests for medication: Not applicable Please advise. Thank you. Cristina Romero LPN 11/12/2017 8:33 AM Signed The following approved medication requests have been transmitted electronically. Signed Prescriptions Disp Refills venlafaxine ER (EFFEXOR XR) 37.5 mg 24 hr capsule 90 capsule 1 Sig: TAKE ONE CAPSULE BY MOUTH EVERY DAY SG: No Authorizing Provider: NIKIA PILLAI LPN Allergies As of Date: 11/10/2017 Noted Allergy Reaction CODEINE 09/17/2005 4 - Hives Environmental [Other] 10/03/2011 16 - Unknown Comments: Dust mites, trees GUIAFENESIN [Other] 09/17/2005 1 - Mental Status Change PENICILLINS 08/21/2005 2 - Rash SULFA (SULFONAMIDE ANTIBIOTICS) 08/21/2005 7 - Swelling Date Reviewed: 10/22/2017 Reviewed by: Kenzie Romero LPN - Fully Assessed Reason for Visit: Refill Request [94] Order(s):venlafaxine ER (EFFEXOR XR) 37.5 mg 24 hr capsuleTAKE ONE CAPSULE BY MOUTH EVERY DAYDisp: 90 capsuleRfl: 1 Prescriptions as of 11/10/2017 Sig: VENLAFAXINE ER 37.5 MG CAPSUL* TAKE ONE CAPSULE BY MOUTH ROSA ELENA* PREDNISONE 20 MG TABLET Take 1 tablet by mouth as dir* AZITHROMYCIN 250 MG TABLET Take 1 tablet by mouth once d* GUAIFENESIN ER 1,200 MG TABLE* Take 1 tablet by mouth twice * MONTELUKAST 10 MG TABLET TAKE 1 TABLET BY MOUTH DAILY * ALBUTEROL SULFATE HFA 90 MCG/* Inhale 2 Puffs as instructed * ADVAIR DISKUS 250 MCG-50 MCG/* ONE INHALATION TWICE A DAY. R* ONDANSETRON 4 MG DISINTEGRATI* Take 1 tablet by mouth every * OXYCODONE-ACETAMINOPHEN 5 MG-* Take 1 tablet by mouth every * OMEPRAZOLE 20 MG CAPSULE,VIRGIE* Take 1 capsule by mouth twice* BENZONATATE 100 MG CAPSULE Take 1 capsule by mouth three* DAILY MULTIVITAMIN TABLET Problem List As Of Date 11/10/2017 Noted Resolved Esophageal reflux [K21.9] INVALID FOR* More... Hodgkin's disease [201] INVALID FOR*11/06/2007 More... Absence of menstruation [N91.2] INVALID FOR*06/10/2012 Pneumonia, organism unspecified [J18.9] INVALID FOR*05/10/2011 TENOSYNOV HAND/WRIST NEC [M65.849, M65.839] INVALID FOR*12/19/2006 History of Hodgkin's disease [Z85.71] INVALID FOR* More... Personal history of pneumonia (recurrent) [Z87.*INVALID FOR* More... 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 Asthma [J45.909] INVALID FOR* More... Headache, migraine [G43.909] INVALID FOR* More... More... Prescriptions ordered this encounter Disp Refills Start End VENLAFAXINE ER 37.5 MG CAPSULE,EXTEN* 90 c* 1 11/12/2017 Sig: TAKE ONE CAPSULE BY MOUTH EVERY DAY Medications Discontinued During This Encounter venlafaxine ER (EFFEXOR XR) 37.5 mg * 90 c* 1 05/15/2017 11/12/2017 Sig: TAKE ONE CAPSULE BY MOUTH EVERY DAY Disc: Reason for discontinue is not on file. Encounter Status:Closed by KENZIE ROMERO LPN on 11/12/17 PROGRESS Observed: 10/22/2017 Status: COMPLETED Source: [place] 10:59 AM [facility] REPOSITORY HNO ID: [id number] Author: Nikia Pillai Service: (none) Author Type: Physician Type: Progress Notes Filed: 10/22/2017 11:13 AM Note Text: Reason for Visit Patient presents with: Same Day Appointment: coughing,short of breath, wheezing, can not sleep x 1 week Zeeshan Fernando is a 52 year old female who presents here today for Above Complaints.. Health Maintenance COLORECTAL CANCER SCREENING,SEE MODIFIER INFLUENZA(1) DIABETES SCREEN HPI Cold for a week and a half and wheezing for 2 and a half days, wheezing and coughing whether she lays down or sits up. No fever now but was present in the past.. Week, has some body aches today, she just does not feel good. Some sputum but cannot tell me what color it is. No problem-specific Assessment AND Plan notes found for this encounter. PAST MEDICAL HISTORY Diagnosis Date - Asthma 2010 dust mites, tree pollen - Brain bleed (HCC) - Carcinoma in situ of cervix uteri 2008 Tre[address] [place] [address] Montilla - Esophageal reflux Gastroesophageal reflux - Hodgkin's disease, unspecified(201.90) 2000 Hodgkins Disease - HPV (human papillomavirus) vaccine 2008 - Migraine, unspecified, with intractable migraine, so stated, without mention of status migrainosus Migraine - Pap smear of cervix with ASCUS, cannot exclude HGSIL 06/28/13 HPV+ - Postmenopausal bleeding Postmenop. bleeding - Premature menopause - Thrombocytopenia, unspecified (HCC) Thrombocytopenia - VAIN III (vaginal intraepithelial neoplasia III) 2008 As above PAST SURGICAL HISTORY Procedure Laterality Date - COLPOSCOPY (VAGINOSCOPY) 2008 with laser tx for HPV - PAST SURGICAL HISTORY OF CHEST WALL BX.,PORT,EDWARDS CATHETER - PAST SURGICAL HISTORY OF 2008 Laser cone of cx and vaporization of upper vagina - VAGINOSCOPY 08/30/13 Benign FAMILY HISTORY Problem Relation Age of Onset - Other [Other] [OTHER] Mother PARKINSON'S - Cancer Maternal Grandmother Stomach? - Other [Other] [OTHER] Maternal Grandmother LAZARUS'S CHOREA - Hypertension Father Social History Substance Use Topics - Smoking status: Never Smoker - Smokeless tobacco: Never Used Comment: No one in household smokes - Alcohol use Yes Comment: Seldom Past medical history, appointments, medications, allergies reviewed. Pertinent Lab/Diagnostic Studies are reviewed and discussed today Current Outpatient Prescriptions: - montelukast (SINGULAIR) 10 mg tablet - venlafaxine ER (EFFEXOR XR) 37.5 mg 24 hr capsule - albuterol HFA (PROAIR HFA) 90 mcg/actuation inhaler - ADVAIR DISKUS 250-50 mcg/dose dsdv - ondansetron orally disintegrating (ZOFRAN ODT) 4 mg disintegrating tablet - oxyCODONE-acetaminophen (PERCOCET) 5-325 mg tablet - omeprazole (PRILOSEC) 20 mg capsule - benzonatate (TESSALON PERLE) 100 mg capsule - DAILY MULTIVITAMIN TAB Review of Systems CONSTITUTIONAL: No fevers, chills night sweats, unintended weight loss CARDIOVASCULAR: No chest pain, dyspnea, palpitations, orthopnea, PND, ankle edema. PULM: No dyspnea, unexplained cough. GI: No dysphagia/odynophagia, problematic reflux, constipation, diarrhea, changes in stool habits, hematochezia, melena. : No new urinary complaints, including dysuria, gross hematuria or pyuria. NEURO: No new balance problems, peripheral weakness/paresthesias or numbness of concern. Physical Exam BP 134/76 (BP Site: Left Arm, BP Position: Sitting, BP Cuff Size: Regular Adult) Pulse 120 Temp 36.7 ?C (98.1 ?F) Resp 14 Ht 175.3 cm (5' 9) Wt 65.3 kg (144 lb) LMP 02/18/2004 SpO2 97% BMI 21.27 kg/m2 General appearance: Well appearing, alert, in no acute distress, well nourished. Skin: Skin color, texture, turgor normal, no suspicious rashes or lesions Head: Normocephalic, no masses, lesions, tenderness or abnormalities Eyes: Anicteric sclera. Pupils are equally round and reactive to light. Extraocular movements are intact. Lungs: coarse breath sounds all over, with, rochi and exp wheezing in the left lung base more than the right side and decreased air entry in the initial breaths which improved after a few breaths. Heart: RRR without murmur, gallop, or rubs. ASSESSMENT/PLAN: 1. Exacerbation of asthma, unspecified asthma severity, unspecified whether persistent - ICD9: 493.92, ICD10: J45.901 (primary diagnosis) She seems to be having a bronchitis, and may have early broncho pneumonia will treat empirically, To call back in 3 days with update and sooner if she develops worsening symptoms or fevers. To er with SOB and we cannot be reached - AZITHROMYCIN 250 MG TABLET - PREDNISONE 10 MG TABLET 2. Upper respiratory tract infection, unspecified type - ICD9: 465.9, ICD10: J06.9 - Discussed viral etiology and rationale for treatment. - Symptomatic treatment with prn analgesia - Supportive care with fluids and rest NIKIA PILLAI MD CNOV Observed: 10/22/2017 Status: COMPLETED Source: [place] 10:40 AM [facility] REPOSITORY Office Visit (INTMWS) ZEESHAN FERNANDO ([id number]) 1965 F TRN Date Time Provider Department 10/22/17 10:40 AM NIKIA PILLAI INTMWS During your visit today, we recorded the following information about you: Temperature Pulse Respiration Blood pressure 98.1 degrees 120/minute 14/minute 134/76 Weight Height 65.3 kg 1.753 m NIKIA PILLAI MD 10/22/2017 11:13 AM Signed Reason for Visit Patient presents with: Same Day Appointment: coughing,short of breath, wheezing, can not sleep x 1 week Zeeshan White Valeriaesteban is a 52 year old female who presents here today for Above Complaints.. Health Maintenance COLORECTAL CANCER SCREENING,SEE MODIFIER INFLUENZA(1) DIABETES SCREEN HPI Cold for a week and a half and wheezing for 2 and a half days, wheezing and coughing whether she lays down or sits up. No fever now but was present in the past.. Week, has some body aches today, she just does not feel good. Some sputum but cannot tell me what color it is. No problem-specific Assessment ANDamp; Plan notes found for this encounter. PAST MEDICAL HISTORY Diagnosis Date - Asthma 2010 dust mites, tree pollen - Brain bleed (HCC) - Carcinoma in situ of cervix uteri [address] [place] [address] Montilla - Esophageal reflux Gastroesophageal reflux - Hodgkin's disease, unspecified(201.90) 1999 Hodgkins Disease - HPV (human papillomavirus) vaccine 2008 - Migraine, unspecified, with intractable migraine, so stated, without mention of status migrainosus Migraine - Pap smear of cervix with ASCUS, cannot exclude HGSIL 06/28/13 HPV+ - Postmenopausal bleeding Postmenop. bleeding - Premature menopause - Thrombocytopenia, unspecified (HCC) Thrombocytopenia - VAIN III (vaginal intraepithelial neoplasia III) 2008 As above PAST SURGICAL HISTORY Procedure Laterality Date - COLPOSCOPY (VAGINOSCOPY) 2008 with laser tx for HPV - PAST SURGICAL HISTORY OF CHEST WALL BX.,PORT,EDWARDS CATHETER - PAST SURGICAL HISTORY OF 2008 Laser cone of cx and vaporization of upper vagina - VAGINOSCOPY 08/30/13 Benign FAMILY HISTORY Problem Relation Age of Onset - Other [Other] [OTHER] Mother PARKINSON'S - Cancer Maternal Grandmother Stomach? - Other [Other] [OTHER] Maternal Grandmother LAZARUS'S CHOREA - Hypertension Father Social History Substance Use Topics - Smoking status: Never Smoker - Smokeless tobacco: Never Used Comment: No one in household smokes - Alcohol use Yes Comment: Seldom Past medical history, appointments, medications, allergies reviewed. Pertinent Lab/Diagnostic Studies are reviewed and discussed today Current Outpatient Prescriptions: - montelukast (SINGULAIR) 10 mg tablet - venlafaxine ER (EFFEXOR XR) 37.5 mg 24 hr capsule - albuterol HFA (PROAIR HFA) 90 mcg/actuation inhaler - ADVAIR DISKUS 250-50 mcg/dose dsdv - ondansetron orally disintegrating (ZOFRAN ODT) 4 mg disintegrating tablet - oxyCODONE-acetaminophen (PERCOCET) 5-325 mg tablet - omeprazole (PRILOSEC) 20 mg capsule - benzonatate (TESSALON PERLE) 100 mg capsule - DAILY MULTIVITAMIN TAB Review of Systems CONSTITUTIONAL: No fevers, chills night sweats, unintended weight loss CARDIOVASCULAR: No chest pain, dyspnea, palpitations, orthopnea, PND, ankle edema. PULM: No dyspnea, unexplained cough. GI: No dysphagia/odynophagia, problematic reflux, constipation, diarrhea, changes in stool habits, hematochezia, melena. : No new urinary complaints, including dysuria, gross hematuria or pyuria. NEURO: No new balance problems, peripheral weakness/paresthesias or numbness of concern. Physical Exam BP 134/76 (BP Site: Left Arm, BP Position: Sitting, BP Cuff Size: Regular Adult) Pulse 120 Temp 36.7 ?C (98.1 ?F) Resp 14 Ht 175.3 cm (5' 9ANDquot;) Wt 65.3 kg (144 lb) LMP 02/18/2004 SpO2 97% BMI 21.27 kg/m2 General appearance: Well appearing, alert, in no acute distress, well nourished. Skin: Skin color, texture, turgor normal, no suspicious rashes or lesions Head: Normocephalic, no masses, lesions, tenderness or abnormalities Eyes: Anicteric sclera. Pupils are equally round and reactive to light. Extraocular movements are intact. Lungs: coarse breath sounds all over, with, rochi and exp wheezing in the left lung base more than the right side and decreased air entry in the initial breaths which improved after a few breaths. Heart: RRR without murmur, gallop, or rubs. ASSESSMENT/PLAN: 1. Exacerbation of asthma, unspecified asthma severity, unspecified whether persistent - ICD9: 493.92, ICD10: J45.901 (primary diagnosis) She seems to be having a bronchitis, and may have early broncho pneumonia will treat empirically, To call back in 3 days with update and sooner if she develops worsening symptoms or fevers. To er with SOB and we cannot be reached - AZITHROMYCIN 250 MG TABLET - PREDNISONE 10 MG TABLET 2. Upper respiratory tract infection, unspecified type - ICD9: 465.9, ICD10: J06.9 - Discussed viral etiology and rationale for treatment. - Symptomatic treatment with prn analgesia - Supportive care with fluids and rest NIKIA PILLAI MD Referring Provider: SELF [200] Allergies As of Date: 10/22/2017 Noted Allergy Reaction CODEINE 09/17/2005 4 - Hives Environmental [Other] 10/03/2011 16 - Unknown Comments: Dust mites, trees GUIAFENESIN [Other] 09/17/2005 1 - Mental Status Change PENICILLINS 08/21/2005 2 - Rash SULFA (SULFONAMIDE ANTIBIOTICS) 08/21/2005 7 - Swelling Date Reviewed: 10/22/2017 Reviewed by: Kenzie Romero SHRIMP PACKER - Fully Assessed Reason for Visit: Same Day Appointment [255] Cmt: coughing,short of breath, wheezing, can not sleep x 1 week Primary Visit Diagnosis:Exacerbation of asthma, unspecified asthma severity, unspecified whether persistent [J45.901] Other Visit Diagnosis:Upper respiratory tract infection, unspecified type [J06.9] Order(s):azithromycin (ZITHROMAX) 250 mg tabletTake 1 tablet by mouth once daily.Disp: 6 tabletRfl: 0 predniSONE (DELTASONE) 10 mg tabletTake 4 tabs daily for 3 days, then 2 tabs daily for 3 days, then 1 tab daily for 3 days with food.Disp: 21 tabletRfl: 1 guaiFENesin (MUCINEX) 1,200 mg [id number] 1 tablet by mouth twice daily as needed.Disp: 20 tabletRfl: 1 Prescriptions as of 10/22/2017 Sig: AZITHROMYCIN 250 MG TABLET Take 1 tablet by mouth once d* PREDNISONE 10 MG TABLET Take 4 tabs daily for 3 days,* GUAIFENESIN ER 1,200 MG TABLE* Take 1 tablet by mouth twice * MONTELUKAST 10 MG TABLET TAKE 1 TABLET BY MOUTH DAILY * VENLAFAXINE ER 37.5 MG CAPSUL* TAKE ONE CAPSULE BY MOUTH ROSA ELENA* ALBUTEROL SULFATE HFA 90 MCG/* Inhale 2 Puffs as instructed * ADVAIR DISKUS 250 MCG-50 MCG/* ONE INHALATION TWICE A DAY. R* ONDANSETRON 4 MG DISINTEGRATI* Take 1 tablet by mouth every * OXYCODONE-ACETAMINOPHEN 5 MG-* Take 1 tablet by mouth every * OMEPRAZOLE 20 MG CAPSULE,VIRGIE* Take 1 capsule by mouth twice* BENZONATATE 100 MG CAPSULE Take 1 capsule by mouth three* DAILY MULTIVITAMIN TABLET Problem List As Of Date 10/22/2017 Noted Resolved Esophageal reflux [K21.9] INVALID FOR* More... Hodgkin's disease [201] INVALID FOR*11/06/2007 More... Absence of menstruation [N91.2] INVALID FOR*06/10/2012 Pneumonia, organism unspecified [J18.9] INVALID FOR*05/10/2011 TENOSYNOV HAND/WRIST NEC [M65.849, M65.839] INVALID FOR*12/19/2006 History of Hodgkin's disease [Z85.71] INVALID FOR* More... Personal history of pneumonia (recurrent) [Z87.*INVALID FOR* More... 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 Asthma [J45.909] INVALID FOR* More... Headache, migraine [G43.909] INVALID FOR* More... More... Prescriptions ordered this encounter Disp Refills Start End AZITHROMYCIN 250 MG TABLET 6 ta* 0 10/22/2017 Route: ORAL Sig: Take 1 tablet by mouth once daily. PREDNISONE 10 MG TABLET 21 t* 1 10/22/2017 10/31/2017 Sig: Take 4 tabs daily for 3 days, then 2 tabs daily for 3 days, then 1 tab daily for 3 days with food. GUAIFENESIN ER 1,200 MG TABLET, EXTE* 20 t* 1 10/22/2017 Route: ORAL Sig: Take 1 tablet by mouth twice daily as needed. Letter Text Department of Internal Medicine [id number] [id number] 10/22/2017 Zeeshan Fernando CC# [id number] [id number] TO WHOM IT MAY CONCERN: This is to certify that Ms. Zeeshan Fernando has been under my care for illness and was unable to work from Oct 22, 2017 through Oct 23, 2017 Sincerely yours, NIKIA PILLAI MD Encounter Status:Closed by NIKIA PILLAI MD on 10/22/17 OBSOLETE Observed: 10/10/2017 Status: COMPLETED Source: [place] 12:00 AM [facility] REPOSITORY Refill (FAMPWS) KASSIEZEESHAN White ([id number]) 1965 F TRN Date Time Provider Department 10/10/17 NIKIA PILLAI During your visit today, we recorded the following information about you: Belinda Montalvo Ma 10/11/2017 9:17 AM Signed Patient has been identified by name and date of : Yes Pharmacy phones for refill(s): Pending Prescriptions Disp Refills MONTELUKAST 10 MG TABLET 90 tablet 3 Sig: TAKE 1 TABLET BY MOUTH DAILY AT BEDTIME. SG: Yes Date of last office visit in primary care: 10/24/2016 Last 2 Encounter Wt Readings: Date: Wt: 01/21/2017 65.2 kg (143 lb 12.8 oz) 01/08/2017 66.2 kg (146 lb) Previous labs/tests for medication: Not applicable Please advise. Thank you. Belinda Romero LPN 10/14/2017 2:19 PM Signed The following approved medication requests have been transmitted electronically. Signed Prescriptions Disp Refills montelukast (SINGULAIR) 10 mg tablet 90 tablet 3 Sig: TAKE 1 TABLET BY MOUTH DAILY AT BEDTIME. SG: No Authorizing Provider: NIKIA PILLAI LPN Allergies As of Date: 10/10/2017 Noted Allergy Reaction CODEINE 09/17/2005 4 - Hives Environmental [Other] 10/03/2011 16 - Unknown Comments: Dust mites, trees GUIAFENESIN [Other] 09/17/2005 1 - Mental Status Change PENICILLINS 08/21/2005 2 - Rash SULFA (SULFONAMIDE ANTIBIOTICS) 08/21/2005 7 - Swelling Date Reviewed: 01/21/2017 Reviewed by: Alexandria Dykes LPN - Fully Assessed Reason for Visit: Refill Request [94] Order(s):montelukast (SINGULAIR) 10 mg tabletTAKE 1 TABLET BY MOUTH DAILY AT BEDTIME.Disp: 90 tabletRfl: 3 Prescriptions as of 10/10/2017 Sig: MONTELUKAST 10 MG TABLET TAKE 1 TABLET BY MOUTH DAILY * VENLAFAXINE ER 37.5 MG CAPSUL* TAKE ONE CAPSULE BY MOUTH ROSA ELENA* ALBUTEROL SULFATE HFA 90 MCG/* Inhale 2 Puffs as instructed * ADVAIR DISKUS 250 MCG-50 MCG/* ONE INHALATION TWICE A DAY. R* ONDANSETRON 4 MG DISINTEGRATI* Take 1 tablet by mouth every * OXYCODONE-ACETAMINOPHEN 5 MG-* Take 1 tablet by mouth every * OMEPRAZOLE 20 MG CAPSULE,VIRGIE* Take 1 capsule by mouth twice* BENZONATATE 100 MG CAPSULE Take 1 capsule by mouth three* DAILY MULTIVITAMIN TABLET Problem List As Of Date 10/10/2017 Noted Resolved Esophageal reflux [K21.9] INVALID FOR* More... Hodgkin's disease [201] INVALID FOR*11/06/2007 More... Absence of menstruation [N91.2] INVALID FOR*06/10/2012 Pneumonia, organism unspecified [J18.9] INVALID FOR*05/10/2011 TENOSYNOV HAND/WRIST NEC [M65.849, M65.839] INVALID FOR*12/19/2006 History of Hodgkin's disease [Z85.71] INVALID FOR* More... Personal history of pneumonia (recurrent) [Z87.*INVALID FOR* More... 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 Asthma [J45.909] INVALID FOR* More... Headache, migraine [G43.909] INVALID FOR* More... More... Prescriptions ordered this encounter Disp Refills Start End MONTELUKAST 10 MG TABLET 90 t* 3 10/14/2017 Sig: TAKE 1 TABLET BY MOUTH DAILY AT BEDTIME. Medications Discontinued During This Encounter montelukast (SINGULAIR) 10 mg tablet 90 t* 3 10/03/2016 10/14/2017 Sig: TAKE 1 TABLET BY MOUTH DAILY AT BEDTIME. Disc: Reason for discontinue is not on file. Encounter Status:Closed by KENZIE ROMERO LPN on 10/14/17 ALLERGIES ALLERGIES DATE TYPE / CODE NAME / CODE REACTION SEVERITY SOURCE 09/20/2018 Drug Penicillins/F001 Itching Unknown [place] Allergy/130796341( 985947(RXNORM) [facility] Repository 09/20/2018 Drug Sulfa Rash Unknown [place] Allergy/120741186( (Sulfonamide Community SNOMED CT) Antibiotics)/F00 Hospital 7048288(RXNORM) Repository 09/20/2018 Drug guaifenesin/F006 Other Unknown [place] Allergy/691598108( 865857(RXNORM) Community SN[facility]) Hospital Repository 10/03/2011 Miscellaneous OTHER UNKNOWN [facility]/534517108( Clinic Other SNOMED CT) [place] Repository 09/17/2005 DRUG CODEINE HIVES [facility] INGREDI/311565324( Clinic Other SNOMED CT) [place] Repository 09/17/2005 DRUG CODEINE HIVES [facility] INGREDI/447501354( Clinic Main SNOMED CT) [place] Repository 08/21/2005 Drug SULFA RASH [facility] Class/021372575(SN (SULFONAMIDE Clinic Other OMED CT) ANTIBIOTICS) [place] Repository 08/21/2005 Drug PENICILLINS RASH [facility] Class/770375027(SN Clinic Other OMED CT) [place] Repository 08/21/2005 Drug SULFA SWELLING [facility] Class/125968297(SN (SULFONAMIDE Clinic Main OMED CT) ANTIBIOTICS) [place] Repository NG/723563341(SNOME SULFA [facility] D [facility]) (SULFONAMIDE [facility] ANTIBIOTICS) Repository NG/842401806(SNOME CODEINE [facility]) [facility] Repository NG/970477174(SNOME OTHER [facility] D [facility]) [facility] Repository NG/821951082(SNOME PENICILLINS [facility] D [facility]) Health System Repository ENCOUNTERS ENCOUNTERS ADMIT/DISCHARGE ACCOUNT NUMBER ADMITTING ENCOUNTER LOCATION SOURCE CLASS 09/30/2018/10/01/20 [id number] Ambulatory [address] Main [place] Repository 09/20/2018/09/21/20 [id number] Emergency [place] ding:ED Repository 08/31/2018/08/31/20 [id number] Ambulatory [address] Main [place] Repository 08/04/2018/08/04/20 [id number] Ambulatory [address] Other [place] Repository 08/04/2018/08/04/20 [id number] Ambulatory [address] MEDICAL Repository CENTERBuildi ng:AGCARDPOB 07/22/2018 [id number] Ambulatory [facility] MEDICAL Repository CENTERBuildi ng:AGCARDPOB 07/17/2018/07/17/20 [id number] Ambulatory [address] Main [place] Repository 05/28/2018/05/28/20 [id number] Ambulatory [address] Other [place] Repository 05/28/2018/05/28/20 [id number] Ambulatory [address] MEDICAL Repository CENTERBuildi ng:AGCARDPOB 05/11/2018 [id number] Ambulatory [facility] MEDICAL Repository CENTERBuildi ng:AKOTWP 05/06/2018/05/07/20 [id number] Ambulatory [address] Main [place] Repository 04/21/2018/04/23/20 [id number] Ambulatory [address] Main [place] Repository 04/15/2018/04/15/20 [id number] Ambulatory [address] Other [place] Repository 04/15/2018/04/15/20 [id number] Ambulatory [address] MEDICAL Repository CENTERBuildi ng:AGCARDPOB 03/23/2018/03/23/20 [id number] Ambulatory [address] Main [place] Repository 03/12/2018/03/12/20 [id number] Ambulatory [address] Other [place] Repository 03/12/2018/03/12/20 [id number] Ambulatory [facility] [address] MEDICAL Repository CENTERBuildi ng:AGCARDPOB 02/23/2018 [id number] Ambulatory [facility] Repository 02/23/2018/02/24/20 [id number] Ambulatory [place] [address] MEDICAL Repository CENTERBuildi ng:AKLPB 02/23/2018/02/24/20 [id number] Ambulatory [address] Other [place] Repository 02/23/2018/02/24/20 [id number] Ambulatory [facility] [address] MEDICAL Repository CENTERBuildi ng:AGCARDPOB 02/12/2018 [id number] Ambulatory [facility] Repository 02/12/2018 [id number] Ambulatory [facility] MEDICAL Repository CENTERBuildi ng:AKHFC 02/09/2018/02/11/20 [id number] Ambulatory [address] Main [place] Repository 02/09/2018 [id number] Ambulatory [facility] [place] Repository 01/30/2018/02/04/20 [id number] QAVI, IVETT Inpatient [address] Repository 01/30/2018/02/04/20 [id number] QAVI, IVETT Inpatient [address] MEDICAL Repository SOUTH SOLONBuildi nRoom: 4119Bed: 01/30/2018/01/31/20 [id number] Ambulatory BMSBuilding: [place] 18 [facility] Repository 01/29/2018/01/31/20 [id number] James, Inpatient [place] 18 Omar Encounter [facility] ding:PCURoom Repository : LGO219Oxn: 01/29/2018 [id number] James, Ambulatory BMSBuilding: [place] Omar BMS.[facility] Repository 01/29/2018 [id number] James, Ambulatory BMSBuilding: [place] Omar [facility] Repository 01/29/2018 [id number] James, Ambulatory BMSBuilding: [place] Omar BMS.CF.PMW [facility] Repository 01/29/2018 [id number] James, Ambulatory BMSBuilding: [place] Omar BMS.WIP [facility] Repository 01/29/2018/01/31/20 [id number] Ambulatory BMSBuilding: [place] 18 [facility] Repository 01/26/2018/01/27/20 [id number] Ambulatory [address] Main [place] Repository 01/26/2018/01/29/20 [id number] Ambulatory [address] Main [place] Repository 01/26/2018/01/29/20 [id number] Ambulatory [address] Main [place] Repository 01/15/2018/01/16/20 [id number] Ambulatory [address] Repository 01/15/2018/01/17/20 [id number] Ambulatory [address] Main [place] Repository 01/11/2018/01/12/20 [id number] Emergency [address] ding:ED Repository 12/02/2017/12/04/19 [id number] Ambulatory [address] Main [place] Repository 11/25/2017/11/26/19 [id number] Ambulatory [address] Main [place] Repository 11/14/2017/11/14/19 [id number] Ambulatory [address] Main [place] Repository 11/14/2017/11/14/19 [id number] Ambulatory [address] Main [place] Repository 10/22/2017/10/22/19 [id number] Ambulatory [address] Main [place] Repository PAYERS PAYERS ENCOUNTER GUARANTOR PAYER SUBSCRIBER SOURCE 09/20/2018 MAHENDRA Browning [id number] Insurance:ANTHEMPolic MICKLEYDOB: [facility] CLEO RDWoostpito levin Number: [id number]: [id number] Repository nadia Date:2915-80-86XE () [facility] [address], [place] [address]IZ: 09/20/2018 Secondary NOT GIVENUNK [place] Insurance:SELF PAY [facility] Number: Effective Repository Date:2018-09-20 08/04/2018 ZEESHAN White Primary MAHENDRA [facility] MICKLEYDOB: Insurance:BLUE CARD MICKLEYDOB: [facility] PPOPolicy Number: [id number] Repository CLEO HINSON [id number] [place] [address]Nma: nadia Date: (HP) 07/22/2018 ZEESHAN White Primary MAHENDRA [facility] MICKLEYDOB: Insurance:BLUE CARD MICKLEYDOB: [facility] PPOPolicy Number: [id number] Repository CLEO HINSON [id number] [place] [address]Cei: nadia Date: (HP) 05/28/2018 ZEESHAN White Primary MAHENDRA [facility] MICKLEYDOB: Insurance:BLUE CARD MICKLEYDOB: [facility] PPOPolicy Number: [id number] Repository CLEO HINSON [id number] [place] [address]Mbv: nadia Date: (HP) 05/11/2018 ZEESHAN White Primary MAHENDRA [facility] MICKLEYDOB: Insurance:BLUE CARD MICKLEYDOB: [facility] PPOPolicy Number: [id number] Repository CLEO HINSON [id number] [place] [address]Vew: nadia Date: (HP) 04/15/2018 ZEESHAN White Primary MAHENDRA [facility] MICKLEYDOB: Insurance:BLUE CARD MICKLEYDOB: [facility] PPOPolicy Number: [id number] Repository CLEO HINSON [id number] [place] [address]Omr: nadia Date: (HP) 03/12/2018 ZEESHAN White Primary MAHENDRA [facility] MICKLEYDOB: Insurance:BLUE CARD MICKLEYDOB: [facility] PPOPolicy Number: [id number] Repository CLEO HINSON [id number] [place] [address]Vhd: nadia Date: (HP) 02/23/2018 ZEESHAN White Primary MAHENDRA [facility] MICKLEYDOB: Insurance:BLUE CARD MICKLEYDOB: [facility] PPOPolicy Number: [id number] Repository CLEO JOYA, [id number] [place] [address]Rvj: nadia Date: (HP) 02/23/2018 ZEESHAN White Primary MAHENDRA [facility] MICKLEYDOB: Insurance:BLUE CARD MICKLEYDOB: [facility] PPOPolicy Number: [id number] Repository CLEO JOYA, [id number] [place] [address]Yil: nadia Date: (HP) 02/12/2018 ZEESHAN White Primary MAHENDRA [facility] MICKLEYDOB: Insurance:BLUE CARD MICKLEYDOB: [facility] PPOPolicy Number: [id number] Repository CLEO JOYA, [id number] [place] [address]Kxj: nadia Date: () 01/30/2018 ZEESHAN White Primary MAHENDRA [facility] MICKLEYDOB: Insurance:BLUE CARD MICKLEYDOB: [facility] PPOPolicy Number: [id number] Repository CLEO JOYA [id number] [place] [address]Ofk: nadia Date: (HP) 01/30/2018 MAHENDRA J Primary CLEO [place] [id number] Insurance:ANTHEMPolic MICKLEYDOB: [facility] pito Adamson Number: [id number] [facility] [place] [address]Anc: [id number] Repository nadia Date:7756-06-43BC () [facility] [address], [place] [address]TJ: 01/30/2018 Secondary NOT GIVENUNK [place] Insurance:SELF PAY [facility] Number: Effective Repository Date:2018-01-30 01/29/2018 MAHENDRA Meyer Primary CLEO Browning [id number] Insurance:ANTHEMPolic MICKLEYDOB: [facility] CLEO Hinson, y Number: [id number]: [id number] Repository nadia Date:5184-33-51AE () [address] [place] [address]FD: 01/29/2018 Secondary NOT GIVENUNK [place] Insurance:SELF PAY [facility] Number: Effective Repository Date:2018-01-29 01/29/2018 MAHENDRA Meyer Primary CLEO Browning [id number] Insurance:ANTHEMPolic MICKLEYDOB: [facility] CLEO Hinson, y Number: [id number]: [id number] Repository nadia Date:6834-49-66YQ () [address] [place] [address]SS: 01/29/2018 Secondary NOT GIVENUNK [place] Insurance:SELF PAY [facility] Number: Effective Repository Date:2018-01-29 01/29/2018 MAHENDRA Meyer Primary CLEO Browning [id number] Insurance:ANTHEMPolic MICKLEYDOB: [facility] CLEO iHnson, y Number: [id number]: [id number] Repository nadia Date:7902-09-14KQ () [address] [place] [address]YY: 01/29/2018 Secondary NOT GIVENUNK [place] Insurance:SELF PAY [facility] Number: Effective Repository Date:2018-01-29 01/29/2018 MAHENDRA Meyer Primary CLEO Browning [id number] Insurance:ANTHEMPolic MICKLEYDOB: [facility] CLEO Hinson, y Number: [id number] [place] [address]Gse: [id number] Repository nadia Date:9319-30-47UK () [address]ARAESLGGLOR[address] [place] [address]YM: 01/29/2018 Secondary NOT GIVENUNK [place] Insurance:SELF PAY [facility] Number: Effective Repository Date:2018-01-29 01/29/2018 MAHENDRA Meyer Primary CLEO Browning [id number] Insurance:ANTHEMPolic MICKLEYDOB: [facility] CLEO Hinson, y Number: [id number]: [id number] Repository nadia Date:6725-99-54FS () [address]HPAQFYAGLORIA [place]AG[place] [address]FC: 01/29/2018 Secondary NOT GIVENUNK [place] Insurance:SELF PAY [facility] Number: Effective Repository Date:2018-01-29 01/29/2018 MAHENDRA J Primary CLEO Browning [id number] Insurance:ANTHEMPolic MICKLEYDOB: [facility] CLEO Hinson, y Number: [id number]: [id number] Repository nadia Date:1324-01-26JR () [address]PXIMKCPGLORIA [place]AG[place] [address]OR: 01/29/2018 Secondary NOT GIVENUNK [place] Insurance:SELF PAY [facility] Number: Effective Repository Date:2018-01-29 01/11/2018 MAHENDRA J Primary CLEO Browning [id number] Insurance:ANTHEMPolic MICKLEYDOB: [facility] CLEO Hinson, y Number: [id number]: [id number] Repository nadia Date:3057-14-08MI () [address]WESCYIHGLORIA [place] [address]RR: 01/11/2018 Secondary NOT GIVENUNK [place] Insurance:SELF PAY [facility] Number: Effective Repository Date:2018-01-11
== END 2018-09-21 00:20 | disposition home or self-care (01) ==
PROVIDERS: Emergency Provider Emergency Medicine; Family Provider Internal Medicine; PCP Internal Medicine
DX: N30.90 Cystitis, unspecified without hematuria (principal); Z85.72 Personal history of non-Hodgkin lymphomas; Z94.84 Stem cells transplant status; I11.0 Hypertensive heart disease with heart failure; I50.9 Heart failure, unspecified; J45.909 Unspecified asthma, uncomplicated; R91.8 Other nonspecific abnormal finding of lung field
CPT/HCPCS: 71045; 80048; 80076; 81001; 83605; 85025; 87040; 87086; 87088; 87186; 87804; 93005; 96361; 96365; 99283; J7040; A4216